=== PATIENT | male | born 1935 | race Caucasian/White ===

== ENCOUNTER 2017-05-22 14:51 | Outpatient (CLI) | payer MEDICARE, OTHER ==
[2017-05-22 19:06] LABS: BASOPHILS % (AUTO) 0.6 %; EOSINOPHILS # (AUTO) 0.1 10^3/uL (0.0-0.7); EOSINOPHILS % (AUTO) 1.4 %; HGB - HEMOGLOBIN 14.4 g/dL (14.0-18.0); LYMPHOCYTES # (AUTO) 1.8 10^3/uL (1.5-3.5); LYMPHOCYTES % (AUTO) 23.2 %; MEAN CORPUSCULAR HEMOGLOBIN 32.5 pg (27.0-31.0); MEAN CORPUSCULAR HGB CONC 32.7 g/dL (32.0-36.0); MEAN CORPUSCULAR VOLUME 99.4 fL (80.0-94.0); MEAN PLATELET VOLUME 11.2 fL (7.4-11.4); MONOCYTES # (AUTO) 0.6 10^3/uL (0.0-1.0); MONOCYTES % (AUTO) 7.4 %; NEUTROPHILS # (AUTO) 5.1 10^3/uL (1.5-6.6); NEUTROPHILS % (AUTO) 67.4 %; RED BLOOD COUNT 4.43 10^6/uL (4.70-6.10); RED CELL DISTRIBUTION WIDTH 14.5 % (12.0-15.0); UNCORRECTED WHITE BLOOD COUNT 7.6 x10^3/uL; WHITE BLOOD COUNT 7.6 x10^3/uL (4.8-10.8)
[2017-05-23 11:03] LABS: BILIRUBIN,TOTAL 1.1 mg/dL (0.2-1.0); BUN - BLOOD UREA NITROGEN 35 mg/dL (6-20); CALCIUM 10.1 mg/dL (8.5-10.3); CARBON DIOXIDE - CO2 22 mmol/L (21-32); CHLORIDE 106 mmol/L (101-111); CHOL/HDL RATIO 6.8 (<5.0); CHOLESTEROL 198 mg/dL; CREATININE 1.7 mg/dL (0.6-1.2); GFR - MDRD 39 (>89); GLUCOSE 119 mg/dL (70-100); HDL CHOLESTEROL 29 mg/dL; LDL/HDL RATIO 4.6 (<3.6); POTASSIUM 5.6 mmol/L (3.5-5.0); SODIUM 136 mmol/L (135-145); TOTAL PROTEIN 7.9 g/dL (6.7-8.2); TRIGLYCERIDES 186 mg/dL; VLDL CHOLESTEROL 37 mg/dL
[2017-05-23 11:10] LABS: HEMOGLOBIN A1C 0.59 g/dL
== END 2017-05-22 14:52 | disposition home or self-care (01) ==
LOC: LAB.WCP 14:51
PROVIDERS: ATTEND Family Medicine
DX: E78.5 Hyperlipidemia, unspecified (principal); E11.9 Type 2 diabetes mellitus without complications; E03.9 Hypothyroidism, unspecified; I10 Essential (primary) hypertension
CPT/HCPCS: 36415; 80053; 80061; 82043; 83036; 84443; 85025

== ENCOUNTER 2017-06-04 09:26 | Outpatient (CLI) | payer MEDICARE, OTHER ==
[2017-06-04 13:31] LABS: CALCIUM 9.6 mg/dL (8.5-10.3); CREATININE 1.5 mg/dL (0.6-1.2)
== END 2017-06-04 09:27 | disposition home or self-care (01) ==
LOC: LAB.WCP 09:26
PROVIDERS: ATTEND Family Medicine
DX: N28.9 Disorder of kidney and ureter, unspecified (principal)
CPT/HCPCS: 36415; 80048

== ENCOUNTER 2017-08-07 09:30 | Outpatient (CLI) | payer MEDICARE, OTHER | END 2017-08-07 09:31 | LOC: LAB.WCP 09:30 | PROVIDERS: ATTEND Family Medicine | DX: N39.0 Urinary tract infection, site not specified (principal) | CPT/HCPCS: 87086 ==

== ENCOUNTER 2017-08-27 10:00 | Outpatient (CLI) | payer MEDICARE, OTHER ==
[2017-08-27 13:07] LABS: BASOPHILS % (AUTO) 0.8 %; EOSINOPHILS # (AUTO) 0.2 10^3/uL (0.0-0.7); EOSINOPHILS % (AUTO) 3.1 %; HGB - HEMOGLOBIN 14.4 g/dL (14.0-18.0); LYMPHOCYTES # (AUTO) 1.5 10^3/uL (1.5-3.5); LYMPHOCYTES % (AUTO) 27.3 %; MEAN CORPUSCULAR HEMOGLOBIN 31.6 pg (27.0-31.0); MEAN CORPUSCULAR HGB CONC 33.4 g/dL (32.0-36.0); MEAN CORPUSCULAR VOLUME 94.6 fL (80.0-94.0); MEAN PLATELET VOLUME 11.7 fL (7.4-11.4); MONOCYTES # (AUTO) 0.5 10^3/uL (0.0-1.0); MONOCYTES % (AUTO) 8.6 %; NEUTROPHILS # (AUTO) 3.4 10^3/uL (1.5-6.6); NEUTROPHILS % (AUTO) 60.2 %; PLT - PLATELET COUNT 170 10^3/uL (130-450); RED BLOOD COUNT 4.55 10^6/uL (4.70-6.10); RED CELL DISTRIBUTION WIDTH 13.4 % (12.0-15.0); WHITE BLOOD COUNT 5.7 x10^3/uL (4.8-10.8)
[2017-08-27 13:44] LABS: ALBUMIN 3.3 g/dL (3.2-5.5); ALBUMIN/GLOBULIN RATIO 0.9 (1.0-2.2); ALKALINE PHOSPHATASE 100 IU/L (42-121); ALT ALANINE AMINOTRANSFERASE 24 IU/L (10-60); AST ASPARTATE AMINOTRANSFERASE 39 IU/L (10-42); BILIRUBIN,TOTAL 0.9 mg/dL (0.2-1.0); BUN - BLOOD UREA NITROGEN 28 mg/dL (6-20); CALCIUM 9.7 mg/dL (8.5-10.3); CARBON DIOXIDE - CO2 25 mmol/L (21-32); CHLORIDE 106 mmol/L (101-111); CHOLESTEROL 168 mg/dL; CREATININE 1.3 mg/dL (0.6-1.2); GFR - MDRD 53 (>89); GLUCOSE 97 mg/dL (70-100); HDL CHOLESTEROL 24 mg/dL; LDL CHOLESTEROL,CALCULATED 108 mg/dL; LDL/HDL RATIO 4.5 (<3.6); SODIUM 137 mmol/L (135-145); TOTAL PROTEIN 7.1 g/dL (6.7-8.2); VLDL CHOLESTEROL 36 mg/dL
[2017-08-27 14:29] LABS: HB2 TOTAL 15.8 g/dL; HEMOGLOBIN A1C 0.57 g/dL; HEMOGLOBIN A1C % 5.5 % (4.6-6.2)
== END 2017-08-27 10:01 | disposition home or self-care (01) ==
LOC: LAB.WCP 10:00
PROVIDERS: ATTEND Family Medicine
DX: E78.5 Hyperlipidemia, unspecified (principal); I12.9 Hypertensive chronic kidney disease with stage 1 through stage 4 chronic kidney disease, or unspecified chronic kidney disease; N28.9 Disorder of kidney and ureter, unspecified; E11.9 Type 2 diabetes mellitus without complications; E03.9 Hypothyroidism, unspecified
CPT/HCPCS: 36415; 80053; 80061; 83036; 83721; 84443; 85025

== ENCOUNTER 2017-09-10 05:01 | Inpatient (IN) | payer MEDICARE, OTHER ==
--- NOTE | 2017-09-10 05:38 | ED Physician Documentation ---
PD HPI LOWER EXT INJURY - Stated complaint Stated Complaint: RT LEG PAIN - Chief complaint Chief Complaint: Ext Problem - History obtained from History obtained from: Patient - History of Present Illness PD HPI LOW EXT INJURY LOCATION: Right, Hip Type of injury: Fall Where injury occurred: Home Timing - onset: How many hours ago (1) Worsened by: Moving, Palpating Similar symptoms before: Has not had sx before - Additional information Additional information: The patient is an 82-year-old male with history of insulin-dependent diabetes who presents with right hip pain after falling this morning. He became dizzy when letting his dog out and he fell to the tile floor onto his right side. He denies hitting his head or losing consciousness. He denies any other injuries. He has not been able to stand since the incident because of pain in his right hip. Review of his medical records reveals hospitalization here in May 2017 for urinary tract infection with hypotension. In addition to insulin-dependent diabetes he has a history of prostate cancer, and a remote history of tuberculosis that has been treated. Review of Systems Constitutional: denies: Fever, Fatigue Nose: denies: Congestion Throat: denies: Sore throat Cardiac: denies: Chest pain / pressure Respiratory: denies: Dyspnea, Cough GI: denies: Abdominal Pain, Nausea, Vomiting : denies: Dysuria Skin: denies: Rash Musculoskeletal: reports: Joint pain (right hip.). denies: Extremity swelling Neurologic: denies: Focal weakness, Numbness, Headache, Head injury, LOC PD PAST MEDICAL HISTORY - Past Medical History Past Medical History: Yes Cardiovascular: Hypertension, High cholesterol Respiratory: Tuberculosis (Remote history; treated.) Neuro: None Endocrine/Autoimmune: Type 2 diabetes, HyPOthyroidism GI: None PARAOPTOMETRIC: Other (Prostate CA) : Other HEENT: None Psych: None Musculoskeletal: Osteoarthritis Derm: None - Past Surgical History Past Surgical History: Yes HEENT: Cataracts - Present Medications Home Medications: Ambulatory Orders Medication Instructions Recorded Confirmed Cholecalciferol (Vitamin D3) 2,000 unit PO DAILY 03/01/13 06/20/17 [Vitamin D3] Fenofibrate [Tricor] 54 mg PO QD 03/01/13 06/20/17 Levothyroxine [Synthroid] 100 mcg PO QDAC 03/01/13 06/20/17 Pravastatin Sodium [Pravachol] 20 mg PO QPM 03/01/13 06/20/17 Tamsulosin [Flomax] 0.4 mg PO DAILY 03/01/13 06/20/17 Aspirin [Aspirin EC] 81 mg PO DAILY 05/25/17 06/20/17 Calcitriol 0.25 mcg PO .TWICEWEEKLY 05/25/17 06/20/17 Gabapentin 300 mg PO TID 05/25/17 06/20/17 traMADol [Ultram] 50 mg PO Q6H PRN 05/25/17 06/20/17 Ciprofloxacin [Cipro] 250 mg PO Q12H #12 tablet 05/26/17 06/20/17 Insulin Glargine [Lantus Solostar] 25 unit SUBQ QPM 08/01/17 08/01/17 - Allergies Allergies/Adverse Reactions: Allergies Allergy/AdvReac Type Severity Reaction Status Date / Time No Known Drug Allergies Allergy Verified 09/10/17 05:10 - Social History Does the pt smoke?: No Smoking Status: Never smoker Does the pt drink ETOH?: No Does the pt have substance abuse?: No - Immunizations Immunizations are current?: Yes - POLST Patient has POLST: No POLST Status: Full Code PD ED PE NORMAL - Vitals Vital signs reviewed: Yes (tachycardic) - General General: Alert and oriented X 3, Well developed/nourished - HEENT HEENT: Atraumatic, EOMI, Pharynx benign - Neck Neck: No bony TTP, No adenopathy, No JVD - Cardiac Cardiac: RRR, No murmur - Respiratory Respiratory: No respiratory distress, Clear bilaterally, Other (No chest wall tenderness.) - Abdomen Abdomen: Soft, Non tender - Back Back: No CVA TTP, No spinal TTP - Derm Derm: No rash - Extremities Extremities: No edema, No calf tenderness / cord, Other (Right leg is shortened and there is tenderness to palpation at the right hip, exacerbated by internal and external rotation.) - Neuro Neuro: Alert and oriented X 3, No motor deficit, No sensory deficit Results - Vitals Vitals: Vital Signs - 24 hr 09/10/17 09/10/17 09/10/17 05:06 05:44 07:22 Temperature 36.2 C L Heart Rate 114 H 100 86 Respiratory 18 16 16 Rate Blood Pressure 120/62 123/56 L 133/81 H O2 Saturation 100 98 99 Oxygen O2 Source Room air - EKG (time done) 05:45 Rate: Rate (enter#) (99) Rhythm: NSR [place]: Normal Intervals: Normal IN Ischemia: Non specific changes (Minimal ST depression, anterior leads.) Computer interpretation: Agree with computer - Labs Labs: Laboratory Tests 09/10/17 09/10/17 09/10/17 05:19 05:42 05:42 WBC 20.1 H RBC 4.26 L Hgb 13.2 L Hct 39.8 L MCV 93.4 MCH 30.9 MCHC 33.1 RDW 13.6 Plt Count 272 MPV 9.5 Neut # 17.7 H Lymph # 1.4 L [place] # 0.8 Eos # 0.1 Baso # 0.1 Absolute Nucleated RBC 0.00 Nucleated RBC % 0.0 PT 12.5 INR 1.1 APTT 27.6 Sodium Potassium Chloride Carbon Dioxide Anion Gap BUN Creatinine Estimated GFR (MDRD) Glucose POC Whole Bld Glucose 177 H Calcium Total Bilirubin AST ALT Alkaline Phosphatase Total Protein Albumin Globulin Albumin/Globulin Ratio Lipase Urine Color Urine Clarity Urine pH Ur Specific [place] Urine Protein Urine Glucose (UA) Urine Ketones Urine Occult Blood Urine Nitrite Urine Bilirubin Urine Urobilinogen Ur Leukocyte Esterase Urine RBC Urine WBC Ur Squamous Epith Cells Urine Bacteria Ur Microscopic Review Urine Culture Comments 09/10/17 09/10/17 05:42 06:28 WBC RBC Hgb Hct MCV MCH MCHC RDW Plt Count MPV Neut # Lymph # [place] # Eos # Baso # Absolute Nucleated RBC Nucleated RBC % PT INR APTT Sodium 135 Potassium 4.4 Chloride 102 Carbon Dioxide 20 L Anion Gap 13.0 BUN 34 H Creatinine 1.8 H Estimated GFR (MDRD) 36 L Glucose 198 H POC Whole Bld Glucose Calcium 9.4 Total Bilirubin 0.8 AST 38 ALT 24 Alkaline Phosphatase 197 H Total Protein 7.1 Albumin 2.9 L Globulin 4.2 Albumin/Globulin Ratio 0.7 L Lipase 19 L Urine Color YELLOW Urine Clarity CLOUDY Urine pH 5.5 Ur Specific [place] 1.025 Urine Protein 30 H Urine Glucose (UA) NEGATIVE Urine Ketones NEGATIVE Urine Occult Blood MODERATE H Urine Nitrite NEGATIVE Urine Bilirubin NEGATIVE Urine Urobilinogen 0.2 (NORMAL) Ur Leukocyte Esterase MODERATE H Urine RBC 6-10 H Urine WBC >25 H Ur Squamous Epith Cells NONE SEEN Urine Bacteria None Seen Ur Microscopic Review INDICATED Urine Culture Comments INDICATED - Rads (name of study) Right hip Radiology: Prelim report reviewed, EMP read contemporaneously, See rad report ( Acute minimally displaced right intertrochanteric femoral fracture.) CXR Radiology: Prelim report reviewed, EMP read contemporaneously, See rad report ( Stable appearing chest without acute cardiopulmonary abnormality.) PD MEDICAL DECISION MAKING - ED course Complexity details: reviewed old records, reviewed results, re-evaluated patient , considered differential, d/w patient, d/w family, d/w instructional design consultant ED course: The patient's presentation is significant for a minimally displaced right intertrochanteric fracture, which is visualized on x-ray of his hip. His laboratory evaluation reveals hyperglycemia with a glucose of 198. BUN and creatinine are elevated at 34 and 1.8. His white count is elevated to 20,000. Treatment in the emergency department included administration of normal saline IV. He declined pain medication, stating it did not hurt unless he moved it. I discussed his condition with Dr. Vitale, on-call for orthopedics, and he evaluated the patient in the emergency department and plans operative repair. I discussed his condition with Dr. Mcgowan, the hospitalist, who will accept him and write further orders prior to surgery. Departure - Departure Disposition: [facility] DC/Xfer Clinical Impression: Intertrochanteric fracture of right femur Qualifiers: Encounter type: initial encounter Fracture type: closed Fracture alignment: displaced Qualified Code(s): S72.141A - Displaced intertrochanteric fracture of right femur, initial encounter for closed fracture Diabetes mellitus with hyperglycemia Qualifiers: Diabetes mellitus type: type 2 Diabetes mellitus terminologist insulin use: with terminologist use Qualified Code(s): E11.65 - Type 2 diabetes mellitus with hyperglycemia Condition: Stable
[2017-09-10 05:49] LABS: BASOPHILS # (AUTO) 0.1 10^3/uL (0.0-0.1); BASOPHILS % (AUTO) 0.3 %; EOSINOPHILS # (AUTO) 0.1 10^3/uL (0.0-0.7); EOSINOPHILS % (AUTO) 0.5 %; HGB - HEMOGLOBIN 13.2 g/dL (14.0-18.0); LYMPHOCYTES # (AUTO) 1.4 10^3/uL (1.5-3.5); LYMPHOCYTES % (AUTO) 7.1 %; MEAN CORPUSCULAR HEMOGLOBIN 30.9 pg (27.0-31.0); MEAN CORPUSCULAR HGB CONC 33.1 g/dL (32.0-36.0); MEAN CORPUSCULAR VOLUME 93.4 fL (80.0-94.0); MEAN PLATELET VOLUME 9.5 fL (7.4-11.4); MONOCYTES # (AUTO) 0.8 10^3/uL (0.0-1.0); MONOCYTES % (AUTO) 3.8 %; NEUTROPHILS # (AUTO) 17.7 10^3/uL (1.5-6.6); NEUTROPHILS % (AUTO) 88.3 %; PLT - PLATELET COUNT 272 10^3/uL (130-450); RED BLOOD COUNT 4.26 10^6/uL (4.70-6.10); RED CELL DISTRIBUTION WIDTH 13.6 % (12.0-15.0); WHITE BLOOD COUNT 20.1 x10^3/uL (4.8-10.8)
[2017-09-10 05:53] LABS: INR 1.1 (0.8-1.2); PT - PROTHROMBIN TIME 12.5 secs (9.9-12.6)
[2017-09-10 06:13] LABS: ALBUMIN 2.9 g/dL (3.2-5.5); ALBUMIN/GLOBULIN RATIO 0.7 (1.0-2.2); BILIRUBIN,TOTAL 0.8 mg/dL (0.2-1.0); CALCIUM 9.4 mg/dL (8.5-10.3); CREATININE 1.8 mg/dL (0.6-1.2); TOTAL PROTEIN 7.1 g/dL (6.7-8.2)
[2017-09-10 06:44] LABS: BILIRUBIN,URINE NEGATIVE (NEGATIVE); GLUCOSE, URINE (UA) NEGATIVE (NEGATIVE); KETONES,URINE (UA) NEGATIVE (NEGATIVE); LEUKOCYTE ESTERASE, URINE MODERATE (NEGATIVE); NITRITE,URINE NEGATIVE (NEGATIVE); OCCULT BLOOD,URINE MODERATE (NEGATIVE); PH,URINE 5.5 PH (5.0-7.5); PROTEIN,URINE 30 mg/dL (NEGATIVE); UROBILINOGEN,URINE 0.2 (NORMAL) E.U./dL (NORMAL)
--- NOTE | 2017-09-10 06:48 | XRAY Report ---
EXAM: CHEST RADIOGRAPHY EXAM DATE: 09/10/2017 06:25 AM. CLINICAL HISTORY: Pre-op hip fx. COMPARISON: 03/01/2013. TECHNIQUE: 1 view. FINDINGS: Lungs/Pleura: Nonspecific mild bilateral upper lobe interstitial scarring again noted. No significant consolidation, effusion, or definite pneumothorax. Mediastinum: Within exam limitations, the cardiomediastinal contour is normal. Other: None. IMPRESSION: Stable appearance of the chest without acute cardiopulmonary abnormality. [facility] Referring Provider Line: [phone] SITE ID: [id number]
--- NOTE | 2017-09-10 06:49 | XRAY Report ---
EXAM: RIGHT HIP AND PELVIS RADIOGRAPHY EXAM DATE: 09/10/2017 06:25 AM. HISTORY: Right hip pain after fall. COMPARISONS: None. TECHNIQUE: 1 view of the pelvis and 1 view of the hip. FINDINGS: Bones: There is a minimally displaced intertrochanteric right femoral fracture. Joints: Mild bilateral SI joint degenerative change; moderate to severe lower lumbar degenerative mat nge; as well as a moderate symphysis pubis and bilateral hip joint degenerative change. Symphysis pub is as well as bilateral hip joint chondrocalcinosis. Soft Tissues: Mild to moderate soft tissue swelling around the right hip IMPRESSION: Acute minimally displaced intertrochanteric right femoral fracture. [facility] Referring Provider Line: [phone] SITE ID: [id number]
--- NOTE | 2017-09-10 06:49 | XRAY Preliminary Report ---
Exam: XR HIP W/PELVIS 2-3V RT IMPRESSION: Acute minimally displaced intertrochanteric right femoral fracture. [facility] SITE ID: [id number]
[2017-09-10 06:54] LABS: CLARITY,URINE CLOUDY (CLEAR)
[2017-09-10] MEDS ORDERED: SODIUM CHLORIDE 0.9% 1,000 ML IV ONE ×3 (06:57→11:41)
[2017-09-10 07:05] LABS: BACTERIA,URINE None Seen /HPF (None Seen); SQUAMOUS EPITHELIAL CELL,UR NONE SEEN (<= Few)
--- NOTE | 2017-09-10 07:36 | HISTORY & PHYSICAL EXAMINATION ---
Chief Complaint - Chief Complaint Chief Complaint: fall History of Present Illness - Admitted From Admitted From:: ED - History Obtained From Records Reviewed: yes History obtained from: chart review, patient, family Exam Limitations: none - History of Present Illness HPI Comment/Other: Ko Santiago is an 82-year-old male with history of insulin-dependent diabetes, CKD, hypothyroidism, hyperlipidemia, hypertension, BPH, prostate cancer, recurrent UTI, and TB. Patient presents to the ED with right hip pain after falling last night. He became dizzy when letting his dog out and he fell to the tile floor onto his right side. He denies hitting his head or losing consciousness. He denies any other injuries. He has not been able to stand since the incident because of pain in his right hip. Ortho surgery was contacted, and patient is planning for surgery today to repair his right hip fracture. History - Past Medical History Cardiovascular: reports: Hypertension, High cholesterol Respiratory: reports: Tuberculosis (Remote history; treated.) Neuro: reports: Peripheral neuropathy Endocrine/Autoimmune: reports: Type 2 diabetes, HyPOthyroidism GI: reports: None REFERRAL MANAGEMENT LIAISON: reports: Other (Prostate CA) : reports: Other HEENT: reports: None Psych: reports: None Musculoskeletal: reports: Osteoarthritis Derm: reports: None MRSA Hx?: No - Past Surgical History HEENT: reports: Cataracts Other past surgical history: Right middle toe removal due to infected toes. - Family & Social History Family History: Mother: , Father: Family History Comment/Other: Mother of pulmonary edema, [place]. Father of CVA, cancer. Living arrangement: At home Living Situation: With family Social History Notes: The patient lives in [place] with his , daughter and grandkids. The patient states that he was born in [facility] and moved to [place] in his teen years and joined the [employer]. The patient states that he traveled all throughout the world with the [employer] including the [facility] and [place]. The patient is and has 1 daughter his is from the [facility]. The patient was previously living in [facility] but moved out to [facility] 1 month ago as his daughter is going through a divorce and him and his wanted to be closer to his daughter. The patient quit smoking about 40 years ago and smoked 2 packs a day for about 20 years. Patient currently does not drink alcohol or use any illicit drugs. - Substance History Use: Uses substance without health or social issues: NONE Abuse: Recurrent use of substance despite neg consequences: NONE Dependence: Experiences withdrawal or developed tolerances: NONE Tobacco Details: Cigarettes (history of smoking ~40 years (1 PPD).) - POLST Patient has POLST: No POLST Status: Full Code Meds/Allgy - Home Medications Home Medications: Ambulatory Orders Medication Instructions Recorded Confirmed Cholecalciferol (Vitamin D3) 2,000 unit PO DAILY 03/01/13 09/10/17 [Vitamin D3] Fenofibrate [Tricor] 54 mg PO QD 03/01/13 09/10/17 Levothyroxine [Synthroid] 100 mcg PO QDAC 03/01/13 09/10/17 Pravastatin Sodium [Pravachol] 20 mg PO QPM 03/01/13 09/10/17 Tamsulosin [Flomax] 0.4 mg PO DAILY 03/01/13 09/10/17 Aspirin [Aspirin EC] 81 mg PO DAILY 05/25/17 09/10/17 Gabapentin 300 mg PO TID 05/25/17 09/10/17 Insulin Glargine [Lantus Solostar] 10 unit SUBQ QPM 08/01/17 09/10/17 - Allergies Allergies/Adverse Reactions: Allergies Allergy/AdvReac Type Severity Reaction Status Date / Time No Known Drug Allergies Allergy Verified 09/10/17 05:10 Review of Systems - Constitutional Constitutional: reports: Weakness, Poor appetite - Eyes Eyes: reports: Vision loss (right eye with less vision. Patient states he needs a lense replacement.), Corrective lenses - Ears, Nose & Throat Ears, Nose & Throat: reports: Vertigo - Cardiovascular Cariovascular: reports: Lightheadedness - Gastrointestinal Gastrointestinal: reports: Poor appetite - Genitourinary Genitourinary: reports: Dysuria, Frequency, Urgency, Nocturia. denies: Hematuria - Musculoskeletal Musculoskeletal: denies: Muscle pain, Back pain - Integumentary Integumentary: reports: Dryness. denies: Rash, Pruritis - Neurological Neurological: reports: General weakness, Pre-existing deficit - Psychiatric Psychiatric: denies: Depression, Anxiety - Endocrine Endocrine: denies: Polyuria, Polydypsia - Hematologic/Lymphatic Hematologic/Lymphatic: reports: Recurrent infections. denies: Blood clots - All Other Systems All Other Systems: reports: Reviewed and negative Exam - Vital Signs Reviewed Vital Signs: Yes Vital Signs: Vital Signs x48h Temp Pulse Resp BP Pulse Ox 09/10/17 07:22 86 16 133/81 H 99 09/10/17 05:44 100 16 123/56 L 98 09/10/17 05:06 36.2 C L 114 H 18 120/62 100 - Physical Exam General Appearance: positive: No acute distress, Alert Eyes Bilateral: positive: Normal inspection, PERRL ENT: positive: ENT inspection nml, Pharynx nml, Dry mucous membranes Neck: positive: Nml inspection, Thyroid nml, No JVD Respiratory: positive: Chest non-tender, No respiratory distress, Breath sounds nml, Other (diminished.) Cardiovascular: positive: Regular rate & rhythm, No murmur, No gallop, Decreased pulse(s) Peripheral Pulses: positive: 1+ Abdomen: positive: Non-tender, No organomegaly, Nml bowel sounds, No distention Back: positive: Nml inspection Skin: positive: No rash, Warm, Dry Extremities: positive: Non-tender, Full ROM, Nml appearance, No pedal edema, Joint swelling Neurologic/Psychiatric: positive: Oriented x3, CN's nml (2-12), Motor nml, Sensation nml, Sensory loss, Depressed mood/affect Reflexes: Bicep (R): 2+, Bicep (L): 2+ Conclusion/Plan - Problem List (1) Fall Conclusion/Plan: Patient states that he got up around 4AM to let the dog out and the next thing he know he was on the floor. He admits to feeling dizzy just prior to this fall. Plan: Orthopedic surgery is planning to to a right hip repair this AM. (2) Intertrochanteric fracture of right femur Conclusion/Plan: A right hip x-ray was completed in the ED and shows an acute minimally displaced intertrochanteric right femoral fracture. This occurred prior to admission when the patient became dizzy, and fell on his right side. This event was not witnessed. Plan: Plans for surgery to repair right hip with Dr. Jose. Qualifiers: Encounter type: initial encounter Fracture type: closed Fracture alignment: displaced Qualified Code(s): S72.141A - Displaced intertrochanteric fracture of right femur, initial encounter for closed fracture (3) Dehydration Conclusion/Plan: Patient has an elevated creatinine of 1.8 on admission. His bladder has had evidence of unresolved UTI. A UA was obtained in the ED that shows a UTI. Upon chart review, patient was discharged on (4) Urinary tract infection Conclusion/Plan: Per report from Dr. Jose, [facility] surgery, patient's urine was noted as thick, foul smelling, and concentrated. A UA was obtained and suspicious for UTI. Patient has a history of recurrent UTIs. Plan: Start antibiotics and IVFs. Monitor and control blood sugars. Qualifiers: Urinary tract infection type: acute cystitis Hematuria presence: without hematuria Qualified Code(s): N30.00 - Acute cystitis without hematuria - Lab Results Lab results reviewed: Yes Fish Bones: 09/10/17 05:42 09/10/17 05:42 - Diagnostic Imaging Results Diagnostic Imaging Results: positive: Prelim report reviewed, Final report reviewed Diagnostic Imaging Results Comments: EXAM: RIGHT HIP AND PELVIS RADIOGRAPHY EXAM DATE: 09/10/2017 06:25 AM. HISTORY: Right hip pain after fall. COMPARISONS: None. TECHNIQUE: 1 view of the pelvis and 1 view of the hip. FINDINGS: Bones: There is a minimally displaced intertrochanteric right femoral fracture. Joints: Mild bilateral SI joint degenerative change; moderate to severe lower lumbar degenerative change; as well as a moderate symphysis pubis and bilateral hip joint degenerative change. Symphysis pubis as well as bilateral hip joint chondrocalcinosis. Soft Tissues: Mild to moderate soft tissue swelling around the right hip IMPRESSION: Acute minimally displaced intertrochanteric right femoral fracture. EXAM: CHEST RADIOGRAPHY EXAM DATE: 09/10/2017 06:25 AM. CLINICAL HISTORY: Pre-op hip fx. COMPARISON: 03/01/2013. TECHNIQUE: 1 view. FINDINGS: Lungs/Pleura: Nonspecific mild bilateral upper lobe interstitial scarring again noted. No significant consolidation, effusion, or definite pneumothorax. Mediastinum: Within exam limitations, the cardiomediastinal contour is normal. Other: None. IMPRESSION: Stable appearance of the chest without acute cardiopulmonary abnormality. - EKG Results EKG Interpreted Independently: Yes EKG Comparison: Unchanged from prior EKG, No prior EKG Core Measures - Anticipated LOS I expect patient to be DC'd or transferred within 96 hours.: Yes - DVT/VTE - Prophylaxis VTE/DVT Device ordered at admit?: Yes VTE/DVT Prophylaxis med ordered at admit?: No Not Ordered - Medical Reason: Contraindicated - Stroke - Rehab Assessment Rehab services assessment to be ordered?: Yes - AMI - Statin at Admit Aspirin Prescribed on Admit: Yes
[2017-09-10] MEDS ORDERED: HYDROmorphone 1 MG/ML SYRINGE IVP PRN (07:37)
[2017-09-10] MEDS ORDERED: HYDROcod/ACETAM 5/325 MG TABLET PO PRN (07:37)
[2017-09-10] MEDS ORDERED: SODIUM CHLORIDE FLUSH 0.9% 10 ML SYRINGE IVP PRN (07:37)
[2017-09-10] MEDS ORDERED: TEMAZEPAM 15 MG CAPSULE PO PRN (07:37)
[2017-09-10] MEDS ORDERED: ACETAMINOPHEN 325 MG TABLET PO PRN (07:37)
[2017-09-10] MEDS: SODIUM CHLORIDE 0.9% 1,000 ML IV SCH ×2 (08:49→19:33)
--- NOTE | 2017-09-10 09:56 | CONSULTATION NOTE ---
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 Patient does not know why, but htinks he did not loose consciousness. Brought to ER by medics. Lives with extended family. History - Past Medical History Cardiovascular: reports: Hypertension, High cholesterol Respiratory: reports: Tuberculosis (Remote history; treated.) Neuro: reports: None Endocrine/Autoimmune: reports: Type 2 diabetes, HyPOthyroidism GI: reports: None COMPLIANCE ADMINISTRATOR: reports: Other (Prostate CA) : reports: Other HEENT: reports: None Psych: reports: None Musculoskeletal: reports: Osteoarthritis Derm: reports: None MRSA Hx?: No - Past Surgical History /COMPLIANCE ADMINISTRATOR: reports: Other (prostatectomy TURP) HEENT: reports: Cataracts - Family & Social History Family History: Mother: , Father: Family History Comment/Other: Mother of pulmonary edema, [place]. Father of CVA, cancer. Living arrangement: At home Living Situation: With family Social History Notes: The patient lives in [place] with his , daughter and grandkids. The patient states that he was born in [facility] and moved to [place] in his teen years and joined the [employer] [facility] [employer]. The patient states that he traveled all throughout the world with the [employer] including the [facility] and [place]. The patient is and has 1 daughter his is from the [facility]. The patient was previously living in [facility] but moved out to [facility] 1 month ago as his daughter is going through a divorce and him and his wanted to be closer to his daughter. The patient quit smoking about 40 years ago and smoked 2 packs a day for about 20 years. Patient currently does not drink alcohol or use any illicit drugs. - Substance History Use: Uses substance without health or social issues: NONE Abuse: Recurrent use of substance despite neg consequences: NONE Dependence: Experiences withdrawal or developed tolerances: NONE Tobacco Details: Cigarettes - POLST Patient has POLST: No POLST Status: Full Code Meds/Allgy - Home Medications Home Medications: Ambulatory Orders Medication Instructions Recorded Confirmed Cholecalciferol (Vitamin D3) 2,000 unit PO DAILY 03/01/13 06/20/17 [Vitamin D3] Fenofibrate [Tricor] 54 mg PO QD 03/01/13 06/20/17 Levothyroxine [Synthroid] 100 mcg PO QDAC 03/01/13 06/20/17 Pravastatin Sodium [Pravachol] 20 mg PO QPM 03/01/13 06/20/17 Tamsulosin [Flomax] 0.4 mg PO DAILY 03/01/13 06/20/17 Aspirin [Aspirin EC] 81 mg PO DAILY 05/25/17 06/20/17 Calcitriol 0.25 mcg PO .TWICEWEEKLY 05/25/17 06/20/17 Gabapentin 300 mg PO TID 05/25/17 06/20/17 traMADol [Ultram] 50 mg PO Q6H PRN 05/25/17 06/20/17 Ciprofloxacin [Cipro] 250 mg PO Q12H #12 tablet 05/26/17 06/20/17 Insulin Glargine [Lantus Solostar] 25 unit SUBQ QPM 08/01/17 08/01/17 - Allergies Allergies/Adverse Reactions: Allergies Allergy/AdvReac Type Severity Reaction Status Date / Time No Known Drug Allergies Allergy Verified 09/10/17 05:10 Review of Systems - Musculoskeletal Musculoskeletal: reports: Other (sites of arthritis) Exam - Vital Signs Vital Signs: Vital Signs x48h Temp Pulse Resp BP Pulse Ox 09/10/17 08:41 36.7 C 94 18 102/44 L 99 - Physical Exam General Appearance: positive: No acute distress Eyes Bilateral: positive: EOMI Neck: positive: Nml inspection Respiratory: positive: Chest non-tender Peripheral Pulses: positive: 1+ Extremities: positive: Other (RLE shortened and externally rotated.) Comments/Other: Radiology. Perlvis and lateral right hip show 2 part angulated intertrochanteric fracture. Questionable bone quality, but no lesion. Conclusion/Plan - Diagnosis Diagnosis: Right hip intertrochanteric fracture. - Plan Plan: To OR later this morning for ORIF with Dynamic Hip Screw. Discussed with patigent and daughter. Fx and surgery explained. Risk of bleeding, infection, DVT and PE discussed as well as serious unspecified problems. Patient had questions answered and wishes to proceed. COnsent signed in my presence. - Lab Results Lab results reviewed: Yes Fish Bones: 09/10/17 05:42 09/10/17 05:42
[2017-09-10] MEDS ORDERED: ONDANSETRON 4 MG/2 ML VIAL IVP ONE (11:35)
[2017-09-10] MEDS ORDERED: fentaNYL 100 MCG/2 ML VIAL IVP ONE (11:35)
[2017-09-10] MEDS ORDERED: PROPOFOL 200 MG/20 ML VIAL IVP ONE (11:35)
[2017-09-10] MEDS ORDERED: KETOROLAC 30 MG/ML VIAL IVP ONE (11:35)
[2017-09-10] MEDS ORDERED: LIDOCAINE-MPF 2% 5 ML VIAL IM ONE (11:35)
[2017-09-10] MEDS ORDERED: DEXAMETHASONE 4 MG/ML VIAL IVP ONE (11:35)
[2017-09-10] MEDS ORDERED: ePHEDrine 50 MG/ML AMP IVP ONE (11:35)
[2017-09-10] MEDS ORDERED: ACETAMINOPHEN 1,000 MG/100 ML 100 ML IV ONE (11:35)
[2017-09-10] MEDS ORDERED: LIDOCAINE MPF 2%-EPI 1:200000 20 ML VIAL SUBQ ONE (11:48)
[2017-09-10] MEDS ORDERED: LACTATED RINGERS 1,000 ML IV ONE (12:37)
--- NOTE | 2017-09-10 12:47 | OPERATIVE REPORT ---
Operative Report - General Admit Date: 09/10/17 Procedure Date: 09/10/17 Planned Procedure: ORIF RIght Proximal femur with DHS device Pre-Op Diagnosis: RIght hip Intertrochanteric Fracture Procedure Performed: ORIF right proximal femur with DHS device Post Op Diagnosis: same - Procedure Note Primary Surgeon: Alejandra Secondary Surgeon: nino Anesthesia Technique: General LMA Estimated Blood Loss (mL): 100 Urine Output (mL): 300 - Other Other Information/Narrative: None
--- NOTE | 2017-09-10 13:00 | XRAY Report ---
INTRAOPERATIVE RIGHT HIP: 09/10/2017 CLINICAL INDICATION: ORIF. FINDINGS: Intraoperative frontal and lateral views of the right hip demonstrate dynamic compression screw and side plate fixation of the right intratrochanteric fracture. 56 seconds of fluoroscopy time was provided to Dr. Talbot; 2 spot images obtained. IMPRESSION: INTRAOPERATIVE IMAGING OF RIGHT HIP FRACTURE FIXATION. TD: 09/10/2017 12:58
--- NOTE | 2017-09-10 13:20 | OPERATIVE REPORT ---
DATE OF SERVICE: Physician: Michael Cavanaugh MD PREOPERATIVE DIAGNOSIS: Closed right proximal femur intertrochanteric fracture, 2-part. POSTOPERATIVE DIAGNOSIS: Closed right proximal femur intertrochanteric fracture, 2-part. PROCEDURE PERFORMED: Open reduction internal fixation of right proximal femur with a dynamic hip screw. SURGEON: Michael Cavanaugh MD [employer] CHEMIST: None. ANESTHESIA: Laryngeal mask anesthesia. INDICATIONS: This man had fallen in the very gig tender hours on a hard surface suffering the above-mentioned fracture. His general health was deemed good enough to go to the operating room today. PROCEDURE: The patient was brought in the operating room and placed under adequate general anesthesia. He was then transferred to the fracture table. A well-padded perineal post was placed. The injured side foot was placed in a well-padded boot to allow traction. The well leg was then placed up in flexion, abduction and some internal rotation. This allowed good access for the C-arm fluoroscopy for both AP and lateral views, which were used throughout the procedure. The right hip region was prepped and sterilely draped in usual fashion. A timeout was held to identify patient, site and procedure. Fluoroscope was introduced to help pick a good start point for the incision. A 4 cm incision was then created through the dermis and subcutaneous tissue. Muñoz scissors was used to plunge into the bone a little more proximal than the incision. This was opened and also used as scissors to cut the fairly dense iliotibial band. Bacon elevator could be gotten in to clear the surface of the femur, both in the expected large bore hole and more distally along the expected area of the plate. A guide pin was then placed up from the lateral cortex proximally through the neck into the head. A position of slightly inferior in the head and slightly anterior in the head was accepted. A long cannulated drill was then used up into the head with careful following with the C-arm to make sure there was no advance of the pin. The barrel painter was then slid distally on the cannulated drill and the lateral cortex was opened up in the usual fashion. A tap was then used over the guide pin. A 105 mm screw from the [employer] DHS set was then placed up carefully watching the guide pin to make sure it did not advance. The lowest angle in the set was a 135 degree, although a 130 would have more accurately matched the neck angle. This implant was then flipped with the barrel aimed superficial and slid into the small incision. It could then be rolled over. A Selvin was gotten through this and locked in rather easily to the butt of the large screw. With a little tilting, it was possible to get this on with unusually little difficulty. This was pushed up to be snug against the lateral cortex. There were a few degrees of variance between the lateral cortex and the plate. The second hole of the plate was then utilized to place a bicortical 4.5 screw. This came down easily, bringing the plate down along the lateral cortex of the femur. There was no apparent opening of any cortical bone at the fracture site. The additional 3 screws were then placed into the plate and shaft of the femur. C-arm was used in a fluoroscopy mode both on lateral and AP views to make sure that with rotation, there was no tendency for the tip of the screw to approach the subchondral bone. Wound was irrigated with normal saline. Some 2-0 PDS [id number] sutures were used deep. Skin was closed with a running 3-0 Prolene subcuticular stitch. A sterile bandage was then placed over. The patient was then awakened and moved over to the hospital bed. He went to the recovery room in good condition, having tolerated the procedure well, with an estimated 100 mL blood loss. TD: 09/10/2017 13:19
[2017-09-10] MEDS: INSULIN ASPART 300 UNIT/3 ML PEN SUBQ SCH ×3 (13:36→20:47)
[2017-09-10] MEDS: SODIUM CHLORIDE FLUSH 0.9% 10 ML SYRINGE IVP SCH ×2 (14:22→19:33)
[2017-09-10] MEDS: LEVOTHYROXINE 100 MCG TABLET PO SCH (14:22)
[2017-09-10] MEDS ORDERED: INSULIN ASPART 300 UNIT/3 ML PEN SUBQ SCH (20:00)
[2017-09-10] MEDS: INSULIN GLARGINE 300 UNIT/3 ML PEN SUBQ SCH (20:48)
[2017-09-10] MEDS ORDERED: INSULIN GLARGINE 300 UNIT/3 ML PEN SUBQ SCH (21:00)
[2017-09-10] MEDS: GABAPENTIN 300 MG CAPSULE PO SCH (23:53)
[2017-09-11 05:35] LABS: BASOPHILS # (AUTO) 0.1 10^3/uL (0.0-0.1); BASOPHILS % (AUTO) 0.4 %; EOSINOPHILS % (AUTO) 0.1 %; HGB - HEMOGLOBIN 10.7 g/dL (14.0-18.0); LYMPHOCYTES # (AUTO) 1.5 10^3/uL (1.5-3.5); LYMPHOCYTES % (AUTO) 13.2 %; MEAN CORPUSCULAR HEMOGLOBIN 31.2 pg (27.0-31.0); MEAN CORPUSCULAR HGB CONC 33.1 g/dL (32.0-36.0); MEAN CORPUSCULAR VOLUME 94.3 fL (80.0-94.0); MEAN PLATELET VOLUME 9.5 fL (7.4-11.4); MONOCYTES # (AUTO) 0.6 10^3/uL (0.0-1.0); MONOCYTES % (AUTO) 5.3 %; NEUTROPHILS # (AUTO) 9.1 10^3/uL (1.5-6.6); PLT - PLATELET COUNT 204 10^3/uL (130-450); RED BLOOD COUNT 3.42 10^6/uL (4.70-6.10); RED CELL DISTRIBUTION WIDTH 13.7 % (12.0-15.0); WHITE BLOOD COUNT 11.3 x10^3/uL (4.8-10.8)
[2017-09-11] MEDS: SODIUM CHLORIDE 0.9% 1,000 ML IV SCH ×2 (05:52→16:24)
[2017-09-11] MEDS: LEVOTHYROXINE 100 MCG TABLET PO SCH (05:53)
[2017-09-11] MEDS: GABAPENTIN 300 MG CAPSULE PO SCH ×3 (06:00→21:02)
[2017-09-11] MEDS: PANTOPRAZOLE 40 MG TABLET PO SCH (06:00)
[2017-09-11 06:02] LABS: ALBUMIN 2.2 g/dL (3.2-5.5); ALBUMIN/GLOBULIN RATIO 0.7 (1.0-2.2); BILIRUBIN,TOTAL 0.8 mg/dL (0.2-1.0); CALCIUM 8.3 mg/dL (8.5-10.3); CREATININE 1.5 mg/dL (0.6-1.2); TOTAL PROTEIN 5.4 g/dL (6.7-8.2)
[2017-09-11 06:42] LABS: HB2 TOTAL 11.1 g/dL; HEMOGLOBIN A1C 0.44 g/dL; HEMOGLOBIN A1C % 5.8 % (4.6-6.2)
--- NOTE | 2017-09-11 07:16 | PROVIDER PROGRESS NOTE ---
Subjective - General Admit Date: 09/10/17 Procedure Date: 09/10/17 Post Op Days: 1 Procedure Performed: ORIF right prox femur - Review of Systems Wound/Incisions: positive: Drainage (small in dressing) General: positive: No symptoms (except when moving) Musculoskeletal: positive: Other (Thigh swelling; no pain with limited motion of right hip IR/ER) Neurological: All Other Systems: positive: Reviewed and negative - Other Other Information/Narrative: Hgb 10.7 was 13.9 Objective - Patient Data Vital Signs: Vital Signs x48h Temp Pulse Resp BP Pulse Ox 09/11/17 05:00 36.6 C 70 20 106/48 L 97 09/11/17 00:00 36.6 C 86 20 106/48 L 98 Weight: Weight 09/09/17 09/10/17 09/11/17 23:59 23:59 23:59 Weight (kg) 77.1 kg 85 kg Intake & Output: Intake and Output Totals x24h 09/09/17 09/10/17 09/11/17 23:59 23:59 23:59 Intake Total 3040 1000 Output Total 200 400 Balance 2840 600 - Lab Results Lab Results: 09/11/17 05:19 09/11/17 05:19 Other Lab Results: Lab Results x24hrs 09/11/17 09/11/17 09/11/17 Range/Units 05:19 05:19 05:19 WBC 11.3 H (4.8-10.8) x10^3/uL RBC 3.42 L (4.70-6.10) 10^6/uL Hgb 10.7 L (14.0-18.0) g/dL Hct 32.2 L (42.0-52.0) % MCV 94.3 H (80.0-94.0) fL MCH 31.2 H (27.0-31.0) pg MCHC 33.1 (32.0-36.0) g/dL RDW 13.7 (12.0-15.0) % Plt Count 204 (130-450) 10^3/uL MPV 9.5 (7.4-11.4) fL Neut # 9.1 H (1.5-6.6) 10^3/uL Lymph # 1.5 (1.5-3.5) 10^3/uL [place] # 0.6 (0.0-1.0) 10^3/uL Eos # 0.0 (0.0-0.7) 10^3/uL Baso # 0.1 (0.0-0.1) 10^3/uL Absolute Nucleated RBC 0.01 x10^3/uL Nucleated RBC % 0.0 /100WBC Sodium 131 L (135-145) mmol/L Potassium 4.1 (3.5-5.0) mmol/L Chloride 104 (101-111) mmol/L Carbon Dioxide 19 L (21-32) mmol/L Anion Gap 8.0 (6-13) BUN 36 H (6-20) mg/dL Creatinine 1.5 H (0.6-1.2) mg/dL Estimated GFR (MDRD) 45 L (>89) Glucose 156 H (70-100) mg/dL POC Whole Bld Glucose (70 - 100) mg/dL Glycated Hemoglobin 5.8 (4.6-6.2) % Estim Average Glucose 120 H (70-100) Calcium 8.3 L (8.5-10.3) mg/dL Iron 41 L (45-182) ug/dL TIBC 140 L (250-450) ug/dL % Saturation 29 (20-50) % Transferrin 100 L (180-329) mg/dL Total Bilirubin 0.8 (0.2-1.0) mg/dL AST 41 (10-42) IU/L ALT 20 (10-60) IU/L Alkaline Phosphatase 143 H (42-121) IU/L Total Protein 5.4 L (6.7-8.2) g/dL Albumin 2.2 L (3.2-5.5) g/dL Globulin 3.2 (2.1-4.2) g/dL Albumin/Globulin Ratio 0.7 L (1.0-2.2) TSH (0.34-5.60) uIU/mL Blood Type Antibody Screen 09/11/17 09/10/17 09/10/17 Range/Units 05:10 20:23 16:42 WBC (4.8-10.8) x10^3/uL RBC (4.70-6.10) 10^6/uL Hgb (14.0-18.0) g/dL Hct (42.0-52.0) % MCV (80.0-94.0) fL MCH (27.0-31.0) pg MCHC (32.0-36.0) g/dL RDW (12.0-15.0) % Plt Count (130-450) 10^3/uL MPV (7.4-11.4) fL Neut # (1.5-6.6) 10^3/uL Lymph # (1.5-3.5) 10^3/uL [place] # (0.0-1.0) 10^3/uL Eos # (0.0-0.7) 10^3/uL Baso # (0.0-0.1) 10^3/uL Absolute Nucleated RBC x10^3/uL Nucleated RBC % /100WBC Sodium (135-145) mmol/L Potassium (3.5-5.0) mmol/L Chloride (101-111) mmol/L Carbon Dioxide (21-32) mmol/L Anion Gap (6-13) BUN (6-20) mg/dL Creatinine (0.6-1.2) mg/dL Estimated GFR (MDRD) (>89) Glucose (70-100) mg/dL POC Whole Bld Glucose 427 H 377 H (70 - 100) mg/dL Glycated Hemoglobin (4.6-6.2) % Estim Average Glucose (70-100) Calcium (8.5-10.3) mg/dL Iron (45-182) ug/dL TIBC (250-450) ug/dL % Saturation (20-50) % Transferrin (180-329) mg/dL Total Bilirubin (0.2-1.0) mg/dL AST (10-42) IU/L ALT (10-60) IU/L Alkaline Phosphatase (42-121) IU/L Total Protein (6.7-8.2) g/dL Albumin (3.2-5.5) g/dL Globulin (2.1-4.2) g/dL Albumin/Globulin Ratio (1.0-2.2) TSH < 0.08 L (0.34-5.60) uIU/mL Blood Type Antibody Screen 09/10/17 09/10/17 Range/Units 12:49 07:50 WBC (4.8-10.8) x10^3/uL RBC (4.70-6.10) 10^6/uL Hgb (14.0-18.0) g/dL Hct (42.0-52.0) % MCV (80.0-94.0) fL MCH (27.0-31.0) pg MCHC (32.0-36.0) g/dL RDW (12.0-15.0) % Plt Count (130-450) 10^3/uL MPV (7.4-11.4) fL Neut # (1.5-6.6) 10^3/uL Lymph # (1.5-3.5) 10^3/uL [place] # (0.0-1.0) 10^3/uL Eos # (0.0-0.7) 10^3/uL Baso # (0.0-0.1) 10^3/uL Absolute Nucleated RBC x10^3/uL Nucleated RBC % /100WBC Sodium (135-145) mmol/L Potassium (3.5-5.0) mmol/L Chloride (101-111) mmol/L Carbon Dioxide (21-32) mmol/L Anion Gap (6-13) BUN (6-20) mg/dL Creatinine (0.6-1.2) mg/dL Estimated GFR (MDRD) (>89) Glucose (70-100) mg/dL POC Whole Bld Glucose 140 H (70 - 100) mg/dL Glycated Hemoglobin (4.6-6.2) % Estim Average Glucose (70-100) Calcium (8.5-10.3) mg/dL Iron (45-182) ug/dL TIBC (250-450) ug/dL % Saturation (20-50) % Transferrin (180-329) mg/dL Total Bilirubin (0.2-1.0) mg/dL AST (10-42) IU/L ALT (10-60) IU/L Alkaline Phosphatase (42-121) IU/L Total Protein (6.7-8.2) g/dL Albumin (3.2-5.5) g/dL Globulin (2.1-4.2) g/dL Albumin/Globulin Ratio (1.0-2.2) TSH (0.34-5.60) uIU/mL Blood Type A POSITIVE Antibody Screen NEGATIVE - Current Medications Current Medications: Current Medications Generic Name Dose Route Start Last Admin Trade Name Freq PRN Reason Stop Dose Admin Acetaminophen/Hydrocodone Bitart 1 tab 09/10/17 07:37 09/11/17 06:00 [place] 5/325 PO 1 tab Q4HR PRN Administration Pain 5 to 7 Gabapentin 300 mg 09/10/17 23:45 09/11/17 06:00 Neurontin PO 300 mg TID DONALD Administration Sodium Chloride 1,000 mls @ 100 mls/hr 09/10/17 09:00 09/11/17 05:52 Normal Saline 0.9% IV 100 mls/hr .Q10H DONALD Administration Insulin Aspart 1 - 9 unit 09/10/17 21:00 09/10/17 20:47 Novolog SUBQ 12 unit 0800,1200,1700,2100 DONALD Administration Protocol Insulin Glargine 20 unit 09/10/17 21:00 09/10/17 20:48 Lantus Solostar SUBQ 20 unit QPM DONALD Administration Levothyroxine Sodium 100 mcg 09/10/17 14:00 09/11/17 05:53 Synthroid PO 100 mcg QDAC DONALD Administration Pantoprazole Sodium 40 mg 09/11/17 07:00 09/11/17 06:00 Protonix PO 40 mg QDAC DONALD Administration Sodium Chloride 10 ml 09/10/17 14:00 09/10/17 19:33 Normal Saline Flush 0.9% IVP 10 ml Q8HR DONALD Administration - Physical Exam Wound/Incisions: positive: Drainage (small) Neurologic/Psychiatric: positive: Other (no pain with small IR/ER hip; lNV intact) Impression/Plan - Problem List Problem List: Doing Well post op PLAN up in chair today
[2017-09-11] MEDS: FENOFIBRATE 48 MG TABLET PO SCH ×2 (07:49→23:48)
[2017-09-11] MEDS: SODIUM CHLORIDE FLUSH 0.9% 10 ML SYRINGE IVP SCH ×3 (07:50→21:03)
[2017-09-11] MEDS: INSULIN ASPART 300 UNIT/3 ML PEN SUBQ SCH ×5 (08:16→21:04)
[2017-09-11] MEDS: CHOLECALCIFEROL 1,000 UNIT TABLET PO SCH (08:39)
[2017-09-11] MEDS: cefTRIAXone 1 GM in SODIUM CHLORIDE 0.9% MINIBAG 100 ML IV SCH ×2 (08:39→09:33)
[2017-09-11] MEDS: POLYETHYLENE GLYCOL 3350 17 GM PACKET PO SCH (08:40)
[2017-09-11] MEDS: TAMSULOSIN 0.4 MG CAPSULE PO SCH (08:40)
--- NOTE | 2017-09-11 10:06 | PROVIDER PROGRESS NOTE ---
Subjective - Prog Note Date Prog Note Date: 09/11/17 Prog Note Time: 09:00 - Subjective Pt reports feeling: Improved Subjective: Patient laying in bed, he reports having no pain, he says he can't believe it. He denies chest pain, SOB or GI complaints. Reports eating well, no nausea. Still has landaverde in, no LUTS. He reports feeling nervous to get up, fearful of pain. Current Medications - Current Medications Current Medications: Active Medications Acetaminophen (Tylenol) 650 mg PO Q4HR PRN PRN Reason: Pain 1 to 4 Acetaminophen/Hydrocodone Bitart ([place] 5/325) 1 tab PO Q4HR PRN PRN Reason: Pain 5 to 7 Last Admin: 09/11/17 06:00 Dose: 1 tab Cholecalciferol (Vitamin D3) 2,000 unit PO DAILY [facility] Last Admin: 09/11/17 08:39 Dose: 2,000 unit Fenofibrate (Tricor) 48 mg PO QD [facility] Last Admin: 09/11/17 07:49 Dose: Not Given Gabapentin (Neurontin) 300 mg PO TID [facility] Last Admin: 09/11/17 06:00 Dose: 300 mg Hydromorphone HCl (Dilaudid Inj Syringe) 0.5 mg IVP Q2H PRN PRN Reason: Pain 8 to 10 Sodium Chloride (Normal Saline 0.9%) 1,000 mls @ 100 mls/hr IV .Q10H [facility] Last Admin: 09/11/17 05:52 Dose: 100 mls/hr Ceftriaxone Sodium 1 gm/ (Sodium Chloride) 100 mls @ 200 mls/hr IV DAILY [facility] Last Admin: 09/11/17 09:33 Dose: Not Given Insulin Aspart (Novolog) 1 - 9 unit SUBQ 0800,1200,1700,2100 [facility] PRN Reason: Protocol Last Admin: 09/11/17 08:16 Dose: Not Given Insulin Glargine (Lantus Solostar) 20 unit SUBQ QPM [facility] Last Admin: 09/10/17 20:48 Dose: 20 unit Levothyroxine Sodium (Synthroid) 100 mcg PO QDAC [facility] Last Admin: 09/11/17 05:53 Dose: 100 mcg Pantoprazole Sodium (Protonix) 40 mg PO QDAC [facility] Last Admin: 09/11/17 06:00 Dose: 40 mg Polyethylene Glycol (Miralax) 17 gm PO DAILY [facility] Last Admin: 09/11/17 08:40 Dose: 17 gm Pravastatin Sodium (Pravachol) 20 mg PO QPM [facility] Sodium Chloride (Normal Saline Flush 0.9%) 10 ml IVP PRN PRN PRN Reason: NEEDED PER PROVIDER ORDERS Sodium Chloride (Normal Saline Flush 0.9%) 10 ml IVP Q8HR [facility] Last Admin: 09/11/17 07:50 Dose: Not Given Tamsulosin HCl (Flomax) 0.4 mg PO DAILY [facility] Last Admin: 09/11/17 08:40 Dose: 0.4 mg Temazepam (Restoril) 15 mg PO QPM PRN PRN Reason: Insomnia HOME MEDS: Cholecalciferol (Vitamin D3) [Vitamin D3] 2,000 unit PO DAILY 03/01/13 Fenofibrate [Tricor] 54 mg PO QD 03/01/13 Levothyroxine [Synthroid] 100 mcg PO QDAC 03/01/13 Pravastatin Sodium [Pravachol] 20 mg PO QPM 03/01/13 Tamsulosin [Flomax] 0.4 mg PO DAILY 03/01/13 Aspirin [Aspirin EC] 81 mg PO DAILY 05/25/17 Gabapentin 300 mg PO TID 05/25/17 Insulin Glargine [Lantus Solostar] 10 unit SUBQ QPM 08/01/17 Objective - Vital Signs/Intake & Output Reviewed Vital Signs: Yes Vital Signs: Vital Signs x48h Temp Pulse Resp BP Pulse Ox 09/11/17 08:54 36.5 C 84 19 105/43 L 95 09/11/17 05:00 36.6 C 70 20 106/48 L 97 Intake & Output: Intake & Output 09/08/17 09/09/17 09/10/17 09/11/17 23:59 23:59 23:59 23:59 Intake Total 3040 1380 Output Total 200 650 Balance 2840 730 - Objective General Appearance: positive: No acute distress, Alert Eyes Bilateral: positive: Normal inspection, PERRL, No scleral icterus ENT: positive: Pharynx nml, No signs of dehydration Neck: positive: No JVD Respiratory: positive: Chest non-tender, No respiratory distress, Breath sounds nml. negative: Wheezes, Rhonchi Cardiovascular: positive: Regular rate & rhythm Peripheral Pulses: 2+ Radial (R), 2+ Radial (L), 2+ Dorsalis pedis (R), 2+ Dorsalis pedis (L) Abdomen: positive: Non-tender, Nml bowel sounds, No distention Skin: positive: Color nml, Warm, Dry, Other (Right hip surgical site with dressing re-inforced) Extremities: negative: Pedal edema, Calf tenderness Neurologic/Psychiatric: positive: Oriented x3, Motor nml, Sensation nml, Mood/ affect nml - Lab Results Fish Bones: 09/11/17 05:19 09/11/17 05:19 Other Labs: Lab Results x24hrs 09/11/17 09/11/17 09/11/17 Range/Units 07:51 05:19 05:19 WBC (4.8-10.8) x10^3/uL RBC (4.70-6.10) 10^6/uL Hgb (14.0-18.0) g/dL Hct (42.0-52.0) % MCV (80.0-94.0) fL MCH (27.0-31.0) pg MCHC (32.0-36.0) g/dL RDW (12.0-15.0) % Plt Count (130-450) 10^3/uL MPV (7.4-11.4) fL Neut # (1.5-6.6) 10^3/uL Lymph # (1.5-3.5) 10^3/uL [place] # (0.0-1.0) 10^3/uL Eos # (0.0-0.7) 10^3/uL Baso # (0.0-0.1) 10^3/uL Absolute Nucleated RBC x10^3/uL Nucleated RBC % /100WBC Sodium 131 L (135-145) mmol/L Potassium 4.1 (3.5-5.0) mmol/L Chloride 104 (101-111) mmol/L Carbon Dioxide 19 L (21-32) mmol/L Anion Gap 8.0 (6-13) BUN 36 H (6-20) mg/dL Creatinine 1.5 H (0.6-1.2) mg/dL Estimated GFR (MDRD) 45 L (>89) Glucose 156 H (70-100) mg/dL POC Whole Bld Glucose 119 H (70 - 100) mg/dL Glycated Hemoglobin 5.8 (4.6-6.2) % Estim Average Glucose 120 H (70-100) Calcium 8.3 L (8.5-10.3) mg/dL Iron 41 L (45-182) ug/dL TIBC 140 L (250-450) ug/dL % Saturation 29 (20-50) % Transferrin 100 L (180-329) mg/dL Total Bilirubin 0.8 (0.2-1.0) mg/dL AST 41 (10-42) IU/L ALT 20 (10-60) IU/L Alkaline Phosphatase 143 H (42-121) IU/L Total Protein 5.4 L (6.7-8.2) g/dL Albumin 2.2 L (3.2-5.5) g/dL Globulin 3.2 (2.1-4.2) g/dL Albumin/Globulin Ratio 0.7 L (1.0-2.2) TSH (0.34-5.60) uIU/mL 09/11/17 09/11/17 09/10/17 Range/Units 05:19 05:10 20:23 WBC 11.3 H (4.8-10.8) x10^3/uL RBC 3.42 L (4.70-6.10) 10^6/uL Hgb 10.7 L (14.0-18.0) g/dL Hct 32.2 L (42.0-52.0) % MCV 94.3 H (80.0-94.0) fL MCH 31.2 H (27.0-31.0) pg MCHC 33.1 (32.0-36.0) g/dL RDW 13.7 (12.0-15.0) % Plt Count 204 (130-450) 10^3/uL MPV 9.5 (7.4-11.4) fL Neut # 9.1 H (1.5-6.6) 10^3/uL Lymph # 1.5 (1.5-3.5) 10^3/uL [place] # 0.6 (0.0-1.0) 10^3/uL Eos # 0.0 (0.0-0.7) 10^3/uL Baso # 0.1 (0.0-0.1) 10^3/uL Absolute Nucleated RBC 0.01 x10^3/uL Nucleated RBC % 0.0 /100WBC Sodium (135-145) mmol/L Potassium (3.5-5.0) mmol/L Chloride (101-111) mmol/L Carbon Dioxide (21-32) mmol/L Anion Gap (6-13) BUN (6-20) mg/dL Creatinine (0.6-1.2) mg/dL Estimated GFR (MDRD) (>89) Glucose (70-100) mg/dL POC Whole Bld Glucose 427 H (70 - 100) mg/dL Glycated Hemoglobin (4.6-6.2) % Estim Average Glucose (70-100) Calcium (8.5-10.3) mg/dL Iron (45-182) ug/dL TIBC (250-450) ug/dL % Saturation (20-50) % Transferrin (180-329) mg/dL Total Bilirubin (0.2-1.0) mg/dL AST (10-42) IU/L ALT (10-60) IU/L Alkaline Phosphatase (42-121) IU/L Total Protein (6.7-8.2) g/dL Albumin (3.2-5.5) g/dL Globulin (2.1-4.2) g/dL Albumin/Globulin Ratio (1.0-2.2) TSH < 0.08 L (0.34-5.60) uIU/mL 09/10/17 09/10/17 Range/Units 16:42 12:49 WBC (4.8-10.8) x10^3/uL RBC (4.70-6.10) 10^6/uL Hgb (14.0-18.0) g/dL Hct (42.0-52.0) % MCV (80.0-94.0) fL MCH (27.0-31.0) pg MCHC (32.0-36.0) g/dL RDW (12.0-15.0) % Plt Count (130-450) 10^3/uL MPV (7.4-11.4) fL Neut # (1.5-6.6) 10^3/uL Lymph # (1.5-3.5) 10^3/uL [place] # (0.0-1.0) 10^3/uL Eos # (0.0-0.7) 10^3/uL Baso # (0.0-0.1) 10^3/uL Absolute Nucleated RBC x10^3/uL Nucleated RBC % /100WBC Sodium (135-145) mmol/L Potassium (3.5-5.0) mmol/L Chloride (101-111) mmol/L Carbon Dioxide (21-32) mmol/L Anion Gap (6-13) BUN (6-20) mg/dL Creatinine (0.6-1.2) mg/dL Estimated GFR (MDRD) (>89) Glucose (70-100) mg/dL POC Whole Bld Glucose 377 H 140 H (70 - 100) mg/dL Glycated Hemoglobin (4.6-6.2) % Estim Average Glucose (70-100) Calcium (8.5-10.3) mg/dL Iron (45-182) ug/dL TIBC (250-450) ug/dL % Saturation (20-50) % Transferrin (180-329) mg/dL Total Bilirubin (0.2-1.0) mg/dL AST (10-42) IU/L ALT (10-60) IU/L Alkaline Phosphatase (42-121) IU/L Total Protein (6.7-8.2) g/dL Albumin (3.2-5.5) g/dL Globulin (2.1-4.2) g/dL Albumin/Globulin Ratio (1.0-2.2) TSH (0.34-5.60) uIU/mL Assessment/Plan - Problem List (1) Intertrochanteric fracture of right femur Impression: Had ground level fall, + associated dizziness. Fracture identified on XR and ortho consulted for surgical repair. Patient underwent ORIF with dyanmic hip screw on 09/[address] Jose. Pain is now resolved at rest. Reactive leukocytosis improving. -PT/OT today to determine next site of care -Tylenol 1gr TID -PRN low dose oxycodone for breakthrough pain -Lidoderm patch to right hip daily -ICE prn Qualifiers: Encounter type: initial encounter Fracture type: closed Fracture alignment: displaced Qualified Code(s): S72.141A - Displaced intertrochanteric fracture of right femur, initial encounter for closed fracture (2) Diabetes mellitus with hyperglycemia Impression: w/ associated peripheral neuropathy. 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 Hyperglycemic day of surgery (possible stress induced) but now controlled with increased lantus of 20u. -Lantus 20u qHS -Low dose SSI -CHO controlled diet -Continue gabapentin Qualifiers: Diabetes mellitus type: type 2 Diabetes mellitus long-term insulin use: with product marketing analyst use Qualified Code(s): E11.65 - Type 2 diabetes mellitus with hyperglycemia; Z79.4 - FDC (current) use of insulin; Z79.4 - social problems specialist ( current) use of insulin; Z79.4 - social problems specialist (current) use of insulin; Z79.4 - social problems specialist (current) use of insulin (3) ZOYA (acute kidney injury) Impression: Based on RIFLE criteria patient sustained ZOYA with baseline creatinine of 1.3, now 1.8 on admission. No clear cause. possible hypovolemic given dizziness symptoms? Treated with IVF in operative period and creatinine now 1.5 supporting that. Taking PO well so will likely continue to improve. -Avoid nephrotoxic agents -Check orthostatics, if negative then DC IVF this afternoon (4) Urinary tract infection Impression: He reports 1 prior UTI, urogential andrew then and also now. + leukocytosis on admission but could very well be reactive to fracture. No LUTS reported prior to fall. -Continue CTX for now -Consider UTI from UR from BPH, consider checking PVRs Qualifiers: Urinary tract infection type: acute cystitis Hematuria presence: without hematuria Qualified Code(s): N30.00 - Acute cystitis without hematuria (5) Acute blood loss as cause of postoperative anemia Impression: Expected blood loss from fracture + 100ml intra-op loss + dilutional from IVF for ZOYA. Baseline Hgb 14, was 13.2 pre-op, now 10.7 POD1. Right hip dressing saturated, re-inforced. Low iron panel. -Repeat H&H in AM, if low, consider adding IV ferrelicit 125mg bid x2 doses or oral iron -Continue SCDs for DVT prophylaxis (6) HLD (hyperlipidemia) Impression: Previously on tricor, no labs available. -Continue tricor (7) Hypothyroidism Impression: Chronic, stable. -Continue synthroid (8) BPH (benign prostatic hyperplasia) Impression: Chronic, stable. 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 Landaverde in now. -DC landaverde -[facility] ISSUES: DVT prophylaxis: SCDs Code Status: Full DC PLAN: based on PT/OT reccs
[2017-09-11] MEDS ORDERED: LIDOCAINE PATCH 5% TOP PRN (10:15)
[2017-09-11] MEDS: oxyCODONE 5 MG TABLET PO PRN ×2 (10:55→16:55)
[2017-09-11] MEDS: ACETAMINOPHEN 500 MG TABLET PO SCH ×2 (14:10→21:03)
[2017-09-11] MEDS: INSULIN GLARGINE 300 UNIT/3 ML PEN SUBQ SCH (21:03)
[2017-09-11] MEDS: PRAVASTATIN 10 MG TABLET PO SCH (21:03)
[2017-09-12] MEDS: oxyCODONE 5 MG TABLET PO PRN ×2 (00:05→08:48)
[2017-09-12] MEDS: SODIUM CHLORIDE 0.9% 1,000 ML IV SCH (03:39)
[2017-09-12] MEDS: SODIUM CHLORIDE FLUSH 0.9% 10 ML SYRINGE IVP SCH ×3 (03:59→20:34)
[2017-09-12 05:08] LABS: BASOPHILS # (AUTO) 0.1 10^3/uL (0.0-0.1); BASOPHILS % (AUTO) 1.5 %; EOSINOPHILS # (AUTO) 0.2 10^3/uL (0.0-0.7); EOSINOPHILS % (AUTO) 2.3 %; HGB - HEMOGLOBIN 10.4 g/dL (14.0-18.0); LYMPHOCYTES # (AUTO) 1.2 10^3/uL (1.5-3.5); LYMPHOCYTES % (AUTO) 14.9 %; MEAN CORPUSCULAR HEMOGLOBIN 31.4 pg (27.0-31.0); MEAN CORPUSCULAR HGB CONC 33.6 g/dL (32.0-36.0); MEAN CORPUSCULAR VOLUME 93.6 fL (80.0-94.0); MEAN PLATELET VOLUME 9.6 fL (7.4-11.4); MONOCYTES # (AUTO) 0.6 10^3/uL (0.0-1.0); MONOCYTES % (AUTO) 7.2 %; NEUTROPHILS # (AUTO) 6.2 10^3/uL (1.5-6.6); NEUTROPHILS % (AUTO) 74.1 %; PLT - PLATELET COUNT 183 10^3/uL (130-450); RED BLOOD COUNT 3.31 10^6/uL (4.70-6.10); RED CELL DISTRIBUTION WIDTH 13.8 % (12.0-15.0); WHITE BLOOD COUNT 8.4 x10^3/uL (4.8-10.8)
[2017-09-12 05:17] LABS: ALBUMIN 2.2 g/dL (3.2-5.5); ALBUMIN/GLOBULIN RATIO 0.7 (1.0-2.2); BILIRUBIN,TOTAL 0.4 mg/dL (0.2-1.0); CALCIUM 7.9 mg/dL (8.5-10.3); CREATININE 1.1 mg/dL (0.6-1.2); TOTAL PROTEIN 5.2 g/dL (6.7-8.2)
[2017-09-12] MEDS: ACETAMINOPHEN 500 MG TABLET PO SCH ×3 (06:15→21:53)
[2017-09-12] MEDS: PANTOPRAZOLE 40 MG TABLET PO SCH (06:16)
[2017-09-12] MEDS: LEVOTHYROXINE 100 MCG TABLET PO SCH (06:16)
[2017-09-12] MEDS: GABAPENTIN 300 MG CAPSULE PO SCH ×3 (06:16→21:53)
--- NOTE | 2017-09-12 07:06 | PROVIDER PROGRESS NOTE ---
Subjective - General Admit Date: 09/10/17 Procedure Date: 09/10/17 Post Op Days: 2 Procedure Performed: ORIF right prox femur - Review of Systems Wound/Incisions: positive: Drainage (small) General: positive: No symptoms (except when moving) Musculoskeletal: positive: Other (Thigh swelling; no pain with limited motion of right hip IR/ER) All Other Systems: positive: Reviewed and negative - Other Other Information/Narrative: wAS UP IN CHAIR X 3 YESTERDAY Objective - Patient Data Vital Signs: Vital Signs x48h Temp Pulse Resp BP Pulse Ox 09/12/17 00:24 36.7 C 76 20 104/46 L 95 Weight: Weight 09/10/17 09/11/17 09/12/17 23:59 23:59 23:59 Weight (kg) 77.1 kg 85 kg 86 kg Intake & Output: Intake and Output Totals x24h 09/10/17 09/11/17 09/12/17 23:59 23:59 23:59 Intake Total 3040 3280 1200 Output Total 200 650 Balance 2840 2630 1200 - Lab Results Lab Results: 09/12/17 04:45 09/12/17 04:45 Other Lab Results: Lab Results x24hrs 09/12/17 09/12/17 09/12/17 Range/Units 04:45 04:45 04:45 WBC (4.8-10.8) x10^3/uL RBC (4.70-6.10) 10^6/uL Hgb (14.0-18.0) g/dL Hct (42.0-52.0) % MCV (80.0-94.0) fL MCH (27.0-31.0) pg MCHC (32.0-36.0) g/dL RDW (12.0-15.0) % Plt Count (130-450) 10^3/uL MPV (7.4-11.4) fL Neut # (1.5-6.6) 10^3/uL Lymph # (1.5-3.5) 10^3/uL [place] # (0.0-1.0) 10^3/uL Eos # (0.0-0.7) 10^3/uL Baso # (0.0-0.1) 10^3/uL Absolute Nucleated RBC x10^3/uL Nucleated RBC % /100WBC Sodium 132 L (135-145) mmol/L Potassium 4.6 (3.5-5.0) mmol/L Chloride 109 (101-111) mmol/L Carbon Dioxide 20 L (21-32) mmol/L Anion Gap 3.0 L (6-13) BUN 29 H (6-20) mg/dL Creatinine 1.1 (0.6-1.2) mg/dL Estimated GFR (MDRD) 64 L (>89) Glucose 109 H (70-100) mg/dL POC Whole Bld Glucose (70 - 100) mg/dL Calcium 7.9 L (8.5-10.3) mg/dL Total Bilirubin 0.4 (0.2-1.0) mg/dL AST 56 H (10-42) IU/L ALT 24 (10-60) IU/L Alkaline Phosphatase 149 H (42-121) IU/L Total Protein 5.2 L (6.7-8.2) g/dL Albumin 2.2 L (3.2-5.5) g/dL Globulin 3.0 (2.1-4.2) g/dL Albumin/Globulin Ratio 0.7 L (1.0-2.2) Free T4 1.10 (0.58-1.64) ng/dL Free T3 pg/mL 2.91 (2.5-3.9) pg/mL 09/12/17 09/11/17 09/11/17 Range/Units 04:45 20:51 16:27 WBC 8.4 (4.8-10.8) x10^3/uL RBC 3.31 L (4.70-6.10) 10^6/uL Hgb 10.4 L (14.0-18.0) g/dL Hct 31.0 L (42.0-52.0) % MCV 93.6 (80.0-94.0) fL MCH 31.4 H (27.0-31.0) pg MCHC 33.6 (32.0-36.0) g/dL RDW 13.8 (12.0-15.0) % Plt Count 183 (130-450) 10^3/uL MPV 9.6 (7.4-11.4) fL Neut # 6.2 (1.5-6.6) 10^3/uL Lymph # 1.2 L (1.5-3.5) 10^3/uL [place] # 0.6 (0.0-1.0) 10^3/uL Eos # 0.2 (0.0-0.7) 10^3/uL Baso # 0.1 (0.0-0.1) 10^3/uL Absolute Nucleated RBC 0.00 x10^3/uL Nucleated RBC % 0.0 /100WBC Sodium (135-145) mmol/L Potassium (3.5-5.0) mmol/L Chloride (101-111) mmol/L Carbon Dioxide (21-32) mmol/L Anion Gap (6-13) BUN (6-20) mg/dL Creatinine (0.6-1.2) mg/dL Estimated GFR (MDRD) (>89) Glucose (70-100) mg/dL POC Whole Bld Glucose 284 H 213 H (70 - 100) mg/dL Calcium (8.5-10.3) mg/dL Total Bilirubin (0.2-1.0) mg/dL AST (10-42) IU/L ALT (10-60) IU/L Alkaline Phosphatase (42-121) IU/L Total Protein (6.7-8.2) g/dL Albumin (3.2-5.5) g/dL Globulin (2.1-4.2) g/dL Albumin/Globulin Ratio (1.0-2.2) Free T4 (0.58-1.64) ng/dL Free T3 pg/mL (2.5-3.9) pg/mL 09/11/17 09/11/17 Range/Units 11:32 07:51 WBC (4.8-10.8) x10^3/uL RBC (4.70-6.10) 10^6/uL Hgb (14.0-18.0) g/dL Hct (42.0-52.0) % MCV (80.0-94.0) fL MCH (27.0-31.0) pg MCHC (32.0-36.0) g/dL RDW (12.0-15.0) % Plt Count (130-450) 10^3/uL MPV (7.4-11.4) fL Neut # (1.5-6.6) 10^3/uL Lymph # (1.5-3.5) 10^3/uL [place] # (0.0-1.0) 10^3/uL Eos # (0.0-0.7) 10^3/uL Baso # (0.0-0.1) 10^3/uL Absolute Nucleated RBC x10^3/uL Nucleated RBC % /100WBC Sodium (135-145) mmol/L Potassium (3.5-5.0) mmol/L Chloride (101-111) mmol/L Carbon Dioxide (21-32) mmol/L Anion Gap (6-13) BUN (6-20) mg/dL Creatinine (0.6-1.2) mg/dL Estimated GFR (MDRD) (>89) Glucose (70-100) mg/dL POC Whole Bld Glucose 187 H 119 H (70 - 100) mg/dL Calcium (8.5-10.3) mg/dL Total Bilirubin (0.2-1.0) mg/dL AST (10-42) IU/L ALT (10-60) IU/L Alkaline Phosphatase (42-121) IU/L Total Protein (6.7-8.2) g/dL Albumin (3.2-5.5) g/dL Globulin (2.1-4.2) g/dL Albumin/Globulin Ratio (1.0-2.2) Free T4 (0.58-1.64) ng/dL Free T3 pg/mL (2.5-3.9) pg/mL - Current Medications Current Medications: Current Medications Generic Name Dose Route Start Last Admin Trade Name Chetanq PRN Reason Stop Dose Admin Acetaminophen 1,000 mg 09/11/17 14:00 09/12/17 06:15 Tylenol PO 1,000 mg TID DONALD Administration Cholecalciferol 2,000 unit 09/11/17 09:00 09/11/17 08:39 Vitamin D3 PO 2,000 unit DAILY DONALD Administration Fenofibrate 48 mg 09/10/17 23:45 09/11/17 23:48 Tricor PO 48 mg QD DONALD Administration Gabapentin 300 mg 09/10/17 23:45 09/12/17 06:16 Neurontin PO 300 mg TID DONALD Administration Sodium Chloride 1,000 mls @ 100 mls/hr 09/10/17 09:00 09/12/17 03:39 Normal Saline 0.9% IV 100 mls/hr .Q10H DONALD Administration Ceftriaxone Sodium 1 gm/ 100 mls @ 200 mls/hr 09/11/17 08:00 09/11/17 09:33 Sodium Chloride IV Not Given DAILY DONALD Insulin Aspart 2 - 10 unit 09/11/17 17:00 09/11/17 21:04 Novolog SUBQ 8 unit 0800,1200,1700,2100 DONALD Administration Protocol Insulin Glargine 20 unit 09/10/17 21:00 09/11/17 21:03 Lantus Solostar SUBQ 20 unit QPM DONALD Administration Levothyroxine Sodium 100 mcg 09/10/17 14:00 09/12/17 06:16 Synthroid PO 100 mcg QDAC DONALD Administration Oxycodone HCl 2.5 - 5 mg 09/11/17 10:14 09/12/17 00:05 Roxicodone PO 5 mg Q4HR PRN Administration PAIN Pantoprazole Sodium 40 mg 09/11/17 07:00 09/12/17 06:16 Protonix PO 40 mg QDAC DONALD Administration Polyethylene Glycol 17 gm 09/11/17 09:00 09/11/17 08:40 Miralax PO 17 gm DAILY DONALD Administration Pravastatin Sodium 20 mg 09/11/17 21:00 09/11/17 21:03 Pravachol PO 20 mg QPM DONALD Administration Sodium Chloride 10 ml 09/10/17 14:00 09/12/17 03:59 Normal Saline Flush 0.9% IVP Not Given Q8HR DONALD Tamsulosin HCl 0.4 mg 09/11/17 09:00 09/11/17 08:40 Flomax PO 0.4 mg DAILY DONALD Administration - Physical Exam Extremities: positive: Non-tender (minimally tender at op site.), Nml appearance ([place] looks well closed and no drainage. Redressed) Comments/Other: hGB 10.4 Impression/Plan - Problem List Problem List: doING WELL POST OP MOBILIZE TO GAIT TODAY
--- NOTE | 2017-09-12 07:51 | PROVIDER PROGRESS NOTE ---
Subjective - Prog Note Date Prog Note Date: 09/12/17 Prog Note Time: 07:49 - Subjective Pt reports feeling: Improved Subjective: Ko states that the right hip pain is tolerable when he gets up to the chair. He denies chest pain, SOB, N/V or a new cough. He notes that his appetite could be better. Current Medications - Current Medications Current Medications: Active Medications Acetaminophen (Tylenol) 1,000 mg PO TID [facility] Last Admin: 09/13/17 06:13 Dose: 1,000 mg Aspirin (Ecotrin) 81 mg PO DAILY [facility] Last Admin: 09/12/17 08:48 Dose: 81 mg Cholecalciferol (Vitamin D3) 2,000 unit PO DAILY [facility] Last Admin: 09/12/17 08:48 Dose: 2,000 unit Fenofibrate (Tricor) 48 mg PO QD [facility] Last Admin: 09/13/17 00:47 Dose: 48 mg Ferrous Sulfate (Feosol) 325 mg PO BIDWM [facility] Gabapentin (Neurontin) 300 mg PO TID [facility] Last Admin: 09/13/17 06:13 Dose: 300 mg Ceftriaxone Sodium 1 gm/ (Sodium Chloride) 100 mls @ 200 mls/hr IV DAILY [facility] Last Infusion: 09/12/17 19:30 Dose: Infused Insulin Aspart (Novolog) 2 - 10 unit SUBQ 0800,1200,1700,2100 [facility] PRN Reason: Protocol Last Admin: 09/12/17 20:36 Dose: 2 unit Insulin Aspart (Novolog) 5 unit SUBQ TIDWM [facility] Insulin Glargine (Lantus Solostar) 20 unit SUBQ QPM [facility] Last Admin: 09/12/17 20:35 Dose: 20 unit Levothyroxine Sodium (Synthroid) 75 mcg PO QDAC [facility] Last Admin: 09/13/17 06:13 Dose: 75 mcg Lidocaine (Lidoderm Patch) 1 patch TOP DAILY PRN PRN Reason: PAIN Oxycodone HCl (Roxicodone) 2.5 - 5 mg PO Q4HR PRN PRN Reason: PAIN Last Admin: 09/12/17 08:48 Dose: 5 mg Pantoprazole Sodium (Protonix) 40 mg PO QDAC [facility] Last Admin: 09/13/17 06:13 Dose: 40 mg Polyethylene Glycol (Miralax) 17 gm PO DAILY [facility] Last Admin: 09/12/17 08:49 Dose: Not Given Pravastatin Sodium (Pravachol) 20 mg PO QPM [facility] Last Admin: 09/12/17 20:34 Dose: 20 mg Sodium Chloride (Normal Saline Flush 0.9%) 10 ml IVP PRN PRN PRN Reason: NEEDED PER PROVIDER ORDERS Sodium Chloride (Normal Saline Flush 0.9%) 10 ml IVP Q8HR [facility] Last Admin: 09/13/17 06:15 Dose: 10 ml Tamsulosin HCl (Flomax) 0.4 mg PO DAILY [facility] Last Admin: 09/12/17 08:48 Dose: 0.4 mg Temazepam (Restoril) 15 mg PO QPM PRN PRN Reason: Insomnia Cholecalciferol (Vitamin D3) [Vitamin D3] 2,000 unit PO DAILY 03/01/13 Objective - Vital Signs/Intake & Output Reviewed Vital Signs: Yes Vital Signs: Vital Signs x48h Temp Pulse Resp BP Pulse Ox 09/12/17 00:24 36.7 C 76 20 104/46 L 95 Intake & Output: Intake & Output 09/09/17 09/10/17 09/11/17 09/12/17 23:59 23:59 23:59 23:59 Intake Total 3040 3280 1200 Output Total 200 650 Balance 2840 2630 1200 - Objective General Appearance: positive: No acute distress, Alert Eyes Bilateral: positive: Normal inspection ENT: positive: ENT inspection nml, Pharynx nml, No signs of dehydration Neck: positive: Nml inspection, Thyroid nml, No JVD, Trachea midline Respiratory: positive: Chest non-tender, No respiratory distress, Breath sounds nml, Other (diminished) Cardiovascular: positive: Regular rate & rhythm, No murmur, No gallop, Decreased pulse(s) Peripheral Pulses: 1+ Radial (R), 1+ Radial (L) Abdomen: positive: Non-tender, No organomegaly, Nml bowel sounds, No distention Back: positive: Nml inspection Skin: positive: No rash, Warm, Dry Extremities: positive: Non-tender, Full ROM, Nml appearance, Pedal edema Neurologic/Psychiatric: positive: Oriented x3, CN's nml (2-12), Motor nml, Sensation nml Reflexes: Bicep (R): 3+, Bicep (L): 3+ - Lab Results Fish Bones: 09/13/17 04:57 09/13/17 04:57 Other Labs: Lab Results x24hrs 09/12/17 09/12/17 09/12/17 Range/Units 04:45 04:45 04:45 WBC (4.8-10.8) x10^3/uL RBC (4.70-6.10) 10^6/uL Hgb (14.0-18.0) g/dL Hct (42.0-52.0) % MCV (80.0-94.0) fL MCH (27.0-31.0) pg MCHC (32.0-36.0) g/dL RDW (12.0-15.0) % Plt Count (130-450) 10^3/uL MPV (7.4-11.4) fL Neut # (1.5-6.6) 10^3/uL Lymph # (1.5-3.5) 10^3/uL [place] # (0.0-1.0) 10^3/uL Eos # (0.0-0.7) 10^3/uL Baso # (0.0-0.1) 10^3/uL Absolute Nucleated RBC x10^3/uL Nucleated RBC % /100WBC Sodium 132 L (135-145) mmol/L Potassium 4.6 (3.5-5.0) mmol/L Chloride 109 (101-111) mmol/L Carbon Dioxide 20 L (21-32) mmol/L Anion Gap 3.0 L (6-13) BUN 29 H (6-20) mg/dL Creatinine 1.1 (0.6-1.2) mg/dL Estimated GFR (MDRD) 64 L (>89) Glucose 109 H (70-100) mg/dL POC Whole Bld Glucose (70 - 100) mg/dL Calcium 7.9 L (8.5-10.3) mg/dL Total Bilirubin 0.4 (0.2-1.0) mg/dL AST 56 H (10-42) IU/L ALT 24 (10-60) IU/L Alkaline Phosphatase 149 H (42-121) IU/L Total Protein 5.2 L (6.7-8.2) g/dL Albumin 2.2 L (3.2-5.5) g/dL Globulin 3.0 (2.1-4.2) g/dL Albumin/Globulin Ratio 0.7 L (1.0-2.2) Free T4 1.10 (0.58-1.64) ng/dL Free T3 pg/mL 2.91 (2.5-3.9) pg/mL 09/12/17 09/11/17 09/11/17 Range/Units 04:45 20:51 16:27 WBC 8.4 (4.8-10.8) x10^3/uL RBC 3.31 L (4.70-6.10) 10^6/uL Hgb 10.4 L (14.0-18.0) g/dL Hct 31.0 L (42.0-52.0) % MCV 93.6 (80.0-94.0) fL MCH 31.4 H (27.0-31.0) pg MCHC 33.6 (32.0-36.0) g/dL RDW 13.8 (12.0-15.0) % Plt Count 183 (130-450) 10^3/uL MPV 9.6 (7.4-11.4) fL Neut # 6.2 (1.5-6.6) 10^3/uL Lymph # 1.2 L (1.5-3.5) 10^3/uL [place] # 0.6 (0.0-1.0) 10^3/uL Eos # 0.2 (0.0-0.7) 10^3/uL Baso # 0.1 (0.0-0.1) 10^3/uL Absolute Nucleated RBC 0.00 x10^3/uL Nucleated RBC % 0.0 /100WBC Sodium (135-145) mmol/L Potassium (3.5-5.0) mmol/L Chloride (101-111) mmol/L Carbon Dioxide (21-32) mmol/L Anion Gap (6-13) BUN (6-20) mg/dL Creatinine (0.6-1.2) mg/dL Estimated GFR (MDRD) (>89) Glucose (70-100) mg/dL POC Whole Bld Glucose 284 H 213 H (70 - 100) mg/dL Calcium (8.5-10.3) mg/dL Total Bilirubin (0.2-1.0) mg/dL AST (10-42) IU/L ALT (10-60) IU/L Alkaline Phosphatase (42-121) IU/L Total Protein (6.7-8.2) g/dL Albumin (3.2-5.5) g/dL Globulin (2.1-4.2) g/dL Albumin/Globulin Ratio (1.0-2.2) Free T4 (0.58-1.64) ng/dL Free T3 pg/mL (2.5-3.9) pg/mL 09/11/17 09/11/17 Range/Units 11:32 07:51 WBC (4.8-10.8) x10^3/uL RBC (4.70-6.10) 10^6/uL Hgb (14.0-18.0) g/dL Hct (42.0-52.0) % MCV (80.0-94.0) fL MCH (27.0-31.0) pg MCHC (32.0-36.0) g/dL RDW (12.0-15.0) % Plt Count (130-450) 10^3/uL MPV (7.4-11.4) fL Neut # (1.5-6.6) 10^3/uL Lymph # (1.5-3.5) 10^3/uL [place] # (0.0-1.0) 10^3/uL Eos # (0.0-0.7) 10^3/uL Baso # (0.0-0.1) 10^3/uL Absolute Nucleated RBC x10^3/uL Nucleated RBC % /100WBC Sodium (135-145) mmol/L Potassium (3.5-5.0) mmol/L Chloride (101-111) mmol/L Carbon Dioxide (21-32) mmol/L Anion Gap (6-13) BUN (6-20) mg/dL Creatinine (0.6-1.2) mg/dL Estimated GFR (MDRD) (>89) Glucose (70-100) mg/dL POC Whole Bld Glucose 187 H 119 H (70 - 100) mg/dL Calcium (8.5-10.3) mg/dL Total Bilirubin (0.2-1.0) mg/dL AST (10-42) IU/L ALT (10-60) IU/L Alkaline Phosphatase (42-121) IU/L Total Protein (6.7-8.2) g/dL Albumin (3.2-5.5) g/dL Globulin (2.1-4.2) g/dL Albumin/Globulin Ratio (1.0-2.2) Free T4 (0.58-1.64) ng/dL Free T3 pg/mL (2.5-3.9) pg/mL - Diagnostic Imaging Diagnostic Imaging Results: positive: Final report reviewed Assessment/Plan - Problem List (1) Intertrochanteric fracture of right femur Impression: A right hip x-ray was completed in the ED and shows an acute minimally displaced intertrochanteric right femoral fracture. This occurred prior to admission when the patient became dizzy, and fell on his right side. This event was not witnessed. POD #2; repair right hip with Dr. Jose. Plan: Discharge to SNF for further rehab, patient agreeable. Qualifiers: Encounter type: initial encounter Fracture type: closed Fracture alignment: displaced Qualified Code(s): S72.141A - Displaced intertrochanteric fracture of right femur, initial encounter for closed fracture (2) Urinary tract infection Impression: Per report from Dr. Jose, ortho surgery, patient's urine was noted as thick, foul smelling, and concentrated. A UA was obtained and suspicious for UTI. Patient has a history of recurrent UTIs. Plan: Continue antibiotics and IVFs. Monitor and control blood sugars. Qualifiers: Urinary tract infection type: acute cystitis Hematuria presence: without hematuria Qualified Code(s): N30.00 - Acute cystitis without hematuria (3) Diabetes mellitus type 2, controlled, without complications Impression: Patient had an normal HgA1C of 5.8. Blood sugars generally range from 177-213 during his stay with the highest value of 427. Plan: Continue on sliding scale insulin and blood sugar checks. Continue to titrate Lantus and Aspart. (4) Fall Impression: Patient states that he got up around 4AM to let the dog out and the next thing he know he was on the floor. He admits to feeling dizzy just prior to this fall. Patient is now right hip repair xday #2. Plan: continue fall precautions, PT/OT evaluations.
[2017-09-12] MEDS: INSULIN ASPART 300 UNIT/3 ML PEN SUBQ SCH ×4 (08:47→20:36)
[2017-09-12] MEDS: CHOLECALCIFEROL 1,000 UNIT TABLET PO SCH (08:48)
[2017-09-12] MEDS: ASPIRIN EC 81 MG TABLET PO SCH (08:48)
[2017-09-12] MEDS: TAMSULOSIN 0.4 MG CAPSULE PO SCH (08:48)
[2017-09-12] MEDS: cefTRIAXone 1 GM in SODIUM CHLORIDE 0.9% MINIBAG 100 ML IV SCH (08:49)
[2017-09-12] MEDS: POLYETHYLENE GLYCOL 3350 17 GM PACKET PO SCH (08:49)
[2017-09-12] MEDS: PRAVASTATIN 10 MG TABLET PO SCH (20:34)
[2017-09-12] MEDS: INSULIN GLARGINE 300 UNIT/3 ML PEN SUBQ SCH (20:35)
[2017-09-13] MEDS: FENOFIBRATE 48 MG TABLET PO SCH (00:47)
[2017-09-13 05:20] LABS: BASOPHILS # (AUTO) 0.1 10^3/uL (0.0-0.1); BASOPHILS % (AUTO) 0.5 %; EOSINOPHILS # (AUTO) 0.2 10^3/uL (0.0-0.7); EOSINOPHILS % (AUTO) 2.2 %; HGB - HEMOGLOBIN 10.7 g/dL (14.0-18.0); LYMPHOCYTES # (AUTO) 1.6 10^3/uL (1.5-3.5); LYMPHOCYTES % (AUTO) 16.7 %; MEAN CORPUSCULAR HEMOGLOBIN 31.2 pg (27.0-31.0); MEAN CORPUSCULAR HGB CONC 33.3 g/dL (32.0-36.0); MEAN CORPUSCULAR VOLUME 93.6 fL (80.0-94.0); MEAN PLATELET VOLUME 9.2 fL (7.4-11.4); MONOCYTES # (AUTO) 0.7 10^3/uL (0.0-1.0); MONOCYTES % (AUTO) 6.9 %; NEUTROPHILS # (AUTO) 7.1 10^3/uL (1.5-6.6); NEUTROPHILS % (AUTO) 73.7 %; PLT - PLATELET COUNT 202 10^3/uL (130-450); RED BLOOD COUNT 3.41 10^6/uL (4.70-6.10); RED CELL DISTRIBUTION WIDTH 14.4 % (12.0-15.0); WHITE BLOOD COUNT 9.7 x10^3/uL (4.8-10.8)
[2017-09-13 05:34] LABS: ALBUMIN 2.2 g/dL (3.2-5.5); ALBUMIN/GLOBULIN RATIO 0.7 (1.0-2.2); BILIRUBIN,TOTAL 0.7 mg/dL (0.2-1.0); CALCIUM 8.3 mg/dL (8.5-10.3); CREATININE 1.1 mg/dL (0.6-1.2); TOTAL PROTEIN 5.5 g/dL (6.7-8.2)
[2017-09-13] MEDS: ACETAMINOPHEN 500 MG TABLET PO SCH (06:13)
[2017-09-13] MEDS: GABAPENTIN 300 MG CAPSULE PO SCH (06:13)
[2017-09-13] MEDS: PANTOPRAZOLE 40 MG TABLET PO SCH (06:13)
[2017-09-13] MEDS: SODIUM CHLORIDE FLUSH 0.9% 10 ML SYRINGE IVP SCH (06:15)
[2017-09-13] MEDS ORDERED: LEVOTHYROXINE 75 MCG TABLET PO SCH (07:00)
--- NOTE | 2017-09-13 07:28 | Discharge Plan ---
"Discharge Plan for SNF / TRICE - DC Plan and Transition Orders Disposition: 03 SNF DC/Xfer Condition: Good SNF Transition Orders: Admit to: [facility] under the care of Dr. Burnham Discharge Diagnosis: Displaced intertrochanteric fracture of right femur, UTI, DM type 2, Fall Medicare Certification: I certify that [facility] longterm care is medically necessary on a continuing basis for any of the conditions for which she/he is receiving care during hospitalization. Notify PCP of admission and forward orders to primary provider for signature. Weight on admission and weekly. Call PCP immediately if weight increases by 10 pounds or if patient develops dyspnea, chest pain/tightness or edema. House Bowel Program: yes If no BM after 2 days, nurse may give M.O.M. 30ml PO PRN and /or ducolax Supp 1 CO and /or RUBIO 250mg P.O., and/or senna 1-2 tabs PO. On day 3 nurse may give repeat above order until residents constipation is resolved. Immunizations: Annual Influenza Vaccine: yes. (between Mar 23 and October 20.) Unless allergy or already given Two-Step PPD: yes per [facility] [id number] or appropriate documentation of approved exceptions Treatments & Other Orders: PT/OT, speech, continue antibiotic for UTI, continue blood sugar control. Oxygen Orders: not needed, 1-2L nasal cannula, PRN to keep O2 greater than 90%. Lab Tests or X-Rays Orders: Not needed, do not change dressing per Dr. Jose. X-ray will be completed on follow up in 10-14 days. Orthopedic Orders: Right hip dressing. Medications: PLEASE REFER TO THE DISCHARGE MEDICATION LIST. Insulin Orders? yes Diagnosis: Diabetes Initiate hypo and hyperglycemia protocols for BG <70 and BG >375. May check BG prn for signs/symptoms of dysglycemia. Frequency of BG checks: AC/Meal/HS Basal Insulin: Lantus : 20 units QPM scheduled, please. Correction Insulin: Please give Aspart (short acting) insulin 5 units with meals (TID), in addition a moderate dose sliding scale. Choose: Aspart (regular-short acting) insulin inject subq per orders indicate below: LOW DOSE MODERATE DOSE MODERATE/HIGH DOSE XX HIGH DOSE GB UNITS GB UNITS GB UNITS GB UNITS 61-140 0 UNITS 61-140 0 UNITS 61-140 0 UNITS 61-140 0 UNITS 141-175 1 UNITS 141-175 1 UNITS 141-175 2 UNITS 141-175 3 UNITS 176-225 2 UNITS 176-225 3 UNITS 176-225 4 UNITS 176-225 5 UNITS 226-275 3 UNITS 226-275 5 UNITS 226-275 6 UNITS 226-275 7 UNITS 276-325 4 UNITS 276-325 7 UNITS 276-325 8 UNITS 276-325 9 UNITS 326-375 5 UNITS 326-375 9 UNITS 326-375 10 UNITS 326-375 11 UNITS >375 CONTACT MD >375 CONTACT MD >375 CONTACT MD >375 CONTACT MD Allergies and Adverse Reactions: Allergies Allergy/AdvReac Type Severity Reaction Status Date / Time No Known Drug Allergies Allergy Verified 09/10/17 05:10 - Medications New Prescriptions: Acetaminophen [Tylenol] 650 mg PO Q6H PRN #30 tab PRN Reason: Pain Ciprofloxacin HCl [Cipro] 500 mg PO DAILY 10 Days #10 tablet Levothyroxine [Synthroid] 75 mcg PO QDAC #30 tablet Lidocaine Patch 5% [Lidoderm Patch] 1 each PATCH DAILY #20 patch oxyCODONE [Roxicodone] 5 mg PO ONCE #25 tablet Saccharomyces Boulardii [Florastor] 250 mg PO BID 20 Days #40 capsule - Diet Type: Geriatric Texture: Regular May have monthly special meal: Yes - Therapies | Activity Therapy: Evaluation | Treat if indicated: Speech, PT, OT Rehabilitation Potential: Maximize functional status, Return to independent living, Maintain present ADL Functional Activity: Wt Bearing as Tolerated Weight Bearing: Partial Weight Assistance Devices: Walker"
--- NOTE | 2017-09-13 07:30 | DISCHARGE SUMMARY ---
Discharge Summary Admit Date: 09/10/17 Discharge Date: 09/13/17 Discharging Provider: BREN Richardson Primary Care Provider: Dr. Burnham Condition at Discharge: Good Discharge Disposition: 03 SNF DC/Xfer Discharge Facility Name: [facility] - DIAGNOSES Admission Diagnoses: Essential (primary) hypertension (I10) Fall (W19.XXXA) Intertrochanteric fracture of right femur (S72.141A) UTI (urinary tract infection) (N39.0) Discharge Diagnoses with Status of Each Condition: Intertrochanteric fracture of right femur (S72.141A) UTI (urinary tract infection) (N39.0) T2DM (type 2 diabetes mellitus) (E11.9) Fall (W19.XXXA) - HPI History of Present Illness: Ko Santiago is an 82-year-old male with history of insulin-dependent diabetes, CKD, hypothyroidism, hyperlipidemia, hypertension, BPH, prostate cancer, recurrent UTI, and TB. Patient presents to the ED with right hip pain after falling last night. He became dizzy when letting his dog out and he fell to the tile floor onto his right side. He denies hitting his head or losing consciousness. He denies any other injuries. He has not been able to stand since the incident because of pain in his right hip. Ortho surgery was contacted, and patient is planning for surgery today to repair his right hip fracture. - HOSPITAL COURSE Hospital Course: The following diagnoses were prevalent during this hospital stay: (1) Intertrochanteric fracture of right femur- A right hip x-ray was completed in the ED and shows an acute minimally displaced intertrochanteric right femoral fracture. This occurred prior to admission when the patient became dizzy, and fell on his right side. This event was not witnessed. Patient underwent a right hip repair with Dr. Jose and is agreeable to a short halfway rehab stay. (2) Urinary tract infection- Prior to this event patient admits to "bladder problems" and feels that his urine never really cleared up. It is believed that the ongoing UTI in addition to dehydration may have been the cause of this fall. Per report from Dr. Jose, ortho surgery, patient's urine was noted as thick, foul smelling, and concentrated while in the OR. A UA was obtained on admission and suspicious for UTI. Patient was prescribed IV Rochepin that was changed to Cipro PO at the time of discharge. He also received IVFs and blood sugars were monitored and treated. (3) Diabetes mellitus type 2, controlled, without complications- Patient had an normal HgA1C of 5.8. Blood sugars generally range from 177-213 during his stay with the highest value of 427. Patient was continued on sliding scale insulin and blood sugar checks. Lantus and Aspart were titrated and patient was sent to SNF with recommended amounts. (4) Fall- Patient states that he got up around 4AM to let the dog out and the next thing he know he was on the floor. He admits to feeling dizzy just prior to this fall. Patient is now right hip repair xday #2. Patient was placed on fall precautions and worked with PT/OT, and nursing staff. Physical therapy recommends SNF for rehab. He did not have any falls while in the hospital. Disposition: Patient was taken via wheelchair van to [facility] for rehab. Report was called to Dr. Burnham. He did not require oxygen at the time of his transfer. Antibiotics were to continue for treatment of his UTI. - ALLERGIES Allergies/Adverse Reactions: Allergies Allergy/AdvReac Type Severity Reaction Status Date / Time No Known Drug Allergies Allergy Verified 09/10/17 05:10 - MEDICATIONS Home Medications: Ambulatory Orders Medication Instructions Recorded Confirmed Cholecalciferol (Vitamin D3) 2,000 unit PO DAILY 03/01/13 09/10/17 [Vitamin D3] Acetaminophen [Tylenol] 650 mg PO Q6H PRN #30 tab 09/13/17 Aspirin [Aspirin EC] 81 mg PO DAILY #30 09/13/17 09/10/17 Ciprofloxacin HCl [Cipro] 500 mg PO DAILY 10 Days #10 tablet 09/13/17 Fenofibrate [Tricor] 54 mg PO QD #30 09/13/17 09/10/17 Gabapentin 300 mg PO TID #0 09/13/17 09/10/17 Insulin Aspart [NovoLOG] 2 - 10 unit SUBQ 09/13/17 0800,1200,1700,2100 pen Insulin Aspart [NovoLOG] 5 unit SUBQ TIDWM pen 09/13/17 Insulin Glargine [Lantus Solostar] 20 unit SUBQ QPM pen 09/13/17 Levothyroxine [Synthroid] 75 mcg PO QDAC #30 tablet 09/13/17 Lidocaine Patch 5% [Lidoderm Patch] 1 each PATCH DAILY #20 patch 09/13/17 Lidocaine Patch 5% [Lidoderm Patch] 1 patch TOP DAILY PRN patch 09/13/17 Pravastatin Sodium [Pravachol] 20 mg PO QPM #30 09/13/17 09/10/17 Saccharomyces Boulardii [Florastor] 250 mg PO BID 20 Days #40 capsule 09/13/17 Tamsulosin [Flomax] 0.4 mg PO DAILY #30 09/13/17 09/10/17 Temazepam [Restoril] 15 mg PO QPM PRN capsule 09/13/17 oxyCODONE [Roxicodone] 2.5 - 5 mg PO Q4HR PRN tablet 09/13/17 oxyCODONE [Roxicodone] 5 mg PO ONCE #25 tablet 09/13/17 - PHYSICAL EXAM AT DISCHARGE General Appearance: positive: No acute distress, Alert Eyes Bilateral: positive: Normal inspection, PERRL ENT: positive: ENT inspection nml, Pharynx nml, No signs of dehydration Neck: positive: Nml inspection, Thyroid nml, No JVD Respiratory: positive: Chest non-tender, No respiratory distress, Breath sounds nml Cardiovascular: positive: Regular rate & rhythm, No gallop Peripheral Pulses: positive: 2+ Abdomen: positive: Non-tender, No organomegaly, Nml bowel sounds, No distention Back: positive: Nml inspection Skin: positive: No rash, Warm, Dry Extremities: positive: Non-tender, Nml appearance, No pedal edema, Joint swelling, Other (mild discomfort with weight.) Neurologic/Psychiatric: positive: Oriented x3, CN's nml (2-12), Motor nml, Sensation nml, Depressed mood/affect Reflexes: Bicep (R): 3+, Bicep (L): 3+ - LABS Result Diagrams: 09/13/17 04:57 09/13/17 04:57 - DIAGNOSTIC IMAGING Diagnostic Imaging Results: Prelim report reviewed, Final report reviewed Diagnostic Imaging Results Comments: EXAM: RIGHT HIP AND PELVIS RADIOGRAPHY EXAM DATE: 09/10/2017 06:25 AM. HISTORY: Right hip pain after fall. COMPARISONS: None. TECHNIQUE: 1 view of the pelvis and 1 view of the hip. FINDINGS: Bones: There is a minimally displaced intertrochanteric right femoral fracture. Joints: Mild bilateral SI joint degenerative change; moderate to severe lower lumbar degenerative change; as well as a moderate symphysis pubis and bilateral hip joint degenerative change. Symphysis pubis as well as bilateral hip joint chondrocalcinosis. Soft Tissues: Mild to moderate soft tissue swelling around the right hip IMPRESSION: Acute minimally displaced intertrochanteric right femoral fracture. EXAM: CHEST RADIOGRAPHY EXAM DATE: 09/10/2017 06:25 AM. CLINICAL HISTORY: Pre-op hip fx. COMPARISON: 03/01/2013. TECHNIQUE: 1 view. FINDINGS: Lungs/Pleura: Nonspecific mild bilateral upper lobe interstitial scarring again noted. No significant consolidation, effusion, or definite pneumothorax. Mediastinum: Within exam limitations, the cardiomediastinal contour is normal. Other: None. IMPRESSION: Stable appearance of the chest without acute cardiopulmonary abnormality. - FOLLOW UP Follow Up: Disposition: 03 [facility] DC/Xfer Condition: Good SNF Transition Orders: Admit to: [place] under the care of Dr. Burnham Discharge Diagnosis: Displaced intertrochanteric fracture of right femur, UTI, DM type 2, Fall Medicare Certification: I certify that [facility] halfway care is medically necessary on a continuing basis for any of the conditions for which she/he is receiving care during hospitalization. Notify PCP of admission and forward orders to primary provider for signature. Weight on admission and weekly. Call PCP immediately if weight increases by 10 pounds or if patient develops dyspnea, chest pain/tightness or edema. House Bowel Program: yes If no BM after 2 days, nurse may give M.O.M. 30ml PO PRN and /or ducolax Supp 1 NE and /or RUBIO 250mg P.O., and/or senna 1-2 tabs PO. On day 3 nurse may give repeat above order until residents constipation is resolved. Immunizations: Annual Influenza Vaccine: yes. (between Mar 23 and October 20.) Unless allergy or already given Two-Step PPD: yes per [facility] [id number] or appropriate documentation of approved exceptions Treatments & Other Orders: PT/OT, speech, continue antibiotic for UTI, continue blood sugar control. Oxygen Orders: not needed, 1-2L nasal cannula, PRN to keep O2 greater than 90%. Lab Tests or X-Rays Orders: Not needed, do not change dressing per Dr. Jose. X-ray will be completed on follow up in 10-14 days. Orthopedic Orders: Right hip dressing. Medications: PLEASE REFER TO THE DISCHARGE MEDICATION LIST. Diagnosis: Diabetes Initiate hypo and hyperglycemia protocols for BG <70 and BG >375. May check BG prn for signs/symptoms of dysglycemia. Frequency of BG checks: AC/Meal/HS Basal Insulin: Lantus : 20 units QPM scheduled, please. Correction Insulin: Please give Aspart (short acting) insulin 5 units with meals (TID), in addition a moderate dose sliding scale. - TIME SPENT Time Spent in Discharge (Minutes): 60
[2017-09-13] MEDS ORDERED: FERROUS SULFATE 325 MG TABLET PO SCH (08:00)
[2017-09-13] MEDS ORDERED: INSULIN ASPART 300 UNIT/3 ML PEN SUBQ SCH (08:00)
[2017-09-13] MEDS: INSULIN ASPART 300 UNIT/3 ML PEN SUBQ SCH (08:15)
[2017-09-13] MEDS: ASPIRIN EC 81 MG TABLET PO SCH (08:26)
[2017-09-13] MEDS: POLYETHYLENE GLYCOL 3350 17 GM PACKET PO SCH (08:26)
[2017-09-13] MEDS: CHOLECALCIFEROL 1,000 UNIT TABLET PO SCH (08:35)
[2017-09-13] MEDS: TAMSULOSIN 0.4 MG CAPSULE PO SCH (08:36)
[2017-09-13] MEDS: cefTRIAXone 1 GM in SODIUM CHLORIDE 0.9% MINIBAG 100 ML IV SCH (08:37)
[2017-09-13 08:56] VITALS: BP 119/54
--- NOTE | 2017-09-13 14:14 | XRAY Report ---
[facility]: Fluoroscopy time only, no images submitted for interpretation. Fluoroscopy time 0 minutes, 56 seconds. MARY
== END 2017-09-13 11:15 | DRG 481 ==
LOC: ED 05:01 → MS3 07:37
PROVIDERS: ADMIT Nurse Practitioner; ATTEND Nurse Practitioner
PROC: 0QS604Z Reposition Right Upper Femur with Internal Fixation Device, Open Approach (ICD-10-PCS; principal; 2017-09-10 09:05)
DX: S72.141A Displaced intertrochanteric fracture of right femur, initial encounter for closed fracture (principal); N39.0 Urinary tract infection, site not specified; D62 Acute posthemorrhagic anemia; Z86.11 Personal history of tuberculosis; N17.9 Acute kidney failure, unspecified; W18.30XA Fall on same level, unspecified, initial encounter; E78.00 Pure hypercholesterolemia, unspecified; E03.9 Hypothyroidism, unspecified; M19.90 Unspecified osteoarthritis, unspecified site; Z79.4 Long term (current) use of insulin; E11.65 Type 2 diabetes mellitus with hyperglycemia; E11.22 Type 2 diabetes mellitus with diabetic chronic kidney disease; I12.9 Hypertensive chronic kidney disease with stage 1 through stage 4 chronic kidney disease, or unspecified chronic kidney disease; N18.9 Chronic kidney disease, unspecified; Z87.891 Personal history of nicotine dependence; Z85.46 Personal history of malignant neoplasm of prostate; N40.0 Benign prostatic hyperplasia without lower urinary tract symptoms; E86.0 Dehydration
CPT/HCPCS: 36415; 71045; 80053; 81001; 81003; 83036; 83540; 83690; 84439; 84443; 84466; 84481; 85025; 85610; 85730; 86850; 86900; 86901; 87086; 93005; 99283; 99284; 99285

== ENCOUNTER 2018-01-15 13:25 | Outpatient (CLI) | payer MEDICARE, OTHER ==
[2018-01-15 19:26] LABS: THYROID STIMULATING HORMONE 2.38 uIU/mL (0.34-5.60)
[2018-01-15 19:28] LABS: FREE T4 (FREE THYROXINE) 0.72 ng/dL (0.58-1.64)
== END 2018-01-15 13:26 | disposition home or self-care (01) ==
LOC: LAB.WCP 13:25
PROVIDERS: ATTEND Family Medicine
DX: E03.9 Hypothyroidism, unspecified (principal)
CPT/HCPCS: 36415; 84439; 84443; 84481

== ENCOUNTER 2018-04-15 08:00 | Outpatient (CLI) | payer MEDICARE, OTHER ==
[2018-04-15 14:20] LABS: BASOPHILS # (AUTO) 0.1 10^3/uL (0.0-0.1); BASOPHILS % (AUTO) 0.9 %; EOSINOPHILS # (AUTO) 0.2 10^3/uL (0.0-0.7); EOSINOPHILS % (AUTO) 3.3 %; HGB - HEMOGLOBIN 13.6 g/dL (14.0-18.0); LYMPHOCYTES # (AUTO) 1.6 10^3/uL (1.5-3.5); LYMPHOCYTES % (AUTO) 27.4 %; MEAN CORPUSCULAR HEMOGLOBIN 33.3 pg (27.0-31.0); MEAN CORPUSCULAR VOLUME 97.8 fL (80.0-94.0); MEAN PLATELET VOLUME 10.8 fL (7.4-11.4); MONOCYTES # (AUTO) 0.5 10^3/uL (0.0-1.0); MONOCYTES % (AUTO) 8.3 %; NEUTROPHILS # (AUTO) 3.5 10^3/uL (1.5-6.6); NEUTROPHILS % (AUTO) 60.1 %; PLT - PLATELET COUNT 206 10^3/uL (130-450); RED CELL DISTRIBUTION WIDTH 14.1 % (12.0-15.0); WHITE BLOOD COUNT 5.9 x10^3/uL (4.8-10.8)
[2018-04-15 14:39] LABS: HB2 TOTAL 14.5 g/dL; HEMOGLOBIN A1C 0.47 g/dL; HEMOGLOBIN A1C % 5.1 % (4.6-6.2)
[2018-04-15 14:42] LABS: ALBUMIN 3.3 g/dL (3.2-5.5); ALBUMIN/GLOBULIN RATIO 0.9 (1.0-2.2); ALKALINE PHOSPHATASE 116 IU/L (42-121); ALT ALANINE AMINOTRANSFERASE 18 IU/L (10-60); AST ASPARTATE AMINOTRANSFERASE 33 IU/L (10-42); BILIRUBIN,TOTAL 0.9 mg/dL (0.2-1.0); BUN - BLOOD UREA NITROGEN 30 mg/dL (6-20); CALCIUM 9.3 mg/dL (8.5-10.3); CARBON DIOXIDE - CO2 23 mmol/L (21-32); CHLORIDE 104 mmol/L (101-111); CHOL/HDL RATIO 5.7 (<5.0); CHOLESTEROL 164 mg/dL; CREATININE 0.6 mg/dL (0.6-1.2); GFR - MDRD 130 (>89); GLUCOSE 91 mg/dL (70-100); HDL CHOLESTEROL 29 mg/dL; LDL CHOLESTEROL,CALCULATED 111 mg/dL; LDL/HDL RATIO 3.8 (<3.6); SODIUM 136 mmol/L (135-145); VLDL CHOLESTEROL 24 mg/dL
== END 2018-04-15 08:01 | disposition home or self-care (01) ==
LOC: LAB.WCP 08:00
PROVIDERS: ATTEND Family Medicine
DX: I10 Essential (primary) hypertension (principal); E11.9 Type 2 diabetes mellitus without complications; E78.5 Hyperlipidemia, unspecified; E03.9 Hypothyroidism, unspecified
CPT/HCPCS: 36415; 80053; 80061; 83036; 83721; 84443; 85025

== ENCOUNTER 2018-07-18 08:15 | Outpatient (CLI) | payer MEDICARE, OTHER ==
[2018-07-18 13:58] LABS: BASOPHILS % (AUTO) 0.8 %; EOSINOPHILS # (AUTO) 0.1 10^3/uL (0.0-0.7); EOSINOPHILS % (AUTO) 1.2 %; HGB - HEMOGLOBIN 13.6 g/dL (14.0-18.0); LYMPHOCYTES # (AUTO) 1.3 10^3/uL (1.5-3.5); LYMPHOCYTES % (AUTO) 22.6 %; MEAN CORPUSCULAR HEMOGLOBIN 33.4 pg (27.0-31.0); MEAN CORPUSCULAR HGB CONC 33.5 g/dL (32.0-36.0); MEAN CORPUSCULAR VOLUME 99.7 fL (80.0-94.0); MEAN PLATELET VOLUME 10.8 fL (7.4-11.4); MONOCYTES # (AUTO) 0.4 10^3/uL (0.0-1.0); MONOCYTES % (AUTO) 7.7 %; NEUTROPHILS # (AUTO) 3.9 10^3/uL (1.5-6.6); NEUTROPHILS % (AUTO) 67.7 %; PLT - PLATELET COUNT 192 10^3/uL (130-450); RED BLOOD COUNT 4.07 10^6/uL (4.70-6.10); RED CELL DISTRIBUTION WIDTH 14.5 % (12.0-15.0); WHITE BLOOD COUNT 5.7 x10^3/uL (4.8-10.8)
[2018-07-18 14:16] LABS: HB2 TOTAL 14.2 g/dL; HEMOGLOBIN A1C 0.43 g/dL; HEMOGLOBIN A1C % 4.9 % (4.6-6.2)
[2018-07-18 14:25] LABS: THYROID STIMULATING HORMONE 7.24 uIU/mL (0.34-5.60)
[2018-07-18 14:36] LABS: ALBUMIN 3.4 g/dL (3.2-5.5); ALBUMIN/GLOBULIN RATIO 0.9 (1.0-2.2); ALKALINE PHOSPHATASE 121 IU/L (42-121); ALT ALANINE AMINOTRANSFERASE 16 IU/L (10-60); AST ASPARTATE AMINOTRANSFERASE 30 IU/L (10-42); BILIRUBIN,TOTAL 0.5 mg/dL (0.2-1.0); BUN - BLOOD UREA NITROGEN 25 mg/dL (6-20); CALCIUM 9.7 mg/dL (8.5-10.3); CARBON DIOXIDE - CO2 26 mmol/L (21-32); CHLORIDE 106 mmol/L (101-111); CHOL/HDL RATIO 6.2 (<5.0); CHOLESTEROL 167 mg/dL; CREATININE 1.2 mg/dL (0.6-1.2); GFR - MDRD 58 (>89); GLUCOSE 87 mg/dL (70-100); HDL CHOLESTEROL 27 mg/dL; LDL CHOLESTEROL,CALCULATED 109 mg/dL; SODIUM 141 mmol/L (135-145); TOTAL PROTEIN 7.4 g/dL (6.7-8.2); VLDL CHOLESTEROL 31 mg/dL
[2018-07-18 15:26] LABS: FREE T4 (FREE THYROXINE) 0.76 ng/dL (0.58-1.64)
== END 2018-07-18 23:59 | disposition home or self-care (01) ==
LOC: LAB.WCP 08:15
PROVIDERS: ATTEND Family Medicine
DX: E11.9 Type 2 diabetes mellitus without complications (principal); E78.5 Hyperlipidemia, unspecified; E03.9 Hypothyroidism, unspecified
CPT/HCPCS: 36415; 80053; 80061; 83036; 83721; 84439; 84443; 85025

== ENCOUNTER 2018-07-19 16:15 | Outpatient (CLI) | payer MEDICARE, OTHER | END 2018-07-19 16:16 | disposition critical access hospital (66) | LOC: EMS 16:15 | PROVIDERS: ATTEND Surgery | DX: K62.5 Hemorrhage of anus and rectum (principal) | CPT/HCPCS: A0425; A0427 ==

== ENCOUNTER 2018-07-19 16:32 | Emergency (ER) | payer MEDICARE, OTHER ==
--- NOTE | 2018-07-19 16:49 | ED Physician Documentation ---
PD HPI GI BLEED - Stated complaint Stated Complaint: GI BLEED - Chief complaint Chief Complaint: General - History obtained from History obtained from: Patient, EMS - History of Present Illness Timing - onset: Today Timing - duration: Days (1) Timing - details: Abrupt onset Pain level max: 0 Pain level now: 0 Associated symptoms: BRBPR (x1). No: Vomiting, Coffee ground emesis, Hematemesis, Maroon stool, Black/tarry stool, Diarrhea, Constipation, Abdominal pain Contributing factors: No: Sick contact, Bad food, Travel, Recent antibiotics, Alcohol use, Aspirin use, NSAID use, Stress, Anticoagulated, Diabetes Improved by: Other (nothing) Worsened by: Other (nothing) Similar symptoms before: Has not had sx before Recently seen: Not recently seen - Additional information Additional information: noted blood in his depends today, bright red Review of Systems Ten Systems: 10 systems reviewed and negative Constitutional: denies: Fever, Chills GI: denies: Vomiting Skin: denies: Rash Musculoskeletal: denies: Neck pain, Back pain Neurologic: denies: Headache PD PAST MEDICAL HISTORY - Past Medical History Cardiovascular: Hypertension, High cholesterol Respiratory: Tuberculosis (Remote history; treated.) Endocrine/Autoimmune: Type 2 diabetes GI: None 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) : Other HEENT: None Psych: None Musculoskeletal: Osteoarthritis, Chronic back pain Derm: None - Past Surgical History Past Surgical History: Yes /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: Other HEENT: Cataracts - Present Medications Home Medications: Ambulatory Orders Medication Instructions Recorded Confirmed Cholecalciferol (Vitamin D3) 2,000 unit PO DAILY 03/01/13 07/19/18 [Vitamin D3] Acetaminophen [Tylenol] 650 mg PO Q6H PRN #30 tab 09/13/17 07/19/18 Aspirin [Aspirin EC] 81 mg PO DAILY #30 09/13/17 07/19/18 Fenofibrate [Tricor] 54 mg PO QD #30 09/13/17 07/19/18 Gabapentin 300 mg PO TID #0 09/13/17 07/19/18 Levothyroxine [Synthroid] 75 mcg PO QDAC #30 tablet 09/13/17 07/19/18 Pravastatin Sodium [Pravachol] 20 mg PO QPM #30 09/13/17 07/19/18 Cephalexin [Keflex] 500 mg PO Q6H #28 capsule 07/19/18 Insulin Glargine [Lantus Solostar] 10 unit SUBQ QPM 07/19/18 07/19/18 - Allergies Allergies/Adverse Reactions: Allergies Allergy/AdvReac Type Severity Reaction Status Date / Time No Known Drug Allergies Allergy Verified 07/19/18 16:50 - Social History Does the pt smoke?: No Smoking Status: Former smoker Does the pt drink ETOH?: No Does the pt have substance abuse?: No - Immunizations Immunizations are current?: Yes - POLST Patient has POLST: No POLST Status: Full Code PD ED PE NORMAL - Vitals Vital signs reviewed: Yes - General General: Alert and oriented X 3, No acute distress - HEENT HEENT: Moist mucous membranes - Neck Neck: Supple, no meningeal sign - Cardiac Cardiac: RRR - Respiratory Respiratory: No respiratory distress, Clear bilaterally - Abdomen Abdomen: Soft, Non tender, Non distended - Male Male : Other (normal external exam.) - Rectal Rectal: Other (normal rectal exam. heme negative stool. ) - Back Back: No CVA TTP, No spinal TTP - Derm Derm: Warm and dry - Extremities Extremities: No edema, No calf tenderness / cord - Neuro Neuro: Alert and oriented X 3 Results - Vitals Vitals: Vital Signs - 24 hr 07/19/18 16:35 Temperature 36 C L Heart Rate 78 Respiratory 16 Rate Blood Pressure 126/58 L O2 Saturation 100 Oxygen O2 Source Room air - Labs Labs: Laboratory Tests 07/19/18 07/19/18 07/19/18 16:50 16:50 16:50 WBC 5.0 RBC 3.77 L Hgb 12.8 L Hct 37.3 L MCV 99.0 H MCH 34.0 H MCHC 34.4 RDW 14.2 Plt Count 188 MPV 10.2 Neut # (Auto) 2.8 Lymph # (Auto) 1.6 [place] # (Auto) 0.5 Eos # (Auto) 0.1 Baso # (Auto) 0.0 Absolute Nucleated RBC 0.00 Nucleated RBC % 0.1 PT INR APTT Sodium 140 Potassium 4.4 Chloride 106 Carbon Dioxide 26 Anion Gap 8.0 BUN 34 H Creatinine 1.5 H Estimated GFR (MDRD) 45 L Glucose 127 H Calcium 8.8 Total Bilirubin 0.4 AST 40 ALT 18 Alkaline Phosphatase 129 H Total Protein 6.9 Albumin 3.3 Globulin 3.6 Albumin/Globulin Ratio 0.9 L Lipase 31 Urine Color Urine Clarity Urine pH Ur Specific [place] Urine Protein Urine Glucose (UA) Urine Ketones Urine Occult Blood Urine Nitrite Urine Bilirubin Urine Urobilinogen Ur Leukocyte Esterase Urine RBC Urine WBC Ur Squamous Epith Cells Urine Bacteria Ur Microscopic Review Urine Culture Comments Blood Type A POSITIVE Antibody Screen NEGATIVE 07/19/18 07/19/18 16:50 17:30 WBC RBC Hgb Hct MCV MCH MCHC RDW Plt Count MPV Neut # (Auto) Lymph # (Auto) [place] # (Auto) Eos # (Auto) Baso # (Auto) Absolute Nucleated RBC Nucleated RBC % PT 12.5 INR 1.1 APTT 30.9 Sodium Potassium Chloride Carbon Dioxide Anion Gap BUN Creatinine Estimated GFR (MDRD) Glucose Calcium Total Bilirubin AST ALT Alkaline Phosphatase Total Protein Albumin Globulin Albumin/Globulin Ratio Lipase Urine Color RED/BLOODY Urine Clarity CLOUDY Urine pH 6.5 Ur Specific [place] >=1.030 H Urine Protein 100 H Urine Glucose (UA) NEGATIVE Urine Ketones NEGATIVE Urine Occult Blood LARGE H Urine Nitrite NEGATIVE Urine Bilirubin NEGATIVE Urine Urobilinogen 0.2 (NORMAL) Ur Leukocyte Esterase TRACE H Urine RBC TNTC H Urine WBC >25 H Ur Squamous Epith Cells FEW Squamous Urine Bacteria Few Ur Microscopic Review INDICATED Urine Culture Comments INDICATED Blood Type Antibody Screen PD MEDICAL DECISION MAKING - ED course Complexity details: reviewed results, re-evaluated patient, considered differential, d/w patient, d/w family ED course: 83-year-old male with what was thought to be GI bleed, turns out to be hematuria. Appears to be a UTI. Given Rocephin and will place on antibiotics for home. We will have him follow-up closely with his doctor. May need a urology referral for cystoscopy. Patient and family counseled regarding signs and symptoms for which I believe and urgent re-evaluation would be necessary. Patient with good understanding of and agreement to plan and is comfortable going home at this time This document was made in part using voice recognition software. While efforts are made to proofread this document, sound alike and grammatical errors may occur. Departure - Departure Disposition: Home, Self Care Clinical Impression: Hematuria Qualifiers: Hematuria type: gross Qualified Code(s): R31.0 - Gross hematuria UTI (urinary tract infection) Qualifiers: Urinary tract infection type: acute cystitis Hematuria presence: with hematuria Qualified Code(s): N30.01 - Acute cystitis with hematuria Condition: Good Instructions: ED UTI Cystitis Male Follow-Up: Itzel Herr MD [Primary Care Provider] - Within 1 week Prescriptions: Cephalexin [Keflex] 500 mg PO Q6H #28 capsule Comments: Take all antibiotics until gone. Return if you worsen. Follow-up with your doctor for further care. If you are still having bleeding you may need further evaluation with urology.
[2018-07-19 17:00] LABS: EOSINOPHILS # (AUTO) 0.1 10^3/uL (0.0-0.7); EOSINOPHILS % (AUTO) 1.5 %; HGB - HEMOGLOBIN 12.8 g/dL (14.0-18.0); LYMPHOCYTES # (AUTO) 1.6 10^3/uL (1.5-3.5); MEAN CORPUSCULAR HGB CONC 34.4 g/dL (32.0-36.0); MEAN PLATELET VOLUME 10.2 fL (7.4-11.4); MONOCYTES # (AUTO) 0.5 10^3/uL (0.0-1.0); MONOCYTES % (AUTO) 9.2 %; NEUTROPHILS # (AUTO) 2.8 10^3/uL (1.5-6.6); NEUTROPHILS % (AUTO) 55.3 %; PLT - PLATELET COUNT 188 10^3/uL (130-450); RED BLOOD COUNT 3.77 10^6/uL (4.70-6.10); RED CELL DISTRIBUTION WIDTH 14.2 % (12.0-15.0)
[2018-07-19 17:09] LABS: INR 1.1 (0.8-1.2); PT - PROTHROMBIN TIME 12.5 secs (9.9-12.6)
[2018-07-19 17:12] LABS: ALBUMIN 3.3 g/dL (3.2-5.5); ALBUMIN/GLOBULIN RATIO 0.9 (1.0-2.2); BILIRUBIN,TOTAL 0.4 mg/dL (0.2-1.0); CALCIUM 8.8 mg/dL (8.5-10.3); CREATININE 1.5 mg/dL (0.6-1.2); TOTAL PROTEIN 6.9 g/dL (6.7-8.2)
[2018-07-19 17:48] LABS: BILIRUBIN,URINE NEGATIVE (NEGATIVE); GLUCOSE, URINE (UA) NEGATIVE (NEGATIVE); KETONES,URINE (UA) NEGATIVE (NEGATIVE); LEUKOCYTE ESTERASE, URINE TRACE (NEGATIVE); NITRITE,URINE NEGATIVE (NEGATIVE); OCCULT BLOOD,URINE LARGE (NEGATIVE); PH,URINE 6.5 PH (5.0-7.5); PROTEIN,URINE 100 mg/dL (NEGATIVE); UROBILINOGEN,URINE 0.2 (NORMAL) E.U./dL (NORMAL)
[2018-07-19 17:51] LABS: CLARITY,URINE CLOUDY (CLEAR)
[2018-07-19 18:23] LABS: RBC,URINE TNTC /HPF (0-5)
[2018-07-19 18:24] LABS: BACTERIA,URINE Few /HPF (None Seen); SQUAMOUS EPITHELIAL CELL,UR FEW Squamous (<= Few)
[2018-07-19] MEDS ORDERED: cefTRIAXone 1 GM VIAL IVP STA (18:28)
[2018-07-19 19:25] VITALS: BP 123/59
== END 2018-07-19 19:35 | disposition home or self-care (01) ==
LOC: EDUNIT# → ED 16:32
DX: N30.01 Acute cystitis with hematuria (principal); I10 Essential (primary) hypertension; E11.9 Type 2 diabetes mellitus without complications; Z79.4 Long term (current) use of insulin; Z79.82 Long term (current) use of aspirin; Z85.46 Personal history of malignant neoplasm of prostate; Z86.11 Personal history of tuberculosis; Z87.891 Personal history of nicotine dependence
CPT/HCPCS: 36415; 80053; 81001; 81003; 83690; 85025; 85610; 85730; 86850; 86900; 86901; 87086; 96374; 99283

== ENCOUNTER 2018-08-01 08:00 | Outpatient (CLI) | payer MEDICARE, OTHER | END 2018-08-01 23:59 | disposition home or self-care (01) | LOC: LAB.R 08:00 | PROVIDERS: ATTEND Family Medicine | DX: N39.0 Urinary tract infection, site not specified (principal); B97.89 Other viral agents as the cause of diseases classified elsewhere | CPT/HCPCS: 87077; 87086; 87275; 87276 ==

== ENCOUNTER 2018-08-15 08:36 | Outpatient (CLI) | payer MEDICARE, OTHER ==
[2018-08-15 16:27] LABS: THYROID STIMULATING HORMONE 5.59 uIU/mL (0.34-5.60)
[2018-08-15 16:31] LABS: FREE T4 (FREE THYROXINE) 0.95 ng/dL (0.58-1.64)
[2018-08-15 16:39] LABS: CALCIUM 9.3 mg/dL (8.5-10.3)
[2018-08-15 17:09] LABS: ALBUMIN 3.4 g/dL (3.2-5.5); ALBUMIN/GLOBULIN RATIO 0.9 (1.0-2.2); BILIRUBIN,TOTAL 0.7 mg/dL (0.2-1.0); CREATININE 1.2 mg/dL (0.6-1.2); TOTAL PROTEIN 7.1 g/dL (6.7-8.2)
== END 2018-08-15 23:59 | disposition home or self-care (01) ==
LOC: LAB.WCP 08:36
PROVIDERS: ATTEND Family Medicine
DX: I10 Essential (primary) hypertension (principal); E11.9 Type 2 diabetes mellitus without complications; E03.9 Hypothyroidism, unspecified; B97.89 Other viral agents as the cause of diseases classified elsewhere
CPT/HCPCS: 36415; 80053; 84439; 84443; 84481

== ENCOUNTER 2018-09-11 10:53 | Outpatient (CLI) | payer MEDICARE, OTHER | END 2018-09-11 10:54 | disposition home or self-care (01) | LOC: LAB.WCP 10:53 | PROVIDERS: ATTEND Family Medicine | DX: B97.89 Other viral agents as the cause of diseases classified elsewhere (principal); N39.0 Urinary tract infection, site not specified | CPT/HCPCS: 87086 ==

== ENCOUNTER 2018-09-28 08:01 | Emergency (ER) | payer MEDICARE, OTHER ==
--- NOTE | 2018-09-28 08:27 | ED Physician Documentation ---
PD HPI MALE - Stated complaint Stated Complaint: MALE - Chief complaint Chief Complaint: General - History obtained from History obtained from: Patient - History of Present Illness Timing - onset: Today Timing - duration: Hours Timing - details: Abrupt onset, Still present Associated symptoms: Hematuria PD HPI MALE CONTRIB FACTORS: Other (started xarealto yesterday) Similar symptoms before: Diagnosis (UTI) Recently seen: Clinic - Additional information Additional information: 83 y/o male with hematuria this morning after starting blood thinner yesterday has a history of UTI with hematuria and a history of diabetes & CKD. Review of Systems Constitutional: denies: Fever, Chills, Myalgias Eyes: denies: Decreased vision Ears: denies: Ear pain Nose: denies: Rhinorrhea / runny nose, Congestion Throat: denies: Sore throat Cardiac: denies: Chest pain / pressure, Palpitations Respiratory: denies: Dyspnea, Cough GI: denies: Abdominal Pain, Nausea, Vomiting : reports: Hematuria. 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 HEENT: Cataracts - Present Medications Home Medications: Ambulatory Orders Medication Instructions Recorded Confirmed Cholecalciferol (Vitamin D3) 2,000 unit PO DAILY 03/01/13 07/19/18 [Vitamin D3] Acetaminophen [Tylenol] 650 mg PO Q6H PRN #30 tab 09/13/17 07/19/18 Aspirin [Aspirin EC] 81 mg PO DAILY #30 09/13/17 07/19/18 Fenofibrate [Tricor] 54 mg PO QD #30 09/13/17 07/19/18 Gabapentin 300 mg PO TID #0 09/13/17 07/19/18 Levothyroxine [Synthroid] 75 mcg PO QDAC #30 tablet 09/13/17 07/19/18 Pravastatin Sodium [Pravachol] 20 mg PO QPM #30 09/13/17 07/19/18 Cephalexin [Keflex] 500 mg PO Q6H #28 capsule 07/19/18 Insulin Glargine [Lantus Solostar] 10 unit SUBQ QPM 07/19/18 07/19/18 Ciprofloxacin HCl [Cipro] 500 mg PO BID #14 tablet 09/28/18 - Allergies Allergies/Adverse Reactions: Allergies Allergy/AdvReac Type Severity Reaction Status Date / Time No Known Drug Allergies Allergy Verified 09/28/18 08:06 - Social History Does the pt smoke?: No Smoking Status: Former smoker Does the pt drink ETOH?: No Does the pt have substance abuse?: No - Immunizations Immunizations are current?: Yes - POLST Patient has POLST: No POLST Status: Full Code PD ED PE NORMAL - Vitals Vital signs reviewed: Yes (bradycardic hypotensive mild ) - General General: Alert and oriented X 3, No acute distress, Well developed/nourished - HEENT HEENT: Atraumatic, PERRL, EOMI - Neck Neck: Supple, no meningeal sign - Cardiac Cardiac: RRR, No murmur - Respiratory Respiratory: No respiratory distress, Clear bilaterally - Abdomen Abdomen: Soft, Non tender - Back Back: No CVA TTP, No spinal TTP - Derm Derm: Normal color, Warm and dry, No rash - Extremities Extremities: No deformity, No edema - Neuro Neuro: Alert and oriented X 3, 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, No motor deficit, No sensory deficit, Normal speech Eye Opening: Spontaneous Motor: Obeys Commands Verbal: Oriented GCS Score: 15 - Psych Psych: Normal mood, Normal affect Results - Vitals Vitals: Vital Signs - 24 hr 09/28/18 08:04 Temperature 36.4 C L Heart Rate 48 L Respiratory 18 Rate Blood Pressure 101/44 L O2 Saturation 100 Oxygen O2 Source Room air - Labs Labs: Laboratory Tests 09/28/18 09/28/18 09/28/18 08:40 08:40 09:00 WBC 5.4 RBC 3.92 L Hgb 12.8 L Hct 38.1 L MCV 97.2 H MCH 32.7 H MCHC 33.7 RDW 14.0 Plt Count 201 MPV 9.9 Neut # (Auto) 3.4 Lymph # (Auto) 1.3 L [place] # (Auto) 0.5 Eos # (Auto) 0.2 Baso # (Auto) 0.1 Absolute Nucleated RBC 0.00 Nucleated RBC % 0.1 Sodium 133 L Potassium 4.6 Chloride 99 L Carbon Dioxide 25 Anion Gap 9.0 BUN 32 H Creatinine 1.4 H Estimated GFR (MDRD) 49 L Glucose 203 H Calcium 8.8 Total Bilirubin 1.0 AST 28 ALT 16 Alkaline Phosphatase 123 H Total Protein 6.6 L Albumin 3.3 Globulin 3.3 Albumin/Globulin Ratio 1.0 Lipase 29 Urine Color BROWN Urine Clarity CLOUDY Urine pH 6.5 Ur Specific [place] 1.025 Urine Protein 100 H Urine Glucose (UA) NEGATIVE Urine Ketones TRACE Urine Occult Blood LARGE H Urine Nitrite POSITIVE H Urine Bilirubin NEGATIVE Urine Urobilinogen 1 (NORMAL) Ur Leukocyte Esterase LARGE H Urine RBC TNTC H Urine WBC >25 H Ur Squamous Epith Cells NONE SEEN Urine Bacteria Moderate H Ur Microscopic Review INDICATED Urine Culture Comments INDICATED Procedures - IVC sono (time) 1000 Bedside IVC sono: IVC measures (cm) (1.7), Euvolemia PD MEDICAL DECISION MAKING - ED course Complexity details: reviewed old records, reviewed results, re-evaluated patient, considered differential, d/w patient ED course: 83-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 He is a diabetic and he is not volume depleted today. He does have chronic kidney disease. He is in sinus rhythm today. He is administered Rocephin IM we will start him back on some Cipro and have him follow up with primary. He does not appear ill this morning. Departure - Departure Disposition: 01 Home, Self Care Clinical Impression: Urinary tract infection Qualifiers: Urinary tract infection type: acute cystitis Hematuria presence: with hematuria Qualified Code(s): N30.01 - Acute cystitis with hematuria Condition: Stable Instructions: ED UTI Cystitis Male Follow-Up: Itzel Herr MD [Primary Care Provider] - Prescriptions: Ciprofloxacin HCl [Cipro] 500 mg PO BID #14 tablet
[2018-09-28 08:44] LABS: BASOPHILS # (AUTO) 0.1 10^3/uL (0.0-0.1); BASOPHILS % (AUTO) 1.4 %; EOSINOPHILS # (AUTO) 0.2 10^3/uL (0.0-0.7); EOSINOPHILS % (AUTO) 3.4 %; HGB - HEMOGLOBIN 12.8 g/dL (14.0-18.0); LYMPHOCYTES # (AUTO) 1.3 10^3/uL (1.5-3.5); LYMPHOCYTES % (AUTO) 23.5 %; MEAN CORPUSCULAR HEMOGLOBIN 32.7 pg (27.0-31.0); MEAN CORPUSCULAR HGB CONC 33.7 g/dL (32.0-36.0); MEAN CORPUSCULAR VOLUME 97.2 fL (80.0-94.0); MEAN PLATELET VOLUME 9.9 fL (7.4-11.4); MONOCYTES # (AUTO) 0.5 10^3/uL (0.0-1.0); MONOCYTES % (AUTO) 9.1 %; NEUTROPHILS # (AUTO) 3.4 10^3/uL (1.5-6.6); NEUTROPHILS % (AUTO) 62.6 %; PLT - PLATELET COUNT 201 10^3/uL (130-450); RED BLOOD COUNT 3.92 10^6/uL (4.70-6.10); WHITE BLOOD COUNT 5.4 x10^3/uL (4.8-10.8)
[2018-09-28 09:00] LABS: ALBUMIN 3.3 g/dL (3.2-5.5); CALCIUM 8.8 mg/dL (8.5-10.3); CREATININE 1.4 mg/dL (0.6-1.2); TOTAL PROTEIN 6.6 g/dL (6.7-8.2)
[2018-09-28 09:11] LABS: GLUCOSE, URINE (UA) NEGATIVE (NEGATIVE); KETONES,URINE (UA) TRACE mg/dL (NEGATIVE); LEUKOCYTE ESTERASE, URINE LARGE (NEGATIVE); NITRITE,URINE POSITIVE (NEGATIVE); OCCULT BLOOD,URINE LARGE (NEGATIVE); PH,URINE 6.5 PH (5.0-7.5); PROTEIN,URINE 100 mg/dL (NEGATIVE); UROBILINOGEN,URINE 1 (NORMAL) E.U./dL (NORMAL)
[2018-09-28 09:13] LABS: CLARITY,URINE CLOUDY (CLEAR)
[2018-09-28 09:26] LABS: BILIRUBIN,URINE NEGATIVE (NEGATIVE); ICTOTEST,URINE NEGATIVE
[2018-09-28 09:27] LABS: RBC,URINE TNTC /HPF (0-5)
[2018-09-28 09:28] LABS: BACTERIA,URINE Moderate /HPF (None Seen); SQUAMOUS EPITHELIAL CELL,UR NONE SEEN (<= Few)
[2018-09-28] MEDS ORDERED: cefTRIAXone 1 GM in SODIUM CHLORIDE 0.9% MINIBAG 100 ML IV STA (09:44)
[2018-09-28] MEDS ORDERED: LIDOCAINE 1% 2 ML VIAL SUBQ ONE (10:05)
[2018-09-28] MEDS ORDERED: cefTRIAXone 1 GM VIAL IM STA (10:05)
[2018-09-28 10:48] VITALS: BP 105/64
== END 2018-09-28 10:48 | disposition home or self-care (01) ==
LOC: ED 08:01
DX: N30.01 Acute cystitis with hematuria (principal); I10 Essential (primary) hypertension; E11.29 Type 2 diabetes mellitus with other diabetic kidney complication; Z79.4 Long term (current) use of insulin; Z87.891 Personal history of nicotine dependence
CPT/HCPCS: 36415; 80053; 81001; 81003; 83690; 85025; 87077; 87086; 87181; 96372; 99283

== ENCOUNTER 2018-10-04 09:03 | Emergency (ER) | payer MEDICARE, OTHER ==
--- NOTE | 2018-10-04 09:11 | ED Physician Documentation ---
PD HPI MALE - Stated complaint Stated Complaint: MALE - History obtained from History obtained from: Patient - History of Present Illness Timing - onset: How many days ago (6-7) Timing - duration: Days Timing - details: Gradual onset (he had blood in urine and had started Xarelto for history of atrial fib. Seen in ER and Dx with UTI, Rx Cipro. CUlture showed resistance to that and he was changed to different abx in office 4 days ago. Has had less blood in urine but then more again today. Some left flank pain. 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) : Other HEENT: None Psych: None Musculoskeletal: Osteoarthritis, Chronic back pain Derm: None - Past Surgical History Past Surgical History: Yes /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 HEENT: Cataracts - Present Medications Home Medications: Ambulatory Orders Medication Instructions Recorded Confirmed Cholecalciferol (Vitamin D3) 2,000 unit PO DAILY 03/01/13 07/19/18 [Vitamin D3] Acetaminophen [Tylenol] 650 mg PO Q6H PRN #30 tab 09/13/17 07/19/18 Aspirin [Aspirin EC] 81 mg PO DAILY #30 09/13/17 07/19/18 Fenofibrate [Tricor] 54 mg PO QD #30 09/13/17 07/19/18 Gabapentin 300 mg PO TID #0 09/13/17 07/19/18 Levothyroxine [Synthroid] 75 mcg PO QDAC #30 tablet 09/13/17 07/19/18 Pravastatin Sodium [Pravachol] 20 mg PO QPM #30 09/13/17 07/19/18 Cephalexin [Keflex] 500 mg PO Q6H #28 capsule 07/19/18 Ciprofloxacin HCl [Cipro] 500 mg PO BID #14 tablet 09/28/18 Oxybutynin [Ditropan] 5 mg PO BID #30 tablet 10/04/18 Rivaroxaban [Xarelto] 1 each PO 10/04/18 10/04/18 - Allergies Allergies/Adverse Reactions: Allergies Allergy/AdvReac Type Severity Reaction Status Date / Time No Known Drug Allergies Allergy Verified 10/04/18 09:20 - Social History Does the pt smoke?: No Smoking Status: Former smoker Does the pt drink ETOH?: No Does the pt have substance abuse?: No - Immunizations Immunizations are current?: Yes - POLST Patient has POLST: No POLST Status: Full Code PD ED PE NORMAL - Vitals Vital signs reviewed: Yes - General General: Alert and oriented X 3, No acute distress, Well developed/nourished - Abdomen Abdomen: Soft, Non tender - Male Male : Other (normal external genitalia) - Back Back: No CVA TTP - Derm Derm: Normal color, Warm and dry - Neuro Neuro: Alert and oriented X 3, No motor deficit, Normal speech Results - Vitals Vitals: Vital Signs - 24 hr 10/04/18 09:14 Temperature 36.8 C Heart Rate 63 Respiratory 20 Rate Blood Pressure 112/71 O2 Saturation 100 Oxygen O2 Source Room air - Labs Labs: Laboratory Tests 10/04/18 10/04/18 09:20 10:05 WBC 4.7 L RBC 3.90 L Hgb 12.7 L Hct 38.2 L MCV 97.9 H MCH 32.6 H MCHC 33.3 RDW 14.0 Plt Count 201 MPV 10.2 Neut # (Auto) 3.0 Lymph # (Auto) 1.0 L [place] # (Auto) 0.4 Eos # (Auto) 0.2 Baso # (Auto) 0.1 Absolute Nucleated RBC 0.00 Nucleated RBC % 0.0 Urine Color RED/BLOODY Urine Clarity CLOUDY Urine pH 6.5 Ur Specific [place] 1.025 Urine Protein 100 H Urine Glucose (UA) NEGATIVE Urine Ketones NEGATIVE Urine Occult Blood LARGE H Urine Nitrite NEGATIVE Urine Bilirubin NEGATIVE Urine Urobilinogen 0.2 (NORMAL) Ur Leukocyte Esterase TRACE H Urine RBC TNTC H Urine WBC 0-3 Ur Squamous Epith Cells NONE SEEN Urine Bacteria Rare Ur Microscopic Review INDICATED Urine Culture Comments INDICATED PD MEDICAL DECISION MAKING - ED course Complexity details: considered differential (hematuria and has UTI, currently on abx. Urine looking improved, so will stay with abx (had one Rx from office based on culture). He had started Xarelto for atrial fib and has a lot of hematuria. discussed risks/benefits and shared decision to be off the Xarelto for a week or so until UTI cleared. ), d/w patient Departure - Departure Disposition: 01 Home, Self Care Clinical Impression: Current use of anticoagulant therapy Urinary tract infection Qualifiers: Urinary tract infection type: acute cystitis Hematuria presence: with hematuria Qualified Code(s): N30.01 - Acute cystitis with hematuria Condition: Stable Record reviewed to determine appropriate education?: Yes Instructions: ED Hematuria Follow-Up: Itzel Herr MD [Primary Care Provider] - Prescriptions: Oxybutynin [Ditropan] 5 mg PO BID #30 tablet Comments: Your urine test does look like it is clearing with regard to the infection. I would continue on the current antibiotic he was gotten from the office. I would suggest holding your Xarelto blood thinner for a week until the urinary infection is cleared and there is no more bleeding. Talk then with your primary care about resuming it versus just an aspirin a day for your fibrillation. Your blood count is good and similar to your prior blood counts so we have not lost too much blood. The incontinence/leaking urine sometimes is due to bladder spasms, so can try the Ditropan antispasmodic and see if it helps over the next couple of weeks, and follow up with your primary provider. Discharge Date/Time: 10/04/18 10:29
[2018-10-04 09:21] VITALS: BP 112/71
[2018-10-04 09:47] LABS: BILIRUBIN,URINE NEGATIVE (NEGATIVE); GLUCOSE, URINE (UA) NEGATIVE (NEGATIVE); KETONES,URINE (UA) NEGATIVE (NEGATIVE); LEUKOCYTE ESTERASE, URINE TRACE (NEGATIVE); NITRITE,URINE NEGATIVE (NEGATIVE); OCCULT BLOOD,URINE LARGE (NEGATIVE); PH,URINE 6.5 PH (5.0-7.5); PROTEIN,URINE 100 mg/dL (NEGATIVE); UROBILINOGEN,URINE 0.2 (NORMAL) E.U./dL (NORMAL)
[2018-10-04 09:52] LABS: CLARITY,URINE CLOUDY (CLEAR)
[2018-10-04 10:00] LABS: BACTERIA,URINE Rare /HPF (None Seen); RBC,URINE TNTC /HPF (0-5); SQUAMOUS EPITHELIAL CELL,UR NONE SEEN (<= Few)
[2018-10-04 10:19] LABS: BASOPHILS # (AUTO) 0.1 10^3/uL (0.0-0.1); BASOPHILS % (AUTO) 2.2 %; EOSINOPHILS # (AUTO) 0.2 10^3/uL (0.0-0.7); EOSINOPHILS % (AUTO) 4.5 %; HGB - HEMOGLOBIN 12.7 g/dL (14.0-18.0); LYMPHOCYTES % (AUTO) 21.5 %; MEAN CORPUSCULAR HEMOGLOBIN 32.6 pg (27.0-31.0); MEAN CORPUSCULAR HGB CONC 33.3 g/dL (32.0-36.0); MEAN CORPUSCULAR VOLUME 97.9 fL (80.0-94.0); MEAN PLATELET VOLUME 10.2 fL (7.4-11.4); MONOCYTES # (AUTO) 0.4 10^3/uL (0.0-1.0); MONOCYTES % (AUTO) 7.7 %; NEUTROPHILS % (AUTO) 64.1 %; PLT - PLATELET COUNT 201 10^3/uL (130-450); WHITE BLOOD COUNT 4.7 x10^3/uL (4.8-10.8)
== END 2018-10-04 10:29 | disposition home or self-care (01) ==
LOC: ED 09:03
DX: N30.01 Acute cystitis with hematuria (principal); I48.91 Unspecified atrial fibrillation; Z79.01 Long term (current) use of anticoagulants; Z79.82 Long term (current) use of aspirin; I10 Essential (primary) hypertension; E11.9 Type 2 diabetes mellitus without complications; Z87.891 Personal history of nicotine dependence
CPT/HCPCS: 36415; 81001; 81003; 85025; 87086; 99283

== ENCOUNTER 2018-10-16 08:00 | Outpatient (CLI) | payer MEDICARE, OTHER ==
[2018-10-16 19:42] LABS: BILIRUBIN,URINE NEGATIVE (NEGATIVE); GLUCOSE, URINE (UA) NEGATIVE (NEGATIVE); KETONES,URINE (UA) NEGATIVE (NEGATIVE); LEUKOCYTE ESTERASE, URINE LARGE (NEGATIVE); NITRITE,URINE NEGATIVE (NEGATIVE); OCCULT BLOOD,URINE LARGE (NEGATIVE); PROTEIN,URINE 30 mg/dL (NEGATIVE); UROBILINOGEN,URINE 0.2 (NORMAL) E.U./dL (NORMAL)
[2018-10-16 19:49] LABS: BACTERIA,URINE None Seen /HPF (None Seen); CLARITY,URINE CLOUDY (CLEAR); RBC,URINE TNTC /HPF (0-5); SQUAMOUS EPITHELIAL CELL,UR NONE SEEN (<= Few)
== END 2018-10-16 23:59 | disposition home or self-care (01) ==
LOC: LAB.WCP 08:00
PROVIDERS: ATTEND Family Medicine
DX: N39.0 Urinary tract infection, site not specified (principal)
CPT/HCPCS: 81001

== ENCOUNTER 2018-11-01 18:20 | Emergency (ER) | payer MEDICARE, OTHER ==
[2018-11-01] MEDS ORDERED: CHERRY SYRUP 10 ML UDC PO ONE (18:54)
[2018-11-01] MEDS ORDERED: DEXAMETHASONE 10 MG/ML VIAL PO STA (18:54)
--- NOTE | 2018-11-01 18:57 | ED Physician Documentation ---
History of Present Illness - Stated complaint Stated Complaint: SOA - Chief complaint Chief Complaint: Resp - History obtained from History obtained from: Patient - History of Present Illness Timing: Today Pain level max: 1 Pain level now: 1 - Additonal information Additional information: 83-year-old male states that he feels like the sides of his neck are swollen and is making it hard to breathe. Feels like he has a lot of mucus drainage. Mild cough. No fever. Has not taken anything for this. Is not having a hard time taking a deep breath, more feels that his throat is swollen. 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) : Other HEENT: None Psych: None Musculoskeletal: Osteoarthritis, Chronic back pain Derm: None - Past Surgical History Past Surgical History: Yes /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 HEENT: Cataracts - Present Medications Home Medications: Ambulatory Orders Medication Instructions Recorded Confirmed Cholecalciferol (Vitamin D3) 2,000 unit PO DAILY 03/01/13 07/19/18 [Vitamin D3] Acetaminophen [Tylenol] 650 mg PO Q6H PRN #30 tab 09/13/17 07/19/18 Aspirin [Aspirin EC] 81 mg PO DAILY #30 09/13/17 07/19/18 Fenofibrate [Tricor] 54 mg PO QD #30 09/13/17 07/19/18 Gabapentin 300 mg PO TID #0 09/13/17 07/19/18 Levothyroxine [Synthroid] 75 mcg PO QDAC #30 tablet 09/13/17 07/19/18 Pravastatin Sodium [Pravachol] 20 mg PO QPM #30 09/13/17 07/19/18 Cephalexin [Keflex] 500 mg PO Q6H #28 capsule 07/19/18 Ciprofloxacin HCl [Cipro] 500 mg PO BID #14 tablet 09/28/18 Oxybutynin [Ditropan] 5 mg PO BID #30 tablet 10/04/18 Rivaroxaban [Xarelto] 1 each PO 10/04/18 10/04/18 Cetirizine [ZyrTEC] 10 mg PO DAILY PRN #14 tablet 11/01/18 - Allergies Allergies/Adverse Reactions: Allergies Allergy/AdvReac Type Severity Reaction Status Date / Time No Known Drug Allergies Allergy Verified 11/01/18 18:27 - Social History Does the pt smoke?: No Smoking Status: Never smoker Does the pt drink ETOH?: No Does the pt have substance abuse?: No - Immunizations Immunizations are current?: Yes - POLST Patient has POLST: No POLST Status: Full Code PD ED PE NORMAL - Vitals Vital signs reviewed: Yes - General General: Alert and oriented X 3, No acute distress, Well developed/nourished - HEENT HEENT: PERRL, Moist mucous membranes, Other (Clear mucus drainage, posterior oropharyngeal cobblestoning) - Neck Neck: Supple, no meningeal sign, Other (Mild cervical lymphadenopathy) - Cardiac Cardiac: RRR, Strong equal pulses - Respiratory Respiratory: No respiratory distress, Clear bilaterally, Other (No stridor. No wheezing) - Abdomen Abdomen: Soft, Non tender, Non distended - Derm Derm: Warm and dry - Neuro Neuro: Alert and oriented X 3 - Psych Psych: Normal mood, Normal affect Results - Vitals Vitals: Vital Signs - 24 hr 11/01/18 11/01/18 18:26 18:27 Temperature 36.3 C L 37.4 C Heart Rate 51 L 53 L Respiratory 18 16 Rate Blood Pressure 145/56 H 135/98 H O2 Saturation 99 100 Oxygen O2 Source Room air PD MEDICAL DECISION MAKING - ED course Complexity details: considered differential, d/w patient ED course: 83-year-old male with what appears to be a viral upper respiratory infection. No evidence of pneumonia. Given dexamethasone. No stridor. No wheezing. No changes in phonation. No trismus. No peritonsillar abscess. No evidence of retropharyngeal abscess. Full range of motion of the neck without pain. Patient counseled regarding signs and symptoms for which I believe and urgent re-evaluation would be necessary. Patient with good understanding of and agreement to plan and is comfortable going home at this time This document was made in part using voice recognition software. While efforts are made to proofread this document, sound alike and grammatical errors may occur. Departure - Departure Disposition: 01 Home, Self Care Clinical Impression: Viral URI Condition: Good Instructions: ED URI Viral Follow-Up: Itzel Herr MD [Primary Care Provider] - Within 1 week Prescriptions: Cetirizine [ZyrTEC] 10 mg PO DAILY PRN #14 tablet PRN Reason: Nasal Congestion Comments: Return if you worsen. This should improve over the next 24 hours. You were given dexamethasone tonight. Discharge Date/Time: 11/01/18 19:13
[2018-11-01 19:11] VITALS: BP 135/98
== END 2018-11-01 19:13 | disposition home or self-care (01) ==
LOC: ED 18:20
DX: J06.9 Acute upper respiratory infection, unspecified (principal); B97.89 Other viral agents as the cause of diseases classified elsewhere; I10 Essential (primary) hypertension; E78.00 Pure hypercholesterolemia, unspecified; E11.9 Type 2 diabetes mellitus without complications; C61 Malignant neoplasm of prostate; Z79.82 Long term (current) use of aspirin
CPT/HCPCS: 99283; A9270

== ENCOUNTER 2019-03-04 19:36 | Outpatient (CLI) | payer MEDICARE, OTHER | END 2019-03-04 19:37 | disposition critical access hospital (66) | LOC: EMS 19:36 | PROVIDERS: ATTEND Surgery | DX: R10.32 Left lower quadrant pain (principal) | CPT/HCPCS: A0425; A0429 ==

== ENCOUNTER 2019-03-04 19:52 | Inpatient (IN) | payer MEDICARE, OTHER ==
[2019-03-04] MEDS ORDERED: MORPHINE 2 MG/ML CARPUJECT IVP STA (20:10)
--- NOTE | 2019-03-04 20:13 | ED Physician Documentation ---
PD HPI ABD PAIN - Stated complaint Stated Complaint: LEFT LOWER ABD PAIN - Chief complaint Chief Complaint: Abd Pain - History obtained from History obtained from: Patient - History of Present Illness Timing - onset: Today (83-year-old gentleman with left-sided mid abdominal pain today. He says it is only present if he sits up or moves. He denies any trouble with bowel issues or nausea. No fevers. He is never had this before. He is chronically incontinent of urine.) Review of Systems Ten Systems: 10 systems reviewed and negative Constitutional: denies: Fever, Chills Cardiac: denies: Chest pain / pressure, Palpitations Respiratory: denies: Dyspnea, Cough GI: reports: Abdominal Pain. 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 HEENT: Cataracts - Present Medications Home Medications: Ambulatory Orders Medication Instructions Recorded Confirmed Cholecalciferol (Vitamin D3) 2,000 unit PO DAILY 03/01/13 07/19/18 [Vitamin D3] Acetaminophen [Tylenol] 650 mg PO Q6H PRN #30 tab 09/13/17 07/19/18 Aspirin [Aspirin EC] 81 mg PO DAILY #30 09/13/17 07/19/18 Fenofibrate [Tricor] 54 mg PO QD #30 09/13/17 07/19/18 Gabapentin 300 mg PO TID #0 09/13/17 07/19/18 Levothyroxine [Synthroid] 75 mcg PO QDAC #30 tablet 09/13/17 07/19/18 Pravastatin Sodium [Pravachol] 20 mg PO QPM #30 09/13/17 07/19/18 Cephalexin [Keflex] 500 mg PO Q6H #28 capsule 07/19/18 Ciprofloxacin HCl [Cipro] 500 mg PO BID #14 tablet 09/28/18 Oxybutynin [Ditropan] 5 mg PO BID #30 tablet 10/04/18 Rivaroxaban [Xarelto] 1 each PO 10/04/18 10/04/18 Cetirizine [ZyrTEC] 10 mg PO DAILY PRN #14 tablet 11/01/18 - Allergies Allergies/Adverse Reactions: Allergies Allergy/AdvReac Type Severity Reaction Status Date / Time No Known Drug Allergies Allergy Verified 03/04/19 20:01 - Social History Does the pt smoke?: No Smoking Status: Never smoker Does the pt drink ETOH?: No Does the pt have substance abuse?: No - Immunizations Immunizations are current?: Yes - POLST Patient has POLST: No POLST Status: Full Code PD ED PE NORMAL - Vitals Vital signs reviewed: Yes - General General: Alert and oriented X 3, Other (He smells strongly of urine and is incontinent) - HEENT HEENT: PERRL, EOMI - Neck Neck: Supple, no meningeal sign, No bony TTP - Cardiac Cardiac: RRR, No murmur - Respiratory Respiratory: No respiratory distress, Clear bilaterally - Abdomen Abdomen: Normal bowel sounds, Soft, Non tender - Back Back: No CVA TTP, No spinal TTP - Extremities Extremities: No edema, No calf tenderness / cord - Neuro Neuro: Alert and oriented X 3, Normal speech Results - Vitals Vitals: Vital Signs - 24 hr 03/04/19 03/04/19 03/04/19 19:57 22:04 22:42 Temperature 37.3 C 36.7 C Heart Rate 64 68 64 Respiratory 16 16 17 Rate Blood Pressure 95/55 L 99/52 L 86/55 L O2 Saturation 98 99 100 Oxygen O2 Source Room air - Labs Labs: Laboratory Tests 03/04/19 03/04/19 03/04/19 20:30 20:57 20:57 WBC 15.4 H RBC 3.81 L Hgb 12.2 L Hct 37.4 L MCV 98.2 H MCH 32.0 H MCHC 32.6 RDW 13.1 Plt Count 240 MPV 11.0 Neut # (Auto) 13.4 H Lymph # (Auto) 1.1 L [place] # (Auto) 0.7 Eos # (Auto) 0.0 Baso # (Auto) 0.1 Absolute Nucleated RBC 0.00 Nucleated RBC % 0.0 Sodium 133 L Potassium 3.7 Chloride 99 L Carbon Dioxide 24 Anion Gap 10.0 BUN 30 H Creatinine 1.6 H Estimated GFR (MDRD) 42 L Glucose 130 H Lactic Acid 1.4 Calcium 9.2 Total Bilirubin 1.0 AST 35 ALT 15 Alkaline Phosphatase 127 H Total Protein 7.1 Albumin 2.8 L Globulin 4.3 H Albumin/Globulin Ratio 0.7 L Lipase 22 Urine Color Urine Clarity Urine pH Ur Specific [place] Urine Protein Urine Glucose (UA) Urine Ketones Urine Occult Blood Urine Nitrite Urine Bilirubin Urine Urobilinogen Ur Leukocyte Esterase Urine RBC Urine WBC Ur Squamous Epith Cells Urine Bacteria Ur Microscopic Review Urine Culture Comments 03/04/19 21:10 WBC RBC Hgb Hct MCV MCH MCHC RDW Plt Count MPV Neut # (Auto) Lymph # (Auto) [place] # (Auto) Eos # (Auto) Baso # (Auto) Absolute Nucleated RBC Nucleated RBC % Sodium Potassium Chloride Carbon Dioxide Anion Gap BUN Creatinine Estimated GFR (MDRD) Glucose Lactic Acid Calcium Total Bilirubin AST ALT Alkaline Phosphatase Total Protein Albumin Globulin Albumin/Globulin Ratio Lipase Urine Color DARK YELLOW Urine Clarity CLOUDY Urine pH 5.5 Ur Specific [place] 1.020 Urine Protein 100 H Urine Glucose (UA) NEGATIVE Urine Ketones NEGATIVE Urine Occult Blood LARGE H Urine Nitrite POSITIVE H Urine Bilirubin NEGATIVE Urine Urobilinogen 0.2 (NORMAL) Ur Leukocyte Esterase MODERATE H Urine RBC TNTC H Urine WBC >25 H Ur Squamous Epith Cells NONE SEEN Urine Bacteria Many H Ur Microscopic Review INDICATED Urine Culture Comments INDICATED - Rads (name of study) Ct A/P Radiology: EMP read contemporaneously (1. Small amount of subcapsular fluid along the lateral margin of the spleen. Question age indeterminate subcapsular hematoma. 2. Interval ORIF of the patient's previously seen intertrochanteric femoral neck fracture with a dynamic hip screw. New minimally displaced subcapital femoral neck fracture. 3. Large right hip joint effusion. If clinical concern for septic joint, recommend joint aspiration and fluid analysis. 4. Thick-walled urinary bladder which may be secondary to underdistention, however, cystitis should be excluded clinically. 5. Nodular liver surface, correlate clinically for cirrhosis. ) PD MEDICAL DECISION MAKING - ED course ED course: 83-year-old gentleman presents with atraumatic left-sided abdominal pain that by history seems musculoskeletal, benign examination but some soft blood pressures in the 100/50 range. Work-up demonstrates a white count of 15-1/2, mild acute renal insufficiency with a creatinine of 1.6, it looks like his baseline is 1.2 or so. He has a reassuring lactic acid. Urine is infected. CT as shown. The findings on T CT do not clinically reflect the presentation which is that of atraumatic left-sided abdominal pain. I asked the patient when he last fell, he said it has been years. He did not have significant pain with range of motion of the right hip. Case was discussed by phone with Dr. Nelson, on-call orthopedics who will see him while in the hospital. The amount of perisplenic fluid is minimal. Case discussed by phone with Dr. Lucas, the hospitalist who will admit. In the interim here he had received about 2 L of crystalloid, Rocephin and gentamicin per the hospital 0 sepsis protocol. He does not need pressors. - Critical Care Time(min): 35 Time Includes: Direct patient care, Review records, Reassess patient, Document care, Coordinate care, Medical consult Data interpretation: Labs Procedures included in critical care time: Peripheral IV - Sepsis Event Current Stage of Sepsis: Sepsis Possible source of Sepsis: Genitourinary Mental/Cognitive Status: Alert/Oriented X3, Normal for patient Capillary refill: Less than 2 seconds Peripheral Pulse Strength: 3+ Normal Peripheral Pulse Location: Radial Bedside ultrasound performed: No Departure - Departure Disposition: 66 [facility] DC/Xfer Clinical Impression: Pyelonephritis Condition: Serious
[2019-03-04] MEDS ORDERED: IOVERSOL 320 100 ML VIAL IVP ONE ×2 (20:29→21:42)
[2019-03-04 20:37] LABS: BASOPHILS # (AUTO) 0.1 10^3/uL (0.0-0.1); BASOPHILS % (AUTO) 0.3 %; EOSINOPHILS % (AUTO) 0.1 %; HGB - HEMOGLOBIN 12.2 g/dL (14.0-18.0); LYMPHOCYTES # (AUTO) 1.1 10^3/uL (1.5-3.5); LYMPHOCYTES % (AUTO) 7.2 %; MEAN CORPUSCULAR HGB CONC 32.6 g/dL (32.0-36.0); MEAN CORPUSCULAR VOLUME 98.2 fL (80.0-94.0); MONOCYTES # (AUTO) 0.7 10^3/uL (0.0-1.0); MONOCYTES % (AUTO) 4.7 %; NEUTROPHILS # (AUTO) 13.4 10^3/uL (1.5-6.6); PLT - PLATELET COUNT 240 10^3/uL (130-450); RED BLOOD COUNT 3.81 10^6/uL (4.70-6.10); RED CELL DISTRIBUTION WIDTH 13.1 % (12.0-15.0); WHITE BLOOD COUNT 15.4 x10^3/uL (4.8-10.8)
[2019-03-04 21:19] LABS: ALBUMIN 2.8 g/dL (3.2-5.5); ALBUMIN/GLOBULIN RATIO 0.7 (1.0-2.2); CALCIUM 9.2 mg/dL (8.5-10.3); CREATININE 1.6 mg/dL (0.6-1.2); TOTAL PROTEIN 7.1 g/dL (6.7-8.2)
[2019-03-04 21:21] LABS: BILIRUBIN,URINE NEGATIVE (NEGATIVE); GLUCOSE, URINE (UA) NEGATIVE (NEGATIVE); KETONES,URINE (UA) NEGATIVE (NEGATIVE); LEUKOCYTE ESTERASE, URINE MODERATE (NEGATIVE); NITRITE,URINE POSITIVE (NEGATIVE); OCCULT BLOOD,URINE LARGE (NEGATIVE); PH,URINE 5.5 PH (5.0-7.5); PROTEIN,URINE 100 mg/dL (NEGATIVE); UROBILINOGEN,URINE 0.2 (NORMAL) E.U./dL (NORMAL)
[2019-03-04 21:23] LABS: CLARITY,URINE CLOUDY (CLEAR)
[2019-03-04] MEDS ORDERED: LACTATED RINGERS 2,177.25 ML IV STA (21:24)
[2019-03-04] MEDS ORDERED: GENTAMICIN IV STA (21:24)
[2019-03-04] MEDS ORDERED: SODIUM CHLORIDE 0.9% IV STA (21:24)
[2019-03-04] MEDS ORDERED: cefTRIAXone 1 GM in SODIUM CHLORIDE 0.9% MINIBAG 100 ML IV STA (21:24)
[2019-03-04 21:28] LABS: BACTERIA,URINE Many /HPF (None Seen); RBC,URINE TNTC /HPF (0-5); SQUAMOUS EPITHELIAL CELL,UR NONE SEEN (<= Few)
--- NOTE | 2019-03-04 22:35 | CT Report ---
Reason: iv ONLY, l ABD PAIN Procedure Date: 03/04/2019 Accession Number: [id number] / [id number] Procedure: CT - Abdomen/Pelvis W CPT Code: FULL RESULT: EXAM: CT ABDOMEN AND PELVIS EXAM DATE: 03/04/2019 09:46 PM. CLINICAL HISTORY: Abdominal pain. COMPARISONS: HIP W/PELVIS 2-3V RT 09/10/2017 5:56 AM. TECHNIQUE: Routine helical CT imaging was performed through the abdomen and pelvis. IV contrast: OPTI 320 80ML. Enteric contrast: No. Reconstructions: Coronal and sagittal. In accordance with CT protocol optimization, one or more of the following dose reduction techniques were utilized for this exam: automated exposure control, adjustment of mA and/or KV based on patient size, or use of iterative reconstructive technique. FINDINGS: Bones: The bones are osteopenic. Interval ORIF of the patient's previously seen intertrochanteric femoral neck fracture with a dynamic hip screw. New minimal displaced subcapital femoral neck fracture. Large right hip joint effusion. Soft tissue attenuation along the right pelvic sidewall at the level of the hip extending into the right side of the presacral space may represent scarring/fibrosis versus sequela of old trauma. There are vessels traversing the soft tissue attenuation. Sidewalls: Small fat-containing left inguinal hernia. Foci of soft tissue attenuation within the anterior abdominal wall may present sequela of subcutaneous injections. Images chest: Three-vessel coronary artery disease. Bilateral sclerosis of the thoracic aorta. Scarring in the bilateral lung bases. Liver: Nodular liver surface. Coarse calcifications consistent with old granulomatous disease. Gallbladder: Unremarkable. Biliary: Unremarkable. Pancreas: Unremarkable. Spleen: Small amount of subcapsular fluid along the lateral margin of the spleen. No active extravasation. Coarse calcifications consistent with old granulomatous disease. Adrenal glands: Unremarkable. Kidneys: The kidneys demonstrates a few scattered tiny subcentimeter low-density foci, technically too small to accurately characterize and indeterminant but statistically likely to represent tiny cysts. Urinary bladder: Thick-walled Reproductive organs: Unremarkable. Bowel: Colonic diverticulosis. No diverticulitis. Stomach: Unremarkable. Appendix: Unremarkable. Miscellaneous: No free fluid. No extraluminal gas. Aorta: Normal in caliber. Mild aortic atherosclerosis. Lymph nodes: No pathologically enlarged lymph nodes identified. IMPRESSION: 1. Small amount of subcapsular fluid along the lateral margin of the spleen. Question age indeterminate subcapsular hematoma. 2. Interval ORIF of the patient's previously seen intertrochanteric femoral neck fracture with a dynamic hip screw. New minimally displaced subcapital femoral neck fracture. 3. Large right hip joint effusion. If clinical concern for septic joint, recommend joint aspiration and fluid analysis. 4. Thick-walled urinary bladder which may be secondary to underdistention, however, cystitis should be excluded clinically. 5. Nodular liver surface, correlate clinically for cirrhosis. [facility] The above call report findings were discussed with Efrain Zendejas by Dr. Brady Watkins at 10:33 PM on 03/04/2019.
[2019-03-04] MEDS ORDERED: SODIUM CHLORIDE 0.9% 1,000 ML IV SCH (23:00)
--- NOTE | 2019-03-04 23:04 | HISTORY & PHYSICAL EXAMINATION ---
Chief Complaint - Chief Complaint Chief Complaint: left-sided abdominal pain History of Present Illness - Admitted From Admitted From:: [facility] ED - History Obtained From Records Reviewed: yes History obtained from: patient - History of Present Illness HPI Comment/Other: Patient seen on 03/04/19 around 2300pm Patient is an 83 y/o male who presented to the ED with complain of left lower abdomen/side pain. Onset was this morning. He was unable to move or get out of bed as a result. He denied any trauma recently. He denies fever or chills but reports an episode of shaking uncontrollably (?rigors) about 2 days ago, despite it being hot in the house at the time. He denies chest pain, AYANNA, n/v/d. He is incontinent of urine chronically. He was found to have a SBP of 80's-90's in the ED. Work up showed a WBC of 15 and Cr 1.6. At baseline he is 1.2. His UA was strongly suggestive of a UTI. CT scan of the abdomen/pelvis had several significant finding: bladder thickening, a new minimally femoral neck fracture on the right where there was a previous ORIF done, a large right hip joint effusion and a minimal age indeterminate subcapsular splenic hematoma. As a rsult of the above, the patient was admitted for further treatment. He used to be on xarelto, but stopped taking it 3 months ago due to hematuria. He has history of diabetes but no longer takes any medication for it. History - Past Medical History Cardiovascular: reports: Hypertension, High cholesterol Respiratory: reports: Tuberculosis Neuro: reports: None Endocrine/Autoimmune: reports: Type 2 diabetes GI: reports: None : reports: Other (Prostate cancer) HEENT: reports: None Psych: reports: None Musculoskeletal: reports: Osteoarthritis, Chronic back pain Derm: reports: None MRSA Hx?: No Other Past Medical History: diet control diabetes - Past Surgical History Ortho: reports: Hip replacement (ORIF right) /HIP HOP DANCER: reports: Other HEENT: reports: Cataracts - Family & Social History Family History: Mother: , Father: Family History Comment/Other: Mother of pulmonary edema, [place]. Father of CVA, cancer. Social History Notes: The patient lives in [place] with his , daughter and grandkids. The patient states that he was born in [facility] and moved to [place] in his teen years and joined the [employer]. The patient states that he traveled all throughout the world with the [employer] including the [facility] and [place]. The patient is and has 1 daughter his is from the [facility]. The patient was previously living in [facility] but moved out to [facility] 2 month ago as his daughter is going through a divorce and him and his wanted to be closer to his daughter. The patient quit smoking about 40 years ago and smoked 2 packs a day for about 20 years. Patient currently does not drink alcohol or use any illicit drugs. - Substance History Use: Uses substance without health or social issues: NONE - POLST Patient has POLST: No POLST Status: Full Code Meds/Allgy - Home Medications Home Medications: Ambulatory Orders Medication Instructions Recorded Confirmed Cholecalciferol (Vitamin D3) 2,000 unit PO DAILY 03/01/13 07/19/18 [Vitamin D3] Acetaminophen [Tylenol] 650 mg PO Q6H PRN #30 tab 09/13/17 07/19/18 Aspirin [Aspirin EC] 81 mg PO DAILY #30 09/13/17 07/19/18 Fenofibrate [Tricor] 54 mg PO QD #30 09/13/17 07/19/18 Gabapentin 300 mg PO TID #0 09/13/17 07/19/18 Levothyroxine [Synthroid] 75 mcg PO QDAC #30 tablet 09/13/17 07/19/18 Pravastatin Sodium [Pravachol] 20 mg PO QPM #30 09/13/17 07/19/18 Cephalexin [Keflex] 500 mg PO Q6H #28 capsule 07/19/18 Ciprofloxacin HCl [Cipro] 500 mg PO BID #14 tablet 09/28/18 Oxybutynin [Ditropan] 5 mg PO BID #30 tablet 10/04/18 Rivaroxaban [Xarelto] 1 each PO 10/04/18 10/04/18 Cetirizine [ZyrTEC] 10 mg PO DAILY PRN #14 tablet 11/01/18 - Allergies Allergies/Adverse Reactions: Allergies Allergy/AdvReac Type Severity Reaction Status Date / Time No Known Drug Allergies Allergy Verified 03/04/19 20:01 Review of Systems - Constitutional Constitutional: denies: Fatigue, Fever, Chills, Weakness - Eyes Eyes: denies: Blurred vision, Vision loss, Dipolpia - Ears, Nose & Throat Ears, Nose & Throat: denies: Nasal pain, Nasal discharge, Sore throat, Hoarseness - Cardiovascular Cariovascular: denies: Irregular heart rate, Palpitations, Chest pain, Edema, Lightheadedness, Syncope, Exertional dyspnea - Respiratory Respiratory: denies: Cough, Sputum production, Wheezing, Orthopnea, SOB at rest, SOB with exertion - Gastrointestinal Gastrointestinal: reports: Abdominal pain. denies: Abdominal distention, Constipation, Diarrhea, Nausea, Vomiting, Coffee grounds emesis, Reflux/heartburn - Genitourinary Genitourinary: denies: Dysuria, Frequency, Urgency, Hematuria - Musculoskeletal Musculoskeletal: denies: Muscle pain, Back pain, Muscle aches, Limited range of motion - Integumentary Integumentary: denies: Rash, Pruritis, Lesions - Neurological Neurological: denies: General weakness, Focal weakness, Headache, Dizziness, Numbness, Memory problems - Psychiatric Psychiatric: denies: Depression, Anxiety - Endocrine Endocrine: denies: Polyuria, Polydypsia - Hematologic/Lymphatic Hematologic/Lymphatic: denies: Anemia, Bruising, Petechiae Prior Level of Functionality: Patient is independent of activities of daily living He gets around the house with a cane or a walker His drives him to his appointments. Exam - Vital Signs Reviewed Vital Signs: Yes Vital Signs: Vital Signs x48h Temp Pulse Resp BP Pulse Ox 03/04/19 22:42 64 17 86/55 L 100 03/04/19 22:04 36.7 C 68 16 99/52 L 99 03/04/19 19:57 37.3 C 64 16 95/55 L 98 - Physical Exam General Appearance: positive: Alert, Mild distress. negative: Lethargic Eyes Bilateral: positive: Normal inspection, PERRL, EOMI ENT: positive: ENT inspection nml Neck: positive: Nml inspection, No JVD, Trachea midline Respiratory: positive: Chest non-tender, No respiratory distress, Breath sounds nml. negative: Wheezes, Rales, Rhonchi Cardiovascular: positive: Regular rate & rhythm, No murmur Abdomen: positive: Nml bowel sounds, Tenderness. negative: Guarding, Rebound Back: positive: Nml inspection Skin: positive: Color nml, No rash, Warm, Dry. negative: Diaphoresis, Pallor Extremities: positive: Nml appearance, No pedal edema Neurologic/Psychiatric: positive: Oriented x3, CN's nml (2-12), Motor nml, Sensation nml Sepsis Event Note (H) - Evaluation Current Stage of Sepsis: Sepsis Possible source of Sepsis: positive: Genitourinary - Sepsis Criteria Sepsis Criteria: WBC count greater than 12,000 or less than 4000, SBP less than 90 mmHg Conclusion/Plan - Problem List (1) Sepsis Conclusion/Plan: suspect 2/2 pyelonephritis Patient given rocephin and gentamycin in the ED Will continue rocephin. IV hydration with normal saline Urine and blood cultures pending (2) Pyelonephritis Conclusion/Plan: On Rocephin Hydrating with normal saline Urine and blood cultures pending (3) ZOYA (acute kidney injury) Conclusion/Plan: Suspect 2/2 infection Baseline Cr around 1.2 Treating infection, Hydrating patient Expect improvement. Will check morning labs Hold any potentially nephrotoxic medications (4) Femoral neck fracture Conclusion/Plan: New, minimally displaced Previous ORIF to area with screw in place noted Dr Nelson (orthopedic) will see the patient Qualifiers: Encounter type: initial encounter Fracture type: closed Laterality: right Qualified Code(s): S72.001A - Fracture of unspecified part of neck of right femur, initial encounter for closed fracture (5) Right hip joint effusion Conclusion/Plan: Etiology undetermined Orthopedic Dr Nelson was contacted by the ED He will see the patient in the morning (6) Spleen hematoma Conclusion/Plan: Subcapsular. Small. Indeterminate Age Patient denies any trauma. Will monitor Hgb. Hold Xarelto or aspirin (7) Hypothyroidism Conclusion/Plan: Continue synthroid (8) Hyperlipidemia Conclusion/Plan: On pravastatin and fenofibrate (9) Urinary incontinence Conclusion/Plan: On oxybutynin (10) DVT prophylaxis Conclusion/Plan: SCD's only Patient stopped taking xarelto 3 months ago due to hematuria - Lab Results Fish Bones: 03/05/19 05:05 03/05/19 05:05 Core Measures - Anticipated LOS I expect patient to be DC'd or transferred within 96 hours.: Yes - DVT/VTE - Prophylaxis VTE/DVT Device ordered at admit?: Yes VTE/DVT Prophylaxis med ordered at admit?: No
[2019-03-05] MEDS ORDERED: SODIUM CHLORIDE 0.9% 1,000 ML IV ONE ×2 (01:27→06:42)
[2019-03-05] MEDS: SODIUM CHLORIDE FLUSH 0.9% 10 ML SYRINGE IVP SCH ×3 (02:26→17:11)
[2019-03-05 05:16] LABS: BASOPHILS % (AUTO) 0.4 %; EOSINOPHILS % (AUTO) 0.4 %; HGB - HEMOGLOBIN 10.4 g/dL (14.0-18.0); LYMPHOCYTES # (AUTO) 0.6 10^3/uL (1.5-3.5); LYMPHOCYTES % (AUTO) 7.8 %; MEAN CORPUSCULAR HEMOGLOBIN 31.2 pg (27.0-31.0); MEAN CORPUSCULAR HGB CONC 31.3 g/dL (32.0-36.0); MEAN CORPUSCULAR VOLUME 99.7 fL (80.0-94.0); MEAN PLATELET VOLUME 10.9 fL (7.4-11.4); MONOCYTES # (AUTO) 0.4 10^3/uL (0.0-1.0); MONOCYTES % (AUTO) 6.1 %; NEUTROPHILS # (AUTO) 6.2 10^3/uL (1.5-6.6); PLT - PLATELET COUNT 173 10^3/uL (130-450); RED BLOOD COUNT 3.33 10^6/uL (4.70-6.10); RED CELL DISTRIBUTION WIDTH 13.3 % (12.0-15.0); WHITE BLOOD COUNT 7.3 x10^3/uL (4.8-10.8)
[2019-03-05 05:24] LABS: CALCIUM 8.1 mg/dL (8.5-10.3); CREATININE 1.3 mg/dL (0.6-1.2)
[2019-03-05] MEDS: PANTOPRAZOLE 40 MG TABLET PO SCH (06:38)
[2019-03-05] MEDS ORDERED: SODIUM CHLORIDE 0.9% 1,000 ML IV SCH (07:24)
[2019-03-05] MEDS: SODIUM CHLORIDE 0.9% 1,000 ML IV SCH ×3 (09:15→17:09)
[2019-03-05] MEDS: LEVOTHYROXINE 75 MCG TABLET PO SCH (09:15)
[2019-03-05] MEDS: ACETAMINOPHEN 325 MG TABLET PO PRN (09:16)
[2019-03-05] MEDS: POLYETHYLENE GLYCOL 3350 17 GM PACKET PO SCH (09:16)
[2019-03-05] MEDS ORDERED: BUFFERED LIDOCAINE 10 ML SYRINGE ONE (11:19)
[2019-03-05] MEDS ORDERED: IOTHALAMATE MEGLUMINE 50 ML VIAL ONE (11:29)
[2019-03-05] MEDS ORDERED: MORPHINE 2 MG/ML CARPUJECT IVP SCH (12:00)
--- NOTE | 2019-03-05 12:10 | CONSULTATION NOTE ---
DATE OF SERVICE: 03/05/2019 Physician: Joe Nelson MD REFERRING PHYSICIAN: Dr. Efrain Zendejas of the emergency room department. CHIEF COMPLAINT: "My left side hurts." HISTORY OF PRESENT ILLNESS: Patient is an 83-year-old male who in the past has had a slidi ng hip screw fixation for a right intertrochanteric hip fracture done about [address] Evens sequeira. The patient was not having any particular problems with his right hip, but presented to the [facility] room last evening with a 2-3 day history of progressive worsening left-sided pain. His workup in the emergency room at that time included a CT scan of his abdomen and pelvis. He was eventually a dmitted to the hospital for treatment of pyelonephritis. He also has a history of diabetes, as well as hypothyroidism and BPH. What was also noted on a CT scan that was obtained in the emergency room was that he appeared to have a new finding in his right hip different than what was seen on his plain x-rays that were done in . Notably, from a bony standpoint, it appears as though he has a minimally displaced subcapital fracture of indeterminable age. It certainly appears to have occurred after 11/2017, but unclear ex actly when this happened. Asking the patient, he denies any trauma to the right hip or right side ov er the last month or so. Has been ambulatory and weightbearing on the right side without any particu lar issues. His main complaints have been on the opposite, contralateral left side. Another finding noted on the initial interpretation of the CT scan included a rather large right hip effusion noted. Discussing with the radiologist on-call today, they agreed with the bony changes that were seen in the subcapital region of the right hip. It was unclear to them that there was as large of a hip effu jerman as was noted in the original reading. PHYSICAL EXAMINATION: The patient's right hip today was evaluated and there was no focal tenderness on palpation around the hip or in the anterior groin region. Able to rotate the hip and flex the hip today without any significant pain at all. Neurovascularly appeared to be intact distally in the [facility] lower extremity. IMAGING: CT scan - This was reviewed. There appears to be a minimally displaced subcapital bony fra cture with minimal displacement noted. Unclear the age of this change versus the 11/2017 plain x-ray s that were compared. It is difficult for me to determine how much of any hip effusion was present. ADMISSION LABORATORY DATA: Initially showed an elevated white count of [TIME: 04:28] Repeat _ ____ [TIME: 04:30] taken on 03/05/2019 shows the white count now to be 7300. ASSESSMENT 1. Status post prior sliding hip screw fixation for a right intertrochanteric hip fracture performed by Dr. Cavanaugh about 2 years ago - fracture appears to have gone on to unite. Hardware is still in good position. 2. Radiographic evidence of a right-sided subcapital hip fracture - indeterminable age. The patient denies any recent trauma to the hip and has been ambulatory on the right side. 3. Right hip effusion - as noted on the initial CT scan reading. 4. Pyelonephritis. 5. Diabetes mellitus. PLAN: In view of the patient being a diabetic and now with presumed pyelonephritis, there is a consi deration that the right hip effusion may be a sign of a septic joint. On reconsultation with radiolo gy; however, it appears as if the effusion in the right side is not as large as initially read out. However, there is an effusion present and have suggested that radiology do a hip fluoroscopic exam an d try to tap some of this fluid, one to decompress the joint as well as to obtain a specimen to deter mine with cell count and cultures whether or not this is a septic process. If it is a bloody tap the n it might confirm more recent subcapital hip fracture as well. Regardless, if he does have a subcap ital hip fracture with the fixation he has from his prior hip surgery and with him having few clinica l symptoms, I believe this is all he will require. We will wait then the results of the hip aspirati on under fluoroscopic guidance. TD: 03/05/2019 11:42
[2019-03-05 13:35] LABS: CC,BF RBC < 3000 /mm^3
[2019-03-05 13:36] LABS: BF COLOR COLORLESS; BF SOURCE JOINT
[2019-03-05] MEDS ORDERED: BUFFERED LIDOCAINE 10 ML SYRINGE IU ONE (14:00)
[2019-03-05 14:13] LABS: LYMPHOCYTES %,BODY FLUID 7; MESOTHELIAL %, BF 1 %; MONOCYTES %,BODY FLUID 6 %
--- NOTE | 2019-03-05 14:41 | PROVIDER PROGRESS NOTE ---
Subjective - Prog Note Date Prog Note Date: 03/05/19 - Subjective Pt reports feeling: Improved Subjective: pt report he has some left hip pain but not right hip pain when he walk. pt report he still walk every day. he denies fever, chill, shortness of breath, chest pain. Current Medications - Current Medications Current Medications: Active Medications Acetaminophen (Tylenol) 650 mg PO Q6HR PRN PRN Reason: Pain 1 to 4 Last Admin: 03/05/19 09:16 Dose: 650 mg Enoxaparin Sodium (Lovenox) 40 mg SUBQ DAILY [facility] Ceftriaxone Sodium 2 gm/ (Sodium Chloride) 100 mls @ 200 mls/hr IV Q24H [facility] Sodium Chloride (Normal Saline 0.9%) 1,000 mls @ 83.3 mls/hr IV .Q12H1M [facility] Stop: 03/06/19 14:58 Levothyroxine Sodium (Synthroid) 75 mcg PO QDAC [facility] Last Admin: 03/05/19 09:15 Dose: 75 mcg Oxycodone HCl (Roxicodone) 5 mg PO Q4HR PRN PRN Reason: PAIN Pantoprazole Sodium (Protonix) 40 mg PO QDAC [facility] Last Admin: 03/05/19 06:38 Dose: Not Given Polyethylene Glycol (Miralax) 17 gm PO DAILY [facility] Last Admin: 03/05/19 09:16 Dose: Not Given Sodium Chloride (Normal Saline Flush 0.9%) 10 ml IVP PRN PRN PRN Reason: NEEDED PER PROVIDER ORDERS Sodium Chloride (Normal Saline Flush 0.9%) 10 ml IVP 0100,0900,1700 [facility] Last Admin: 03/05/19 09:16 Dose: Not Given Cholecalciferol (Vitamin D3) [Vitamin D3] 2,000 unit PO DAILY 03/01/13 Rivaroxaban [Xarelto] 1 each PO 10/04/18 Objective - Vital Signs/Intake & Output Reviewed Vital Signs: Yes Vital Signs: Vital Signs x48h Temp Pulse Resp BP Pulse Ox 03/05/19 13:01 37.2 C 82 18 120/55 L 97 03/05/19 07:28 36.4 C L 66 18 114/56 L 99 Intake & Output: Intake & Output 03/02/19 03/03/19 03/04/19 03/05/19 23:59 23:59 23:59 23:59 Intake Total 100 6085.667 Output Total 635 Balance 100 5450.667 - Objective General Appearance: positive: No acute distress, Alert. negative: Lethargic Eyes Bilateral: positive: Normal inspection, PERRL, No lid inflammation, Conjunctivae nml ENT: positive: ENT inspection nml, Pharynx nml, No signs of dehydration. negative: Purulent nasal drainage, Pharyngeal erythema, Oral lesions Neck: positive: Nml inspection, Thyroid nml, No JVD, Trachea midline. negative: Thyromegaly, Lymphadenopathy (R), Lymphadenopathy (L), Stiff neck, Swelling/bruising, Tracheal deviation Respiratory: positive: Chest non-tender, No respiratory distress, Breath sounds nml. negative: Wheezes, Rales, Rhonchi Cardiovascular: positive: Regular rate & rhythm, No murmur, No gallop. negative: Irregularly irregular, Extrasystoles, Tachycardia, Bradycardia, JVD present, Systolic murmur, Diastolic murmur Peripheral Pulses: 2+ Radial (R), 2+ Radial (L), 2+ Dorsalis pedis (R), 2+ Dorsalis pedis (L) Abdomen: positive: Non-tender, No organomegaly, Nml bowel sounds, No distention. negative: Tenderness, Guarding, Rebound Back: positive: Nml inspection. negative: CVA tenderness (R), CVA tenderness (L) Skin: positive: Color nml, No rash, Warm, Dry. negative: Cyanosis, Diaphoresis, Pallor Extremities: positive: Non-tender, Full ROM, Nml appearance. negative: Calf tenderness, Joint swelling, Sanjeev's sign/cords Neurologic/Psychiatric: positive: Sensation nml. negative: Weakness, Sensory loss, Facial droop, Slurred/abnml speech, Depressed mood/affect - Lab Results Fish Bones: 03/05/19 05:05 03/05/19 05:05 Other Labs: Lab Results x24hrs 03/05/19 03/05/19 03/05/19 Range/Units 12:09 12:09 05:05 WBC (4.8-10.8) x10^3/uL RBC (4.70-6.10) 10^6/uL Hgb (14.0-18.0) g/dL Hct (42.0-52.0) % MCV (80.0-94.0) fL MCH (27.0-31.0) pg MCHC (32.0-36.0) g/dL RDW (12.0-15.0) % Plt Count (130-450) 10^3/uL MPV (7.4-11.4) fL Neut # (Auto) (1.5-6.6) 10^3/uL Lymph # (Auto) (1.5-3.5) 10^3/uL Fillmore # (Auto) (0.0-1.0) 10^3/uL Eos # (Auto) (0.0-0.7) 10^3/uL Baso # (Auto) (0.0-0.1) 10^3/uL Absolute Nucleated RBC x10^3/uL Nucleated RBC % /100WBC Sodium 134 L (135-145) mmol/L Potassium 3.7 (3.5-5.0) mmol/L Chloride 105 (101-111) mmol/L Carbon Dioxide 22 (21-32) mmol/L Anion Gap 7.0 (6-13) BUN 24 H (6-20) mg/dL Creatinine 1.3 H (0.6-1.2) mg/dL Estimated GFR (MDRD) 53 L (>89) Glucose 121 H (70-100) mg/dL Lactic Acid (0.5-2.2) mmol/L Calcium 8.1 L (8.5-10.3) mg/dL Total Bilirubin (0.2-1.0) mg/dL AST (10-42) IU/L ALT (10-60) IU/L Alkaline Phosphatase (42-121) IU/L Total Protein (6.7-8.2) g/dL Albumin (3.2-5.5) g/dL Globulin (2.1-4.2) g/dL Albumin/Globulin Ratio (1.0-2.2) Lipase (22-51) U/L Urine Color Urine Clarity (CLEAR) Urine pH (5.0-7.5) PH Ur Specific Harper (1.002-1.030) Urine Protein (NEGATIVE) mg/dL Urine Glucose (UA) (NEGATIVE) mg/dL Urine Ketones (NEGATIVE) mg/dL Urine Occult Blood (NEGATIVE) Urine Nitrite (NEGATIVE) Urine Bilirubin (NEGATIVE) Urine Urobilinogen (NORMAL) E.U./dL Ur Leukocyte Esterase (NEGATIVE) Urine RBC (0-5) /HPF Urine WBC (0-3) /HPF Ur Squamous Epith Cells (<= Few) Urine Bacteria (None Seen) /HPF Ur Microscopic Review Urine Culture Comments Fluid Source JOINT Fluid Color COLORLESS Fluid Clarity CLEAR Fluid WBC 91 /mm^3 Fluid RBC < 3000 /mm^3 Fluid Neutrophils % 86 % Fluid Lymphocytes % 7 Fluid Monocytes % 6 % Fld Mesothelial Cell % 1 % Fluid Crystals NONE SEEN (N) 03/05/19 03/04/19 03/04/19 Range/Units 05:05 21:10 20:57 WBC 7.3 (4.8-10.8) x10^3/uL RBC 3.33 L (4.70-6.10) 10^6/uL Hgb 10.4 L (14.0-18.0) g/dL Hct 33.2 L (42.0-52.0) % MCV 99.7 H (80.0-94.0) fL MCH 31.2 H (27.0-31.0) pg MCHC 31.3 L (32.0-36.0) g/dL RDW 13.3 (12.0-15.0) % Plt Count 173 (130-450) 10^3/uL MPV 10.9 (7.4-11.4) fL Neut # (Auto) 6.2 (1.5-6.6) 10^3/uL Lymph # (Auto) 0.6 L (1.5-3.5) 10^3/uL Fillmore # (Auto) 0.4 (0.0-1.0) 10^3/uL Eos # (Auto) 0.0 (0.0-0.7) 10^3/uL Baso # (Auto) 0.0 (0.0-0.1) 10^3/uL Absolute Nucleated RBC 0.00 x10^3/uL Nucleated RBC % 0.0 /100WBC Sodium (135-145) mmol/L Potassium (3.5-5.0) mmol/L Chloride (101-111) mmol/L Carbon Dioxide (21-32) mmol/L Anion Gap (6-13) BUN (6-20) mg/dL Creatinine (0.6-1.2) mg/dL Estimated GFR (MDRD) (>89) Glucose (70-100) mg/dL Lactic Acid 1.4 (0.5-2.2) mmol/L Calcium (8.5-10.3) mg/dL Total Bilirubin (0.2-1.0) mg/dL AST (10-42) IU/L ALT (10-60) IU/L Alkaline Phosphatase (42-121) IU/L Total Protein (6.7-8.2) g/dL Albumin (3.2-5.5) g/dL Globulin (2.1-4.2) g/dL Albumin/Globulin Ratio (1.0-2.2) Lipase (22-51) U/L Urine Color DARK YELLOW Urine Clarity CLOUDY (CLEAR) Urine pH 5.5 (5.0-7.5) PH Ur Specific Harper 1.020 (1.002-1.030) Urine Protein 100 H (NEGATIVE) mg/dL Urine Glucose (UA) NEGATIVE (NEGATIVE) mg/dL Urine Ketones NEGATIVE (NEGATIVE) mg/dL Urine Occult Blood LARGE H (NEGATIVE) Urine Nitrite POSITIVE H (NEGATIVE) Urine Bilirubin NEGATIVE (NEGATIVE) Urine Urobilinogen 0.2 (NORMAL) (NORMAL) E.U./dL Ur Leukocyte Esterase MODERATE H (NEGATIVE) Urine RBC TNTC H (0-5) /HPF Urine WBC >25 H (0-3) /HPF Ur Squamous Epith Cells NONE SEEN (<= Few) Urine Bacteria Many H (None Seen) /HPF Ur Microscopic Review INDICATED Urine Culture Comments INDICATED Fluid Source Fluid Color Fluid Clarity Fluid WBC /mm^3 Fluid RBC /mm^3 Fluid Neutrophils % % Fluid Lymphocytes % Fluid Monocytes % % Fld Mesothelial Cell % % Fluid Crystals (N) 03/04/19 03/04/19 Range/Units 20:57 20:30 WBC 15.4 H (4.8-10.8) x10^3/uL RBC 3.81 L (4.70-6.10) 10^6/uL Hgb 12.2 L (14.0-18.0) g/dL Hct 37.4 L (42.0-52.0) % MCV 98.2 H (80.0-94.0) fL MCH 32.0 H (27.0-31.0) pg MCHC 32.6 (32.0-36.0) g/dL RDW 13.1 (12.0-15.0) % Plt Count 240 (130-450) 10^3/uL MPV 11.0 (7.4-11.4) fL Neut # (Auto) 13.4 H (1.5-6.6) 10^3/uL Lymph # (Auto) 1.1 L (1.5-3.5) 10^3/uL Fillmore # (Auto) 0.7 (0.0-1.0) 10^3/uL Eos # (Auto) 0.0 (0.0-0.7) 10^3/uL Baso # (Auto) 0.1 (0.0-0.1) 10^3/uL Absolute Nucleated RBC 0.00 x10^3/uL Nucleated RBC % 0.0 /100WBC Sodium 133 L (135-145) mmol/L Potassium 3.7 (3.5-5.0) mmol/L Chloride 99 L (101-111) mmol/L Carbon Dioxide 24 (21-32) mmol/L Anion Gap 10.0 (6-13) BUN 30 H (6-20) mg/dL Creatinine 1.6 H (0.6-1.2) mg/dL Estimated GFR (MDRD) 42 L (>89) Glucose 130 H (70-100) mg/dL Lactic Acid (0.5-2.2) mmol/L Calcium 9.2 (8.5-10.3) mg/dL Total Bilirubin 1.0 (0.2-1.0) mg/dL AST 35 (10-42) IU/L ALT 15 (10-60) IU/L Alkaline Phosphatase 127 H (42-121) IU/L Total Protein 7.1 (6.7-8.2) g/dL Albumin 2.8 L (3.2-5.5) g/dL Globulin 4.3 H (2.1-4.2) g/dL Albumin/Globulin Ratio 0.7 L (1.0-2.2) Lipase 22 (22-51) U/L Urine Color Urine Clarity (CLEAR) Urine pH (5.0-7.5) PH Ur Specific Harper (1.002-1.030) Urine Protein (NEGATIVE) mg/dL Urine Glucose (UA) (NEGATIVE) mg/dL Urine Ketones (NEGATIVE) mg/dL Urine Occult Blood (NEGATIVE) Urine Nitrite (NEGATIVE) Urine Bilirubin (NEGATIVE) Urine Urobilinogen (NORMAL) E.U./dL Ur Leukocyte Esterase (NEGATIVE) Urine RBC (0-5) /HPF Urine WBC (0-3) /HPF Ur Squamous Epith Cells (<= Few) Urine Bacteria (None Seen) /HPF Ur Microscopic Review Urine Culture Comments Fluid Source Fluid Color Fluid Clarity Fluid WBC /mm^3 Fluid RBC /mm^3 Fluid Neutrophils % % Fluid Lymphocytes % Fluid Monocytes % % Fld Mesothelial Cell % % Fluid Crystals (N) ABX Reporting Has patient been on IV antibiotics over the past 48 hours?: Yes Sepsis Event Note (H) - Evaluation Current Stage of Sepsis: Sepsis Possible source of Sepsis: positive: Genitourinary - Sepsis Criteria Sepsis Criteria: WBC count greater than 12,000 or less than 4000, SBP less than 90 mmHg Assessment/Plan - Problem List (1) Sepsis Impression: 03/05 today pt's BP is stable after treatment, pt has no fever, or tachycardia. pt is hemodynamic stable now continue antibiotics Rocephin tele and vital monitor blood culture is positive for gram positive cocci. it is likely the resource to cause the sepsis. (2)UTI UA reveals positive UTI continue Rocephin Hydrating with normal saline Urine and blood cultures pending (3)bacteremia blood culture reveals one tube is positive for gram positive cocci. continue antibiotics Rocephin (4) ZOYA (acute kidney injury) Conclusion/Plan: improved creatinine is 1.3 now from 1.6 at the admission continue Hydrating patient Hold any potentially nephrotoxic medications continue lab monitor (5) Femoral neck fracture Conclusion/Plan: pt report he walk and did not feel right hip pain consult with Dr. Nelson, likely pt is not necessary for procedure at this time. continue pain control (6) Right hip joint effusion Conclusion/Plan: consult with radiologist for aspiration. will followup lab test of the stain, culture if indicated, check WBC, RBC Etiology undetermined Orthopedic Dr Nelson was contacted by the ED He will see the patient in the morning (7) Spleen hematoma Conclusion/Plan: Subcapsular, Small in the inferior of spleen, Indeterminate Age Patient denies any trauma. Will monitor Hgb. Hold Xarelto or aspirin (8) Hypothyroidism Conclusion/Plan: check TSH Continue synthroid (9) Hyperlipidemia Conclusion/Plan: continue pravastatin and fenofibrate (10) Urinary incontinence Conclusion/Plan: continue oxybutynin
--- NOTE | 2019-03-05 14:44 | XRAY Report ---
Reason: right large hip effusion Procedure Date: 03/05/2019 Accession Number: [id number] / [id number] Procedure: [place] - Inj/Aspiration Major Joint CPT Code: FULL RESULT: EXAM: RIGHT HIP ARTHROGRAPHIC JOINT ASPIRATION WITH FLUOROSCOPIC GUIDANCE EXAM DATE: 03/05/2019 01:37 PM. CLINICAL HISTORY: Right large hip effusion. COMPARISON: ABDOMEN/PELVIS W/ 03/04/2019 9:31 PM. TECHNIQUE: The risks, benefits, and alternatives of the procedure were discussed with the patient. All questions were answered. Written and verbal consent were obtained. The hip joint was marked under fluoroscopy and prepped and draped in a sterile manner. Local anesthesia was performed with 1% lidocaine. A 18-gauge needle was then inserted into the hip joint. Positioning was tested with a small injection of contrast. Subsequently, aspiration was attempted. No fluid was returned. A small amount of saline was then injected and fluid was withdrawn. This joint wash sample was submitted to the laboratory for analysis. The needle was removed without immediate complication. Other: None. Fluoroscopy Time: 0.09 minutes. Number of Images: 2. FINDINGS: Bones and Joints: Dynamic hip screw spanning a nonunited fracture, better seen on the recent CT. Injection/aspiration: Fluoroscopic images demonstrate needle placement and contrast in the hip joint. IMPRESSION: Joint aspirate as described. RADIA
[2019-03-05] MEDS: AMPICILLIN 2 GM in SODIUM CHLORIDE 0.9% MINIBAG 100 ML IV SCH ×2 (20:04→23:55)
[2019-03-05] MEDS ORDERED: cefTRIAXone 2 GM in SODIUM CHLORIDE 0.9% MINIBAG 100 ML IV SCH (21:00)
[2019-03-05] MEDS ORDERED: cefTRIAXone 1 GM in SODIUM CHLORIDE 0.9% MINIBAG 100 ML IV SCH (21:00)
[2019-03-06] MEDS: SODIUM CHLORIDE FLUSH 0.9% 10 ML SYRINGE IVP SCH ×3 (00:03→18:05)
[2019-03-06 05:53] LABS: BASOPHILS % (AUTO) 0.4 %; EOSINOPHILS % (AUTO) 0.6 %; HGB - HEMOGLOBIN 10.9 g/dL (14.0-18.0); LYMPHOCYTES # (AUTO) 0.5 10^3/uL (1.5-3.5); LYMPHOCYTES % (AUTO) 8.3 %; MEAN CORPUSCULAR HEMOGLOBIN 31.7 pg (27.0-31.0); MEAN CORPUSCULAR HGB CONC 32.2 g/dL (32.0-36.0); MEAN CORPUSCULAR VOLUME 98.5 fL (80.0-94.0); MEAN PLATELET VOLUME 11.3 fL (7.4-11.4); MONOCYTES # (AUTO) 0.4 10^3/uL (0.0-1.0); NEUTROPHILS # (AUTO) 4.5 10^3/uL (1.5-6.6); NEUTROPHILS % (AUTO) 83.1 %; PLT - PLATELET COUNT 184 10^3/uL (130-450); RED BLOOD COUNT 3.44 10^6/uL (4.70-6.10); RED CELL DISTRIBUTION WIDTH 13.4 % (12.0-15.0); WHITE BLOOD COUNT 5.5 x10^3/uL (4.8-10.8)
[2019-03-06 05:54] LABS: CALCIUM 7.9 mg/dL (8.5-10.3); CREATININE 1.1 mg/dL (0.6-1.2)
[2019-03-06] MEDS: AMPICILLIN 2 GM in SODIUM CHLORIDE 0.9% MINIBAG 100 ML IV SCH (06:15)
[2019-03-06] MEDS: PANTOPRAZOLE 40 MG TABLET PO SCH (06:16)
[2019-03-06] MEDS: LEVOTHYROXINE 75 MCG TABLET PO SCH (06:16)
[2019-03-06] MEDS: SODIUM CHLORIDE 0.9% 1,000 ML IV SCH ×3 (06:16→14:20)
[2019-03-06 06:24] LABS: HB2 TOTAL 11.1 g/dL; HEMOGLOBIN A1C 0.41 g/dL; HEMOGLOBIN A1C % 5.5 % (4.6-6.2)
[2019-03-06] MEDS ORDERED: SODIUM CHLORIDE 0.9% 1,000 ML IV SCH (08:00)
[2019-03-06] MEDS ORDERED: SODIUM CHLORIDE 0.9% 500 ML IV ONE ×2 (08:54→09:31)
[2019-03-06] MEDS ORDERED: ENOXAPARIN 40 MG/0.4 ML SYRINGE SUBQ SCH (09:00)
[2019-03-06] MEDS ORDERED: diltiaZEM INJ 5 MG/ML VIAL IVP ONE ×2 (09:10)
[2019-03-06] MEDS: POLYETHYLENE GLYCOL 3350 17 GM PACKET PO SCH (09:10)
[2019-03-06] MEDS: ENOXAPARIN 40 MG/0.4 ML SYRINGE SUBQ SCH (09:10)
[2019-03-06] MEDS ORDERED: PIPERACILLIN/TAZOBACTAM 3.375 GM in SODIUM CHLORIDE 0.9% MINIBAG 100 ML IV SCH (10:45)
[2019-03-06] MEDS ORDERED: IOVERSOL 320 100 ML VIAL IVP ONE ×3 (10:52→13:54)
--- NOTE | 2019-03-06 12:31 | CT Report ---
Reason: SOB Procedure Date: 03/06/2019 Accession Number: [id number] / [id number] Procedure: CT - ANGIO CHEST W/WO CPT Code: FULL RESULT: EXAM: CT ANGIOGRAM CHEST EXAM DATE: 03/06/2019 11:54 AM. CLINICAL HISTORY: Shortness of breath. COMPARISON: CHEST ANGIO 03/01/2013 1:47 PM. TECHNIQUE: Routine helical imaging was performed through the chest in the pulmonary arterial phase. IV Contrast: OPTI 320 80 mL. Reconstructions: Coronal 3-D MIP reconstructions.Sagittal and coronal. In accordance with CT protocol optimization, one or more of the following dose reduction techniques were utilized for this exam: automated exposure control, adjustment of mA and/or KV based on patient size, or use of iterative reconstructive technique. FINDINGS: Pulmonary Arteries: Diagnostic quality: Adequate through the segmental arteries. No evidence for acute or chronic pulmonary emboli. The RV LV ratio appears mildly elevated, approximately 1, essentially unchanged from 2012. The main pulmonary artery measures up to 2.7 cm, but the right and left pulmonary artery are enlarged measuring up to at least 2.5 cm individually. There is no reflux of contrast to the IVC or hepatic veins. Lungs/Pleura: There is scant bibasilar consolidation as well as a small amount of consolidation in the right upper lobe. There are small bilateral pleural effusions. Mediastinum: There is no mediastinal lymphadenopathy by size criteria. There are at least moderate coronary calcifications. There is no pericardial effusion. Thoracic Aorta: Mildly atherosclerotic. Upper Abdomen: Mild relatively symmetric perinephric fat stranding, nonspecific. Other: None. IMPRESSION: Bilateral small pleural effusions which are new and a scant amount of consolidation. No PE. Prominent right cardiac chambers and size of pulmonary arteries as described above. RADIA
[2019-03-06] MEDS: diltiaZEM 30 MG TABLET PO SCH ×2 (12:38→19:29)
--- NOTE | 2019-03-06 12:41 | PROVIDER PROGRESS NOTE ---
Subjective - Prog Note Date Prog Note Date: 03/06/19 Prog Note Time: 12:39 - Subjective Pt reports feeling: No change Objective - Vital Signs/Intake & Output Vital Signs: Vital Signs x48h Temp Pulse Resp BP BP Pulse Ox 03/06/19 12:38 93/42 L 03/06/19 12:35 37.2 C 70 18 93/42 L 98 03/06/19 10:30 140 H 96/50 L 03/06/19 10:15 99 93/45 L 03/06/19 10:00 113 H 91/45 L 03/06/19 09:48 96 78/43 L 03/06/19 09:47 119 H 86/52 L 03/06/19 09:45 98 89/49 L 03/06/19 09:40 96 78/43 L 03/06/19 09:35 119 H 86/52 L 03/06/19 09:28 92/50 L 03/06/19 07:25 37.4 C 77 16 104/46 L 96 Intake & Output: Intake & Output 03/03/19 03/04/19 03/05/19 03/06/19 23:59 23:59 23:59 23:59 Intake Total 100 7436.554 2540.813 Output Total 1039 Balance 100 6397.554 2540.813 - Lab Results Fish Bones: 03/06/19 05:22 03/06/19 05:22 Other Labs: Lab Results x24hrs 03/06/19 03/06/19 03/06/19 Range/Units 10:33 10:33 05:22 WBC (4.8-10.8) x10^3/uL RBC (4.70-6.10) 10^6/uL Hgb (14.0-18.0) g/dL Hct (42.0-52.0) % MCV (80.0-94.0) fL MCH (27.0-31.0) pg MCHC (32.0-36.0) g/dL RDW (12.0-15.0) % Plt Count (130-450) 10^3/uL MPV (7.4-11.4) fL Neut # (Auto) (1.5-6.6) 10^3/uL Lymph # (Auto) (1.5-3.5) 10^3/uL [place] # (Auto) (0.0-1.0) 10^3/uL Eos # (Auto) (0.0-0.7) 10^3/uL Baso # (Auto) (0.0-0.1) 10^3/uL Absolute Nucleated RBC x10^3/uL Nucleated RBC % /100WBC Sodium (135-145) mmol/L Potassium (3.5-5.0) mmol/L Chloride (101-111) mmol/L Carbon Dioxide (21-32) mmol/L Anion Gap (6-13) BUN (6-20) mg/dL Creatinine (0.6-1.2) mg/dL Estimated GFR (MDRD) (>89) Glucose (70-100) mg/dL Glycated Hemoglobin 5.5 (4.6-6.2) % Estim Average Glucose 111 H (70-100) Lactic Acid 1.8 (0.5-2.2) mmol/L Calcium (8.5-10.3) mg/dL Troponin I High Sens 18.6 (2.3-19.7) pg/mL TSH (0.34-5.60) uIU/mL Fluid Source Fluid Color Fluid Clarity Fluid WBC /mm^3 Fluid RBC /mm^3 Fluid Neutrophils % % Fluid Lymphocytes % Fluid Monocytes % % Fld Mesothelial Cell % % Fluid Crystals (N) 03/06/19 03/06/19 03/06/19 Range/Units 05:22 05:22 05:22 WBC 5.5 (4.8-10.8) x10^3/uL RBC 3.44 L (4.70-6.10) 10^6/uL Hgb 10.9 L (14.0-18.0) g/dL Hct 33.9 L (42.0-52.0) % MCV 98.5 H (80.0-94.0) fL MCH 31.7 H (27.0-31.0) pg MCHC 32.2 (32.0-36.0) g/dL RDW 13.4 (12.0-15.0) % Plt Count 184 (130-450) 10^3/uL MPV 11.3 (7.4-11.4) fL Neut # (Auto) 4.5 (1.5-6.6) 10^3/uL Lymph # (Auto) 0.5 L (1.5-3.5) 10^3/uL [place] # (Auto) 0.4 (0.0-1.0) 10^3/uL Eos # (Auto) 0.0 (0.0-0.7) 10^3/uL Baso # (Auto) 0.0 (0.0-0.1) 10^3/uL Absolute Nucleated RBC 0.00 x10^3/uL Nucleated RBC % 0.0 /100WBC Sodium 134 L (135-145) mmol/L Potassium 3.8 (3.5-5.0) mmol/L Chloride 106 (101-111) mmol/L Carbon Dioxide 21 (21-32) mmol/L Anion Gap 7.0 (6-13) BUN 18 (6-20) mg/dL Creatinine 1.1 (0.6-1.2) mg/dL Estimated GFR (MDRD) 64 L (>89) Glucose 135 H (70-100) mg/dL Glycated Hemoglobin (4.6-6.2) % Estim Average Glucose (70-100) Lactic Acid (0.5-2.2) mmol/L Calcium 7.9 L (8.5-10.3) mg/dL Troponin I High Sens (2.3-19.7) pg/mL TSH 0.28 L (0.34-5.60) uIU/mL Fluid Source Fluid Color Fluid Clarity Fluid WBC /mm^3 Fluid RBC /mm^3 Fluid Neutrophils % % Fluid Lymphocytes % Fluid Monocytes % % Fld Mesothelial Cell % % Fluid Crystals (N) 03/05/19 03/05/19 Range/Units 12:09 12:09 WBC (4.8-10.8) x10^3/uL RBC (4.70-6.10) 10^6/uL Hgb (14.0-18.0) g/dL Hct (42.0-52.0) % MCV (80.0-94.0) fL MCH (27.0-31.0) pg MCHC (32.0-36.0) g/dL RDW (12.0-15.0) % Plt Count (130-450) 10^3/uL MPV (7.4-11.4) fL Neut # (Auto) (1.5-6.6) 10^3/uL Lymph # (Auto) (1.5-3.5) 10^3/uL [place] # (Auto) (0.0-1.0) 10^3/uL Eos # (Auto) (0.0-0.7) 10^3/uL Baso # (Auto) (0.0-0.1) 10^3/uL Absolute Nucleated RBC x10^3/uL Nucleated RBC % /100WBC Sodium (135-145) mmol/L Potassium (3.5-5.0) mmol/L Chloride (101-111) mmol/L Carbon Dioxide (21-32) mmol/L Anion Gap (6-13) BUN (6-20) mg/dL Creatinine (0.6-1.2) mg/dL Estimated GFR (MDRD) (>89) Glucose (70-100) mg/dL Glycated Hemoglobin (4.6-6.2) % Estim Average Glucose (70-100) Lactic Acid (0.5-2.2) mmol/L Calcium (8.5-10.3) mg/dL Troponin I High Sens (2.3-19.7) pg/mL TSH (0.34-5.60) uIU/mL Fluid Source JOINT Fluid Color COLORLESS Fluid Clarity CLEAR Fluid WBC 91 /mm^3 Fluid RBC < 3000 /mm^3 Fluid Neutrophils % 86 % Fluid Lymphocytes % 7 Fluid Monocytes % 6 % Fld Mesothelial Cell % 1 % Fluid Crystals NONE SEEN (N) - Other Results/Comments Other Results/Comments: EXAM: Continued benign exam of right hip. Mild pain with hip rotation. N/V ok distally Hip aspiration: WBC 91, no organisms seen, <3000 RBC. Small amount of fluid obtained. Sepsis Event Note (H) - Evaluation Current Stage of Sepsis: Sepsis Possible source of Sepsis: positive: Genitourinary - Sepsis Criteria Sepsis Criteria: WBC count greater than 12,000 or less than 4000, SBP less than 90 mmHg Assessment/Plan - Problem List (1) Right hip joint effusion Impression: Small effusion without hemarthrosis or evidence of septic joint. Doubt acute subcapital hip fracture without hemarthrosis. Therefore chronic vs subacute right subcapital hip fracture - already stabilized from prior ORIF of ipsilateral IT hip fracture of 2 years ago. PLAN: Symptomatic treatment of mild right hip issues. May be WBAT on right with walker ambulation and PT. Follow up in clinic in 4-6 weeks for new XR of right hip.
--- NOTE | 2019-03-06 14:06 | PROVIDER PROGRESS NOTE ---
Subjective - Prog Note Date Prog Note Date: 03/06/19 - Subjective Pt reports feeling: Worse Subjective: pt report he felt dizziness. pt denies fever, chill, chest pain, palpitation. pt was found Afib with RVR, HR was around 130. his BP is at the lowest 78/43. immediately intervention was done for pt. pt report he had hx of afib but Xarelto was d/c by himself because of his hematuria after he discussed with health provider. he denies chest, shortness of breath, fever, chill, headache, focal neurological deficits. pt refused to have any other blood thinner, the benefit and risks of blood thinner was explained to pt, and pt understand it. Current Medications - Current Medications Current Medications: Active Medications Acetaminophen (Tylenol) 650 mg PO Q6HR PRN PRN Reason: Pain 1 to 4 Last Admin: 03/05/19 09:16 Dose: 650 mg Diltiazem HCl (Cardizem) 30 mg PO Q6HR [facility] Last Admin: 03/06/19 12:38 Dose: Not Given Enoxaparin Sodium (Lovenox) 40 mg SUBQ DAILY [facility] Last Admin: 03/06/19 09:10 Dose: 40 mg Gabapentin (Neurontin) 600 mg PO TID [facility] Sodium Chloride (Normal Saline 0.9%) 1,000 mls @ 100 mls/hr IV .Q10H [facility] Stop: 03/07/19 05:10 Last Admin: 03/06/19 14:20 Dose: 100 mls/hr Piperacillin Sod/Tazobactam (Sod 3.375 gm/ Sodium Chloride) 100 mls @ 25 mls/hr IV Q8H [facility] Last Admin: 03/06/19 14:38 Dose: 25 mls/hr Levothyroxine Sodium (Synthroid) 50 mcg PO QDAC [facility]AL[facility] Oxycodone HCl (Roxicodone) 5 mg PO Q4HR PRN PRN Reason: PAIN Pantoprazole Sodium (Protonix) 40 mg PO QDAC [facility] Last Admin: 03/06/19 06:16 Dose: 40 mg Polyethylene Glycol (Miralax) 17 gm PO DAILY [facility] Last Admin: 03/06/19 09:10 Dose: Not Given Sodium Chloride (Normal Saline Flush 0.9%) 10 ml IVP PRN PRN PRN Reason: NEEDED PER PROVIDER ORDERS Sodium Chloride (Normal Saline Flush 0.9%) 10 ml IVP 0100,0900,1700 DONALD Last Admin: 03/06/19 09:05 Dose: Not Given Tamsulosin HCl (Flomax) 0.4 mg PO DAILY [facility] Enalapril [Vasotec] 2.5 mg PO DAILY 03/05/19 Gabapentin 600 mg PO TID 03/05/19 Levothyroxine Sodium [Synthroid] 50 mcg PO DAILY 03/05/19 Metoprolol Succinate [Toprol Xl] 25 mg PO DAILY 03/05/19 Pravastatin Sodium [Pravachol] 20 mg PO QPM 03/05/19 Tamsulosin [Flomax] 0.4 mg PO DAILY 03/05/19 Objective - Vital Signs/Intake & Output Reviewed Vital Signs: Yes Vital Signs: Vital Signs x48h Temp Pulse Resp BP BP Pulse Ox 03/06/19 12:38 93/42 L 03/06/19 12:35 37.2 C 70 18 93/42 L 98 03/06/19 10:30 140 H 96/50 L 03/06/19 10:15 99 93/45 L 03/06/19 10:00 113 H 91/45 L 03/06/19 09:48 96 78/43 L 03/06/19 09:47 119 H 86/52 L 03/06/19 09:45 98 89/49 L 03/06/19 09:40 96 78/43 L 03/06/19 09:35 119 H 86/52 L 03/06/19 09:28 92/50 L 03/06/19 07:25 37.4 C 77 16 104/46 L 96 Intake & Output: Intake & Output 03/03/19 03/04/19 03/05/19 03/06/19 23:59 23:59 23:59 23:59 Intake Total 100 7436.554 2540.813 Output Total 1039 Balance 100 6397.554 2540.813 - Objective General Appearance: positive: No acute distress, Alert. negative: Lethargic Eyes Bilateral: positive: Normal inspection, PERRL, No lid inflammation, Conjunctivae nml ENT: positive: ENT inspection nml, Pharynx nml, No signs of dehydration. neg ative: Purulent nasal drainage, Pharyngeal erythema, Oral lesions Neck: positive: Nml inspection, Thyroid nml, No JVD, Trachea midline. negative: Thyromegaly, Lymphadenopathy (R), Lymphadenopathy (L), Stiff neck, Swelling/bruising, Tracheal deviation Respiratory: positive: Chest non-tender, No respiratory distress. negative: Wheezes, Rales, Rhonchi Cardiovascular: positive: Regular rate & rhythm, No murmur, No gallop, I rregularly irregular, Tachycardia. negative: Extrasystoles, Bradycardia, JVD present, Systolic murmur, Diastolic murmur Peripheral Pulses: 2+ Radial (R), 2+ Radial (L), 2+ Dorsalis pedis (R), 2+ Dorsalis pedis (L) Abdomen: positive: Non-tender, No organomegaly, Nml bowel sounds, No distention. negative: Tenderness, Guarding, Rebound Back: positive: Nml inspection. negative: CVA tenderness (R), CVA tenderness (L) Skin: positive: Color nml, No rash, Warm, Dry. negative: Cyanosis, Diaphoresis, Pallor Extremities: positive: Non-tender, Nml appearance. negative: Calf tenderness, Joint swelling, Sanjeev's sign/cords Neurologic/Psychiatric: positive: Sensation nml, Mood/affect nml. negative: Weakness, Sensory loss, Facial droop, Slurred/abnml speech, Depressed mood/affect - Lab Results Fish Bones: 03/06/19 05:22 03/06/19 05:22 Other Labs: Lab Results x24hrs 03/06/19 03/06/19 03/06/19 Range/Units 10:33 10:33 05:22 WBC (4.8-10.8) x10^3/uL RBC (4.70-6.10) 10^6/uL Hgb (14.0-18.0) g/dL Hct (42.0-52.0) % MCV (80.0-94.0) fL MCH (27.0-31.0) pg MCHC (32.0-36.0) g/dL RDW (12.0-15.0) % Plt Count (130-450) 10^3/uL MPV (7.4-11.4) fL Neut # (Auto) (1.5-6.6) 10^3/uL Lymph # (Auto) (1.5-3.5) 10^3/uL [place] # (Auto) (0.0-1.0) 10^3/uL Eos # (Auto) (0.0-0.7) 10^3/uL Baso # (Auto) (0.0-0.1) 10^3/uL Absolute Nucleated RBC x10^3/uL Nucleated RBC % /100WBC Sodium (135-145) mmol/L Potassium (3.5-5.0) mmol/L Chloride (101-111) mmol/L Carbon Dioxide (21-32) mmol/L Anion Gap (6-13) BUN (6-20) mg/dL Creatinine (0.6-1.2) mg/dL Estimated GFR (MDRD) (>89) Glucose (70-100) mg/dL Glycated Hemoglobin 5.5 (4.6-6.2) % Estim Average Glucose 111 H (70-100) Lactic Acid 1.8 (0.5-2.2) mmol/L Calcium (8.5-10.3) mg/dL Troponin I High Sens 18.6 (2.3-19.7) pg/mL TSH (0.34-5.60) uIU/mL Fluid Neutrophils % % Fluid Lymphocytes % Fluid Monocytes % % Fld Mesothelial Cell % % 03/06/19 03/06/19 03/06/19 Range/Units 05:22 05:22 05:22 WBC 5.5 (4.8-10.8) x10^3/uL RBC 3.44 L (4.70-6.10) 10^6/uL Hgb 10.9 L (14.0-18.0) g/dL Hct 33.9 L (42.0-52.0) % MCV 98.5 H (80.0-94.0) fL MCH 31.7 H (27.0-31.0) pg MCHC 32.2 (32.0-36.0) g/dL RDW 13.4 (12.0-15.0) % Plt Count 184 (130-450) 10^3/uL MPV 11.3 (7.4-11.4) fL Neut # (Auto) 4.5 (1.5-6.6) 10^3/uL Lymph # (Auto) 0.5 L (1.5-3.5) 10^3/uL [place] # (Auto) 0.4 (0.0-1.0) 10^3/uL Eos # (Auto) 0.0 (0.0-0.7) 10^3/uL Baso # (Auto) 0.0 (0.0-0.1) 10^3/uL Absolute Nucleated RBC 0.00 x10^3/uL Nucleated RBC % 0.0 /100WBC Sodium 134 L (135-145) mmol/L Potassium 3.8 (3.5-5.0) mmol/L Chloride 106 (101-111) mmol/L Carbon Dioxide 21 (21-32) mmol/L Anion Gap 7.0 (6-13) BUN 18 (6-20) mg/dL Creatinine 1.1 (0.6-1.2) mg/dL Estimated GFR (MDRD) 64 L (>89) Glucose 135 H (70-100) mg/dL Glycated Hemoglobin (4.6-6.2) % Estim Average Glucose (70-100) Lactic Acid (0.5-2.2) mmol/L Calcium 7.9 L (8.5-10.3) mg/dL Troponin I High Sens (2.3-19.7) pg/mL TSH 0.28 L (0.34-5.60) uIU/mL Fluid Neutrophils % % Fluid Lymphocytes % Fluid Monocytes % % Fld Mesothelial Cell % % 03/05/19 Range/Units 12:09 WBC (4.8-10.8) x10^3/uL RBC (4.70-6.10) 10^6/uL Hgb (14.0-18.0) g/dL Hct (42.0-52.0) % MCV (80.0-94.0) fL MCH (27.0-31.0) pg MCHC (32.0-36.0) g/dL RDW (12.0-15.0) % Plt Count (130-450) 10^3/uL MPV (7.4-11.4) fL Neut # (Auto) (1.5-6.6) 10^3/uL Lymph # (Auto) (1.5-3.5) 10^3/uL [place] # (Auto) (0.0-1.0) 10^3/uL Eos # (Auto) (0.0-0.7) 10^3/uL Baso # (Auto) (0.0-0.1) 10^3/uL Absolute Nucleated RBC x10^3/uL Nucleated RBC % /100WBC Sodium (135-145) mmol/L Potassium (3.5-5.0) mmol/L Chloride (101-111) mmol/L Carbon Dioxide (21-32) mmol/L Anion Gap (6-13) BUN (6-20) mg/dL Creatinine (0.6-1.2) mg/dL Estimated GFR (MDRD) (>89) Glucose (70-100) mg/dL Glycated Hemoglobin (4.6-6.2) % Estim Average Glucose (70-100) Lactic Acid (0.5-2.2) mmol/L Calcium (8.5-10.3) mg/dL Troponin I High Sens (2.3-19.7) pg/mL TSH (0.34-5.60) uIU/mL Fluid Neutrophils % 86 % Fluid Lymphocytes % 7 Fluid Monocytes % 6 % Fld Mesothelial Cell % 1 % ABX Reporting Has patient been on IV antibiotics over the past 48 hours?: Yes Sepsis Event Note (H) - Evaluation Current Stage of Sepsis: Sepsis Possible source of Sepsis: positive: Genitourinary - Sepsis Criteria Sepsis Criteria: WBC count greater than 12,000 or less than 4000, SBP less than 90 mmHg Assessment/Plan - Problem List (1) Sepsis Impression: 03/06 UA and blood culture come back until today, UA is positive for Pseudomones Aeroginosa. blood culture is positive for entercoccus Faecalis. pt's antibiotics from Rocephin is changed into Zosyn pt had slight elevated temperature and hypotension, it could be sepsis IVF of NS tele and vital monitor 03/05 today pt's BP is stable after treatment, pt has no fever, or tachycardia. pt is hemodynamic stable now continue antibiotics Rocephin tele and vital monitor blood culture is positive for gram positive cocci. it is likely the resource to cause the sepsis. (2)UTI 03/06 UA is positive for Pseudomones [place]in[place], antibiotics is changed to Zosyn, sensitivity is pending, will closely followup UA reveals positive UTI continue Rocephin Hydrating with normal saline Urine and blood cultures pending (3)bacteremia 03/06 blood culture is positive for entercoccus Faecalis, now antibiotic is switched to Zosyn now IVF of NS continue tele and vital monitor blood culture reveals one tube is positive for gram positive cocci. continue antibiotics Rocephin (4) ZOAY (acute kidney injury) Conclusion/Plan: 03/06 improved , creatinine is 1.1 now from previous 1,6 continue gently hydration and lab monitor improved creatinine is 1.3 now from 1.6 at the admission continue Hydrating patient Hold any potentially nephrotoxic medications continue lab monitor (5) Femoral neck fracture Conclusion/Plan: pt report he walk and did not feel right hip pain consult with Dr. Nelson, will followup continue pain control (6) Right hip joint effusion Conclusion/Plan: 03/06 small effusion is aspirated, WBC and consult with radiologist for aspiration. will followup lab test of the stain, culture if indicated, check WBC, RBC Etiology undetermined Orthopedic Dr Nelson was contacted by the ED He will see the patient in the morning (7) Spleen hematoma Conclusion/Plan: Subcapsular, Small in the inferior of spleen, Indeterminate Age Patient denies any trauma. Will monitor Hgb. Hold Xarelto or aspirin (8) Hypothyroidism Conclusion/Plan: check TSH Continue synthroid (9) Hyperlipidemia Conclusion/Plan: continue pravastatin and fenofibrate (10) Urinary incontinence Conclusion/Plan: continue oxybutynin (11) hypotension it is likely from sepsis of pseudomonas infection. after bolus of IVF and switched to new antibiotics Zosyn, now his BP is 102/50, stable. continue IVF of NS continue antibiotics continue tele and vital monitor pt's troponin is negative CTA did not indicate pt has PE. pt did not take his Xarelto from 01/08 (12) afib with RVR pt's HR is upto 130-140. pt feel dizzines 10 mg Cardizem was ordered. after pt received Cardizem, pt's pause was down to 70-60. pt report he felt much better continue tele and vital monitor pt. pt refused to have any other blood thinner at this time.
[2019-03-06] MEDS: PIPERACILLIN/TAZOBACTAM 3.375 GM in SODIUM CHLORIDE 0.9% MINIBAG 100 ML IV SCH ×2 (14:38→22:44)
[2019-03-06] MEDS: SODIUM CHLORIDE FLUSH 0.9% 10 ML SYRINGE IVP PRN (19:37)
[2019-03-06] MEDS: GABAPENTIN 300 MG CAPSULE PO SCH (20:53)
[2019-03-07] MEDS: SODIUM CHLORIDE FLUSH 0.9% 10 ML SYRINGE IVP SCH ×3 (00:09→17:00)
[2019-03-07] MEDS: diltiaZEM 30 MG TABLET PO SCH ×3 (00:16→12:55)
[2019-03-07 04:50] LABS: BASOPHILS % (AUTO) 0.5 %; EOSINOPHILS # (AUTO) 0.1 10^3/uL (0.0-0.7); EOSINOPHILS % (AUTO) 1.6 %; HGB - HEMOGLOBIN 10.1 g/dL (14.0-18.0); LYMPHOCYTES # (AUTO) 0.7 10^3/uL (1.5-3.5); MEAN CORPUSCULAR HEMOGLOBIN 30.9 pg (27.0-31.0); MEAN CORPUSCULAR HGB CONC 31.5 g/dL (32.0-36.0); MEAN CORPUSCULAR VOLUME 98.2 fL (80.0-94.0); MEAN PLATELET VOLUME 10.3 fL (7.4-11.4); MONOCYTES # (AUTO) 0.6 10^3/uL (0.0-1.0); MONOCYTES % (AUTO) 10.2 %; NEUTROPHILS # (AUTO) 4.2 10^3/uL (1.5-6.6); NEUTROPHILS % (AUTO) 74.3 %; PLT - PLATELET COUNT 172 10^3/uL (130-450); RED BLOOD COUNT 3.27 10^6/uL (4.70-6.10); RED CELL DISTRIBUTION WIDTH 13.6 % (12.0-15.0); WHITE BLOOD COUNT 5.7 x10^3/uL (4.8-10.8)
[2019-03-07 04:59] LABS: CALCIUM 7.9 mg/dL (8.5-10.3); CREATININE 1.1 mg/dL (0.6-1.2)
[2019-03-07] MEDS: GABAPENTIN 300 MG CAPSULE PO SCH ×3 (06:21→21:35)
[2019-03-07] MEDS: PIPERACILLIN/TAZOBACTAM 3.375 GM in SODIUM CHLORIDE 0.9% MINIBAG 100 ML IV SCH ×3 (06:22→22:17)
[2019-03-07] MEDS: PANTOPRAZOLE 40 MG TABLET PO SCH (06:22)
[2019-03-07] MEDS ORDERED: LEVOTHYROXINE 25 MCG TABLET PO SCH (07:00)
[2019-03-07] MEDS: POLYETHYLENE GLYCOL 3350 17 GM PACKET PO SCH (09:05)
[2019-03-07] MEDS: ENOXAPARIN 40 MG/0.4 ML SYRINGE SUBQ SCH (09:05)
[2019-03-07] MEDS: TAMSULOSIN 0.4 MG CAPSULE PO SCH (09:06)
--- NOTE | 2019-03-07 11:21 | PROVIDER PROGRESS NOTE ---
Subjective - Prog Note Date Prog Note Date: 03/07/19 Prog Note Time: 11:19 - Subjective Pt reports feeling: Improved (No compliants with right hip) Objective - Vital Signs/Intake & Output Vital Signs: Vital Signs x48h Temp Pulse Resp BP Pulse Ox 03/07/19 08:00 36 C L 61 14 90/48 L 97 03/07/19 04:23 36.2 C L 59 L 22 100/44 L 96 Intake & Output: Intake & Output 03/04/19 03/05/19 03/06/19 03/07/19 23:59 23:59 23:59 23:59 Intake Total 100 7436.554 4162.480 570.000 Output Total 1039 485 Balance 100 6397.554 4162.480 85.000 - Lab Results Fish Bones: 03/07/19 04:40 03/07/19 04:40 Other Labs: Lab Results x24hrs 03/07/19 03/07/19 03/07/19 Range/Units 04:40 04:40 04:40 WBC 5.7 (4.8-10.8) x10^3/uL RBC 3.27 L (4.70-6.10) 10^6/uL Hgb 10.1 L (14.0-18.0) g/dL Hct 32.1 L (42.0-52.0) % MCV 98.2 H (80.0-94.0) fL MCH 30.9 (27.0-31.0) pg MCHC 31.5 L (32.0-36.0) g/dL RDW 13.6 (12.0-15.0) % Plt Count 172 (130-450) 10^3/uL MPV 10.3 (7.4-11.4) fL Neut # (Auto) 4.2 (1.5-6.6) 10^3/uL Lymph # (Auto) 0.7 L (1.5-3.5) 10^3/uL [place] # (Auto) 0.6 (0.0-1.0) 10^3/uL Eos # (Auto) 0.1 (0.0-0.7) 10^3/uL Baso # (Auto) 0.0 (0.0-0.1) 10^3/uL Absolute Nucleated RBC 0.00 x10^3/uL Nucleated RBC % 0.0 /100WBC Sodium 135 (135-145) mmol/L Potassium 3.5 (3.5-5.0) mmol/L Chloride 106 (101-111) mmol/L Carbon Dioxide 20 L (21-32) mmol/L Anion Gap 9.0 (6-13) BUN 17 (6-20) mg/dL Creatinine 1.1 (0.6-1.2) mg/dL Estimated GFR (MDRD) 64 L (>89) Glucose 113 H (70-100) mg/dL Calcium 7.9 L (8.5-10.3) mg/dL Free T4 1.37 (0.58-1.64) ng/dL - Other Results/Comments Other Results/Comments: EXAM: No pain with hip rotation. Sitting up in chair without problem Sepsis Event Note (H) - Evaluation Current Stage of Sepsis: Sepsis Possible source of Sepsis: positive: Genitourinary - Sepsis Criteria Sepsis Criteria: WBC count greater than 12,000 or less than 4000, SBP less than 90 mmHg Assessment/Plan - Problem List (1) Right hip joint effusion Impression: Stable. Essentially at baseline PLAN: Activities as tolerated. Reconsult us as needed.
--- NOTE | 2019-03-07 11:36 | PROVIDER PROGRESS NOTE ---
Subjective - Prog Note Date Prog Note Date: 03/07/19 Prog Note Time: 11:00 - Subjective Pt reports feeling: Improved Subjective: Ko has no complaints except for mild left flank pain, that has improved since being admitted. He admits to sleeping well and has had a good appetite today. He denies chest pain, nausea, vomiting, a rash, dizziness, or problems with standing. He is having a productive cough today, but has no shortness of breath or orthopnea. Current Medications - Current Medications Current Medications: Active Medications: Acetaminophen (Tylenol) 650 mg PO Q6HR PRN Metoprolol succinate 25 mg PO daily Enoxaparin Sodium (Lovenox) 40 mg SUBQ DAILY DONALD Gabapentin (Neurontin) 600 mg PO TID DONALD Piperacillin Sod/Tazobactam (Sod 3.375 gm/ Sodium Chloride) 100 mls @ 25 mls/hr IV Q8H DONALD Levothyroxine Sodium (Synthroid) 37.5 mcg PO QDAC DONALD Oxycodone HCl (Roxicodone) 5 mg PO Q4HR PRN Pantoprazole Sodium (Protonix) 40 mg PO QDAC DONALD Polyethylene Glycol (Miralax) 17 gm PO DAILY DONALD Tamsulosin HCl (Flomax) 0.4 mg PO DAILY DONALD IV NS bolus of 500 mL x1 HOME meds: Enalapril [Vasotec] 2.5 mg PO DAILY 03/05/19 Gabapentin 600 mg PO TID 03/05/19 Levothyroxine Sodium [Synthroid] 50 mcg PO DAILY 03/05/19 Metoprolol Succinate [Toprol Xl] 25 mg PO DAILY 03/05/19 Pravastatin Sodium [Pravachol] 20 mg PO QPM 03/05/19 Tamsulosin [Flomax] 0.4 mg PO DAILY 03/05/19 Objective - Vital Signs/Intake & Output Reviewed Vital Signs: Yes Vital Signs: Vital Signs x48h Temp Pulse Resp BP Pulse Ox 03/07/19 08:00 36 C L 61 14 90/48 L 97 03/07/19 04:23 36.2 C L 59 L 22 100/44 L 96 Intake & Output: Intake & Output 03/04/19 03/05/19 03/06/19 03/07/19 23:59 23:59 23:59 23:59 Intake Total 100 7436.554 4162.480 670.000 Output Total 1039 485 Balance 100 6397.554 4162.752 185.000 - Objective General Appearance: positive: No acute distress, Alert Eyes Bilateral: positive: PERRL Eyes: OU Conjunctivae pale ENT: positive: Pharynx nml, Dry mucous membranes, Other (Poor dentitian) Neck: positive: No JVD, Lymphadenopathy (R), Lymphadenopathy (L) Respiratory: positive: Chest non-tender, No respiratory distress, Breath sounds nml Cardiovascular: positive: Regular rate & rhythm, No gallop, Systolic murmur, Decreased pulse(s) Peripheral Pulses: 1+ Radial (R), 1+ Radial (L) Abdomen: positive: Non-tender, Nml bowel sounds, Other (rounded, soft) Back: positive: Nml inspection, CVA tenderness (L) Skin: positive: Color nml, No rash, Warm, Dry Extremities: positive: Nml appearance, Pedal edema (trace- dependent), Joint swelling (increased swelling to BLE joints due to arthritis/prior injury), Other (increased left hip- posterior aspect after PT today, will not lift his left leg on command) Neurologic/Psychiatric: positive: Oriented x3, CN's nml (2-12), Motor nml, Sensation nml, Weakness, Sensory loss, Depressed mood/affect, Other (baseline dementia- poor short term memory) Reflexes: Bicep (R): 3+, Bicep (L): 3+ - Lab Results Fish Bones: 03/07/19 04:40 03/07/19 04:40 Other Labs: Lab Results x24hrs 03/07/19 03/07/19 03/07/19 Range/Units 04:40 04:40 04:40 WBC 5.7 (4.8-10.8) x10^3/uL RBC 3.27 L (4.70-6.10) 10^6/uL Hgb 10.1 L (14.0-18.0) g/dL Hct 32.1 L (42.0-52.0) % MCV 98.2 H (80.0-94.0) fL MCH 30.9 (27.0-31.0) pg MCHC 31.5 L (32.0-36.0) g/dL RDW 13.6 (12.0-15.0) % Plt Count 172 (130-450) 10^3/uL MPV 10.3 (7.4-11.4) fL Neut # (Auto) 4.2 (1.5-6.6) 10^3/uL Lymph # (Auto) 0.7 L (1.5-3.5) 10^3/uL [place] # (Auto) 0.6 (0.0-1.0) 10^3/uL Eos # (Auto) 0.1 (0.0-0.7) 10^3/uL Baso # (Auto) 0.0 (0.0-0.1) 10^3/uL Absolute Nucleated RBC 0.00 x10^3/uL Nucleated RBC % 0.0 /100WBC Sodium 135 (135-145) mmol/L Potassium 3.5 (3.5-5.0) mmol/L Chloride 106 (101-111) mmol/L Carbon Dioxide 20 L (21-32) mmol/L Anion Gap 9.0 (6-13) BUN 17 (6-20) mg/dL Creatinine 1.1 (0.6-1.2) mg/dL Estimated GFR (MDRD) 64 L (>89) Glucose 113 H (70-100) mg/dL Calcium 7.9 L (8.5-10.3) mg/dL Free T4 1.37 (0.58-1.64) ng/dL - Diagnostic Imaging Diagnostic Imaging Results: positive: Final report reviewed Diagnostic Imaging Comments: EXAM: CT ABDOMEN AND PELVIS EXAM DATE: 03/04/2019 09:46 PM. IMPRESSION: 1. Small amount of subcapsular fluid along the lateral margin of the spleen. Question age indeterminate subcapsular hematoma. 2. Interval ORIF of the patient's previously seen intertrochanteric femoral neck fracture with a dynamic hip screw. New minimally displaced subcapital femoral neck fracture. 3. Large right hip joint effusion. If clinical concern for septic joint, recommend joint aspiration and fluid analysis. 4. Thick-walled urinary bladder which may be secondary to underdistention, however, cystitis should be excluded clinically. 5. Nodular liver surface, correlate clinically for cirrhosis. EXAM: RIGHT HIP ARTHROGRAPHIC JOINT ASPIRATION WITH FLUOROSCOPIC GUIDANCE EXAM DATE: 03/05/2019 01:37 PM. IMPRESSION: Joint aspirate as described. EXAM: CT ANGIOGRAM CHEST EXAM DATE: 03/06/2019 11:54 AM. FINDINGS: Pulmonary Arteries: Diagnostic quality: Adequate through the segmental arteries. No evidence for acute or chronic pulmonary emboli. The RV LV ratio appears mildly elevated, approximately 1, essentially unchanged from 2013. The main pulmonary artery measures up to 2.7 cm, but the right and left pulmonary artery are enlarged measuring up to at least 2.5 cm individually. There is no reflux of contrast to the IVC or hepatic veins. Lungs/Pleura: There is scant bibasilar consolidation as well as a small amount of consolidation in the right upper lobe. There are small bilateral pleural effusions. Mediastinum: There is no mediastinal lymphadenopathy by size criteria. There are at least moderate coronary calcifications. There is no pericardial effusion. Thoracic Aorta: Mildly atherosclerotic. Upper Abdomen: Mild relatively symmetric perinephric fat stranding, nonspecific. Other: None. IMPRESSION: Bilateral small pleural effusions which are new and a scant amount of consolidation. No PE. Prominent right cardiac chambers and size of pulmonary arteries as described above. Echocardiogram 03/06/2019 Final read by Bruna Richardson MD: 1. Overall LV systolic function is normal with an EF of 65-70%. 2. The RV is normal in size and function. 3. No significant valvular dysfunction. ABX Reporting Has patient been on IV antibiotics over the past 48 hours?: Yes Sepsis Event Note (H) - Evaluation Current Stage of Sepsis: Resolved Assessment/Plan - Problem List (1) Bacteremia due to Enterococcus Impression: - 2 of 2 blood cultures that were obtained at the time of admission shows enterococcus faecalis with the final pending - Switched from Rocephin to Zosyn yesterday with an improvement in his overall all mentation, appetite and alertness Plan: Await final cultures, continue IV zosyn (2) Pyelonephritis Impression: - Initial urinalysis was grossly positive for acute complicated UTI - Patient also had metabolic encephalopathy, bilateral flank pain, and dysuria - Urine cultures show + pseudomonas with the final culture pending - This morning, the patient had continued left flank pain, that has migrated to his left hip region - Baseline urinary incontinence Plan: Continue Zosyn to treat bacteremia, and this infection (3) ZOYA (acute kidney injury) Impression: - Baseline creatinine is 1.0, elevated to 1.6 on admission (03/04/2019) - Today improved to 1.1 - Currently has a complicated UTI with + urine cultures of pseudomonas aeruginosa- final is pending - Status post IV fluids, continues on flomax - Bladder scans have not been ordered Plan: Continue routine labs, continue IV antibiotics, I/O, avoid hypotension, NSAIDs and nephrotoxins (4) Urinary incontinence Impression: - Status post prostate cancer - Also with BPH, takes Flomax which continues here - Bladder scanned for ~100 mL Plan: Continue to monitor for retention, follow labs Qualifiers: Urinary Incontinence type: functional incontinence Qualified Code(s): R39.81 - Functional urinary incontinence (5) BPH (benign prostatic hyperplasia) Impression: - History of this condition and prostate cancer that his thought to be in remission - Chronic urinary incontinence - Post void residual today was ~100 mL, smells of urine on exam - continues on his home FLomax Plan: Continue I/O, ordering post void residuals, monitor for retention (6) Atrial fibrillation with RVR Impression: - Echocardiogram shows a moderate increase in the left atria, moderate RA enlargement, EF of 65-70% - No admission EKG in the EMR - EKG now shows a fib with RVR - Telemetry appears to be between SR and atrial fibrillation with rates 80-125's - Home med list includes metoprolol succinate, but the patient was instead given diltiazem IV pushes followed by PO dilt - Patient may be stressed at the moment with more acute left hip discomfort, asked nursing to do a bladder scan, may reach out to Dr. Nelson for left hip imaging Plan: Stop PO dilt, obtain a current EKG, start metoprolol 25 mg now, continue on telemetery, find the cause of the tachycardia (7) Fall Impression: - Patient admits to more frequent falls and uses a cane or a walker at home - Patient denies falling to his left side - Now with more acute left posterior hip pain, which does not travel to his groin -PT notes more pain during ambulation to his left leg Plan: continue to monitor, fall precautions, follow PT recommendations for higher level of care verses home with family Qualifiers: Encounter type: subsequent encounter Qualified Code(s): W19.XXXD - Unspecified fall, subsequent encounter (8) Right hip joint effusion Impression: - Noted on imaging, requiring an orthopedic consultation - Dr. Nelson was consulted and following - Status post right hip aspiration- no growth to date today - Suspected due to recent falls at home - Had right hip repair about 2 years ago Plan: Continue daily PT, evaluate for higher level of care (9) Hypothyroidism Impression: - TSH on this admission was low at 0.28 - Free T4 is normal at 1.37 - Continues on Levothyroxine at 50 mcgs daily, but this was his prior dose - Now on a reduced dose of 37.5 mcg daily Plan: Recheck TSH in about 4-6 weeks outpatient (10) Hypotension Impression: - Systolics charted in the 80's - Some dizziness during the patient's hospital stay - Suspect from acute illness, fluid volume loss or from increased pain medications that have been given for his hip pain - Also EKG shows a fib with RVR later today - Was put on diltiazem with little effect, now resumed on metoprolol succinate, but hypotension is hindering this Plan: Give 500 mL of NS, monitor for improvement (11) Spleen hematoma Impression: - Abdominal/Pelvis CT on 03/04/2019 shows: Small amount of subcapsular fluid along the lateral margin of the spleen - Patient has more acute left flank/hip pain that has become worse after PT today - No increased pain with deep palpation to abdomen Plan: Continue to monitor Qualifiers: Encounter type: initial encounter Qualified Code(s): S36.029A - Unspecified contusion of spleen, initial encounter (12) Diabetes mellitus type 2, diet-controlled Impression: - NO home meds for this DX - hemoglobin A1C is 5.5% - Continues on a regular diet with improved appetite today Plan: Continue to encourage meals, no SSI, or sugar checks
[2019-03-07] MEDS: ACETAMINOPHEN 325 MG TABLET PO PRN (14:13)
[2019-03-07] MEDS: oxyCODONE 5 MG TABLET PO PRN (14:13)
[2019-03-07] MEDS: METOPROLOL SUCCINATE 25 MG TABLET PO SCH ×2 (15:44→18:33)
[2019-03-07] MEDS ORDERED: SODIUM CHLORIDE 0.9% 500 ML IV ONE ×2 (16:06→21:11)
[2019-03-07] MEDS: SODIUM CHLORIDE 0.9% 1,000 ML IV SCH (19:28)
[2019-03-08] MEDS: SODIUM CHLORIDE FLUSH 0.9% 10 ML SYRINGE IVP SCH ×3 (00:05→16:12)
[2019-03-08 05:12] LABS: BASOPHILS % (AUTO) 0.4 %; EOSINOPHILS # (AUTO) 0.1 10^3/uL (0.0-0.7); HGB - HEMOGLOBIN 9.9 g/dL (14.0-18.0); LYMPHOCYTES # (AUTO) 0.6 10^3/uL (1.5-3.5); LYMPHOCYTES % (AUTO) 11.1 %; MEAN CORPUSCULAR HEMOGLOBIN 30.7 pg (27.0-31.0); MEAN CORPUSCULAR HGB CONC 31.5 g/dL (32.0-36.0); MEAN CORPUSCULAR VOLUME 97.5 fL (80.0-94.0); MEAN PLATELET VOLUME 10.7 fL (7.4-11.4); MONOCYTES # (AUTO) 0.5 10^3/uL (0.0-1.0); MONOCYTES % (AUTO) 9.5 %; NEUTROPHILS # (AUTO) 3.9 10^3/uL (1.5-6.6); NEUTROPHILS % (AUTO) 77.6 %; PLT - PLATELET COUNT 170 10^3/uL (130-450); RED BLOOD COUNT 3.22 10^6/uL (4.70-6.10); RED CELL DISTRIBUTION WIDTH 13.4 % (12.0-15.0); WHITE BLOOD COUNT 5.1 x10^3/uL (4.8-10.8)
[2019-03-08 05:23] LABS: ALBUMIN 1.7 g/dL (3.2-5.5); ALBUMIN/GLOBULIN RATIO 0.5 (1.0-2.2); BILIRUBIN,TOTAL 0.5 mg/dL (0.2-1.0); CALCIUM 7.7 mg/dL (8.5-10.3); CREATININE 1.1 mg/dL (0.6-1.2); MAGNESIUM 1.6 mg/dL (1.7-2.8); TOTAL PROTEIN 4.9 g/dL (6.7-8.2)
[2019-03-08] MEDS: LEVOTHYROXINE 25 MCG TABLET PO SCH (06:33)
[2019-03-08] MEDS: PIPERACILLIN/TAZOBACTAM 3.375 GM in SODIUM CHLORIDE 0.9% MINIBAG 100 ML IV SCH ×3 (06:34→22:06)
[2019-03-08] MEDS: PANTOPRAZOLE 40 MG TABLET PO SCH (06:34)
[2019-03-08] MEDS: GABAPENTIN 300 MG CAPSULE PO SCH ×3 (06:34→21:10)
[2019-03-08] MEDS: oxyCODONE 5 MG TABLET PO PRN (06:40)
[2019-03-08] MEDS: SODIUM CHLORIDE 0.9% 1,000 ML IV SCH (06:44)
[2019-03-08] MEDS: POLYETHYLENE GLYCOL 3350 17 GM PACKET PO SCH (09:47)
[2019-03-08] MEDS: METOPROLOL SUCCINATE 25 MG TABLET PO SCH ×2 (09:48→10:20)
--- NOTE | 2019-03-08 10:00 | PROVIDER PROGRESS NOTE ---
Subjective - Prog Note Date Prog Note Date: 03/08/19 Prog Note Time: 09:59 - Subjective Pt reports feeling: Improved Subjective: Ko has no complaints and is accepting of staying at least one more night for the treatment of his newly found orthostatic hypotension. His and grandchild were visiting today for several hours. He admits to great improvement in his previous complaint of left hip pain and can bear weight with PT today. Current Medications - Current Medications Current Medications: Active Medications: Acetaminophen (Tylenol) 650 mg PO Q6HR PRN Enoxaparin Sodium (Lovenox) 40 mg SUBQ DAILY DONALD Gabapentin (Neurontin) 300 mg PO TID DONALD Piperacillin Sod/Tazobactam (Sod 3.375 gm/ Sodium Chloride) 100 mls @ 25 mls/hr IV Q8H DONALD Levothyroxine Sodium (Synthroid) 37.5 mcg PO QDAC DONALD Metoprolol Succinate (Toprol Xl) 12.5 mg PO DAILY ODNALD Midodrine 2.5 mg PO TID DONALD Oxycodone HCl (Roxicodone) 5 mg PO Q4HR PRN Pantoprazole Sodium (Protonix) 40 mg PO QDAC [facility] Polyethylene Glycol (Miralax) 17 gm PO DAILY DONALD Tamsulosin HCl (Flomax) 0.4 mg PO DAILY [facility] HOME meds: Enalapril [Vasotec] 2.5 mg PO DAILY 03/05/19 Gabapentin 600 mg PO TID 03/05/19 Levothyroxine Sodium [Synthroid] 50 mcg PO DAILY 03/05/19 Metoprolol Succinate [Toprol Xl] 25 mg PO DAILY 03/05/19 Pravastatin Sodium [Pravachol] 20 mg PO QPM 03/05/19 Tamsulosin [Flomax] 0.4 mg PO DAILY 03/05/19 Objective - Vital Signs/Intake & Output Reviewed Vital Signs: Yes Vital Signs: Vital Signs x48h Temp Pulse Resp BP BP Pulse Ox 03/08/19 08:02 36.6 C 50 L 14 103/50 L 96 03/08/19 03:25 37.0 C 89 16 94/60 96 Intake & Output: Intake & Output 03/05/19 03/06/19 03/07/19 03/08/19 23:59 23:59 23:59 23:59 Intake Total 7436.554 4162.480 2740.000 1294.440 Output Total 1039 485 Balance 6397.554 4162.480 2255.000 1294.440 - Objective General Appearance: positive: No acute distress, Alert Eyes Bilateral: positive: PERRL Eyes: OU Conjunctivae pale ENT: positive: Pharynx nml, No signs of dehydration Neck: positive: Thyroid nml, No JVD Respiratory: positive: Chest non-tender, No respiratory distress, Other (scattered crackles, bilaterally) Cardiovascular: positive: No gallop, Irregularly irregular, Tachycardia (at times), Systolic murmur, Decreased pulse(s) Peripheral Pulses: 1+ Radial (R), 1+ Radial (L) Abdomen: positive: Non-tender, Nml bowel sounds, Other (rounded, soft) Back: positive: Nml inspection Skin: positive: No rash, Warm, Dry, Pallor Extremities: positive: Non-tender, Full ROM, Pedal edema (trace- dependent to BLEs) Neurologic/Psychiatric: positive: Oriented x3, CN's nml (2-12), Motor nml, Weakness, Sensory loss, Slurred/abnml speech (baseline dementia), Depressed mood/affect Reflexes: Bicep (R): 2+, Bicep (L): 2+ - Lab Results Fish Bones: 03/08/19 05:00 03/08/19 05:00 Other Labs: Lab Results x24hrs 03/08/19 03/08/19 03/08/19 Range/Units 05:00 05:00 05:00 WBC 5.1 (4.8-10.8) x10^3/uL RBC 3.22 L (4.70-6.10) 10^6/uL Hgb 9.9 L (14.0-18.0) g/dL Hct 31.4 L (42.0-52.0) % MCV 97.5 H (80.0-94.0) fL MCH 30.7 (27.0-31.0) pg MCHC 31.5 L (32.0-36.0) g/dL RDW 13.4 (12.0-15.0) % Plt Count 170 (130-450) 10^3/uL MPV 10.7 (7.4-11.4) fL Neut # (Auto) 3.9 (1.5-6.6) 10^3/uL Lymph # (Auto) 0.6 L (1.5-3.5) 10^3/uL [place] # (Auto) 0.5 (0.0-1.0) 10^3/uL Eos # (Auto) 0.1 (0.0-0.7) 10^3/uL Baso # (Auto) 0.0 (0.0-0.1) 10^3/uL Absolute Nucleated RBC 0.00 x10^3/uL Nucleated RBC % 0.0 /100WBC Sodium 133 L (135-145) mmol/L Potassium 3.7 (3.5-5.0) mmol/L Chloride 106 (101-111) mmol/L Carbon Dioxide 19 L (21-32) mmol/L Anion Gap 8.0 (6-13) BUN 17 (6-20) mg/dL Creatinine 1.1 (0.6-1.2) mg/dL Estimated GFR (MDRD) 64 L (>89) Glucose 148 H (70-100) mg/dL Lactic Acid 1.5 (0.5-2.2) mmol/L Calcium 7.7 L (8.5-10.3) mg/dL Magnesium 1.6 L (1.7-2.8) mg/dL Total Bilirubin 0.5 (0.2-1.0) mg/dL AST 59 H (10-42) IU/L ALT 25 (10-60) IU/L Alkaline Phosphatase 140 H (42-121) IU/L Total Protein 4.9 L (6.7-8.2) g/dL Albumin 1.7 L (3.2-5.5) g/dL Globulin 3.2 (2.1-4.2) g/dL Albumin/Globulin Ratio 0.5 L (1.0-2.2) ABX Reporting Has patient been on IV antibiotics over the past 48 hours?: Yes Sepsis Event Note (H) - Evaluation Current Stage of Sepsis: Resolved Assessment/Plan - Problem List (1) Bacteremia due to Enterococcus Impression: - 2 of 2 blood cultures that were obtained at the time of admission shows enterococcus faecalis with the final pending - Switched from Rocephin to Zosyn yesterday with an improvement in his overall all mentation, appetite and alertness Plan: Await final cultures, continue IV zosyn (2) Pyelonephritis Impression: - Initial urinalysis was grossly positive for acute complicated UTI - Patient also had metabolic encephalopathy, bilateral flank pain, and dysuria - Urine cultures show + pseudomonas with the final culture pending - This morning, the patient had continued left flank pain, that has migrated to his left hip region - Baseline urinary incontinence Plan: Continue Zosyn to treat bacteremia, and this infection (3) ZOYA (acute kidney injury) Impression: - Baseline creatinine is 1.0, elevated to 1.6 on admission (03/04/2019) - Today improved to 1.1 - Currently has a complicated UTI with + urine cultures of pseudomonas aeruginosa- final is pending - Status post IV fluids, continues on flomax - Bladder scans have not been ordered Plan: Continue routine labs, continue IV antibiotics, I/O, avoid hypotension, NSAIDs and nephrotoxins (4) Urinary incontinence Impression: - Status post prostate cancer - Also with BPH, takes Flomax which continues here - Bladder scanned for ~100 mL Plan: Continue to monitor for retention, follow labs Qualifiers: Urinary Incontinence type: functional incontinence Qualified Code(s): R39.81 - Functional urinary incontinence (5) BPH (benign prostatic hyperplasia) Impression: - History of this condition and prostate cancer that his thought to be in remission - Chronic urinary incontinence - Post void residual today was ~100 mL, smells of urine on exam - continues on his home FLomax Plan: Continue I/O, continue post void residuals, monitor for retention (6) Atrial fibrillation with RVR Impression: - Echocardiogram shows a moderate increase in the left atria, moderate RA enlargement, EF of 65-70% - No admission EKG in the EMR - EKG now shows a fib with RVR - Telemetry appears to be between SR and atrial fibrillation with rates 80-125's - Home med list includes metoprolol succinate, but the patient was instead given diltiazem IV pushes followed by PO dilt - Patient may be stressed at the moment with more acute left hip discomfort, asked nursing to do a bladder scan, may reach out to Dr. Nelson for left hip imaging - Positive orthostatic hypotension Plan: Continue metoprolol 12.5 mg daily, start midodrine with meals, continue on telemetery (7) Fall Impression: - Patient admits to more frequent falls and uses a cane or a walker at home - Patient denies falling to his left side - Now with more acute left posterior hip pain, which does not travel to his groin -PT notes more pain during ambulation to his left leg - Starting midodrine today for orthostatic hypotension, which also contributed to his prior falls Plan: continue to monitor, fall precautions, follow PT recommendations for higher level of care verses home with family Qualifiers: Encounter type: subsequent encounter Qualified Code(s): W19.XXXD - Unspecified fall, subsequent encounter (8) Hypothyroidism Impression: - TSH on this admission was low at 0.28 - Free T4 is normal at 1.37 - Continues on Levothyroxine at 50 mcgs daily, but this was his prior dose - Now on a reduced dose of 37.5 mcg daily Plan: Recheck TSH in about 4-6 weeks outpatient (9) Right hip joint effusion Impression: - Noted on imaging, requiring an orthopedic consultation - Dr. Nelson was consulted and following - Status post right hip aspiration- no growth to date today - Suspected due to recent falls at home - Had right hip repair about 2 years ago Plan: Continue daily PT, evaluate for higher level of care (10) Spleen hematoma Impression: - Abdominal/Pelvis CT on 03/04/2019 shows: Small amount of subcapsular fluid along the lateral margin of the spleen - Patient has more acute left flank/hip pain, but improved today - No increased pain with deep palpation to abdomen Plan: Continue to monitor Qualifiers: Encounter type: initial encounter Qualified Code(s): S36.029A - Unspecified contusion of spleen, initial encounter (11) Diabetes mellitus type 2, diet-controlled Impression: - NO home meds for this DX - hemoglobin A1C is 5.5% - Continues on a regular diet with improved appetite Plan: Continue to encourage meals, no SSI, or sugar checks (12) Orthostatic hypotension Impression: - Systolics charted in the 80's - Some dizziness during the patient's hospital stay - Suspect from acute illness, fluid volume loss or from increased pain medications that have been given for his hip pain - Also EKG shows a fib with RVR, now telemetry shows SR in the 70's - Was put on diltiazem with little effect, now resumed on metoprolol succinate, but hypotension is hindering this - Improvement in overall blood pressure readings since starting midodrine Plan: monitor for improvement
[2019-03-08] MEDS: ENOXAPARIN 40 MG/0.4 ML SYRINGE SUBQ SCH (10:15)
[2019-03-08] MEDS: TAMSULOSIN 0.4 MG CAPSULE PO SCH (10:16)
[2019-03-08] MEDS: MIDODRINE 2.5 MG TABLET PO SCH ×3 (10:20→21:10)
[2019-03-08] MEDS: SODIUM CHLORIDE FLUSH 0.9% 10 ML SYRINGE IVP PRN (14:36)
[2019-03-08] MEDS ORDERED: MIN OIL/DIMETHICON/COCONUT OIL 92 GM TUBE TOP PRN (18:04)
[2019-03-09] MEDS: SODIUM CHLORIDE FLUSH 0.9% 10 ML SYRINGE IVP SCH ×3 (02:13→17:51)
[2019-03-09 04:37] LABS: BASOPHILS % (AUTO) 0.6 %; EOSINOPHILS # (AUTO) 0.1 10^3/uL (0.0-0.7); EOSINOPHILS % (AUTO) 2.8 %; HGB - HEMOGLOBIN 10.7 g/dL (14.0-18.0); LYMPHOCYTES % (AUTO) 20.9 %; MEAN CORPUSCULAR HEMOGLOBIN 30.8 pg (27.0-31.0); MEAN CORPUSCULAR HGB CONC 31.6 g/dL (32.0-36.0); MEAN CORPUSCULAR VOLUME 97.7 fL (80.0-94.0); MONOCYTES # (AUTO) 0.6 10^3/uL (0.0-1.0); MONOCYTES % (AUTO) 12.1 %; NEUTROPHILS # (AUTO) 3.1 10^3/uL (1.5-6.6); NEUTROPHILS % (AUTO) 62.6 %; PLT - PLATELET COUNT 213 10^3/uL (130-450); RED BLOOD COUNT 3.47 10^6/uL (4.70-6.10); RED CELL DISTRIBUTION WIDTH 13.5 % (12.0-15.0); WHITE BLOOD COUNT 4.9 x10^3/uL (4.8-10.8)
[2019-03-09 04:47] LABS: CALCIUM 7.9 mg/dL (8.5-10.3); CREATININE 1.2 mg/dL (0.6-1.2); MAGNESIUM 1.7 mg/dL (1.7-2.8)
[2019-03-09] MEDS: PIPERACILLIN/TAZOBACTAM 3.375 GM in SODIUM CHLORIDE 0.9% MINIBAG 100 ML IV SCH ×3 (06:15→22:38)
[2019-03-09] MEDS: GABAPENTIN 300 MG CAPSULE PO SCH ×3 (06:16→22:17)
[2019-03-09] MEDS: LEVOTHYROXINE 25 MCG TABLET PO SCH (06:16)
[2019-03-09] MEDS: PANTOPRAZOLE 40 MG TABLET PO SCH (06:16)
[2019-03-09] MEDS: MIDODRINE 2.5 MG TABLET PO SCH ×3 (06:17→17:51)
[2019-03-09] MEDS ORDERED: AMOX/CLAV 875 MG/125 MG TABLET PO SCH (09:00)
[2019-03-09] MEDS: MAGNESIUM OXIDE 400 MG TABLET PO SCH ×2 (09:02→17:51)
[2019-03-09] MEDS: TAMSULOSIN 0.4 MG CAPSULE PO SCH (09:02)
[2019-03-09] MEDS: POLYETHYLENE GLYCOL 3350 17 GM PACKET PO SCH (09:04)
[2019-03-09] MEDS: METOPROLOL SUCCINATE 25 MG TABLET PO SCH (09:04)
[2019-03-09] MEDS: ENOXAPARIN 40 MG/0.4 ML SYRINGE SUBQ SCH (09:05)
--- NOTE | 2019-03-09 11:10 | PROVIDER PROGRESS NOTE ---
Subjective - Prog Note Date Prog Note Date: 03/09/19 Prog Note Time: 11:07 - Subjective Pt reports feeling: Improved Subjective: Ko states that he feels better each day, but does have intermittent dizziness at times with position changes. He has a blood stream infection and complicated UTI which require at least 3 days of IV antibiotics, which will be fulfilled by 03/10, since the antibiotics were changed only 2 days ago. The patient states that his left hip pain in improved each day. * I have spoken to Emily, the patient's to give a medical update today via the patient's personal phone. She requests that I give recommendations for [facility] providers since Dr. Turner is not their preference any longer. Current Medications - Current Medications Current Medications: Active Medications: Acetaminophen (Tylenol) 650 mg PO Q6HR PRN Enoxaparin Sodium (Lovenox) 40 mg SUBQ DAILY DONALD Gabapentin (Neurontin) 300 mg PO TID DONALD Piperacillin Sod/Tazobactam (Sod 3.375 gm/ Sodium Chloride) 100 mls @ 25 mls/hr IV Q8H DONALD Levothyroxine Sodium (Synthroid) 37.5 mcg PO QDAC DONALD Magnesium Oxide (Mag Ox) 400 [facility] PO [facility] Metoprolol Succinate (Toprol Xl) 12.5 mg PO DAILY DONALD Midodrine 5 mg PO TIDWM [facility] Mineral Oil (Cavilon) 1 applic TOP PRN PRN Oxycodone HCl (Roxicodone) 5 mg PO Q4HR PRN Pantoprazole Sodium (Protonix) 40 mg PO QDAC [facility] Polyethylene Glycol (Miralax) 17 gm PO DAILY DONALD Tamsulosin HCl (Flomax) 0.4 mg PO DAILY [facility] HOME meds: Gabapentin 600 mg PO TID 03/05/19 Levothyroxine Sodium [Synthroid] 50 mcg PO DAILY 03/05/19 Metoprolol Succinate [Toprol Xl] 25 mg PO DAILY 03/05/19 Pravastatin Sodium [Pravachol] 20 mg PO QPM 03/05/19 Tamsulosin [Flomax] 0.4 mg PO DAILY 03/05/19 Objective - Vital Signs/Intake & Output Reviewed Vital Signs: Yes Vital Signs: Vital Signs x48h Temp Pulse Pulse Resp BP BP Pulse Ox 03/09/19 07:43 36.4 C L 85 14 89/59 L 97 08/18/19 06:24 77 101/60 03/09/19 05:45 36.9 C 60 16 104/63 95 Intake & Output: Intake & Output 03/06/19 03/07/19 03/08/19 03/09/19 23:59 23:59 23:59 23:59 Intake Total 4162.480 2740.000 3814.440 410 Output Total 485 100 Balance 4162.480 2255.000 3714.440 410 - Objective General Appearance: positive: No acute distress, Alert Eyes Bilateral: positive: PERRL, No lid inflammation ENT: positive: Pharynx nml, No signs of dehydration Neck: positive: Thyroid nml, No JVD, Trachea midline Respiratory: positive: Chest non-tender, No respiratory distress, Breath sounds nml Cardiovascular: positive: No gallop, Irregularly irregular, Systolic murmur, Decreased pulse(s) Peripheral Pulses: 1+ Radial (R), 1+ Radial (L) Abdomen: positive: Non-tender, Nml bowel sounds Back: positive: Nml inspection Skin: positive: No rash, Warm, Dry, Pallor Extremities: positive: Non-tender, Full ROM, Nml appearance, Pedal edema (trace BLE-dependent) Neurologic/Psychiatric: positive: CN's nml (2-12), Disoriented to time, Weakness, Sensory loss, Depressed mood/affect, Other (baseline dementia with poor short term memory) Reflexes: Bicep (R): 3+, Bicep (L): 3+ - Lab Results Fish Bones: 03/09/19 04:20 03/09/19 04:20 Other Labs: Lab Results x24hrs 03/09/19 03/09/19 Range/Units 04:20 04:20 WBC 4.9 (4.8-10.8) x10^3/uL RBC 3.47 L (4.70-6.10) 10^6/uL Hgb 10.7 L (14.0-18.0) g/dL Hct 33.9 L (42.0-52.0) % MCV 97.7 H (80.0-94.0) fL MCH 30.8 (27.0-31.0) pg MCHC 31.6 L (32.0-36.0) g/dL RDW 13.5 (12.0-15.0) % Plt Count 213 (130-450) 10^3/uL MPV 11.0 (7.4-11.4) fL Neut # (Auto) 3.1 (1.5-6.6) 10^3/uL Lymph # (Auto) 1.0 L (1.5-3.5) 10^3/uL Latimer # (Auto) 0.6 (0.0-1.0) 10^3/uL Eos # (Auto) 0.1 (0.0-0.7) 10^3/uL Baso # (Auto) 0.0 (0.0-0.1) 10^3/uL Absolute Nucleated RBC 0.00 x10^3/uL Nucleated RBC % 0.0 /100WBC Sodium 135 (135-145) mmol/L Potassium 3.6 (3.5-5.0) mmol/L Chloride 105 (101-111) mmol/L Carbon Dioxide 20 L (21-32) mmol/L Anion Gap 10.0 (6-13) BUN 17 (6-20) mg/dL Creatinine 1.2 (0.6-1.2) mg/dL Estimated GFR (MDRD) 58 L (>89) Glucose 133 H (70-100) mg/dL Calcium 7.9 L (8.5-10.3) mg/dL Magnesium 1.7 (1.7-2.8) mg/dL ABX Reporting Has patient been on IV antibiotics over the past 48 hours?: Yes Assessment/Plan - Problem List (1) Pyelonephritis Impression: - Initial urinalysis was grossly positive for acute complicated UTI - Patient also had metabolic encephalopathy, bilateral flank pain, and dysuria - Urine cultures show + pseudomonas, and enterococcus - The left flank pain, that migrates to his left hip region is nearly resolved today - Baseline urinary incontinence, retaining about 100 mL per bladder scan (post void residual) Plan: Continue Zosyn to treat bacteremia, and this infection, anticipate transition to PO Zyvox upon discharge home with the cost being only $11 to the patient for 52 doses (2) Bacteremia due to Enterococcus Impression: - 2 of 2 blood cultures that were obtained at the time of admission shows enterococcus faecalis - Switched from Rocephin to Zosyn on 03/07, with an improvement in his overall all mentation, appetite and alertness - Now on day #2 of IV zosyn and ideal treatment is at least 3 days- so discharge is not for today - Pre-prescribed oral antibiotic Zyvox to check on the patient's cost which was reported by the [facility] pharmacy of $11 for the whole prescription of 52 doses Plan: Continue IV zosyn, anticipate Zyvox (linezolid) upon discharge (3) Urinary retention due to benign prostatic hyperplasia Impression: - History of this condition and prostate cancer that his thought to be in remission - Chronic urinary incontinence and retention - Post void residuals have been ~100 mL, so no need to continue bladder scans - continues on his home FLomax Plan: Continue I/O, monitor for retention, and/or incontinence (4) ZOYA (acute kidney injury) Impression: - Baseline creatinine is 1.0, elevated to 1.6 on admission (03/04/2019) - Today improved to 1.1 - Currently has a complicated UTI with + urine cultures of pseudomonas aeruginosa- final is pending - Status post IV fluids, continues on flomax - Bladder scans have not been ordered Plan: Continue routine labs, continue IV antibiotics, I/O, avoid hypotension, NSAIDs and nephrotoxins (5) Orthostatic hypotension Impression: - Systolics charted in the 80-90's- despite starting on midodrine - Suspect due to elderly age leading to a reduced parasympathetic outflow of normal blood pressure response to position changes and which may be exacerbated by long standing blood pressure medications, acute illness, and atrial fibrillation- causing an inappropriate response - Some dizziness during the patient's hospital stay - Suspect from acute illness, fluid volume loss or from increased pain medications that have been given for his hip pain - Also EKG shows a fib with RVR, now telemetry shows SR in the 70's - Was put on diltiazem with little effect, now resumed on metoprolol succinate, but hypotension is hindering this - Overall blood pressure readings since starting midodrine continue to be light, but still low after increasing to 5 mg this morning, so will not be returning home Plan: monitor for improvement, vital signs, continue telemetry (6) Paroxysmal atrial fibrillation Impression: - Echocardiogram shows a moderate increase in the left atria, moderate RA enlargement, EF of 65-70% - EKG shows a fib with RVR, now telemetry appears to be between SR and atrial fibrillation with rates 70-80's - Home med list includes metoprolol succinate, but the patient was instead given diltiazem IV pushes followed by PO dilt - Positive orthostatic hypotension - Last saw cardiology on 11/12/2018 in [facility], Karen Baca MD who was addressing this condition and recommended Xarelto, metoprolol succinate, statin, and Tricor - Had hematuria with Xarelto, so is no longer taking this - Home meds included Metoprolol succinate 25 mg daily, and enalapril, but the enalapril has been taken off his home list, and the Metoprolol has been reduced by half due to ongoing orthostatic hypotension- also we have added midodrine with increased dosing Plan: Continue metoprolol 12.5 mg daily, continue midodrine at an increased dose with meals, continue on telemetry (7) Hypothyroidism Impression: - TSH on this admission was low at 0.28 - Free T4 is normal at 1.37 - Unknown home dose on admission due to a late medication reconciliation by pharmacy - Patient received one dose of 75 mcg, then reduced to 50 mcg - Continues on Levothyroxine at 50 mcgs daily, but this was his prior dose - Now on a reduced dose of 37.5 mcg daily Plan: Recheck TSH in about 4-6 weeks outpatient (8) Abnormal TSH Impression: - TSH was 0.28, with a normal T4 of 1.27 - Reduced home dose of Synthroid from 50 mcg to 37.5 mcg Plan: Recommend rechecking TSH in the next 4-6 weeks (9) Right hip joint effusion Impression: - Noted on imaging, requiring an orthopedic consultation - Dr. Nelson was consulted and following - Status post right hip aspiration- no growth to date - Suspected due to recent falls at home - Had right hip repair about 2 years ago - Patient denies recent falls Plan: Continue daily PT, evaluate for higher level of care (10) Spleen hematoma Impression: - Abdominal/Pelvis CT on 03/04/2019 shows: Small amount of subcapsular fluid along the lateral margin of the spleen - Patient has more acute left flank/hip pain, but improved today - No increased pain with deep palpation to abdomen Plan: Continue to monitor Qualifiers: Encounter type: initial encounter Qualified Code(s): S36.029A - Unspecified contusion of spleen, initial encounter (11) Diabetes mellitus type 2, diet-controlled Impression: - NO home meds for this DX - hemoglobin A1C is 5.5% - Continues on a regular diet with improved appetite Plan: Continue to encourage meals, no SSI, or sugar checks, continue a regular diet
[2019-03-09] MEDS: SODIUM CHLORIDE FLUSH 0.9% 10 ML SYRINGE IVP PRN (22:39)
[2019-03-10] MEDS: SODIUM CHLORIDE FLUSH 0.9% 10 ML SYRINGE IVP SCH ×2 (03:17→08:45)
[2019-03-10] MEDS: ACETAMINOPHEN 325 MG TABLET PO PRN (05:56)
[2019-03-10] MEDS: LEVOTHYROXINE 25 MCG TABLET PO SCH (05:57)
[2019-03-10] MEDS: GABAPENTIN 300 MG CAPSULE PO SCH ×2 (05:57→13:52)
[2019-03-10] MEDS: PANTOPRAZOLE 40 MG TABLET PO SCH (05:57)
[2019-03-10] MEDS: SODIUM CHLORIDE FLUSH 0.9% 10 ML SYRINGE IVP PRN (06:01)
[2019-03-10] MEDS: PIPERACILLIN/TAZOBACTAM 3.375 GM in SODIUM CHLORIDE 0.9% MINIBAG 100 ML IV SCH (06:03)
--- NOTE | 2019-03-10 07:41 | Discharge Plan ---
Discharge Plan Problem Reviewed?: Yes Disposition: Home, Self Care Condition: Stable Prescriptions: Ciprofloxacin HCl [Cipro] 500 mg PO Q12H #52 tablet Gabapentin 300 mg PO TID #90 capsule Levothyroxine [Synthroid] 37.5 mcg PO QDAC #45 tablet Linezolid [Zyvox] 600 mg PO Q12H #52 tablet Magnesium Oxide [Mag Ox] 400 mg PO BIDWM #60 tablet Metoprolol Succinate [Toprol Xl] 12.5 mg PO DAILY #15 tablet Midodrine HCl 10 mg PO TID #90 tablet Saccharomyces Boulardii [Florastor] 250 mg PO BID #60 capsule Diet: Regular Activity Restrictions: No Restrictions Shower Restrictions: No Health Concerns: Blood infection Prostatitis Hip pain Plan of Treatment: Continue an extended treatment using 2 types of antibiotics for the next 26 days at home Continue to take your reduced dose of gabapentin to prevent day time sleepiness, and hypotension Take a new medication called Midodrine to prevent low blood pressures (hypotension) Do not take enalapril any more See your PCP within one week Care Goals: Prevent infections Prevent hospital stays Control pain Assessment: The patient had an extended stay due to his persistent low blood pressures and blood stream infection as we were waiting on culture results No Smoking: If you smoke, Please STOP! Call for help. Follow-up with: Itzel Herr MD [Primary Care Provider] -
[2019-03-10 08:02] LABS: INR 1.2 (0.8-1.2); PT - PROTHROMBIN TIME 13.4 secs (9.9-12.6)
[2019-03-10 08:16] LABS: ALBUMIN 1.7 g/dL (3.2-5.5); ALBUMIN/GLOBULIN RATIO 0.5 (1.0-2.2); BILIRUBIN,TOTAL 0.5 mg/dL (0.2-1.0); CALCIUM 8.1 mg/dL (8.5-10.3); CREATININE 1.2 mg/dL (0.6-1.2); MAGNESIUM 1.7 mg/dL (1.7-2.8); PHOSPHORUS 1.8 mg/dL (2.5-4.6)
--- NOTE | 2019-03-10 08:16 | DISCHARGE SUMMARY ---
Discharge Summary Admit Date: 03/04/19 Discharge Date: 03/10/19 Discharging Provider: BREN Richardson Primary Care Provider: Itzel Herr Code Status: Attempt Resuscitation Condition at Discharge: Stable Discharge Disposition: 01 Home, Self Care - DIAGNOSES Admission Diagnoses: Sepsis Pyelonephritis Acute kidney injury Femoral neck fracture Right hip joint effusion Spleen hematoma Hypothyroidism Hyperlipidemia Urinary incontinence DVT prophylaxis Discharge Diagnoses with Status of Each Condition: Sepsis- Resolved Pyelonephritis- Continue an extended treatment at home with both Linezolid & Cipro for an extended treatment course of 26 days at home. Final urine cultures grew both enterococcus faecalis and pseudomonas aeruginosa with sensitivities, back pain was resolved, stable Bacteremia- 2 of 2 samples grew enterococcus faecalis, continue antibiotics, stable Prostatitis-Continue an extended treatment at home with both Linezolid & Cipro for an extended treatment course of 26 days at home Urinary retention due to benign prostatic hyperplasia- Bladder scans remained low 80-100 mL, and patient was urinating well Acute kidney injury- Resolved Orthostatic hypotension- Was noted on this admission, midodrine was started and titrated up to a max dose of 10 mg PO TID to continue at home, instructions to stop Enalapril, continue low dose metoprolol succinate and 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 TSH was low at 0.28. Adjustments were made from 75 mcg to 50 mcg, presumed due to pharmacy error of unknown home dose. Final adjustment was made on 03/07/2019 (day #3 of admission) down to 37.5 mcg after final reconciliation was made to confirm prior dose. Re-check TSH in the next 4-6 weeks Abnormal TSH- Hyperthyroid with a TSH level of 0.28, adjustment was made to prior home dose Right hip joint effusion- Found on imaging taken upon admission, patient denied recent falls and has chronic bilateral hip pain. Orthopedic surgery was consulted and aspirated the effusion, which was negative for any pathogens, stable Spleen hematoma- No pain on exam, patient was told of this finding, stable Diabetes mellitus type 2, diet-controlled- Considered to be diet controlled, Hem oglobin A1C was 5.5%, stable - HPI History of Present Illness: HPI per Dr. Lucas: Patient seen on 03/04/19 around 2300pm Patient is an 83 y/o male who presented to the ED with complain of left lower abdomen/side pain. Onset was this morning. He was unable to move or get out of bed as a result. He denied any trauma recently. He denies fever or chills but reports an episode of shaking uncontrollably (?rigors) about 2 days ago, despite it being hot in the house at the time. He denies chest pain, AYANNA, n/v/d. He is incontinent of urine chronically. He was found to have a SBP of 80's-90's in the ED. Work up showed a WBC of 15 and Cr 1.6. At baseline he is 1.2. His UA was strongly suggestive of a UTI. CT scan of the abdomen/pelvis had several significant finding: bladder thickening, a new minimally femoral neck fracture on the right where there was a previous ORIF done, a large right hip joint effusion and a minimal age indeterminate subcapsular splenic hematoma. As a rsult of the above, the patient was admitted for further treatment. He used to be on xarelto, but stopped taking it 3 months ago due to hematuria. He has history of diabetes but no longer takes any medication for it. - HOSPITAL COURSE Hospital Course: (1) Pyelonephritis- Initial urinalysis was grossly positive for acute complicated UTI - Patient also had metabolic encephalopathy, bilateral flank pain, and dysuria - Urine cultures show + pseudomonas, and enterococcus - The left flank pain, that migrates to his left hip region is nearly resolved - Baseline urinary incontinence, retaining about 100 mL per bladder scan (post void residual) - Patient was continued on levofloxacin and Linezolid for a prolonged treatment of 26-days at home (2) Bacteremia due to Enterococcus- 2 of 2 blood cultures that were obtained at the time of admission shows enterococcus faecalis - Switched from Rocephin to Zosyn on 03/07, with an improvement in his overall all mentation, appetite and alertness - Now on day #2 of IV zosyn and ideal treatment is at least 3 days- so discharge is not for today - Pre-prescribed oral antibiotic Zyvox to check on the patient's cost which was reported by the [facility] pharmacy of $11 for the whole prescription of 52 doses (3) Urinary retention due to benign prostatic hyperplasia- History of this condition and prostate cancer that his thought to be in remission - Chronic urinary incontinence and retention - Post void residuals have been ~100 mL, so no need to continue bladder scans - continues on his home FLomax (4) ZOYA (acute kidney injury)- Baseline creatinine is 1.0, elevated to 1.6 on admission (03/04/2019) - Today improved to 1.1 - Currently has a complicated UTI with + urine cultures of pseudomonas a eruginosa- final is pending - Status post IV fluids, continues on flomax - Bladder scans have not been ordered (5) Orthostatic hypotension- Systolics charted in the 80-90's- despite starting on midodrine - Suspect due to elderly age leading to a reduced parasympathetic outflow of normal blood pressure response to position changes and which may be exacerbated by long standing blood pressure medications, acute illness, and atrial fibrillation- causing an inappropriate response - Some dizziness during the patient's hospital stay - Suspect from acute illness, fluid volume loss or from increased pain medications that have been given for his hip pain - Also EKG shows a fib with RVR, now telemetry shows SR in the 70's - Was put on diltiazem with little effect, now resumed on metoprolol succinate, but hypotension is hindering this - Overall blood pressure readings since starting midodrine continue to be light, but still low after increasing to 5 mg this morning, so will not be returning home (6) Paroxysmal atrial fibrillation- Echocardiogram shows a moderate increase in the left atria, moderate RA enlargement, EF of 65-70% - EKG shows a fib with RVR, now telemetry appears to be between SR and atrial fibrillation with rates 70-80's - Home med list includes metoprolol succinate, but the patient was instead given diltiazem IV pushes followed by PO dilt - Positive orthostatic hypotension - Last saw cardiology on 11/12/2018 in Karen Strong MD who was addressing this condition and recommended Xarelto, metoprolol succinate, statin, and Tricor - Had hematuria with Xarelto, so is no longer taking this - Home meds included Metoprolol succinate 25 mg daily, and enalapril, but the enalapril has been taken off his home list, and the Metoprolol has been reduced by half due to ongoing orthostatic hypotension- also we have added midodrine with increased dosing (7) Hypothyroidism- TSH on this admission was low at 0.28 - Free T4 is normal at 1.37 - Unknown home dose on admission due to a late medication reconciliation by pharmacy - Patient received one dose of 75 mcg, then reduced to 50 mcg - Continues on Levothyroxine at 50 mcgs daily, but this was his prior dose - Now on a reduced dose of 37.5 mcg daily (8) Abnormal TSH- TSH was 0.28, with a normal T4 of 1.27 - Reduced home dose of Synthroid from 50 mcg to 37.5 mcg (9) Right hip joint effusion- Noted on imaging, requiring an orthopedic consultation - Dr. Nelson was consulted and following - Status post right hip aspiration- no growth to date - Suspected due to recent falls at home - Had right hip repair about 2 years ago - Patient denies recent falls (10) Spleen hematoma- Abdominal/Pelvis CT on 03/04/2019 shows: Small amount of subcapsular fluid along the lateral margin of the spleen - Patient has more acute left flank/hip pain, but improved today - No increased pain with deep palpation to abdomen (11) Diabetes mellitus type 2, diet-controlled- NO home meds for this DX - hemoglobin A1C is 5.5% - Continues on a regular diet with improved appetite Disposition: The patient was excited to return home, and was seen by PT to ensure he could manage a few stairs prior to discharge. He was medically stable and back to his baseline. A list of PCP providers were provided to the patient' s and he was transported via private car home. Prescriptions sent to the [facility] pharmacy. - ALLERGIES Allergies/Adverse Reactions: Allergies Allergy/AdvReac Type Severity Reaction Status Date / Time No Known Drug Allergies Allergy Verified 03/04/19 20:01 - MEDICATIONS Home Medications: Ambulatory Orders Medication Instructions Recorded Confirmed Pravastatin Sodium [Pravachol] 20 mg PO QPM 03/05/19 03/05/19 Tamsulosin [Flomax] 0.4 mg PO DAILY 03/05/19 03/05/19 Linezolid [Zyvox] 600 mg PO Q12H #52 tablet 03/09/19 Ciprofloxacin HCl [Cipro] 500 mg PO Q12H #52 tablet 03/10/19 Gabapentin 300 mg PO TID #90 capsule 03/10/19 Levothyroxine [Synthroid] 37.5 mcg PO QDAC #45 tablet 03/10/19 Magnesium Oxide [Mag Ox] 400 mg PO BIDWM #60 tablet 03/10/19 Metoprolol Succinate [Toprol Xl] 12.5 mg PO DAILY #15 tablet 03/10/19 Midodrine HCl 10 mg PO TID #90 tablet 03/10/19 Saccharomyces Boulardii [Florastor] 250 mg PO BID #60 capsule 03/10/19 - PHYSICAL EXAM AT DISCHARGE General Appearance: positive: No acute distress, Alert Eyes Bilateral: positive: PERRL ENT: positive: Pharynx nml, No signs of dehydration Neck: positive: Thyroid nml, No JVD, Trachea midline Respiratory: positive: Chest non-tender, No respiratory distress, Breath sounds nml Cardiovascular: positive: No gallop, Irregularly irregular, Systolic murmur, Decreased pulse(s) Peripheral Pulses: positive: 1+ Abdomen: positive: Non-tender, Nml bowel sounds, Other (rounded, soft) Back: positive: Nml inspection Skin: positive: Color nml, No rash, Warm, Dry Extremities: positive: Non-tender, Full ROM, Nml appearance, Pedal edema (dependent edema) Neurologic/Psychiatric: positive: Oriented x3, CN's nml (2-12), Motor nml, Sensation nml, Weakness, Slurred/abnml speech (due to poor dentitian) Reflexes: Bicep (R): 3+, Bicep (L): 3+ - LABS Result Diagrams: 03/10/19 07:51 03/10/19 07:51 - SEPSIS Current Stage of Sepsis: Resolved Possible source of Sepsis: Genitourinary Sepsis Criteria: WBC count greater than 12,000 or less than 4000, SBP less than 90 mmHg - TIME SPENT Time Spent in Discharge (Minutes): 55
[2019-03-10 08:24] LABS: BASOPHILS % (AUTO) 0.6 %; EOSINOPHILS # (AUTO) 0.1 10^3/uL (0.0-0.7); EOSINOPHILS % (AUTO) 1.9 %; HGB - HEMOGLOBIN 10.7 g/dL (14.0-18.0); LYMPHOCYTES % (AUTO) 19.8 %; MEAN CORPUSCULAR HEMOGLOBIN 31.3 pg (27.0-31.0); MEAN CORPUSCULAR HGB CONC 31.5 g/dL (32.0-36.0); MEAN CORPUSCULAR VOLUME 99.4 fL (80.0-94.0); MEAN PLATELET VOLUME 10.9 fL (7.4-11.4); MONOCYTES # (AUTO) 0.5 10^3/uL (0.0-1.0); MONOCYTES % (AUTO) 8.9 %; NEUTROPHILS # (AUTO) 3.5 10^3/uL (1.5-6.6); NEUTROPHILS % (AUTO) 67.2 %; PLT - PLATELET COUNT 241 10^3/uL (130-450); RED BLOOD COUNT 3.42 10^6/uL (4.70-6.10); RED CELL DISTRIBUTION WIDTH 13.6 % (12.0-15.0); WHITE BLOOD COUNT 5.2 x10^3/uL (4.8-10.8)
[2019-03-10] MEDS: MIDODRINE 2.5 MG TABLET PO SCH ×3 (08:36→13:52)
[2019-03-10] MEDS: TAMSULOSIN 0.4 MG CAPSULE PO SCH (08:42)
[2019-03-10] MEDS: MAGNESIUM OXIDE 400 MG TABLET PO SCH (08:43)
[2019-03-10] MEDS: POLYETHYLENE GLYCOL 3350 17 GM PACKET PO SCH (08:45)
[2019-03-10] MEDS: ENOXAPARIN 40 MG/0.4 ML SYRINGE SUBQ SCH (08:45)
[2019-03-10] MEDS ORDERED: LINEZOLID 600 MG TABLET PO SCH (09:00)
[2019-03-10] MEDS ORDERED: HYDROCORTISONE SUCCINATE 100 MG/2 ML VIAL IVP SCH (09:00)
[2019-03-10] MEDS ORDERED: CIPROFLOXACIN 250 MG TABLET PO SCH (09:30)
[2019-03-10] MEDS: METOPROLOL SUCCINATE 25 MG TABLET PO SCH (09:58)
[2019-03-10 13:33] VITALS: BP 86/40
[2019-03-10] MEDS ORDERED: SACCHAROMYCES BOULARDII 250 MG CAPSULE PO SCH (17:00)
== END 2019-03-10 14:00 | disposition home or self-care (01) | DRG 871 ==
LOC: EDUNIT# → EDBD → ED 19:52 → MS2 22:47
PROVIDERS: ADMIT Internal Medicine; ATTEND Nurse Practitioner
DX: A41.9 Sepsis, unspecified organism (principal); A41.81 Sepsis due to Enterococcus; R32 Unspecified urinary incontinence; N28.9 Disorder of kidney and ureter, unspecified; G93.41 Metabolic encephalopathy; R93.5 Abnormal findings on diagnostic imaging of other abdominal regions, including retroperitoneum; R93.7 Abnormal findings on diagnostic imaging of other parts of musculoskeletal system; I10 Essential (primary) hypertension; Z86.39 Personal history of other endocrine, nutritional and metabolic disease; N12 Tubulo-interstitial nephritis, not specified as acute or chronic; N17.9 Acute kidney failure, unspecified; M84.459A Pathological fracture, hip, unspecified, initial encounter for fracture; S36.029A Unspecified contusion of spleen, initial encounter; W19.XXXA Unspecified fall, initial encounter; Y92.009 Unspecified place in unspecified non-institutional (private) residence as the place of occurrence of the external cause; A41.52 Sepsis due to Pseudomonas; E03.9 Hypothyroidism, unspecified; E78.5 Hyperlipidemia, unspecified; N41.9 Inflammatory disease of prostate, unspecified; N40.1 Benign prostatic hyperplasia with lower urinary tract symptoms; N39.498 Other specified urinary incontinence; R33.8 Other retention of urine; I95.1 Orthostatic hypotension; I48.0 Paroxysmal atrial fibrillation; M25.451 Effusion, right hip; M25.552 Pain in left hip; G89.29 Other chronic pain; E11.9 Type 2 diabetes mellitus without complications; I11.9 Hypertensive heart disease without heart failure; F03.90 Unspecified dementia, unspecified severity, without behavioral disturbance, psychotic disturbance, mood disturbance, and anxiety; Z79.899 Other long term (current) drug therapy; Z85.46 Personal history of malignant neoplasm of prostate; Z91.81 History of falling; Z86.11 Personal history of tuberculosis; Z87.891 Personal history of nicotine dependence
CPT/HCPCS: 20610; 36415; 71275; 74177; 80048; 80053; 81001; 82533; 83036; 83605; 83690; 83735; 84100; 84439; 84443; 84478; 84484; 85025; 85610; 87040; 87070; 87077; 87086; 87181; 87205; 89051; 89060; 93005; 93306; 96365; 96375; 97116; 97161; 97530; 99285; 99291; A6250; A9270; J1580; J1650; J7120; Q9961; Q9967; 81003

== ENCOUNTER 2019-03-14 09:04 | Outpatient (CLI) | payer MEDICARE, OTHER | END 2019-03-14 09:05 | disposition critical access hospital (66) | LOC: EMS 09:04 | PROVIDERS: ATTEND Surgery | DX: R42 Dizziness and giddiness (principal); R19.7 Diarrhea, unspecified; R53.1 Weakness | CPT/HCPCS: A0425; A0427 ==

== ENCOUNTER 2019-03-14 09:21 | Inpatient (IN) | payer MEDICARE, OTHER ==
[2019-03-14] MEDS ORDERED: SODIUM CHLORIDE 0.9% 1,000 ML IV ONE (09:53)
--- NOTE | 2019-03-14 09:57 | ED Physician Documentation ---
History of Present Illness - Stated complaint Stated Complaint: DIZZY/ WEAKNESS - Chief complaint Chief Complaint: Abd Pain - History obtained from History obtained from: Patient, EMS - History of Present Illness Timing: Yesterday - Additonal information Additional information: 83-year-old male recently discharged from the hospital with uro-sepsis has developed diarrhea after returning to his home and he has had multiple episodes per day and yesterday began to develop worsening weakness. His weakness is profound and he is not able to get out of bed by himself. Several weeks ago he was able to care for himself. With this illness he became weak and even when he left the hospital 4 days ago he was weak enough that he could not get into his house. He has worsened and his is not able to care for him at home. Review of Systems Constitutional: reports: Chills, Myalgias, Fatigue. denies: Fever Eyes: denies: Decreased vision Ears: denies: Ear pain Nose: denies: Congestion Throat: denies: Sore throat Cardiac: denies: Chest pain / pressure, Palpitations Respiratory: denies: Dyspnea, Cough GI: reports: Nausea, Diarrhea. denies: Abdominal Pain : denies: Dysuria, Frequency Skin: denies: Rash Musculoskeletal: reports: Back pain. denies: Neck pain, Extremity pain Neurologic: reports: Generalized weakness. 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 ASSEMBLER: Other HEENT: Cataracts - Present Medications Home Medications: Ambulatory Orders Medication Instructions Recorded Confirmed Pravastatin Sodium [Pravachol] 20 mg PO QPM 03/05/19 03/05/19 Tamsulosin [Flomax] 0.4 mg PO DAILY 03/05/19 03/05/19 Linezolid [Zyvox] 600 mg PO Q12H #52 tablet 03/09/19 Ciprofloxacin HCl [Cipro] 500 mg PO Q12H #52 tablet 03/10/19 Gabapentin 300 mg PO TID #90 capsule 03/10/19 Levothyroxine [Synthroid] 37.5 mcg PO QDAC #45 tablet 03/10/19 Magnesium Oxide [Mag Ox] 400 mg PO BIDWM #60 tablet 03/10/19 Metoprolol Succinate [Toprol Xl] 12.5 mg PO DAILY #15 tablet 03/10/19 Midodrine HCl 10 mg PO TID #90 tablet 03/10/19 Saccharomyces Boulardii [Florastor] 250 mg PO BID #60 capsule 03/10/19 - Allergies Allergies/Adverse Reactions: Allergies Allergy/AdvReac Type Severity Reaction Status Date / Time No Known Drug Allergies Allergy Verified 03/14/19 09:35 - Social History Does the pt smoke?: No Smoking Status: Never smoker Does the pt drink ETOH?: No Does the pt have substance abuse?: No - Immunizations Immunizations are current?: Yes Immunizations: TDAP >10years/unknown - POLST Patient has POLST: No POLST Status: Full Code PD ED PE NORMAL - Vitals Vital signs reviewed: Yes - General General: Alert and oriented X 3, No acute distress, Well developed/nourished - HEENT HEENT: Atraumatic, PERRL, EOMI - Neck Neck: Supple, no meningeal sign, No bony TTP - Cardiac Cardiac: No murmur, Other (irregularly irregular with distant heart sounds. 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, No motor deficit, No sensory deficit, Normal speech Eye Opening: Spontaneous Motor: Obeys Commands Verbal: Oriented GCS Score: 15 - Psych Psych: Normal mood, Normal affect Results - Vitals Vitals: Vital Signs - 24 hr 03/14/19 03/14/19 03/14/19 09:21 11:00 12:53 Temperature 36.4 C L Heart Rate 87 63 62 Respiratory 10 L 19 20 Rate Blood Pressure 95/54 L 97/49 L 97/85 H O2 Saturation 96 95 96 Oxygen O2 Source Room air - Labs Labs: Laboratory Tests 03/14/19 03/14/19 03/14/19 09:55 10:10 10:10 WBC 11.9 H RBC 3.97 L Hgb 12.5 L Hct 39.9 L MCV 100.5 H MCH 31.5 H MCHC 31.3 L RDW 14.6 Plt Count 423 MPV 10.0 Neut # (Auto) 9.6 H Lymph # (Auto) 1.2 L [place] # (Auto) 0.7 Eos # (Auto) 0.1 Baso # (Auto) 0.1 Absolute Nucleated RBC 0.00 Nucleated RBC % 0.0 Sodium 134 L Potassium 3.6 Chloride 101 Carbon Dioxide 23 Anion Gap 10.0 BUN 17 Creatinine 1.5 H Estimated GFR (MDRD) 45 L Glucose 140 H Lactic Acid Calcium 8.4 L Total Bilirubin 0.7 AST 27 ALT 16 Alkaline Phosphatase 175 H B-Natriuretic Peptide Total Protein 6.3 L Albumin 2.3 L Globulin 4.0 Albumin/Globulin Ratio 0.6 L Lipase 24 Urine Color YELLOW Urine Clarity SL. CLOUDY Urine pH 6.0 Ur Specific Fowler 1.015 Urine Protein TRACE Urine Glucose (UA) NEGATIVE Urine Ketones NEGATIVE Urine Occult Blood MODERATE H Urine Nitrite NEGATIVE Urine Bilirubin NEGATIVE Urine Urobilinogen 0.2 (NORMAL) Ur Leukocyte Esterase MODERATE H Urine RBC 6-10 H Urine WBC >25 H Ur Squamous Epith Cells RARE Squamous Urine Bacteria Few Ur Microscopic Review INDICATED Urine Culture Comments INDICATED 03/14/19 03/14/19 10:10 10:10 WBC RBC Hgb Hct MCV MCH MCHC RDW Plt Count MPV Neut # (Auto) Lymph # (Auto) [place] # (Auto) Eos # (Auto) Baso # (Auto) Absolute Nucleated RBC Nucleated RBC % Sodium Potassium Chloride Carbon Dioxide Anion Gap BUN Creatinine Estimated GFR (MDRD) Glucose Lactic Acid 2.2 Calcium Total Bilirubin AST ALT Alkaline Phosphatase B-Natriuretic Peptide 437 H Total Protein Albumin Globulin Albumin/Globulin Ratio Lipase Urine Color Urine Clarity Urine pH Ur Specific Fowler Urine Protein Urine Glucose (UA) Urine Ketones Urine Occult Blood Urine Nitrite Urine Bilirubin Urine Urobilinogen Ur Leukocyte Esterase Urine RBC Urine WBC Ur Squamous Epith Cells Urine Bacteria Ur Microscopic Review Urine Culture Comments Procedures - IVC sono (time) 0950 Bedside IVC sono: IVC measures (cm) (1.24), IVC collapsed c insp (cm) (complete), Dehydration (est 1 liter deficit) PD MEDICAL DECISION MAKING - ED course Complexity details: reviewed old records, reviewed results, re-evaluated oni ent, considered differential, d/w patient ED course: 83 y/o male with history of Type 2 diabetes and a recent history of-year-old sepsis has had a hospitalization and he is on 2 antibiotics orally and despite this he has persistence of pyuria and worsening weakness as well as development of diarrhea. He has become dehydrated and he is unable to care for himself. His is unable to care for him. Departure - Departure Disposition: 66 [facility] DC/Xfer Clinical Impression: Dehydration, Weakness generalized Urinary tract infection Qualifiers: Urinary tract infection type: acute cystitis Hematuria presence: with hematuria Qualified Code(s): N30.01 - Acute cystitis with hematuria
[2019-03-14 10:22] LABS: BASOPHILS # (AUTO) 0.1 10^3/uL (0.0-0.1); BASOPHILS % (AUTO) 0.5 %; EOSINOPHILS # (AUTO) 0.1 10^3/uL (0.0-0.7); EOSINOPHILS % (AUTO) 0.7 %; HGB - HEMOGLOBIN 12.5 g/dL (14.0-18.0); LYMPHOCYTES # (AUTO) 1.2 10^3/uL (1.5-3.5); LYMPHOCYTES % (AUTO) 10.1 %; MEAN CORPUSCULAR HEMOGLOBIN 31.5 pg (27.0-31.0); MEAN CORPUSCULAR HGB CONC 31.3 g/dL (32.0-36.0); MEAN CORPUSCULAR VOLUME 100.5 fL (80.0-94.0); MONOCYTES # (AUTO) 0.7 10^3/uL (0.0-1.0); MONOCYTES % (AUTO) 6.2 %; NEUTROPHILS # (AUTO) 9.6 10^3/uL (1.5-6.6); NEUTROPHILS % (AUTO) 81.1 %; PLT - PLATELET COUNT 423 10^3/uL (130-450); RED BLOOD COUNT 3.97 10^6/uL (4.70-6.10); RED CELL DISTRIBUTION WIDTH 14.6 % (12.0-15.0); WHITE BLOOD COUNT 11.9 x10^3/uL (4.8-10.8)
[2019-03-14 10:24] LABS: BILIRUBIN,URINE NEGATIVE (NEGATIVE); GLUCOSE, URINE (UA) NEGATIVE (NEGATIVE); KETONES,URINE (UA) NEGATIVE (NEGATIVE); LEUKOCYTE ESTERASE, URINE MODERATE (NEGATIVE); NITRITE,URINE NEGATIVE (NEGATIVE); OCCULT BLOOD,URINE MODERATE (NEGATIVE); PROTEIN,URINE TRACE mg/dL (NEGATIVE); UROBILINOGEN,URINE 0.2 (NORMAL) E.U./dL (NORMAL)
[2019-03-14 10:26] LABS: CLARITY,URINE SL. CLOUDY (CLEAR)
[2019-03-14 10:35] LABS: BACTERIA,URINE Few /HPF (None Seen); SQUAMOUS EPITHELIAL CELL,UR RARE Squamous (<= Few)
[2019-03-14 10:38] LABS: ALBUMIN 2.3 g/dL (3.2-5.5); ALBUMIN/GLOBULIN RATIO 0.6 (1.0-2.2); BILIRUBIN,TOTAL 0.7 mg/dL (0.2-1.0); CALCIUM 8.4 mg/dL (8.5-10.3); CREATININE 1.5 mg/dL (0.6-1.2); TOTAL PROTEIN 6.3 g/dL (6.7-8.2)
[2019-03-14] MEDS ORDERED: SODIUM CHLORIDE FLUSH 0.9% 10 ML SYRINGE IVP PRN ×2 (13:30→14:24)
[2019-03-14] MEDS ORDERED: ACETAMINOPHEN 325 MG TABLET PO PRN (13:30)
[2019-03-14] MEDS ORDERED: ONDANSETRON 4 MG/2 ML VIAL IVP PRN ×2 (13:30→14:24)
[2019-03-14] MEDS ORDERED: BUFFERED LIDOCAINE 10 ML SYRINGE SUBQ STA (13:34)
[2019-03-14] MEDS ORDERED: LACTATED RINGERS 1,000 ML IV SCH (14:00)
[2019-03-14] MEDS ORDERED: VANCOMYCIN INJ 1 GM in SODIUM CHLORIDE 0.9% 500 ML IV SCH (14:00)
[2019-03-14] MEDS ORDERED: CEFEPIME 2 GM in SODIUM CHLORIDE 0.9% MINIBAG 100 ML IV SCH (14:00)
[2019-03-14] MEDS: LACTATED RINGERS 1,000 ML IV SCH (16:14)
--- NOTE | 2019-03-14 16:20 | HISTORY & PHYSICAL EXAMINATION ---
Chief Complaint - Chief Complaint Chief Complaint: Weakness History of Present Illness - Admitted From Admitted From:: Home - History Obtained From Records Reviewed: Yes History obtained from: Patient, , ER Physician, EMR - History of Present Illness HPI Comment/Other: This is an 83 year old male with a past medical history significant for prostate cancer s/p radiation, BPH, recurrent UTI who presents from home due to worsening weakness. He was just discharged from this facility approximately four days ago after being treated for a UTI/Prostatitis. Cultures at that time grew enterococcus and and pseudomonas. He was discharged on Cipro and Linezolid which has been taking since discharge. He and his report that since he has been home, he been progressively declining from a weakness standpoint to the point where he can't stand or sit. He also developed diarrhea once he was home with about 6-8 bowel movements a day. He reports no blood in his stool and that his appetite has been fine. He denies fevers, chest pain, dyspnea, abdominal pain, nausea, vomiting. He reports he has been urinating without difficulty although occasional dysuria is noted. Denies hematuria. His is concerned that she has not been able to take care of him at home with his weakness and that she has had to be by his side nearly the whole day. In the ER, he was afebrile, borderline hypotensive with SBP in the high 90's to low 100's. Labs revealed an elevated creatinine, leukocytosis, and urinalysis revealed pyruia, and few bacteria. Given these findings and new diarrhea, patient will be admitted for further management. Of note, I spoke with the p atient and regarding goals of care. He would like CPR if he were to decline from a medical point of view. He would like to sign a POLST form this admission prior to discharge to reflect his wishes. 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 She also had a history of DVT. Father of CVA, cancer. Living arrangement: At home Living Situation: With spouse/s.o. Social History Notes: The patient lives in [place] with his , daughter and grandkids. The patient states that he was born in [facility] and moved to [place] where he lived for nearly 40 years. The patient states that he traveled all throughout the world with the [employer] including the [facility] and [place]. The patient is and lives with his . They moved from [place] to [facility] about 3 years ago as his daughter was going through a divorce and they wanted to be close to her. The patient quit smoking about 30 years ago and smoked 2 packs a day for about 20 years. Patient currently does not drink alcohol or use any illicit drugs. - Substance History Use: Uses substance without health or social issues: NONE - POLST Patient has POLST: No POLST Status: Full Code Meds/Allgy - Home Medications Home Medications: Ambulatory Orders Medication Instructions Recorded Confirmed Pravastatin Sodium [Pravachol] 20 mg PO QPM 03/05/19 03/14/19 Tamsulosin [Flomax] 0.4 mg PO DAILY 03/05/19 03/14/19 Linezolid [Zyvox] 600 mg PO Q12H #52 tablet 03/09/19 03/14/19 Ciprofloxacin HCl [Cipro] 500 mg PO Q12H #52 tablet 03/10/19 03/14/19 Gabapentin 300 mg PO TID #90 capsule 03/10/19 03/14/19 Levothyroxine [Synthroid] 37.5 mcg PO QDAC #45 tablet 03/10/19 03/14/19 Magnesium Oxide [Mag Ox] 400 mg PO BIDWM #60 tablet 03/10/19 03/14/19 Metoprolol Succinate [Toprol Xl] 12.5 mg PO DAILY #15 tablet 03/10/19 03/14/19 Midodrine HCl 10 mg PO TID #90 tablet 03/10/19 03/14/19 Saccharomyces Boulardii [Florastor] 250 mg PO BID #60 capsule 03/10/19 03/14/19 - Allergies Allergies/Adverse Reactions: Allergies Allergy/AdvReac Type Severity Reaction Status Date / Time No Known Drug Allergies Allergy Verified 03/14/19 09:35 Review of Systems - Constitutional Constitutional: reports: Fatigue, Weakness. denies: Fever, Chills, Poor appetite - Eyes Eyes: reports: Blurred vision - Cardiovascular Cariovascular: denies: Chest pain, Exertional dyspnea, Decr. exercise tolerance - Respiratory Respiratory: denies: Cough, SOB at rest, SOB with exertion - Gastrointestinal Gastrointestinal: reports: Diarrhea, Change in bowel habits. denies: Abdominal pain, Bloody stools, Nausea, Vomiting - Genitourinary Genitourinary: reports: Dysuria, Urgency. denies: Frequency, Hematuria - Musculoskeletal Musculoskeletal: reports: Back pain, Muscle aches, Muscle weakness - Neurological Neurological: reports: General weakness, Numbness. denies: Headache, Dizziness - All Other Systems All Other Systems: reports: Reviewed and negative Prior Level of Functionality: Was previously independent with ADL's and used a walker to ambulate. Exam - Vital Signs Reviewed Vital Signs: Yes Vital Signs: Vital Signs x48h Temp Pulse Pulse Resp BP BP Pulse Ox 03/14/19 14:26 36.5 C 60 18 107/69 97 03/14/19 13:30 60 19 96/50 L 96 03/14/19 12:53 62 20 97/85 H 96 03/14/19 11:00 63 19 97/49 L 95 03/14/19 09:21 36.4 C L 87 10 L 95/54 L 96 - Physical Exam General Appearance: positive: No acute distress, Alert Eyes Bilateral: positive: Normal inspection ENT: positive: Dry mucous membranes. negative: No signs of dehydration Neck: positive: Nml inspection Respiratory: positive: No respiratory distress, Breath sounds nml. negative: Wheezes, Rales Cardiovascular: positive: Regular rate & rhythm. negative: No murmur, Tachycardia, Systolic murmur Abdomen: positive: Non-tender, Nml bowel sounds, No distention. negative: Tenderness, Guarding, Rebound Skin: positive: Color nml, No rash, Warm, Dry Extremities: positive: Full ROM, Pedal edema (+1 edema in his lower extremities up to mid sol) Neurologic/Psychiatric: positive: Oriented x3, Weakness, Other (Sensation decreased in his bilateral feet. Decreased proximal motor strength of his lower extremities.). negative: Disoriented to person, Disoriented to place, Disoriented to time Conclusion/Plan - Problem List (1) Urinary tract infection Conclusion/Plan: His urinalysis still reveals pyuria, leuk esterase, and few bacteria despite treatment with Zyvox and Cipro. Last culture grew enterococcus and pseudomonas of which both are sensitive to the treatment. I wonder if his weakness and increasing white count may be related to an ongoing infection that failed outpatient treatment. - Will start Vancomycin and Cefepime IV as prior cultures were also sensitive to these - Follow up blood and urine cultures - Will discuss with Infectious Disease once we have cultures back regarding treatment on discharge Qualifiers: Urinary tract infection type: acute cystitis Hematuria presence: with hematuria Qualified Code(s): N30.01 - Acute cystitis with hematuria (2) Diarrhea Conclusion/Plan: He has had diarrhea for the last few days after being discharged on Cipro and Zyvox. Concern is for C. Diff infection given his antibiotic use. This may also be the cause of his leukocytosis. Abdominal exam is benign. - Check C. Diff PCR - IV hydration - If C. diff negative and diarrhea persists then will check other stool cultures. (3) ZOYA (acute kidney injury) Conclusion/Plan: Suspect this is likely pre-renal due to his ongoing diarrhea. Creatinine elevated at 1.5 with a baseline of 1.1. - IV hydration - Monitor renal function and urine output (4) BPH (benign prostatic hyperplasia) Conclusion/Plan: He is on Flomax at home. - Continue Flomax (5) Diabetes mellitus type 2, diet-controlled Conclusion/Plan: He has diabetes that is diet controlled. Last A1c 5.5%. - Regular diet (6) Hypotension Conclusion/Plan: He was recently started on Midodrine for orthostatic hypotension. Blood pressure currently in the low 100's after receiving 1L of NS in the ED. - Will hold Midodrine at this time and monitor his blood pressure - Will also hold Metoprolol and restart if his blood pressure holds without the use of Midodrine (7) Hypothyroidism Conclusion/Plan: On Synthroid. Stable. - Continue Synthroid (8) Paroxysmal atrial fibrillation Conclusion/Plan: He has history of paroxsyma atrial fibrillation. He is on Metoprolol. Currently rate controlled and in sinus rhythm. Not on OAC due to prior hematuria. - Hold Metoprolol as we watch his blood pressure without midodrine - Monitor on telemetry (9) Ambulatory dysfunction Conclusion/Plan: This may be due to his recurrent hospitalizations and deconditioning but may also be exacerbated by UTI and diarrhea. He does have some proxmial weakness of his lower extremities but is neurologically intact. He has been unable to stand or sit at home when he previously ambulated with a walker. - Will check CK to rue out rhabdo/myositis/statin induced weakness - PT/OT - The patient and his are agreeable to SNF if deemed necessary as she is unable to take care of him at home in his current condition - Lab Results Lab results reviewed: Yes Benji Bones: 03/14/19 10:10 03/14/19 10:10 - Diagnostic Imaging Results Diagnostic Imaging Results: positive: Final report reviewed Core Measures - Anticipated LOS I expect patient to be DC'd or transferred within 96 hours.: Yes - Issues Hospital Issues and Management Plan: UTI requiring IV Abx and IV hydration. Diarrhea, rule out C diff. Amb dysfunction. - DVT/VTE - Prophylaxis VTE/DVT Device ordered at admit?: Yes VTE/DVT Prophylaxis med ordered at admit?: Yes
[2019-03-14] MEDS: CEFEPIME 2 GM in SODIUM CHLORIDE 0.9% MINIBAG 100 ML IV SCH (16:44)
[2019-03-14] MEDS: SODIUM CHLORIDE FLUSH 0.9% 10 ML SYRINGE IVP SCH (16:44)
[2019-03-14] MEDS ORDERED: VANCOMYCIN INJ 1.75 GM in SODIUM CHLORIDE 0.9% 500 ML IV ONE (17:00)
[2019-03-14] MEDS ORDERED: SODIUM CHLORIDE FLUSH 0.9% 10 ML SYRINGE IVP SCH (17:00)
[2019-03-14] MEDS ORDERED: ZINC OXIDE 20% OINT 30 GM TUBE TOP PRN (19:19)
[2019-03-14] MEDS ORDERED: HEPARIN 5,000 UNIT/ML VIAL SUBQ SCH (21:00)
[2019-03-14] MEDS: HEPARIN 5,000 UNIT/ML VIAL SUBQ SCH (21:31)
[2019-03-14] MEDS: GABAPENTIN 300 MG CAPSULE PO SCH (21:31)
[2019-03-14] MEDS: PRAVASTATIN 10 MG TABLET PO SCH (21:31)
[2019-03-15] MEDS: ACETAMINOPHEN 325 MG TABLET PO PRN (00:39)
[2019-03-15] MEDS: LACTATED RINGERS 1,000 ML IV SCH ×3 (01:57→20:57)
[2019-03-15] MEDS: SODIUM CHLORIDE FLUSH 0.9% 10 ML SYRINGE IVP SCH ×3 (04:26→15:58)
[2019-03-15] MEDS: CEFEPIME 2 GM in SODIUM CHLORIDE 0.9% MINIBAG 100 ML IV SCH ×2 (04:45→15:57)
[2019-03-15 06:06] LABS: BASOPHILS # (AUTO) 0.1 10^3/uL (0.0-0.1); BASOPHILS % (AUTO) 0.8 %; EOSINOPHILS # (AUTO) 0.1 10^3/uL (0.0-0.7); EOSINOPHILS % (AUTO) 1.8 %; HGB - HEMOGLOBIN 10.1 g/dL (14.0-18.0); LYMPHOCYTES # (AUTO) 1.5 10^3/uL (1.5-3.5); LYMPHOCYTES % (AUTO) 24.6 %; MEAN CORPUSCULAR HEMOGLOBIN 32.3 pg (27.0-31.0); MEAN CORPUSCULAR HGB CONC 31.9 g/dL (32.0-36.0); MEAN CORPUSCULAR VOLUME 101.3 fL (80.0-94.0); MEAN PLATELET VOLUME 9.6 fL (7.4-11.4); MONOCYTES # (AUTO) 0.5 10^3/uL (0.0-1.0); MONOCYTES % (AUTO) 8.2 %; NEUTROPHILS % (AUTO) 63.5 %; PLT - PLATELET COUNT 321 10^3/uL (130-450); RED BLOOD COUNT 3.13 10^6/uL (4.70-6.10); RED CELL DISTRIBUTION WIDTH 14.8 % (12.0-15.0); WHITE BLOOD COUNT 6.2 x10^3/uL (4.8-10.8)
[2019-03-15] MEDS: LEVOTHYROXINE 75 MCG TABLET PO SCH (06:17)
[2019-03-15] MEDS: GABAPENTIN 300 MG CAPSULE PO SCH ×3 (06:17→21:01)
[2019-03-15 06:19] LABS: CALCIUM 7.9 mg/dL (8.5-10.3); CREATININE 1.6 mg/dL (0.6-1.2); PHOSPHORUS 3.2 mg/dL (2.5-4.6)
[2019-03-15] MEDS ORDERED: LEVOTHYROXINE 25 MCG TABLET PO SCH (07:00)
--- NOTE | 2019-03-15 07:45 | PROVIDER PROGRESS NOTE ---
Subjective - Prog Note Date Prog Note Date: 03/15/19 Prog Note Time: 07:34 - Subjective Pt reports feeling: Improved Subjective: He reports feeling better this morning. He has only had one bowel movement since admission. He has been tolerating a diet without difficulty. He does complain of urinary incontinence at times which is not new for home after he received radiation therapy for his prostate cancer. He denies chest pain and dyspnea. He still has some weakness in his lower extremities. Rest of ROS is negative. Current Medications - Current Medications Current Medications: Active Medications Acetaminophen (Tylenol) 650 mg PO Q6HR PRN PRN Reason: Pain 1 to 4 Last Admin: 03/15/19 00:39 Dose: 650 mg Gabapentin (Neurontin) 300 mg PO TID [facility] Last Admin: 03/15/19 06:17 Dose: 300 mg Heparin Sodium (Porcine) () 5,000 unit SUBQ BID [facility] Last Admin: 03/15/19 08:03 Dose: 5,000 unit Lactated Ringer's (Lr) 1,000 mls @ 100 mls/hr IV .Q10H [facility] Last Admin: 03/15/19 08:04 Dose: 100 mls/hr Cefepime HCl 2 gm/ Sodium (Chloride) 100 mls @ 200 mls/hr IV Q12H [facility] Last Infusion: 03/15/19 05:26 Dose: Infused Vancomycin HCl 1 gm/Vancomycin HCl 250 mg/ Sodium Chloride 250 mls @ 166.667 mls/hr IV Q24H [facility] Levothyroxine Sodium (Synthroid) 37.5 mcg PO QDAC [facility] Last Admin: 03/15/19 06:17 Dose: 37.5 mcg Multi-Ingredient Ointment (Zinc Oxide) 1 applic TOP PRN PRN PRN Reason: Skin Care Ondansetron HCl (Zofran Inj) 4 mg IVP Q6HR PRN PRN Reason: Nausea / Vomiting Pravastatin Sodium (Pravachol) 20 mg PO QPM [facility] Last Admin: 03/14/19 21:31 Dose: 20 mg Sodium Chloride (Normal Saline Flush 0.9%) 10 ml IVP PRN PRN PRN Reason: NEEDED PER PROVIDER ORDERS Sodium Chloride (Normal Saline Flush 0.9%) 10 ml IVP 0100,0900,1700 [facility] Last Admin: 03/15/19 08:03 Dose: 10 ml Tamsulosin HCl (Flomax) 0.4 mg PO DAILY [facility] Last Admin: 03/15/19 08:03 Dose: 0.4 mg Pravastatin Sodium [Pravachol] 20 mg PO QPM 03/05/19 Tamsulosin [Flomax] 0.4 mg PO DAILY 03/05/19 Objective - Vital Signs/Intake & Output Reviewed Vital Signs: Yes Vital Signs: Vital Signs x48h Temp Pulse Resp BP Pulse Ox 03/15/19 04:36 36.3 C L 54 L 20 99/52 L 96 Intake & Output: Intake & Output 03/12/19 03/13/19 03/14/19 03/15/19 23:59 23:59 23:59 23:59 Intake Total 2100 643.333 Balance 2100 643.333 - Objective General Appearance: positive: No acute distress, Alert Eyes Bilateral: positive: Normal inspection ENT: positive: ENT inspection nml, No signs of dehydration, Other (Poor dentition). negative: Dry mucous membranes Neck: positive: Nml inspection Respiratory: positive: No respiratory distress, Breath sounds nml. negative: Wheezes, Rales, Rhonchi Cardiovascular: positive: Regular rate & rhythm, No murmur, Bradycardia. negative: Tachycardia, Systolic murmur Abdomen: positive: Non-tender, Nml bowel sounds, No distention. negative: Tenderness, Guarding, Rebound Skin: positive: Color nml, No rash, Warm, Dry Extremities: positive: Non-tender, No pedal edema Neurologic/Psychiatric: positive: Oriented x3, Weakness (Motor strength is approximately 4/5 in lower extremities), Other (Decreased sensation in his feet. Sensation intact above the ankles.). negative: Disoriented to person, Disoriented to place, Disoriented to time - Lab Results Fish Bones: 03/15/19 05:56 03/15/19 05:56 Other Labs: Lab Results x24hrs 03/15/19 03/15/19 03/14/19 Range/Units 05:56 05:56 21:05 WBC 6.2 (4.8-10.8) x10^3/uL RBC 3.13 L (4.70-6.10) 10^6/uL Hgb 10.1 L (14.0-18.0) g/dL Hct 31.7 L (42.0-52.0) % MCV 101.3 H (80.0-94.0) fL MCH 32.3 H (27.0-31.0) pg MCHC 31.9 L (32.0-36.0) g/dL RDW 14.8 (12.0-15.0) % Plt Count 321 (130-450) 10^3/uL MPV 9.6 (7.4-11.4) fL Neut # (Auto) 4.0 (1.5-6.6) 10^3/uL Lymph # (Auto) 1.5 (1.5-3.5) 10^3/uL [place] # (Auto) 0.5 (0.0-1.0) 10^3/uL Eos # (Auto) 0.1 (0.0-0.7) 10^3/uL Baso # (Auto) 0.1 (0.0-0.1) 10^3/uL Absolute Nucleated RBC 0.00 x10^3/uL Nucleated RBC % 0.0 /100WBC Sodium 135 (135-145) mmol/L Potassium 3.8 (3.5-5.0) mmol/L Chloride 107 (101-111) mmol/L Carbon Dioxide 22 (21-32) mmol/L Anion Gap 6.0 (6-13) BUN 22 H (6-20) mg/dL Creatinine 1.6 H (0.6-1.2) mg/dL Estimated GFR (MDRD) 42 L (>89) Glucose 97 (70-100) mg/dL Lactic Acid (0.5-2.2) mmol/L Calcium 7.9 L (8.5-10.3) mg/dL Phosphorus 3.2 (2.5-4.6) mg/dL Magnesium 2.0 (1.7-2.8) mg/dL Total Bilirubin (0.2-1.0) mg/dL AST (10-42) IU/L ALT (10-60) IU/L Alkaline Phosphatase (42-121) IU/L Total Creatine Kinase (22-269) IU/L B-Natriuretic Peptide (5-100) pg/mL Total Protein (6.7-8.2) g/dL Albumin (3.2-5.5) g/dL Globulin (2.1-4.2) g/dL Albumin/Globulin Ratio (1.0-2.2) Lipase (22-51) U/L Urine Color Urine Clarity (CLEAR) Urine pH (5.0-7.5) PH Ur Specific [place] (1.002-1.030) Urine Protein (NEGATIVE) mg/dL Urine Glucose (UA) (NEGATIVE) mg/dL Urine Ketones (NEGATIVE) mg/dL Urine Occult Blood (NEGATIVE) Urine Nitrite (NEGATIVE) Urine Bilirubin (NEGATIVE) Urine Urobilinogen (NORMAL) E.U./dL Ur Leukocyte Esterase (NEGATIVE) Urine RBC (0-5) /HPF Urine WBC (0-3) /HPF Ur Squamous Epith Cells (<= Few) Urine Bacteria (None Seen) /HPF Ur Microscopic Review Urine Culture Comments C. difficile Tox B Gene NEGATIVE (NEGATIVE) 03/14/19 03/14/19 03/14/19 Range/Units 15:56 10:10 10:10 WBC (4.8-10.8) x10^3/uL RBC (4.70-6.10) 10^6/uL Hgb (14.0-18.0) g/dL Hct (42.0-52.0) % MCV (80.0-94.0) fL MCH (27.0-31.0) pg MCHC (32.0-36.0) g/dL RDW (12.0-15.0) % Plt Count (130-450) 10^3/uL MPV (7.4-11.4) fL Neut # (Auto) (1.5-6.6) 10^3/uL Lymph # (Auto) (1.5-3.5) 10^3/uL [place] # (Auto) (0.0-1.0) 10^3/uL Eos # (Auto) (0.0-0.7) 10^3/uL Baso # (Auto) (0.0-0.1) 10^3/uL Absolute Nucleated RBC x10^3/uL Nucleated RBC % /100WBC Sodium (135-145) mmol/L Potassium (3.5-5.0) mmol/L Chloride (101-111) mmol/L Carbon Dioxide (21-32) mmol/L Anion Gap (6-13) BUN (6-20) mg/dL Creatinine (0.6-1.2) mg/dL Estimated GFR (MDRD) (>89) Glucose (70-100) mg/dL Lactic Acid 2.2 (0.5-2.2) mmol/L Calcium (8.5-10.3) mg/dL Phosphorus (2.5-4.6) mg/dL Magnesium (1.7-2.8) mg/dL Total Bilirubin (0.2-1.0) mg/dL AST (10-42) IU/L ALT (10-60) IU/L Alkaline Phosphatase (42-121) IU/L Total Creatine Kinase 21 L (22-269) IU/L B-Natriuretic Peptide 437 H (5-100) pg/mL Total Protein (6.7-8.2) g/dL Albumin (3.2-5.5) g/dL Globulin (2.1-4.2) g/dL Albumin/Globulin Ratio (1.0-2.2) Lipase (22-51) U/L Urine Color Urine Clarity (CLEAR) Urine pH (5.0-7.5) PH Ur Specific [place] (1.002-1.030) Urine Protein (NEGATIVE) mg/dL Urine Glucose (UA) (NEGATIVE) mg/dL Urine Ketones (NEGATIVE) mg/dL Urine Occult Blood (NEGATIVE) Urine Nitrite (NEGATIVE) Urine Bilirubin (NEGATIVE) Urine Urobilinogen (NORMAL) E.U./dL Ur Leukocyte Esterase (NEGATIVE) Urine RBC (0-5) /HPF Urine WBC (0-3) /HPF Ur Squamous Epith Cells (<= Few) Urine Bacteria (None Seen) /HPF Ur Microscopic Review Urine Culture Comments C. difficile Tox B Gene (NEGATIVE) 03/14/19 03/14/19 03/14/19 Range/Units 10:10 10:10 09:55 WBC 11.9 H (4.8-10.8) x10^3/uL RBC 3.97 L (4.70-6.10) 10^6/uL Hgb 12.5 L (14.0-18.0) g/dL Hct 39.9 L (42.0-52.0) % MCV 100.5 H (80.0-94.0) fL MCH 31.5 H (27.0-31.0) pg MCHC 31.3 L (32.0-36.0) g/dL RDW 14.6 (12.0-15.0) % Plt Count 423 (130-450) 10^3/uL MPV 10.0 (7.4-11.4) fL Neut # (Auto) 9.6 H (1.5-6.6) 10^3/uL Lymph # (Auto) 1.2 L (1.5-3.5) 10^3/uL [place] # (Auto) 0.7 (0.0-1.0) 10^3/uL Eos # (Auto) 0.1 (0.0-0.7) 10^3/uL Baso # (Auto) 0.1 (0.0-0.1) 10^3/uL Absolute Nucleated RBC 0.00 x10^3/uL Nucleated RBC % 0.0 /100WBC Sodium 134 L (135-145) mmol/L Potassium 3.6 (3.5-5.0) mmol/L Chloride 101 (101-111) mmol/L Carbon Dioxide 23 (21-32) mmol/L Anion Gap 10.0 (6-13) BUN 17 (6-20) mg/dL Creatinine 1.5 H (0.6-1.2) mg/dL Estimated GFR (MDRD) 45 L (>89) Glucose 140 H (70-100) mg/dL Lactic Acid (0.5-2.2) mmol/L Calcium 8.4 L (8.5-10.3) mg/dL Phosphorus (2.5-4.6) mg/dL Magnesium (1.7-2.8) mg/dL Total Bilirubin 0.7 (0.2-1.0) mg/dL AST 27 (10-42) IU/L ALT 16 (10-60) IU/L Alkaline Phosphatase 175 H (42-121) IU/L Total Creatine Kinase (22-269) IU/L B-Natriuretic Peptide (5-100) pg/mL Total Protein 6.3 L (6.7-8.2) g/dL Albumin 2.3 L (3.2-5.5) g/dL Globulin 4.0 (2.1-4.2) g/dL Albumin/Globulin Ratio 0.6 L (1.0-2.2) Lipase 24 (22-51) U/L Urine Color YELLOW Urine Clarity SL. CLOUDY (CLEAR) Urine pH 6.0 (5.0-7.5) PH Ur Specific [place] 1.015 (1.002-1.030) Urine Protein TRACE (NEGATIVE) mg/dL Urine Glucose (UA) NEGATIVE (NEGATIVE) mg/dL Urine Ketones NEGATIVE (NEGATIVE) mg/dL Urine Occult Blood MODERATE H (NEGATIVE) Urine Nitrite NEGATIVE (NEGATIVE) Urine Bilirubin NEGATIVE (NEGATIVE) Urine Urobilinogen 0.2 (NORMAL) (NORMAL) E.U./dL Ur Leukocyte Esterase MODERATE H (NEGATIVE) Urine RBC 6-10 H (0-5) /HPF Urine WBC >25 H (0-3) /HPF Ur Squamous Epith Cells RARE Squamous (<= Few) Urine Bacteria Few (None Seen) /HPF Ur Microscopic Review INDICATED Urine Culture Comments INDICATED C. difficile Tox B Gene (NEGATIVE) ABX Reporting Has patient been on IV antibiotics over the past 48 hours?: Yes Assessment/Plan - Problem List (1) Urinary tract infection Impression: His urinalysis still reveals pyuria, leuk esterase, and few bacteria despite treatment with Zyvox and Cipro on outpatient basis. Last culture grew enterococcus and pseudomonas of which both are sensitive to the treatment. He did have leukocytosis on admission which has resolved and I now believe this may have been due to him being dehydrated from the diarrhea as all cell lines were elevated compared to baseline. He is not septic. - Will continue Vancomycin and Cefepime IV and await repeat cultures. If cultures are similar to the past, will switch Vancomycin to Ampicillin. - I am concerned that the Zyvox he was taking caused his diarrhea so will discuss with ID regarding other options for discharge - Follow up cultures Qualifiers: Urinary tract infection type: acute cystitis Hematuria presence: with hematuria Qualified Code(s): N30.01 - Acute cystitis with hematuria (2) Diarrhea Impression: His diarrhea has improved since admission. C. Diff is negative. I suspect that the Zyvox may have been causing his diarrhea as it started once he was discharged and started taking the antibiotic. - Hold off on obtaining further stool cultures unless diarrhea returns (3) ZOYA (acute kidney injury) Impression: This is thought to be pre-renal in nature given his diarrhea and hemoconcentration on admission. His creatinine has not improved with IV fluids and actually increased a little to 1.6. His baseline appears to be 1.1. His urinalysis did not show granular casts but there could be a component of ATN if he was hypotensive at home. - Will continue IV fluids and administer another bolus - Continue to monitor renal function and urine output - If renal function continues to decline, will obtain urine electrolytes (4) BPH (benign prostatic hyperplasia) Impression: He is on Flomax at home. - Continue Flomax (5) Diabetes mellitus type 2, diet-controlled Impression: He has diabetes that is diet controlled. Last A1c 5.5%. - Regular diet (6) Hypotension Impression: His blood pressure has been stable in the 100's without midodrine which was started last admission. Suspect his prior hypotension was related to him being hypovolemic and likely exacerbated by the diarrhea. - Will hold off on resuming midodrine - Continue to hold home beta radames as heart rate has been in the 50's (7) Hypothyroidism Impression: On Synthroid. Stable. - Continue Synthroid (8) Paroxysmal atrial fibrillation Impression: He is on Metoprolol at home which is being held at this time as he was hypotensive on admission. Currently rate controlled and in sinus rhythm. Not on OAC due to prior hematuria. - Hold Metoprolol as his heart rate has been stable in the 50's - Monitor on telemetry (9) Ambulatory dysfunction Impression: This may be due to his recurrent hospitalizations and deconditioning but likely exacerbated by the diarrhea and hypovolemia. He has been unable to stand or sit at home when he previously ambulated with a walker. CK's negative so less likely a myopathy. - Await PT/OT evaluation - The patient and his are agreeable to SNF if deemed necessary as she is unable to take care of him at home in his current condition
[2019-03-15] MEDS: TAMSULOSIN 0.4 MG CAPSULE PO SCH (08:03)
[2019-03-15] MEDS: HEPARIN 5,000 UNIT/ML VIAL SUBQ SCH ×2 (08:03→20:57)
[2019-03-15] MEDS ORDERED: VANCOMYCIN INJ 1 GM, VANCOMYCIN INJ 250 MG in SODIUM CHLORIDE 0.9% 250 ML IV SCH (17:00)
[2019-03-15] MEDS: PRAVASTATIN 10 MG TABLET PO SCH (20:54)
[2019-03-16] MEDS: SODIUM CHLORIDE FLUSH 0.9% 10 ML SYRINGE IVP SCH ×3 (01:53→19:02)
[2019-03-16] MEDS: CEFEPIME 2 GM in SODIUM CHLORIDE 0.9% MINIBAG 100 ML IV SCH (04:12)
[2019-03-16] MEDS: LEVOTHYROXINE 75 MCG TABLET PO SCH (06:42)
[2019-03-16] MEDS: GABAPENTIN 300 MG CAPSULE PO SCH ×3 (06:42→20:56)
[2019-03-16] MEDS: LACTATED RINGERS 1,000 ML IV SCH (06:42)
[2019-03-16 06:54] LABS: BASOPHILS % (AUTO) 0.5 %; EOSINOPHILS # (AUTO) 0.1 10^3/uL (0.0-0.7); EOSINOPHILS % (AUTO) 2.1 %; HGB - HEMOGLOBIN 9.4 g/dL (14.0-18.0); LYMPHOCYTES # (AUTO) 1.1 10^3/uL (1.5-3.5); LYMPHOCYTES % (AUTO) 18.2 %; MEAN CORPUSCULAR HEMOGLOBIN 31.1 pg (27.0-31.0); MEAN CORPUSCULAR HGB CONC 31.1 g/dL (32.0-36.0); MEAN PLATELET VOLUME 9.6 fL (7.4-11.4); MONOCYTES # (AUTO) 0.5 10^3/uL (0.0-1.0); MONOCYTES % (AUTO) 8.2 %; NEUTROPHILS # (AUTO) 4.3 10^3/uL (1.5-6.6); NEUTROPHILS % (AUTO) 70.2 %; PLT - PLATELET COUNT 283 10^3/uL (130-450); RED BLOOD COUNT 3.02 10^6/uL (4.70-6.10); RED CELL DISTRIBUTION WIDTH 14.7 % (12.0-15.0); WHITE BLOOD COUNT 6.1 x10^3/uL (4.8-10.8)
[2019-03-16 07:08] LABS: CALCIUM 7.9 mg/dL (8.5-10.3); CREATININE 1.2 mg/dL (0.6-1.2); MAGNESIUM 1.9 mg/dL (1.7-2.8); PHOSPHORUS 2.5 mg/dL (2.5-4.6)
[2019-03-16] MEDS: TAMSULOSIN 0.4 MG CAPSULE PO SCH (07:48)
[2019-03-16] MEDS: HEPARIN 5,000 UNIT/ML VIAL SUBQ SCH ×2 (07:48→20:53)
[2019-03-16] MEDS ORDERED: AMPICILLIN 2 GM in SODIUM CHLORIDE 0.9% MINIBAG 100 ML IV SCH (12:00)
--- NOTE | 2019-03-16 15:33 | PROVIDER PROGRESS NOTE ---
Subjective - Prog Note Date Prog Note Date: 03/16/19 Prog Note Time: 15:29 - Subjective Subjective: He continues to report feeling well. He worked with PT yesterday and was able to get out of bed and into a chair wit assistance. Denies chest pain, dyspnea, abdominal pain. Current Medications - Current Medications Current Medications: Active Medications Acetaminophen (Tylenol) 650 mg PO Q6HR PRN PRN Reason: Pain 1 to 4 Last Admin: 03/15/19 00:39 Dose: 650 mg Gabapentin (Neurontin) 300 mg PO TID [facility] Last Admin: 03/16/19 13:51 Dose: 300 mg Heparin Sodium (Porcine) () 5,000 unit SUBQ BID [facility] Last Admin: 03/16/19 07:48 Dose: 5,000 unit Cefepime HCl 2 gm/ Sodium (Chloride) 100 mls @ 200 mls/hr IV Q12H [facility] Last Infusion: 03/16/19 04:45 Dose: Infused Ampicillin Sodium 2 gm/ Sodium (Chloride) 100 mls @ 100 mls/hr IV Q6HR [facility] Last Infusion: 03/16/19 13:02 Dose: Infused Levothyroxine Sodium (Synthroid) 37.5 mcg PO QDAC [facility] Last Admin: 03/16/19 06:42 Dose: 37.5 mcg Multi-Ingredient Ointment (Zinc Oxide) 1 applic TOP PRN PRN PRN Reason: Skin Care Last Admin: 03/15/19 13:50 Dose: 1 applic Ondansetron HCl (Zofran Inj) 4 mg IVP Q6HR PRN PRN Reason: Nausea / Vomiting Pravastatin Sodium (Pravachol) 20 mg PO QPM [facility] Last Admin: 03/15/19 20:54 Dose: 20 mg Sodium Chloride (Normal Saline Flush 0.9%) 10 ml IVP PRN PRN PRN Reason: NEEDED PER PROVIDER ORDERS Sodium Chloride (Normal Saline Flush 0.9%) 10 ml IVP 0100,0900,1700 [facility] Last Admin: 03/16/19 07:47 Dose: Not Given Tamsulosin HCl (Flomax) 0.4 mg PO DAILY [facility] Last Admin: 03/16/19 07:48 Dose: 0.4 mg Pravastatin Sodium [Pravachol] 20 mg PO QPM 03/05/19 Tamsulosin [Flomax] 0.4 mg PO DAILY 03/05/19 Objective - Vital Signs/Intake & Output Reviewed Vital Signs: Yes Vital Signs: Vital Signs x48h Temp Pulse Pulse Pulse Pulse Resp BP 03/16/19 13:24 36.8 C 69 24 112/47 L 03/16/19 10:27 86 99 72 BP BP BP 03/16/19 13:24 03/16/19 10:27 114/58 L 125/55 L 100/47 L Intake & Output: Intake & Output 03/13/19 03/14/19 03/15/19 03/16/19 23:59 23:59 23:59 23:59 Intake Total 2100 3456.666 1886 Output Total 50 Balance 2100 3406.666 1886 - Objective General Appearance: positive: No acute distress, Alert Eyes Bilateral: positive: Normal inspection ENT: positive: Other (Poor dentition) Neck: positive: Nml inspection Respiratory: positive: No respiratory distress, Breath sounds nml. negative: Wheezes, Rales, Rhonchi Cardiovascular: positive: Regular rate & rhythm, No murmur. negative: Tachycardia, Bradycardia Abdomen: positive: Non-tender, No distention. negative: Tenderness, Guarding Skin: positive: No rash, Warm, Dry Extremities: positive: No pedal edema Neurologic/Psychiatric: positive: Oriented x3. negative: Disoriented to person, Disoriented to place, Disoriented to time - Lab Results Fish Bones: 03/16/19 06:33 03/16/19 06:33 Other Labs: Lab Results x24hrs 03/16/19 03/16/19 Range/Units 06:33 06:33 WBC 6.1 (4.8-10.8) x10^3/uL RBC 3.02 L (4.70-6.10) 10^6/uL Hgb 9.4 L (14.0-18.0) g/dL Hct 30.2 L (42.0-52.0) % MCV 100.0 H (80.0-94.0) fL MCH 31.1 H (27.0-31.0) pg MCHC 31.1 L (32.0-36.0) g/dL RDW 14.7 (12.0-15.0) % Plt Count 283 (130-450) 10^3/uL MPV 9.6 (7.4-11.4) fL Neut # (Auto) 4.3 (1.5-6.6) 10^3/uL Lymph # (Auto) 1.1 L (1.5-3.5) 10^3/uL [place] # (Auto) 0.5 (0.0-1.0) 10^3/uL Eos # (Auto) 0.1 (0.0-0.7) 10^3/uL Baso # (Auto) 0.0 (0.0-0.1) 10^3/uL Absolute Nucleated RBC 0.00 x10^3/uL Nucleated RBC % 0.0 /100WBC Sodium 135 (135-145) mmol/L Potassium 3.9 (3.5-5.0) mmol/L Chloride 108 (101-111) mmol/L Carbon Dioxide 21 (21-32) mmol/L Anion Gap 6.0 (6-13) BUN 21 H (6-20) mg/dL Creatinine 1.2 (0.6-1.2) mg/dL Estimated GFR (MDRD) 58 L (>89) Glucose 104 H (70-100) mg/dL Calcium 7.9 L (8.5-10.3) mg/dL Phosphorus 2.5 (2.5-4.6) mg/dL Magnesium 1.9 (1.7-2.8) mg/dL ABX Reporting Has patient been on IV antibiotics over the past 48 hours?: Yes Assessment/Plan - Problem List (1) Urinary tract infection Impression: His urinalysis revealed pyuria, leukocyte esterase, and few bacteria. Fortunately, his urine culture is negative and it is evident that he responded to Zyvox and Cipro. Last culture grew enterococcus and pseudomonas. - I spoke to Infectious Disease at [facility] and because repeat cultures are negative and he does not appear septic, they believe that continuing Amoxicillin for two more days will be sufficient for mop up therapy. They do not believe the Cipro needs to be continued as his prior blood cultures never grew Pseudomonas. - Will continue Amoxicillin PO to complete treatment on 03/18. Qualifiers: Urinary tract infection type: acute cystitis Hematuria presence: with hematuria Qualified Code(s): N30.01 - Acute cystitis with hematuria (2) Diarrhea Impression: His diarrhea has resolved. C. Diff is negative. I suspect that the Zyvox may have been causing his diarrhea as it started once he was discharged and started taking the antibiotic. - Monitor stool output (3) ZOYA (acute kidney injury) Impression: This has resolved with IV fluids. - Monitor renal function (4) Hypotension Impression: This has resolved. Blood pressure has been stable without midodrine. Orthostatics were negative today. - Resume home Toprol (5) Ambulatory dysfunction Impression: This is likely secondary to deconditioning due to multiple hospitalizations com pounded by recent diarrhea. He has worked with PT but his ambulation has been limited. - PT recommending SNF - Social work to aid with disposition (6) BPH (benign prostatic hyperplasia) Impression: He is on Flomax at home. - Continue Flomax (7) Diabetes mellitus type 2, diet-controlled Impression: He has diabetes that is diet controlled. Last A1c 5.5%. - Regular diet (8) Paroxysmal atrial fibrillation Impression: He remains rate controlled. Not on anticoagulation due to prior hematuria. - Resume home metoprolol (9) Hypothyroidism Impression: On Synthroid. Stable. - Continue Synthroid
[2019-03-16] MEDS: AMOXICILLIN 250 MG CAPSULE PO SCH (20:49)
[2019-03-16] MEDS: PRAVASTATIN 10 MG TABLET PO SCH (20:49)
[2019-03-16] MEDS: AMOXICILLIN 125 MG CHEW TABLET PO SCH (20:50)
[2019-03-17] MEDS: ACETAMINOPHEN 325 MG TABLET PO PRN (00:32)
[2019-03-17] MEDS: SODIUM CHLORIDE FLUSH 0.9% 10 ML SYRINGE IVP SCH ×2 (00:33→08:11)
[2019-03-17 05:09] LABS: BASOPHILS % (AUTO) 0.5 %; EOSINOPHILS # (AUTO) 0.1 10^3/uL (0.0-0.7); EOSINOPHILS % (AUTO) 1.7 %; HGB - HEMOGLOBIN 9.3 g/dL (14.0-18.0); LYMPHOCYTES # (AUTO) 1.2 10^3/uL (1.5-3.5); LYMPHOCYTES % (AUTO) 18.8 %; MEAN CORPUSCULAR HEMOGLOBIN 31.6 pg (27.0-31.0); MEAN CORPUSCULAR HGB CONC 31.6 g/dL (32.0-36.0); MEAN PLATELET VOLUME 9.3 fL (7.4-11.4); MONOCYTES # (AUTO) 0.7 10^3/uL (0.0-1.0); MONOCYTES % (AUTO) 10.9 %; NEUTROPHILS # (AUTO) 4.4 10^3/uL (1.5-6.6); NEUTROPHILS % (AUTO) 67.5 %; PLT - PLATELET COUNT 254 10^3/uL (130-450); RED BLOOD COUNT 2.94 10^6/uL (4.70-6.10); RED CELL DISTRIBUTION WIDTH 14.6 % (12.0-15.0); WHITE BLOOD COUNT 6.5 x10^3/uL (4.8-10.8)
[2019-03-17 05:26] LABS: CALCIUM 7.9 mg/dL (8.5-10.3); CREATININE 1.2 mg/dL (0.6-1.2); MAGNESIUM 1.7 mg/dL (1.7-2.8); PHOSPHORUS 1.8 mg/dL (2.5-4.6)
[2019-03-17] MEDS: GABAPENTIN 300 MG CAPSULE PO SCH ×2 (06:22→13:57)
[2019-03-17] MEDS: LEVOTHYROXINE 75 MCG TABLET PO SCH (06:22)
[2019-03-17] MEDS: AMOXICILLIN 250 MG CAPSULE PO SCH (08:08)
[2019-03-17] MEDS: TAMSULOSIN 0.4 MG CAPSULE PO SCH (08:09)
[2019-03-17] MEDS: AMOXICILLIN 125 MG CHEW TABLET PO SCH (08:09)
[2019-03-17] MEDS: HEPARIN 5,000 UNIT/ML VIAL SUBQ SCH (08:11)
[2019-03-17] MEDS ORDERED: LACTOBACILLUS RHAMNOSUS GG CAPSULE PO SCH (09:00)
[2019-03-17] MEDS ORDERED: METOPROLOL SUCCINATE 25 MG TABLET PO SCH (09:00)
[2019-03-17] MEDS ORDERED: MIDODRINE 2.5 MG TABLET PO SCH (12:00)
--- NOTE | 2019-03-17 12:54 | Discharge Plan ---
"Discharge Plan for SNF / TRICE - Discharge Plan And Transition Orders Problem Reviewed?: Yes Disposition: 03 SNF DC/Xfer Condition: Stable Allergies and Adverse Reactions: Allergies Allergy/AdvReac Type Severity Reaction Status Date / Time No Known Drug Allergies Allergy Verified 03/14/19 09:35 Health Concerns: Admitted with weakness from diarrhea and recent hospitalization from UTI and new acute kidney injury noted. Plan of Treatment: Patient required iv hydration, diarrhea resolved and was not C. diff, an ID phone consult advised a shortened course of antibiotics, BP improved but at recheck he is still orthostatic and needs Midodrine. Care Goals: Improve strength with PT Rehab is the goal, before return home with (caregiver). Assessment: The patient is in agreement with the plan. 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 Notify PCP of admission and forward orders to primary provider for signature. Weight on admission and: Weekly Call PCP immediately if weight increases by: 5 kg Other Notification Orders: Call PCP immediately if patient develops dyspnea, chest pain/tightness or edema. House Bowel Program: Yes Additional Bowel Program Orders: If no BM after 2 days, nurse may give M.O.M. 30ml PO PRN and/or ducolax Supp 1 OK and/or RUBIO 250mg P.O., and/or senna 1-2 tabs PO. On day 3 nurse may give repeat above order until residents constipation is resolved. Annual Influenza Vaccine (between Mar 23 and October 20): Yes Two-step PPD per [facility] [phone] or approved exception documents: Yes Treatments & Other Orders: Daily PT and OT Medication Orders: PLEASE REFER TO THE DISCHARGE MEDICATION LIST. Insulin Orders?: No - Medications New Prescriptions: Amoxicillin 875 mg PO BID #3 tablet Midodrine HCl 5 mg PO TIDWM #45 tablet - Diet Type: Geriatric Texture: Regular Liquids: Thin May have monthly special meal: Yes - Therapies | Activity Therapy: Evaluation | Treat if indicated: PT, OT Rehabilitation Potential: Maximize functional status Activity: Activity as Tolerated Weight Bearing: Full Weight Assistance Devices: Walker, Cane Follow Up: Follow-up with PCP (Itzel Herr) after discharge from SNF."
[2019-03-17 13:51] VITALS: BP 122/76
--- NOTE | 2019-03-23 16:19 | DISCHARGE SUMMARY ---
Discharge Summary Admit Date: 03/14/19 Discharge Date: 03/17/19 Discharging Provider: Dr Lali Constantino Primary Care Provider: Dr Philly Herr Code Status: Attempt Resuscitation Condition at Discharge: Stable Discharge Disposition: 03 SNF DC/Xfer Discharge Facility Name: [facility] - DIAGNOSES Admission Diagnoses: 1) UTI 2) Hypotension 3) Diarrhea 4) ZOYA 5) Weakness 6) BPH and Hx hematuria 7) Paroxysmal Afib Discharge Diagnoses with Status of Each Condition: See below - HPI History of Present Illness: From the admission H&P of Dr Maya: This is an 83 year old male with a past medical history significant for prostate cancer s/p radiation, BPH, recurrent UTI who presents from home due to worsening weakness. He was just discharged from this facility approximately four days ago after being treated for a UTI/Prostatitis. Cultures at that time grew Enterococcus and and Pseudomonas. He was discharged on Cipro and Linezolid which he has been taking since discharge. He and his report that since he has been home, he has been progressively declining from a weakness standpoint to the point where he can't stand or sit. He also developed diarrhea once he was home with about 6-8 bowel movements a day. He reports no blood in his stool and that his appetite has been fine. He denies fevers, chest pain, dyspnea, abdominal pain, nausea, vomiting. He reports he has been urinating without difficulty although occasional dysuria is noted. Denies hematuria. His is concerned that she has not been able to take care of him at home with his weakness and that she has had to be by his side nearly the whole day. In the ER, he was afebrile, borderline hypotensive with SBP in the high 90's to low 100's. Labs revealed an elevated creatinine, leukocytosis, and urinalysis revealed pyruia, and few bacteria. Given these findings and new diarrhea, patient was admitted for further management. He would like CPR if he were to be a decline from a medical point of view. - HOSPITAL COURSE Hospital Course: 1) Hypotension On admission, his blood pressure was 95/50. Lactic acid was 2.2 but he was not tachycardic to suggest septic shock. His low blood pressure was felt to be from volume depletion related to diarrhea and his underlying orthostatic hypotension history. He was started on IV crystalloid replacement, beta-radames was on hold. With this management, his blood pressure improved to the 120s over 70s. 2) UTI His urinalysis revealed pyuria, leukocyte esterase, and few bacteria. He was initially started on empiric iv Cefepime and iv Vanco. His blood and urine cultures were negative and it is evident that he responded to the previous Zyvox and Cipro. (Last admission's urine culture grew Enterococcus and Pseudomonas). The Hospitalist spoke to Infectious Disease at [facility] and because repeat cultures were negative this time, and he did not appear septic, they believed that continuing Amoxicillin for two more days will be sufficient for "mop up therapy". They do not believe the Cipro needed to be continued as his prior blood cultures never grew Pseudomonas. He was treated with Amoxicillin PO to complete treatment on 03/18. 3) Diarrhea He was started on IV hydration. C. difficile and bacterial cultures were all negative. It was likely caused by his home antibiotic, Zyvox, which was stopped. He was given antidiarrheal medications and the diarrhea resolved in 1 to 2 days. 4) ZOYA This was presumed to be from volume depletion related to diarrhea. His admission creatinine was 1.5, which improved to 1.2 with several days of IV hydration. 5) Orthostatic hypotension Initially his low blood pressure improved with hydration, Midrin was therefore stopped. By the final 2 days of hospitalization, he had low blood pressures and orthostasis and Midodrin was restarted at 5 mg 3 times daily with meals, not 10 mg tid (spaced out). 6) Weakness and deconditioning Patient has now had 2 hospitalizations which have made him weak and deconditioned. He was seen by physical therapy and was a candidate for rehab and was discharged to [facility] for PT and OT rehab. 7) BPH He was kept on his home dose of Flomax while here. 8) Borderline DM The patient reported no longer taking insulin, or any oral medications for his diabetes or being on a diabetic diet. 9) Paroxysmal A. fib There is a prior history of A. fib, but during this admission, he was in sinus rhythm. In the past he was on anticoagulation which needed to be stopped when he had hematuria. No anticoagulation was used during this hospitalization. 10) Hypothyroidism He was kept on his home dose of thyroid replacement. 11) Hyperlipidemia He was kept on his home statin dose. - ALLERGIES Allergies/Adverse Reactions: Allergies Allergy/AdvReac Type Severity Reaction Status Date / Time No Known Drug Allergies Allergy Verified 03/14/19 09:35 - MEDICATIONS Home Medications: Ambulatory Orders Medication Instructions Recorded Confirmed Pravastatin Sodium [Pravachol] 20 mg PO QPM 03/05/19 03/14/19 Tamsulosin [Flomax] 0.4 mg PO DAILY 03/05/19 03/14/19 Gabapentin 300 mg PO TID #90 capsule 03/10/19 03/14/19 Levothyroxine [Synthroid] 37.5 mcg PO QDAC #45 tablet 03/10/19 03/14/19 Metoprolol Succinate [Toprol Xl] 12.5 mg PO DAILY #15 tablet 03/10/19 03/14/19 Amoxicillin 875 mg PO BID #3 tablet 03/17/19 Magnesium Oxide [Mag Ox] 400 mg PO DAILY #30 tablet 03/17/19 03/14/19 Midodrine HCl 5 mg PO TIDWM #45 tablet 03/17/19 Saccharomyces Boulardii [Florastor] 250 mg PO BID 4 Days #60 capsule 03/17/19 03/14/19 - PHYSICAL EXAM AT DISCHARGE General Appearance: positive: No acute distress, Alert Eyes Bilateral: positive: Normal inspection ENT: positive: ENT inspection nml Neck: positive: No JVD, Other (Supple) Respiratory: positive: No respiratory distress, Breath sounds nml Cardiovascular: positive: Regular rate & rhythm Abdomen: positive: Non-tender Skin: positive: Color nml Extremities: positive: No pedal edema - LABS Result Diagrams: 03/17/19 04:57 03/17/19 04:57 - DIAGNOSTIC IMAGING Diagnostic Imaging Results: Final report reviewed - FOLLOW UP Follow Up: Follow-up with PCP, after discharge from SNF - TIME SPENT Time Spent in Discharge (Minutes): 60
== END 2019-03-17 14:30 | DRG 690 ==
LOC: EDBD → EDUNIT# → ED 09:21 → UNDOADMIN 13:30 → MS2 13:30 → ED 14:16 → UNDODISIN 03-17 14:30
PROVIDERS: ADMIT Internal Medicine; ATTEND Internal Medicine
DX: N30.01 Acute cystitis with hematuria (principal); E86.0 Dehydration; I48.91 Unspecified atrial fibrillation; K52.1 Toxic gastroenteritis and colitis; I10 Essential (primary) hypertension; E78.00 Pure hypercholesterolemia, unspecified; N17.9 Acute kidney failure, unspecified; I48.0 Paroxysmal atrial fibrillation; E86.1 Hypovolemia; E03.9 Hypothyroidism, unspecified; E78.5 Hyperlipidemia, unspecified; N40.1 Benign prostatic hyperplasia with lower urinary tract symptoms; R39.15 Urgency of urination; E11.9 Type 2 diabetes mellitus without complications; M19.90 Unspecified osteoarthritis, unspecified site; G89.29 Other chronic pain; M54.9 Dorsalgia, unspecified; E86.9 Volume depletion, unspecified; I95.1 Orthostatic hypotension; R19.7 Diarrhea, unspecified; T36.8X5A Adverse effect of other systemic antibiotics, initial encounter; Y92.009 Unspecified place in unspecified non-institutional (private) residence as the place of occurrence of the external cause; R53.1 Weakness; H53.8 Other visual disturbances; R26.2 Difficulty in walking, not elsewhere classified; Z96.649 Presence of unspecified artificial hip joint; Z79.899 Other long term (current) drug therapy; Z87.440 Personal history of urinary (tract) infections; Z87.891 Personal history of nicotine dependence; Z85.46 Personal history of malignant neoplasm of prostate; Z86.11 Personal history of tuberculosis; Z92.3 Personal history of irradiation
CPT/HCPCS: 36415; 80048; 80053; 81001; 82550; 83605; 83690; 83735; 83880; 84100; 85025; 87040; 87086; 87493; 93005; 96360; 96361; 97161; 97165; 99284; 99285; A9270; J3370; J7120; 80202; 81003

== ENCOUNTER 2019-03-26 08:00 | Outpatient (CLI) | payer MEDICARE, OTHER | END 2019-03-26 23:59 | disposition home or self-care (01) | LOC: LAB.R 08:00 | DX: A15.0 Tuberculosis of lung (principal) | CPT/HCPCS: 81599; 86480 ==

== ENCOUNTER 2019-04-01 08:49 | Outpatient (CLI) | payer MEDICARE, OTHER | END 2019-04-01 08:50 | disposition EMS.NT | LOC: EMS 08:49 | PROVIDERS: ATTEND Surgery | DX: R79.89 Other specified abnormal findings of blood chemistry (principal) ==

== ENCOUNTER 2019-04-01 12:44 | Outpatient (CLI) | payer MEDICARE, OTHER | END 2019-04-01 12:45 | disposition home or self-care (01) | LOC: EMS 12:44 | PROVIDERS: ATTEND Surgery | DX: R05 Cough (principal); R91.8 Other nonspecific abnormal finding of lung field ==

== ENCOUNTER 2019-04-01 13:00 | Outpatient (CLI) | payer MEDICARE, OTHER ==
--- NOTE | 2019-04-01 13:55 | XRAY Report ---
Reason: POSITIVE QUANTIFERON Procedure Date: 04/01/2019 Accession Number: [id number] / [id number] Procedure: XR - Chest 2 View X-Ray CPT Code: 99570 FULL RESULT: EXAM: CHEST RADIOGRAPHY EXAM DATE: 04/01/2019 01:33 PM. CLINICAL HISTORY: POSITIVE QUANTIFERON. COMPARISON: CHEST 1 VIEW 09/10/2017 5:56 AM. TECHNIQUE: 2 views. FINDINGS: Lungs/Pleura: No focal opacities evident. Small left effusion.. No pneumothorax. Normal volumes. Mediastinum: Heart and mediastinal contours are unremarkable. Other: Mild wedging midthoracic vertebral bodies. IMPRESSION: Small left effusion RADIA
== END 2019-04-01 13:01 | disposition home or self-care (01) ==
LOC: DI 13:00
PROVIDERS: ATTEND Nurse Practitioner
DX: R76.12 Nonspecific reaction to cell mediated immunity measurement of gamma interferon antigen response without active tuberculosis (principal); J90 Pleural effusion, not elsewhere classified
CPT/HCPCS: 71046

== ENCOUNTER 2019-04-01 13:11 | Outpatient (CLI) | payer MEDICARE, OTHER | END 2019-04-01 13:12 | disposition critical access hospital (66) | LOC: EMS 13:11 | PROVIDERS: ATTEND Surgery | DX: R05 Cough (principal); R91.8 Other nonspecific abnormal finding of lung field; Z86.11 Personal history of tuberculosis | CPT/HCPCS: A0425; A0428 ==

== ENCOUNTER 2019-04-01 13:16 | Outpatient (CLI) | payer MEDICARE, OTHER | END 2019-04-01 13:17 | disposition critical access hospital (66) | LOC: EMS 13:16 | PROVIDERS: ATTEND Surgery | DX: R05 Cough (principal) | CPT/HCPCS: A0425; A0428 ==

== ENCOUNTER 2019-04-01 13:34 | Outpatient (CLI) | payer MEDICARE, OTHER | END 2019-04-01 13:35 | disposition home or self-care (01) | LOC: EMS 13:34 | PROVIDERS: ATTEND Surgery | DX: R05 Cough (principal); R91.8 Other nonspecific abnormal finding of lung field | CPT/HCPCS: A0425; A0428 ==

== ENCOUNTER 2019-04-11 11:50 | Outpatient (CLI) | payer MEDICARE, OTHER ==
[2019-04-11 12:45] LABS: BASOPHILS # (AUTO) 0.1 10^3/uL (0.0-0.1); BASOPHILS % (AUTO) 0.6 %; EOSINOPHILS # (AUTO) 0.1 10^3/uL (0.0-0.7); EOSINOPHILS % (AUTO) 1.1 %; HGB - HEMOGLOBIN 11.8 g/dL (14.0-18.0); LYMPHOCYTES % (AUTO) 12.2 %; MEAN CORPUSCULAR HEMOGLOBIN 32.3 pg (27.0-31.0); MEAN CORPUSCULAR VOLUME 101.1 fL (80.0-94.0); MEAN PLATELET VOLUME 11.5 fL (7.4-11.4); MONOCYTES # (AUTO) 0.8 10^3/uL (0.0-1.0); MONOCYTES % (AUTO) 8.8 %; NEUTROPHILS # (AUTO) 6.6 10^3/uL (1.5-6.6); NEUTROPHILS % (AUTO) 76.8 %; PLT - PLATELET COUNT 264 10^3/uL (130-450); RED BLOOD COUNT 3.65 10^6/uL (4.70-6.10); RED CELL DISTRIBUTION WIDTH 14.8 % (12.0-15.0); WHITE BLOOD COUNT 8.5 x10^3/uL (4.8-10.8)
[2019-04-11 13:01] LABS: ALBUMIN 2.6 g/dL (3.2-5.5); ALBUMIN/GLOBULIN RATIO 0.6 (1.0-2.2); BILIRUBIN,TOTAL 0.5 mg/dL (0.2-1.0); CALCIUM 9.1 mg/dL (8.5-10.3); CREATININE 1.3 mg/dL (0.6-1.2); TOTAL PROTEIN 7.1 g/dL (6.7-8.2)
== END 2019-04-11 23:59 | disposition home or self-care (01) ==
LOC: LAB.R 11:50
PROVIDERS: ATTEND Family Medicine
DX: R53.1 Weakness (principal); R79.89 Other specified abnormal findings of blood chemistry
CPT/HCPCS: 80053; 82728; 85025

== ENCOUNTER 2019-04-28 15:19 | Outpatient (CLI) | payer MEDICARE, OTHER | END 2019-04-28 15:20 | disposition critical access hospital (66) | LOC: EMS 15:19 | PROVIDERS: ATTEND Surgery | DX: M25.562 Pain in left knee (principal); R53.1 Weakness | CPT/HCPCS: A0425; A0429 ==

== ENCOUNTER 2019-04-28 15:36 | Emergency (ER) | payer MEDICARE, OTHER ==
[2019-04-28] MEDS ORDERED: IBUPROFEN 600 MG TABLET PO STA (15:56)
--- NOTE | 2019-04-28 16:33 | ED Physician Documentation ---
PD HPI LOWER EXT INJURY - Stated complaint Stated Complaint: L LEG SWELLING - Chief complaint Chief Complaint: Ext Problem - History obtained from History obtained from: Patient - History of Present Illness PD HPI LOW EXT INJURY LOCATION: Left, Knee Type of injury: Other (No known injury) Timing - onset: How many days ago (3) Timing - duration: Days (3) Timing - details: Still present Improved by: Nothing Worsened by: Moving Associated symptoms: Weakness, Numbness (Has a neuropathy), Tingling Contributing factors: No: Prosthetic joint Recently seen: Clinic PD PAST MEDICAL HISTORY - Past Medical History Cardiovascular: Hypertension, High cholesterol, Atrial fibrillation, Other Respiratory: Tuberculosis Neuro: None Endocrine/Autoimmune: Type 2 diabetes GI: None 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) : Benign prostate hypertrophy HEENT: None Psych: None Musculoskeletal: Osteoarthritis, Chronic back pain Derm: None - Past Surgical History Past Surgical History: Yes Ortho: Hip replacement /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 HEENT: Cataracts - Present Medications Home Medications: Ambulatory Orders Medication Instructions Recorded Confirmed Pravastatin Sodium [Pravachol] 20 mg PO QPM 03/05/19 03/14/19 Tamsulosin [Flomax] 0.4 mg PO DAILY 03/05/19 03/14/19 Gabapentin 300 mg PO TID #90 capsule 03/10/19 03/14/19 Levothyroxine [Synthroid] 37.5 mcg PO QDAC #45 tablet 03/10/19 03/14/19 Metoprolol Succinate [Toprol Xl] 12.5 mg PO DAILY #15 tablet 03/10/19 03/14/19 Amoxicillin 875 mg PO BID #3 tablet 03/17/19 Magnesium Oxide [Mag Ox] 400 mg PO DAILY #30 tablet 03/17/19 03/14/19 Midodrine HCl 5 mg PO TIDWM #45 tablet 03/17/19 Saccharomyces Boulardii [Florastor] 250 mg PO BID 4 Days #60 capsule 03/17/19 03/14/19 Ibuprofen 600 mg PO Q8HR #20 tablet 04/28/19 - Allergies Allergies/Adverse Reactions: Allergies Allergy/AdvReac Type Severity Reaction Status Date / Time No Known Drug Allergies Allergy Verified 04/28/19 15:43 - Social History Does the pt smoke?: No Smoking Status: Former smoker Does the pt drink ETOH?: No Does the pt have substance abuse?: No - Immunizations Immunizations are current?: Yes Immunizations: TDAP >10years/unknown - POLST Patient has POLST: No POLST Status: Full Code Results - Vitals Vitals: Vital Signs - 24 hr 04/28/19 15:41 Temperature 36.6 C Heart Rate 98 Respiratory 18 Rate Blood Pressure 115/63 O2 Saturation 99 Oxygen O2 Source Room air - EKG (time done) 1545 Rate: Rate (enter#) (90) Rhythm: Atrial fibrillation Ischemia: Normal ST segments. No: ST elevation c/w ischemia Compare to prior EKG: Old EKG unavailable Computer interpretation: Agree with computer PD MEDICAL DECISION MAKING - ED course Complexity details: reviewed results, re-evaluated patient, d/w patient ED course: Patient was given 1 dose of ibuprofen 600 mg orally and was able to get up and ambulate on the legX-ray confirms severe degenerative changes any significant pain.. He will be given a prescription for ibuprofen 600 mg and instructions to follow-up with his new primary care provider for further management and consideration for referral to Ortho. 1730: The arrived in the emergency department and she was upset and agitated that he was in good to be admitted for 2 weeks rehab. She feels that she cannot care for him at home. He keeps coming up to the hospital and keeps getting sent home. She would like a direct referral to orthopedist which I have given them the contact information for the Ortho on-call. I explained that he is able to ambulate here after the ibuprofen his knee pain is significantly improved and we do not have any criteria for him to be admitted currently. She was still upset and they were arguing when I left the room. Departure - Departure Disposition: 01 Home, Self Care Clinical Impression: Arthritis Knee pain Qualifiers: Chronicity: acute Laterality: left Qualified Code(s): M25.562 - Pain in left knee Condition: Good Instructions: ED Degenerative Joint Disease Follow-Up: MICHELLE GARCIA MD [Provider Admit Priv/Credential] - Jon Robledo MD [Provider Admit Priv/Credential] - Prescriptions: Ibuprofen 600 mg PO Q8HR #20 tablet Comments: Take the ibuprofen if needed for the knee pain. I would recommend a follow-up with your primary care provider as soon as possible to evaluate whether or not you should be referred for orthopedic evaluation.
--- NOTE | 2019-04-28 16:37 | XRAY Report ---
Reason: left knee pain Procedure Date: 04/28/2019 Accession Number: [id number] / [id number] Procedure: XR - Knee 4 View LT CPT Code: FULL RESULT: EXAM: LEFT KNEE RADIOGRAPHY EXAM DATE: 04/28/2019 04:16 PM. CLINICAL HISTORY: Left knee pain, medial. Swelling. COMPARISON: None. TECHNIQUE: 5 views. FINDINGS: Bones: Bones are demineralized. No definite acute fracture. Joints: No subluxation. Tricompartmental degenerative change most advanced and severe involving the lateral joint compartment, associated with mild valgus deformity. Chondrocalcinosis of medial meniscus. Small joint effusion. Soft Tissues: Irregular calcifications along the medial femoral epicondyle/condyle. Mild overlying swelling. IMPRESSION: 1. Diffuse bone demineralization diminishes trabecular detail. No acute fracture identified. 2. 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 3. Irregular calcifications along the medial epicondyle/condyle, compatible with sequela of MCL avulsion injury. 4. Medial meniscal chondrocalcinosis. 5. Small joint effusion. RADIA
[2019-04-28 17:31] VITALS: BP 109/57
--- NOTE | 2019-05-01 20:01 | ED Physician Documentation ---
ED Addendum - Addendum Addendum: 05/01/19 19:59 Physical exam: Well-developed well-nourished 83-year-old man with vital signs as charted. Eyes are clear without scleral icterus. Heart regular rate and rhythm without murmur. Respiratory no respiratory distress. Lower extremities are thin without any evident edema. His knees are enlarged with what appear to be chronic degenerative changes. There is minimal tenderness along the medial aspect of the left knee. No effusion. No erythema or warmth on the left knee. He has 2+ dorsalis pedis pulses and is able to wiggle his toes.
== END 2019-04-28 17:45 | disposition home or self-care (01) ==
LOC: EDUNIT# → ED 15:36
DX: M17.12 Unilateral primary osteoarthritis, left knee (principal); M11.262 Other chondrocalcinosis, left knee; M21.062 Valgus deformity, not elsewhere classified, left knee; E11.40 Type 2 diabetes mellitus with diabetic neuropathy, unspecified; I48.91 Unspecified atrial fibrillation; I10 Essential (primary) hypertension; Z87.891 Personal history of nicotine dependence
CPT/HCPCS: 73564; 93005; 99281; 99283; A9270

== ENCOUNTER 2019-05-18 08:30 | Outpatient (CLI) | payer MEDICARE, OTHER | END 2019-05-18 08:31 | disposition critical access hospital (66) | LOC: EMS 08:30 | PROVIDERS: ATTEND Surgery | DX: R53.1 Weakness (principal); R19.7 Diarrhea, unspecified | CPT/HCPCS: A0425; A0429 ==

== ENCOUNTER 2019-05-18 08:46 | Inpatient (IN) | payer MEDICARE, OTHER ==
[2019-05-18] MEDS ORDERED: SODIUM CHLORIDE 0.9% 1,000 ML IV ONE (09:25)
--- NOTE | 2019-05-18 09:28 | ED Physician Documentation ---
History of Present Illness - Stated complaint Stated Complaint: WEAKNESS - Chief complaint Chief Complaint: General - History obtained from History obtained from: Patient, EMS - History of Present Illness Timing: Today - Additonal information Additional information: 83-year-old male has had diarrhea for 2 days has developed weakness today and a low blood pressure. He began to collapse at home and was assisted by his grandson. He is now brought to the emergency department by paramedics with a concern of low blood pressure. He has been given 500 mils of saline in route to the hospital and his blood pressure is now over 100. He has a prior history of similar presentation with urinary tract infection and urosepsis.Today the patient states that he otherwise feels well and he did drink a quart of Gatorade this morning before medics were called. Review of Systems Constitutional: denies: Fever Eyes: denies: Decreased vision Ears: denies: Ear pain Nose: denies: Rhinorrhea / runny nose, Congestion Throat: denies: Sore throat Cardiac: denies: Chest pain / pressure, Palpitations Respiratory: denies: Dyspnea, Cough GI: reports: Diarrhea. 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 HEENT: Cataracts - Present Medications Home Medications: Ambulatory Orders Medication Instructions Recorded Confirmed Pravastatin Sodium [Pravachol] 20 mg PO QPM 03/05/19 05/18/19 Tamsulosin [Flomax] 0.4 mg PO DAILY 03/05/19 05/18/19 Gabapentin 300 mg PO TID #90 capsule 03/10/19 05/18/19 Midodrine HCl 5 mg PO TIDWM #45 tablet 03/17/19 05/18/19 Levothyroxine [Synthroid] 50 mcg PO QDAC 05/18/19 05/18/19 - Allergies Allergies/Adverse Reactions: Allergies Allergy/AdvReac Type Severity Reaction Status Date / Time No Known Drug Allergies Allergy Verified 04/28/19 15:43 - Social History Does the pt smoke?: No Smoking Status: Never smoker Does the pt drink ETOH?: No Does the pt have substance abuse?: No - Immunizations Immunizations are current?: Yes Immunizations: TDAP >10years/unknown - POLST Patient has POLST: No POLST Status: Full Code PD ED PE NORMAL - Vitals Vital signs reviewed: Yes (tachy to 107) - General General: Alert and oriented X 3, No acute distress, Well developed/nourished - HEENT HEENT: Atraumatic, PERRL, EOMI, Other (edentulous) - Neck Neck: Supple, no meningeal sign, No bony TTP - Cardiac Cardiac: No murmur, Other (tachy to 100) - Respiratory Respiratory: No respiratory distress, Clear bilaterally - Abdomen Abdomen: Normal bowel sounds, Soft, Non tender, Non distended, No organomegaly, Other (scaffoid abdomen) - Back Back: No CVA TTP, No spinal TTP - Derm Derm: Normal color, Warm and dry, No rash - Extremities Extremities: No deformity, No edema - Neuro Neuro: Alert and oriented X 3, 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, No motor deficit, No sensory deficit, Normal speech Eye Opening: Spontaneous Motor: Obeys Commands Verbal: Oriented GCS Score: 15 - Psych Psych: Normal mood, Normal affect Results - Vitals Vitals: Vital Signs - 24 hr 05/18/19 05/18/19 05/18/19 08:47 10:30 12:15 Temperature 37.1 C 36.6 C Heart Rate 107 H 81 86 Respiratory 16 20 21 Rate Blood Pressure 109/71 113/66 98/57 L O2 Saturation 100 100 100 Oxygen O2 Source Room air - Labs Labs: Laboratory Tests 05/18/19 05/18/19 05/18/19 09:37 09:37 10:22 WBC 6.9 RBC 3.79 L Hgb 12.0 L Hct 36.9 L MCV 97.4 H MCH 31.7 H MCHC 32.5 RDW 13.8 Plt Count 263 MPV 9.6 Neut # (Auto) 5.7 Lymph # (Auto) 0.6 L Sebastian # (Auto) 0.6 Eos # (Auto) 0.0 Baso # (Auto) 0.0 Absolute Nucleated RBC 0.00 Nucleated RBC % 0.0 Sodium 133 L Potassium 4.3 Chloride 98 L Carbon Dioxide 25 Anion Gap 10.0 BUN 21 H Creatinine 1.4 H Estimated GFR (MDRD) 49 L Glucose 150 H Lactic Acid Calcium 8.5 Total Bilirubin 1.2 H AST 17 ALT < 10 L Alkaline Phosphatase 134 H Total Protein 6.6 L Albumin 2.3 L Globulin 4.3 H Albumin/Globulin Ratio 0.5 L Lipase 22 Urine Color YELLOW Urine Clarity SL. CLOUDY Urine pH 7.0 Ur Specific Graham 1.020 Urine Protein 100 H Urine Glucose (UA) NEGATIVE Urine Ketones TRACE Urine Occult Blood LARGE H Urine Nitrite POSITIVE H Urine Bilirubin NEGATIVE Urine Urobilinogen 0.2 (NORMAL) Ur Leukocyte Esterase LARGE H Urine RBC 11-25 H Urine WBC >25 H Ur Squamous Epith Cells NONE SEEN Urine Bacteria Moderate H Ur Microscopic Review INDICATED Urine Culture Comments INDICATED 05/18/19 11:38 WBC RBC Hgb Hct MCV MCH MCHC RDW Plt Count MPV Neut # (Auto) Lymph # (Auto) Sebastian # (Auto) Eos # (Auto) Baso # (Auto) Absolute Nucleated RBC Nucleated RBC % Sodium Potassium Chloride Carbon Dioxide Anion Gap BUN Creatinine Estimated GFR (MDRD) Glucose Lactic Acid 1.3 Calcium Total Bilirubin AST ALT Alkaline Phosphatase Total Protein Albumin Globulin Albumin/Globulin Ratio Lipase Urine Color Urine Clarity Urine pH Ur Specific Graham Urine Protein Urine Glucose (UA) Urine Ketones Urine Occult Blood Urine Nitrite Urine Bilirubin Urine Urobilinogen Ur Leukocyte Esterase Urine RBC Urine WBC Ur Squamous Epith Cells Urine Bacteria Ur Microscopic Review Urine Culture Comments Procedures - IVC sono (time) 0920 Bedside IVC sono: IVC measures (cm) (1.49), IVC collapsed c insp (cm) (0.92), Euvolemia PD MEDICAL DECISION MAKING - ED course Complexity details: reviewed old records, reviewed results, re-evaluated patient, considered differential, d/w patient ED course: 83-year-old male with a prior history of urinary tract infection with sepsis and hypotension has developed weakness after 2 days of diarrhea. He arrives to the emergency department covered in feces and with a blood pressure of 107. He has been given 500 mils of saline in the field and had intake of 1 L of Gatorade prior to arrival here. He is weak and his blood pressure hovers around 100. He has had similar presentation with sepsis with an enterococus in the blood and enterococcus and pseudomonas in the urine. He does respond to fluids and he does have UTI again. He is at risk for fall and previously he has had injury with falls including splenic rupture and femur fracture. Hospitalization is indicated and blood cultures are pending. Departure - Departure Disposition: [facility] DC/Xfer Clinical Impression: Weakness generalized Hypotension Qualifiers: Hypotension type: unspecified hypotension type Qualified Code(s): I95.9 - Hypotension, unspecified Urinary tract infection Qualifiers: Urinary tract infection type: site unspecified Hematuria presence: with hematuria Qualified Code(s): N39.0 - Urinary tract infection, site not specified Condition: Fair
[2019-05-18 09:45] LABS: BASOPHILS % (AUTO) 0.4 %; EOSINOPHILS % (AUTO) 0.3 %; LYMPHOCYTES # (AUTO) 0.6 10^3/uL (1.5-3.5); LYMPHOCYTES % (AUTO) 8.2 %; MEAN CORPUSCULAR HEMOGLOBIN 31.7 pg (27.0-31.0); MEAN CORPUSCULAR HGB CONC 32.5 g/dL (32.0-36.0); MEAN CORPUSCULAR VOLUME 97.4 fL (80.0-94.0); MEAN PLATELET VOLUME 9.6 fL (7.4-11.4); MONOCYTES # (AUTO) 0.6 10^3/uL (0.0-1.0); MONOCYTES % (AUTO) 8.2 %; NEUTROPHILS # (AUTO) 5.7 10^3/uL (1.5-6.6); NEUTROPHILS % (AUTO) 82.3 %; PLT - PLATELET COUNT 263 10^3/uL (130-450); RED BLOOD COUNT 3.79 10^6/uL (4.70-6.10); RED CELL DISTRIBUTION WIDTH 13.8 % (12.0-15.0); WHITE BLOOD COUNT 6.9 x10^3/uL (4.8-10.8)
[2019-05-18 09:56] LABS: ALBUMIN 2.3 g/dL (3.2-5.5); ALBUMIN/GLOBULIN RATIO 0.5 (1.0-2.2); ALKALINE PHOSPHATASE 134 IU/L (42-121); ALT ALANINE AMINOTRANSFERASE < 10 IU/L (10-60); AST ASPARTATE AMINOTRANSFERASE 17 IU/L (10-42); BILIRUBIN,TOTAL 1.2 mg/dL (0.2-1.0); BUN - BLOOD UREA NITROGEN 21 mg/dL (6-20); CALCIUM 8.5 mg/dL (8.5-10.3); CARBON DIOXIDE - CO2 25 mmol/L (21-32); CHLORIDE 98 mmol/L (101-111); CREATININE 1.4 mg/dL (0.6-1.2); GFR - MDRD 49 (>89); GLUCOSE 150 mg/dL (70-100); LIPASE 22 U/L (22-51); SODIUM 133 mmol/L (135-145); TOTAL PROTEIN 6.6 g/dL (6.7-8.2)
[2019-05-18 10:30] LABS: BILIRUBIN,URINE NEGATIVE (NEGATIVE); GLUCOSE, URINE (UA) NEGATIVE (NEGATIVE); KETONES,URINE (UA) TRACE mg/dL (NEGATIVE); LEUKOCYTE ESTERASE, URINE LARGE (NEGATIVE); NITRITE,URINE POSITIVE (NEGATIVE); OCCULT BLOOD,URINE LARGE (NEGATIVE); PROTEIN,URINE 100 mg/dL (NEGATIVE); UROBILINOGEN,URINE 0.2 (NORMAL) E.U./dL (NORMAL)
[2019-05-18 10:33] LABS: CLARITY,URINE SL. CLOUDY (CLEAR)
[2019-05-18 10:41] LABS: BACTERIA,URINE Moderate /HPF (None Seen); SQUAMOUS EPITHELIAL CELL,UR NONE SEEN (<= Few)
[2019-05-18] MEDS ORDERED: CEFEPIME 1 GM in SODIUM CHLORIDE 0.9% MINIBAG 100 ML IV STA (12:31)
[2019-05-18] MEDS ORDERED: PROCHLORPERAZINE 10 MG/2 ML VIAL IVP PRN (13:13)
[2019-05-18] MEDS ORDERED: SODIUM CHLORIDE FLUSH 0.9% 10 ML SYRINGE IVP PRN (13:13)
[2019-05-18] MEDS ORDERED: ACETAMINOPHEN 325 MG TABLET PO PRN ×2 (13:13→21:58)
[2019-05-18] MEDS: DEXTROSE 5%-0.9% NACL 1,000 ML IV SCH (14:00)
[2019-05-18] MEDS ORDERED: VANCOMYCIN PER PHARMACY 100 GM in SODIUM CHLORIDE 0.9% 250 ML IV SCH (14:00)
--- NOTE | 2019-05-18 14:35 | XRAY Report ---
Reason: Hypotension Procedure Date: 05/18/2019 Accession Number: [id number] / [id number] Procedure: XR - Chest 1 View X-Ray CPT Code: 54632 FULL RESULT: EXAM: CHEST RADIOGRAPHY EXAM DATE: 05/18/2019 01:44 PM. CLINICAL HISTORY: Hypotension. COMPARISON: CHEST 2 VIEW 04/01/2019 12:53 PM. TECHNIQUE: 1 view. FINDINGS: Cardiac leads overlie the chest. Calcified plaques in the aortic arch. No consolidation, pleural effusion, or pneumothorax. Mild dextroconvex curvature of the thoracic spine. IMPRESSION: No acute cardiopulmonary findings. RADIA
--- NOTE | 2019-05-18 14:42 | XRAY Report ---
Reason: Diarrhea, hypotension Procedure Date: 05/18/2019 Accession Number: [id number] / [id number] Procedure: XR - Abdomen 1 View X-Ray CPT Code: 24276 FULL RESULT: EXAM: ABDOMEN RADIOGRAPHY EXAM DATE: 05/18/2019 01:44 PM. CLINICAL HISTORY: Diarrhea, hypotension. COMPARISON: RIGHT HIP 09/10/2017 11:30 AM. TECHNIQUE: 1 view. FINDINGS: Bowel Gas Pattern: Nonobstructive bowel gas pattern is seen. Other: Degenerative changes are seen in the spine. Internal fixation of the proximal right femur is also noted. IMPRESSION: Nonobstructive bowel gas pattern seen. RADIA
[2019-05-18] MEDS: VANCOMYCIN INJ 1 GM, VANCOMYCIN INJ 250 MG in SODIUM CHLORIDE 0.9% 250 ML IV SCH (15:05)
--- NOTE | 2019-05-18 17:49 | HISTORY & PHYSICAL EXAMINATION ---
DATE OF SERVICE: 05/18/2019 Physician: Lali Constantino MD HISTORY OF PRESENT ILLNESS: This is an 83-year-old white male with a history of BPH, frequent UTIs, last admission here approximately 2 months ago for UTI and sepsis. He also has a history of prostate cancer, type 2 diabetes on diet only, neuropathy, paroxysmal afib with no anticoagulation since having hematuria, chronic back pain, remote tuberculosis, hyperlipidemia and orthostatic hypotension, for which he has needed midodrine on and off in the past. The patient presents with a 2-day history of severe weakness; he could not even raise himself out of bed and fell several times at home and needed to be raised up by his grandson. Paramedics were called by the and he was documented to have a low blood pressure and received 500 mL of saline en route to the hospital. The exact blood pressure is not known because the ambulance run sheet is not available to me. On presentation to the ER, his heart rate was 120, in A-Fib and blood pressure 100. He is being admitted to the ICU for severe sepsis with evidence on labs of another UTI and hypotension and tachycardia. PAST MEDICAL HISTORY: As in HPI (paragraph #1). ALLERGIES: NONE. MEDICATIONS: 1. Pravastatin 20 mg every night. 2. Flomax 0.4 mg daily. 3. Gabapentin 300 mg t.i.d. 4. Midodrine 5 mg t.i.d. 5. Synthroid 50 mcg daily. FAMILY HISTORY: Noncontributory. SOCIAL HISTORY: He is a nonsmoker, who never smoked, uses no alcohol and no substance abuse. He lives with his . He lost all his teeth playng hockey. he has lost 100 lbs since that time. REVIEW OF SYSTEMS: He cannot remember much about the last 2 days, because of his generalized weakness and cannot tell me if there was a fever, or any incontinence; he denies nausea, vomiting, chest pain, or shortness of breath. He does describe diarrhea and in the Emergency Room, they noted that he was covered with feces on his skin. PHYSICAL EXAMINATION: GENERAL: Edentulous, cachectic white male. He is in no distress, supine in bed. VITAL SIGNS: Blood pressure 100/58, heart rate 100-128 in A-Fib, afebrile, room air saturation 100%. HEENT: Reveals dry oral membranes and he is edentulous. NECK: No JVD. CHEST: Clear at the anterior bases. HEART: Heart sounds tachycardic. No audible murmur. ABDOMEN: Soft, thin. No organomegaly. No tenderness. EXTREMITIES: No clubbing, cyanosis or edema. NEUROLOGIC: Grossly intact. LABORATORY DATA: Sodium 133, potassium 4.3, BUN 21, creatinine 1.4. In the past, he has run creatinines of 1.3 to as high as 2.0. Normal liver tests except alk phos 134. Albumin low at 2.3. Lipase normal at 22. White blood count 6.9 with a normal differential, hemoglobin 12 with MCV 97, platelet count normal at 263. No INR was done. Urinalysis shows large protein, large occult blood, positive nitrites, large leukocyte esterase, many white blood cells and moderate bacteria. His nasal MRSA screen was negative CHEST X-RAY: No active pulmonary disease, normal heart size. ABDOMINAL KUB FILM: Essentially normal. EKG: No EKG was done. IMPRESSION: 1. Severe sepsis with infection, end-organ damage and hypotension. 2. Urinary tract infection. 3. Paroxysmal atrial fibrillation, on no anticoagulation since having hematuria. 4. Cisht-pf-vhljrkr kidney disease. 5. Diarrhea 6. History of prostate cancer and BPH 7. Cachexia. 8. Anemia. 9. Hypothyroidism. PLAN: Admit the patient to the ICU on telemetry. Continue to replace volume with iv crystalloids. Start empiric antibiotics after urine and blood cultures sent. We will use cefepime and vancomycin. Continue his benign prostatic hypertrophy medication, Tamsulosin and his hypothyroid medication, Synthroid. While he is supine, will not begin midodrine. Check troponins x3 because of the recurrence of atrial fibrillation and obtain an EKG and Echo. Check thyroid function tests as well. Evaluate the diarrhea for C. diff. Bowel rest planned with only clear liquids for a diet, advance as tolerated. DEEP VENOUS THROMBOSIS PROPHYLAXIS: Pharmacotherapy. CODE STATUS: FULL CODE. ATTESTATION: The patient is expected to be discharged or transferred to another facility within 96 hours: Yes. cc: Jonel Hays MD TD: 05/18/2019 17:14 [facility]
[2019-05-18] MEDS: SODIUM CHLORIDE FLUSH 0.9% 10 ML SYRINGE IVP SCH (18:24)
[2019-05-18] MEDS: GABAPENTIN 300 MG CAPSULE PO SCH (18:24)
[2019-05-18] MEDS: HEPARIN 5,000 UNIT/ML VIAL SUBQ SCH (20:36)
[2019-05-18] MEDS: FAMOTIDINE 20 MG/2 ML VIAL IVP SCH (20:36)
[2019-05-18] MEDS: QUEtiapine 25 MG TABLET PO SCH (20:37)
[2019-05-18] MEDS: MIN OIL/DIMETHICON/COCONUT OIL 92 GM TUBE TOP PRN (21:12)
[2019-05-19] MEDS: CEFEPIME 1 GM in SODIUM CHLORIDE 0.9% MINIBAG 100 ML IV SCH ×2 (00:44→12:56)
[2019-05-19] MEDS: DEXTROSE 5%-0.9% NACL 1,000 ML IV SCH ×3 (00:44→23:49)
[2019-05-19] MEDS: SODIUM CHLORIDE FLUSH 0.9% 10 ML SYRINGE IVP SCH ×3 (00:45→16:13)
[2019-05-19] MEDS ORDERED: HYDROcod/ACETAM 5/325 MG TABLET PO PRN (01:42)
[2019-05-19 05:03] LABS: BASOPHILS % (AUTO) 0.6 %; EOSINOPHILS # (AUTO) 0.1 10^3/uL (0.0-0.7); EOSINOPHILS % (AUTO) 1.2 %; LYMPHOCYTES # (AUTO) 1.2 10^3/uL (1.5-3.5); LYMPHOCYTES % (AUTO) 23.3 %; MEAN CORPUSCULAR HEMOGLOBIN 30.1 pg (27.0-31.0); MEAN CORPUSCULAR HGB CONC 31.1 g/dL (32.0-36.0); MEAN PLATELET VOLUME 10.1 fL (7.4-11.4); MONOCYTES # (AUTO) 0.5 10^3/uL (0.0-1.0); MONOCYTES % (AUTO) 10.6 %; NEUTROPHILS # (AUTO) 3.3 10^3/uL (1.5-6.6); NEUTROPHILS % (AUTO) 63.9 %; PLT - PLATELET COUNT 229 10^3/uL (130-450); RED BLOOD COUNT 3.32 10^6/uL (4.70-6.10); RED CELL DISTRIBUTION WIDTH 13.8 % (12.0-15.0); WHITE BLOOD COUNT 5.1 x10^3/uL (4.8-10.8)
[2019-05-19 05:15] LABS: ALBUMIN 1.9 g/dL (3.2-5.5); ALBUMIN/GLOBULIN RATIO 0.5 (1.0-2.2); ALKALINE PHOSPHATASE 112 IU/L (42-121); ALT ALANINE AMINOTRANSFERASE < 10 IU/L (10-60); AST ASPARTATE AMINOTRANSFERASE 19 IU/L (10-42); BILIRUBIN,TOTAL 0.5 mg/dL (0.2-1.0); BUN - BLOOD UREA NITROGEN 21 mg/dL (6-20); CALCIUM 7.8 mg/dL (8.5-10.3); CARBON DIOXIDE - CO2 23 mmol/L (21-32); CHLORIDE 104 mmol/L (101-111); CREATININE 1.2 mg/dL (0.6-1.2); GFR - MDRD 58 (>89); GLUCOSE 119 mg/dL (70-100); MAGNESIUM 1.8 mg/dL (1.7-2.8); PHOSPHORUS 2.5 mg/dL (2.5-4.6); SODIUM 135 mmol/L (135-145); TOTAL PROTEIN 5.4 g/dL (6.7-8.2)
[2019-05-19] MEDS: GABAPENTIN 300 MG CAPSULE PO SCH ×3 (06:11→20:37)
[2019-05-19] MEDS: LEVOTHYROXINE 25 MCG TABLET PO SCH (06:11)
[2019-05-19] MEDS: FAMOTIDINE 20 MG/2 ML VIAL IVP SCH ×2 (09:03→20:38)
[2019-05-19] MEDS: TAMSULOSIN 0.4 MG CAPSULE PO SCH (09:04)
[2019-05-19] MEDS: HEPARIN 5,000 UNIT/ML VIAL SUBQ SCH ×2 (09:08→20:43)
[2019-05-19 14:50] LABS: VANCOMYCIN,RANDOM 7.7 ug/mL
--- NOTE | 2019-05-19 15:00 | PROVIDER PROGRESS NOTE ---
Assessment/Plan - Problem List (1) C. difficile diarrhea Assessment/Plan: He had been on antibiotics approximately 2 months ago. This diarrhea started about 2 days ago. C. difficile positive by PCR today. Isolation precautions ordered We will start oral vancomycin. (2) Sepsis due to gram-negative UTI Assessment/Plan: Urine culture is growing a gram-negative dat. And cultures are negative to date Heart rate and blood pressure are better. Continue with empiric IV antibiotics (3) Confusion and disorientation Assessment/Plan: The ER nurse told our staff that she knows that the patient sundown's. Last night at approximately 7 PM he started to be confused, agitated and required dose of Seroquel. Later he was sleepy after receiving [place] and slept through the night. Continue meds for . (4) Atrial fibrillation with RVR Assessment/Plan: His A. fib is paroxysmal. 2 months ago he was in sinus rhythm. He had been on Coumadin in the past which was stopped when he developed hematuria. Heart rate is under better control today with management of his infection and better volume status. (5) Anemia Assessment/Plan: This is likely hemodilution on top of chronic anemia. We will order B12, folate levels and check iron store and replace if (6) ZOYA (acute kidney injury) Assessment/Plan: There has been improvement in creatinine with rehydration. Follow BMP daily (7) Hypothyroidism Assessment/Plan: This patient was on thyroid replacement. His TSH returned high. We will check freeT4 (8) History of BPH Assessment/Plan: He also has a history of prostate cancer with treatment in the past. Continue his Flomax (9) Cachexia Assessment/Plan: Will request a dietary consult - Current Meds Current Meds: Current Medications Generic Name Dose Route Start Last Admin Trade Name Freq PRN Reason Stop Dose Admin Acetaminophen 650 mg 05/18/19 13:13 05/18/19 22:44 Tylenol PO 650 mg Q4HR PRN Administration Pain 1 to 4 Hydrocodone Bitart/Acetaminophen 1 tab 05/19/19 01:42 05/19/19 09:59 [place] 5/325 PO 1 tab Q4HR PRN Administration PAIN Famotidine 20 mg 05/18/19 21:00 05/19/19 09:03 Pepcid IVP 20 mg BID DONALD Administration Gabapentin 300 mg 05/18/19 18:00 05/19/19 14:49 Neurontin PO Not Given TID DONALD Heparin Sodium (Porcine) 5,000 unit 05/18/19 21:00 05/19/19 09:08 SUBQ 5,000 unit BID DONALD Administration Dextrose/Sodium Chloride 1,000 mls @ 100 mls/hr 05/18/19 14:00 05/19/19 11:29 D5ns IV 100 mls/hr .Q10H DONALD Administration Cefepime HCl 1 gm/ Sodium 100 mls @ 200 mls/hr 05/19/19 01:00 05/19/19 12:56 Chloride IV 200 mls/hr Q12H DONALD Administration Vancomycin HCl 1 gm/ 250 mls @ 167 mls/hr 05/18/19 15:00 05/18/19 16:57 Vancomycin HCl 250 mg/ Sodium IV Infused Chloride Q24H DONALD Infusion Levothyroxine Sodium 50 mcg 05/19/19 07:00 05/19/19 06:11 Synthroid PO 50 mcg QDAC DONALD Administration Mineral Oil 1 applic 05/18/19 20:38 05/18/19 21:12 Cavilon TOP 1 applic PRN PRN Administration Skin Care Quetiapine Fumarate 25 mg 05/18/19 21:00 05/18/19 20:37 Seroquel PO 25 mg QPM DONALD Administration Sodium Chloride 10 ml 05/18/19 17:00 05/19/19 09:03 Normal Saline Flush 0.9% IVP 10 ml 0100,0900,1700 DONALD Administration Tamsulosin HCl 0.4 mg 05/19/19 09:00 05/19/19 09:04 Flomax PO 0.4 mg DAILY DONALD Administration - Lab Result Fish Bone Diagrams: 05/19/19 04:36 05/19/19 04:36 - Additional Planning My Orders: My Active Orders 05/18/19 14:00 Dextrose 5%-0.9% NaCl [D5ns] 1,000 ml IV 100 mls/hr 05/18/19 15:00 Vancomycin Inj [Vancomycin] 1 gm Vancomycin Inj 250 mg Sodium Chloride 0.9% [Normal Saline 0.9%] 250 ml IV Q24H 05/18/19 17:00 Sodium Chloride Flush 0.9% [Normal Saline Flush 0.9%] 10 ml IVP 0100,0900,1700 05/18/19 18:00 Gabapentin [Neurontin] 300 mg PO TID 05/18/19 20:38 Min Oil/Dimeth/Coconut Oil Crm [Cavilon] 1 applic TOP PRN PRN 05/18/19 21:00 Famotidine [Pepcid] 20 mg IVP BID Heparin 5,000 unit SUBQ BID 05/18/19 Dinner DIET [Soft (Low Fiber) Diet] [DIET] 05/19/19 01:00 Cefepime 1 gm Sodium Chloride 0.9% Minibag [Normal Saline 0.9% Minibag] 100 ml IV Q12H 05/19/19 07:00 Levothyroxine [Synthroid] 50 mcg PO QDAC 05/19/19 09:00 Tamsulosin [Flomax] 0.4 mg PO DAILY 05/19/19 15:00 Vancomycin [Vancocin] 125 mg PO QID 05/20/19 05:00 CBC - COMP BLD CT W/AUTO DIFF [HEME] DAILYLAB COMPREHENSIVE METABOLIC PANEL [CHEM] DAILYLAB PHOSPHORUS [CHEM] DAILYLAB 05/21/19 05:00 CBC - COMP BLD CT W/AUTO DIFF [HEME] DAILYLAB COMPREHENSIVE METABOLIC PANEL [CHEM] DAILYLAB Subjective - Subjective Patient Reports: Resting Comfortably Objective Vital Signs: Vital Signs - 24 hr 05/18/19 05/18/19 05/18/19 15:00 17:00 19:00 Temperature 36.8 C Heart Rate [ 96 100 92 Monitoring electrodes] Respiratory 25 H 15 22 Rate Blood Pressure 100/58 L 113/69 [Right Brachial artery] O2 Saturation 100 100 100 05/18/19 05/18/19 05/19/19 21:20 23:00 01:00 Temperature Heart Rate [ 98 105 H 100 Monitoring electrodes] Respiratory 18 18 23 Rate Blood Pressure 114/69 106/69 99/54 L [Right Brachial artery] O2 Saturation 100 99 100 05/19/19 05/19/19 05/19/19 03:00 05:00 07:00 Temperature 36.6 C Heart Rate [ 92 91 87 Monitoring electrodes] Respiratory 22 19 22 Rate Blood Pressure 89/63 L 114/64 100/64 [Right Brachial artery] O2 Saturation 97 05/19/19 05/19/19 05/19/19 09:00 10:00 12:24 Temperature 36.4 C L 36.6 C Heart Rate [ 86 98 94 Monitoring electrodes] Respiratory 17 22 22 Rate Blood Pressure 106/64 101/75 94/61 [Right Brachial artery] O2 Saturation 97 98 97 05/19/19 14:50 Temperature Heart Rate [ 98 Monitoring electrodes] Respiratory 97 H Rate Blood Pressure 110/66 [Right Brachial artery] O2 Saturation 21 L Oxygen O2 Source Room air I&O (Last 24 Hrs): Intake and Output Totals x24h 05/17/19 05/18/19 05/19/19 23:59 23:59 23:59 Intake Total 2049 2769 Output Total 0 Balance 2049 2769 General: Other (Sleeping, sedated last night) HEENT: Mucous membr. moist/pink, Other (edentulous, temporal wasting) Neck: Supple Neuro: Disoriented (last night), Non Focal Cardiovascular: No murmurs, Other (Irreg) Respiratory: No respiratory distress, Breath sounds nml Abdomen: Normal bowel sounds, Soft Extremities: No edema - Results Results: Laboratory Results WBC 5.1 x10^3/uL (4.8-10.8) 05/19/19 04:36 RBC 3.32 10^6/uL (4.70-6.10) L 05/19/19 04:36 Hgb 10.0 g/dL (14.0-18.0) L 05/19/19 04:36 Hct 32.2 % (42.0-52.0) L 05/19/19 04:36 MCV 97.0 fL (80.0-94.0) H 05/19/19 04:36 MCH 30.1 pg (27.0-31.0) 05/19/19 04:36 MCHC 31.1 g/dL (32.0-36.0) L 05/19/19 04:36 RDW 13.8 % (12.0-15.0) 05/19/19 04:36 Plt Count 229 10^3/uL (130-450) 05/19/19 04:36 MPV 10.1 fL (7.4-11.4) 05/19/19 04:36 Neut # (Auto) 3.3 10^3/uL (1.5-6.6) 05/19/19 04:36 Lymph # (Auto) 1.2 10^3/uL (1.5-3.5) L 05/19/19 04:36 [place] # (Auto) 0.5 10^3/uL (0.0-1.0) 05/19/19 04:36 Eos # (Auto) 0.1 10^3/uL (0.0-0.7) 05/19/19 04:36 Baso # (Auto) 0.0 10^3/uL (0.0-0.1) 05/19/19 04:36 Absolute Nucleated RBC 0.00 x10^3/uL 05/19/19 04:36 Nucleated RBC % 0.0 /100WBC 05/19/19 04:36 Sodium 135 mmol/L (135-145) 05/19/19 04:36 Potassium 3.6 mmol/L (3.5-5.0) 05/19/19 04:36 Chloride 104 mmol/L (101-111) 05/19/19 04:36 Carbon Dioxide 23 mmol/L (21-32) 05/19/19 04:36 Anion Gap 8.0 (6-13) 05/19/19 04:36 BUN 21 mg/dL (6-20) H 05/19/19 04:36 Creatinine 1.2 mg/dL (0.6-1.2) 05/19/19 04:36 Estimated GFR (MDRD) 58 (>89) L 05/19/19 04:36 Glucose 119 mg/dL (70-100) H 05/19/19 04:36 Lactic Acid 1.3 mmol/L (0.5-2.2) 05/18/19 11:38 Calcium 7.8 mg/dL (8.5-10.3) L 05/19/19 04:36 Phosphorus 2.5 mg/dL (2.5-4.6) 05/19/19 04:36 Magnesium 1.8 mg/dL (1.7-2.8) 05/19/19 04:36 Total Bilirubin 0.5 mg/dL (0.2-1.0) 05/19/19 04:36 AST 19 IU/L (10-42) 05/19/19 04:36 ALT < 10 IU/L (10-60) L 05/19/19 04:36 Alkaline Phosphatase 112 IU/L (42-121) 05/19/19 04:36 Troponin I High Sens 6.1 pg/mL (2.3-19.7) 05/18/19 18:35 Total Protein 5.4 g/dL (6.7-8.2) L 05/19/19 04:36 Albumin 1.9 g/dL (3.2-5.5) L 05/19/19 04:36 Globulin 3.5 g/dL (2.1-4.2) 05/19/19 04:36 Albumin/Globulin Ratio 0.5 (1.0-2.2) L 05/19/19 04:36 Lipase 22 U/L (22-51) 05/18/19 09:37 TSH 8.75 uIU/mL (0.34-5.60) H 05/19/19 04:36 Urine Color YELLOW 05/18/19 10:22 Urine Clarity SL. CLOUDY (CLEAR) 05/18/19 10:22 Urine pH 7.0 PH (5.0-7.5) 05/18/19 10:22 Ur Specific [place] 1.020 (1.002-1.030) 05/18/19 10:22 Urine Protein 100 mg/dL (NEGATIVE) H 05/18/19 10:22 Urine Glucose (UA) NEGATIVE mg/dL (NEGATIVE) 05/18/19 10:22 Urine Ketones TRACE mg/dL (NEGATIVE) 05/18/19 10:22 Urine Occult Blood LARGE (NEGATIVE) H 05/18/19 10:22 Urine Nitrite POSITIVE (NEGATIVE) H 05/18/19 10:22 Urine Bilirubin NEGATIVE (NEGATIVE) 05/18/19 10:22 Urine Urobilinogen 0.2 (NORMAL) E.U./dL (NORMAL) 05/18/19 10:22 Ur Leukocyte Esterase LARGE (NEGATIVE) H 05/18/19 10:22 Urine RBC 11-25 /HPF (0-5) H 05/18/19 10:22 Urine WBC >25 /HPF (0-3) H 05/18/19 10:22 Ur Squamous Epith Cells NONE SEEN (<= Few) 05/18/19 10:22 Urine Bacteria Moderate /HPF (None Seen) H 05/18/19 10:22 Ur Microscopic Review INDICATED 05/18/19 10:22 Urine Culture Comments INDICATED 05/18/19 10:22 Nasal Screen MRSA (PCR) NEGATIVE (NEGATIVE) 05/18/19 13:50 Stl C. diff Tox B Gene POSITIVE (NEGATIVE) A* 05/19/19 09:45 Last Dose Date 05/18/19 05/19/19 14:34 Last Dose Time 165605/19/19 14:34 Random Vancomycin 7.7 ug/mL 05/19/19 14:34 - Procedures Procedures: Procedures REPOSITION RIGHT UPPER FEMUR WITH INT FIX, OPEN APPROACH (09/10/17)
[2019-05-19] MEDS ORDERED: IBUPROFEN 600 MG TABLET PO SCH (15:14)
[2019-05-19] MEDS: VANCOMYCIN INJ 1 GM, VANCOMYCIN INJ 250 MG in SODIUM CHLORIDE 0.9% 250 ML IV SCH (16:12)
[2019-05-19] MEDS: VANCOMYCIN 125 MG CAPSULE PO SCH ×2 (16:12→20:37)
[2019-05-19] MEDS: QUEtiapine 25 MG TABLET PO SCH (20:37)
[2019-05-19] MEDS: MIN OIL/DIMETHICON/COCONUT OIL 92 GM TUBE TOP PRN (20:53)
[2019-05-20] MEDS: SODIUM CHLORIDE FLUSH 0.9% 10 ML SYRINGE IVP SCH ×3 (00:50→17:04)
[2019-05-20] MEDS: CEFEPIME 1 GM in SODIUM CHLORIDE 0.9% MINIBAG 100 ML IV SCH ×2 (00:52→13:36)
[2019-05-20 05:23] LABS: BASOPHILS % (AUTO) 0.6 %; EOSINOPHILS % (AUTO) 0.7 %; HGB - HEMOGLOBIN 9.9 g/dL (14.0-18.0); LYMPHOCYTES # (AUTO) 1.2 10^3/uL (1.5-3.5); LYMPHOCYTES % (AUTO) 21.7 %; MEAN CORPUSCULAR HEMOGLOBIN 30.2 pg (27.0-31.0); MEAN CORPUSCULAR HGB CONC 30.9 g/dL (32.0-36.0); MEAN CORPUSCULAR VOLUME 97.6 fL (80.0-94.0); MONOCYTES # (AUTO) 0.5 10^3/uL (0.0-1.0); MONOCYTES % (AUTO) 8.3 %; NEUTROPHILS # (AUTO) 3.7 10^3/uL (1.5-6.6); NEUTROPHILS % (AUTO) 68.3 %; PLT - PLATELET COUNT 211 10^3/uL (130-450); RED BLOOD COUNT 3.28 10^6/uL (4.70-6.10); WHITE BLOOD COUNT 5.4 x10^3/uL (4.8-10.8)
[2019-05-20 05:44] LABS: ALBUMIN 1.9 g/dL (3.2-5.5); ALBUMIN/GLOBULIN RATIO 0.5 (1.0-2.2); ALKALINE PHOSPHATASE 135 IU/L (42-121); ALT ALANINE AMINOTRANSFERASE < 10 IU/L (10-60); AST ASPARTATE AMINOTRANSFERASE 18 IU/L (10-42); BILIRUBIN,TOTAL 0.7 mg/dL (0.2-1.0); BUN - BLOOD UREA NITROGEN 15 mg/dL (6-20); CALCIUM 8.2 mg/dL (8.5-10.3); CARBON DIOXIDE - CO2 23 mmol/L (21-32); CHLORIDE 110 mmol/L (101-111); GFR - MDRD 72 (>89); GLUCOSE 151 mg/dL (70-100); IRON 24 ug/dL (45-182); PHOSPHORUS 2.7 mg/dL (2.5-4.6); SODIUM 139 mmol/L (135-145); TOTAL PROTEIN 5.4 g/dL (6.7-8.2); TRANSFERRIN < 70 mg/dL (180-329)
[2019-05-20 05:59] LABS: FREE T4 (FREE THYROXINE) 0.79 ng/dL (0.58-1.64)
[2019-05-20 06:08] LABS: FOLATE 3.89 ng/mL (5.90 - >24.8)
[2019-05-20] MEDS: GABAPENTIN 300 MG CAPSULE PO SCH ×3 (06:14→21:19)
[2019-05-20] MEDS: DEXTROSE 5%-0.9% NACL 1,000 ML IV SCH ×3 (06:14→22:20)
[2019-05-20] MEDS: LEVOTHYROXINE 25 MCG TABLET PO SCH (06:14)
--- NOTE | 2019-05-20 09:12 | PROVIDER PROGRESS NOTE ---
Subjective - Prog Note Date Prog Note Date: 05/20/19 Prog Note Time: 09:24 - Subjective Subjective: his main observation is that we don't know what we're doing with regards to his food or medicine or pain control. c/o left knee pain and is "going to get bone graft" tomorrow. there is no cp, sob, abd pain. Current Medications - Current Medications Current Medications: Active Medications Acetaminophen (Tylenol) 650 mg PO Q4HR PRN PRN Reason: Pain or Fever > 38C (100.4F) Last Admin: 05/19/19 20:43 Dose: 650 mg Hydrocodone Bitart/Acetaminophen ([place] 5/325) 1 tab PO Q4HR PRN PRN Reason: PAIN Last Admin: 05/19/19 09:59 Dose: 1 tab Famotidine (Pepcid) 20 mg IVP BID [facility] Last Admin: 05/19/19 20:38 Dose: 20 mg Gabapentin (Neurontin) 300 mg PO TID [facility] Last Admin: 05/20/19 06:14 Dose: 300 mg Heparin Sodium (Porcine) () 5,000 unit SUBQ BID [facility] Last Admin: 05/19/19 20:43 Dose: 5,000 unit Dextrose/Sodium Chloride (D5ns) 1,000 mls @ 100 mls/hr IV .Q10H [facility] Last Admin: 05/20/19 06:14 Dose: Not Given Cefepime HCl 1 gm/ Sodium (Chloride) 100 mls @ 200 mls/hr IV Q12H [facility] Last Infusion: 05/20/19 01:30 Dose: Infused Ibuprofen (Motrin) 600 mg PO Q6HR PRN PRN Reason: pain Levothyroxine Sodium (Synthroid) 50 mcg PO QDAC [facility] Last Admin: 05/20/19 06:14 Dose: 50 mcg Mineral Oil (Cavilon) 1 applic TOP PRN PRN PRN Reason: Skin Care Last Admin: 05/19/19 20:53 Dose: 1 applic Prochlorperazine Edisylate (Compazine Inj) 10 mg IVP Q6HR PRN PRN Reason: Nausea / Vomiting Quetiapine Fumarate (Seroquel) 25 mg PO QPM [facility] Last Admin: 05/19/19 20:37 Dose: 25 mg Sodium Chloride (Normal Saline Flush 0.9%) 10 ml IVP 0100,0900,1700 [facility] Last Admin: 05/20/19 00:50 Dose: Not Given Sodium Chloride (Normal Saline Flush 0.9%) 10 ml IVP PRN PRN PRN Reason: NEEDED PER PROVIDER ORDERS Tamsulosin HCl (Flomax) 0.4 mg PO DAILY [facility] Last Admin: 05/19/19 09:04 Dose: 0.4 mg Vancomycin HCl (Vancocin) 125 mg PO QID [facility] Last Admin: 05/19/19 20:37 Dose: 125 mg Pravastatin Sodium [Pravachol] 20 mg PO QPM 03/05/19 Tamsulosin [Flomax] 0.4 mg PO DAILY 03/05/19 Levothyroxine [Synthroid] 50 mcg PO QDAC 05/18/19 Midodrine HCl 10 mg PO TIDWM 05/18/19 Objective - Vital Signs/Intake & Output Reviewed Vital Signs: Yes Vital Signs: Vital Signs x48h Temp Pulse Resp BP Pulse Ox 05/20/19 07:00 36.8 C 100 21 130/81 H 97 05/20/19 06:12 36.8 C 83 20 102/63 99 05/20/19 04:13 76 19 86/55 L Intake & Output: Intake & Output 05/17/19 05/18/19 05/19/19 05/20/19 23:59 23:59 23:59 23:59 Intake Total 2049 4120 700 Output Total 0 200 Balance 2049 3920 700 - Objective General Appearance: positive: No acute distress, Alert, Other (cachectic eldelry male with jenkins, lack of teeth, not happy) Eyes Bilateral: positive: PERRL, EOMI Neck: positive: No JVD. negative: Stiff neck, Carotid bruit Respiratory: positive: Chest non-tender. negative: Wheezes, Rales, Rhonchi Cardiovascular: positive: Irregularly irregular, Other (tachycardia improved this am). negative: Gallop/S4, Friction rub Abdomen: positive: Non-tender, No organomegaly, Nml bowel sounds, No distention Skin: positive: Warm, Dry Extremities: positive: Full ROM, No pedal edema. negative: Joint swelling Neurologic/Psychiatric: positive: Oriented x3, CN's nml (2-12), Motor nml (but he is refusing to get out of bed bc of left knee pain) - Lab Results Fish Bones: 05/20/19 04:54 05/20/19 04:54 Other Labs: Lab Results x24hrs 05/20/19 05/20/19 05/20/19 Range/Units 04:54 04:54 04:54 WBC 5.4 (4.8-10.8) x10^3/uL RBC 3.28 L (4.70-6.10) 10^6/uL Hgb 9.9 L (14.0-18.0) g/dL Hct 32.0 L (42.0-52.0) % MCV 97.6 H (80.0-94.0) fL MCH 30.2 (27.0-31.0) pg MCHC 30.9 L (32.0-36.0) g/dL RDW 14.0 (12.0-15.0) % Plt Count 211 (130-450) 10^3/uL MPV 10.0 (7.4-11.4) fL Neut # (Auto) 3.7 (1.5-6.6) 10^3/uL Lymph # (Auto) 1.2 L (1.5-3.5) 10^3/uL [place] # (Auto) 0.5 (0.0-1.0) 10^3/uL Eos # (Auto) 0.0 (0.0-0.7) 10^3/uL Baso # (Auto) 0.0 (0.0-0.1) 10^3/uL Absolute Nucleated RBC 0.00 x10^3/uL Nucleated RBC % 0.0 /100WBC Sodium 139 (135-145) mmol/L Potassium 3.5 (3.5-5.0) mmol/L Chloride 110 (101-111) mmol/L Carbon Dioxide 23 (21-32) mmol/L Anion Gap 6.0 (6-13) BUN 15 (6-20) mg/dL Creatinine 1.0 (0.6-1.2) mg/dL Estimated GFR (MDRD) 72 L (>89) Glucose 151 H (70-100) mg/dL Calcium 8.2 L (8.5-10.3) mg/dL Phosphorus 2.7 (2.5-4.6) mg/dL Iron 24 L (45-182) ug/dL Transferrin < 70 L (180-329) mg/dL Total Bilirubin 0.7 (0.2-1.0) mg/dL AST 18 (10-42) IU/L ALT < 10 L (10-60) IU/L Alkaline Phosphatase 135 H (42-121) IU/L Total Protein 5.4 L (6.7-8.2) g/dL Albumin 1.9 L (3.2-5.5) g/dL Globulin 3.5 (2.1-4.2) g/dL Albumin/Globulin Ratio 0.5 L (1.0-2.2) Folate 3.89 L (5.90 - >24.8) ng/mL Free T4 0.79 (0.58-1.64) ng/dL Stl C. diff Tox B Gene (NEGATIVE) Last Dose Date Last Dose Time Random Vancomycin ug/mL 05/19/19 05/19/19 Range/Units 14:34 09:45 WBC (4.8-10.8) x10^3/uL RBC (4.70-6.10) 10^6/uL Hgb (14.0-18.0) g/dL Hct (42.0-52.0) % MCV (80.0-94.0) fL MCH (27.0-31.0) pg MCHC (32.0-36.0) g/dL RDW (12.0-15.0) % Plt Count (130-450) 10^3/uL MPV (7.4-11.4) fL Neut # (Auto) (1.5-6.6) 10^3/uL Lymph # (Auto) (1.5-3.5) 10^3/uL [place] # (Auto) (0.0-1.0) 10^3/uL Eos # (Auto) (0.0-0.7) 10^3/uL Baso # (Auto) (0.0-0.1) 10^3/uL Absolute Nucleated RBC x10^3/uL Nucleated RBC % /100WBC Sodium (135-145) mmol/L Potassium (3.5-5.0) mmol/L Chloride (101-111) mmol/L Carbon Dioxide (21-32) mmol/L Anion Gap (6-13) BUN (6-20) mg/dL Creatinine (0.6-1.2) mg/dL Estimated GFR (MDRD) (>89) Glucose (70-100) mg/dL Calcium (8.5-10.3) mg/dL Phosphorus (2.5-4.6) mg/dL Iron (45-182) ug/dL Transferrin (180-329) mg/dL Total Bilirubin (0.2-1.0) mg/dL AST (10-42) IU/L ALT (10-60) IU/L Alkaline Phosphatase (42-121) IU/L Total Protein (6.7-8.2) g/dL Albumin (3.2-5.5) g/dL Globulin (2.1-4.2) g/dL Albumin/Globulin Ratio (1.0-2.2) Folate (5.90 - >24.8) ng/mL Free T4 (0.58-1.64) ng/dL Stl C. diff Tox B Gene POSITIVE A* (NEGATIVE) Last Dose Date 05/18/19 Last Dose Time 1657 Random Vancomycin 7.7 ug/mL ABX Reporting Has patient been on IV antibiotics over the past 48 hours?: Yes Assessment/Plan - Problem List (1) C. difficile diarrhea Impression: He had been on antibiotics approximately 2 months ago. This diarrhea started about 3 days ago. C. difficile positive by PCR 05/19 Isolation precautions ordered We will start oral vancomycin. Day #2 (2) Sepsis due to gram-negative UTI. Sepsis has resolved. Assessment/Plan: Urine culture is growing pseudomonas. And blood cultures are negative to date Heart rate and blood pressure are better. Stop vancomycin IV and continue cefipime Day #2 today (which does cover the pseudomonas). He doesn't have elevated WBC and fever is not present. Change to oral levaquin tomorrow. (3) Confusion and disorientation Assessment/Plan: The ER nurse told our staff that she knows that the patient 's. 05/18, approximately 7 PM he started to be confused, agitated and required dose of Seroquel. So far that is working. 05/19 early am received [place] and slept thru the day. Today, He is not happy this am. Feels no one knows what they're doing here, doesn't like the food. Continue meds for . (4) Atrial fibrillation with RVR Assessment/Plan: His A. fib is paroxysmal. 2 months ago he was in sinus rhythm. He had been on Coumadin in the past which was stopped when he developed hematuria. Heart rate is under better control with management of his infection and better volume status. He is not on rate lowering meds at this time. 05/19 at night 104-112, this am 76-100 No new meds at this time. (5) Anemia most likely due to nutritional deficiency Assessment/Plan: This is likely hemodilution on top of chronic anemia. He has both a folate def as well as iron def. Laboratory Tests 05/19/19 05/20/19 05/20/19 04:36 04:54 04:54 Iron 24 L Transferrin < 70 L Folate 3.89 L TSH 8.75 H Free T4 0.79 Start oral iron and folate. (6) ZOYA (acute kidney injury) resolved. Assessment/Plan: There has been improvement in creatinine with rehydration. Creat 1.4>1.2>1.0 (7) Hypothyroidism Assessment/Plan: This patient was on thyroid replacement. His TSH returned high. We will check freeT4 which is low normal. continue his usual dose without change (8) History of BPH Assessment/Plan: He also has a history of prostate cancer with treatment in the past. Continue his Flomax (9) Cachexia and failure to thrive with generalized weakness, left knee pain from OA Assessment/Plan: Will request a dietary consult PT/OT ulices [employer] has spoken to his and patient/ agree he is to be placed si nce she cannot take care of him. He wants his knee treated since it is cause of pain and lack of ambulation. I don't know how far ortho was going to go with this. I will investigate.
[2019-05-20] MEDS: HEPARIN 5,000 UNIT/ML VIAL SUBQ SCH ×2 (10:28→21:20)
[2019-05-20] MEDS: FAMOTIDINE 20 MG/2 ML VIAL IVP SCH ×2 (10:33→21:19)
[2019-05-20] MEDS: FOLIC ACID 1 MG TABLET PO SCH (10:36)
[2019-05-20] MEDS: IBUPROFEN 600 MG TABLET PO PRN ×2 (10:37→22:23)
[2019-05-20] MEDS: VANCOMYCIN 125 MG CAPSULE PO SCH ×4 (10:38→21:19)
[2019-05-20] MEDS: MIN OIL/DIMETHICON/COCONUT OIL 92 GM TUBE TOP PRN ×2 (10:45→17:04)
[2019-05-20] MEDS: FERROUS GLUCONATE 324 MG TABLET PO SCH (10:45)
[2019-05-20] MEDS: TAMSULOSIN 0.4 MG CAPSULE PO SCH (10:51)
[2019-05-20] MEDS: MULTIVITAMIN W/MINERALS TABLET PO SCH (17:03)
[2019-05-20] MEDS: LACTOBACILLUS RHAMNOSUS GG CAPSULE PO SCH (17:03)
[2019-05-20] MEDS: QUEtiapine 25 MG TABLET PO SCH (21:19)
[2019-05-21] MEDS: SODIUM CHLORIDE FLUSH 0.9% 10 ML SYRINGE IVP SCH ×2 (00:41→09:10)
[2019-05-21] MEDS: CEFEPIME 1 GM in SODIUM CHLORIDE 0.9% MINIBAG 100 ML IV SCH ×2 (00:41→13:31)
[2019-05-21 04:56] LABS: BASOPHILS % (AUTO) 0.8 %; EOSINOPHILS # (AUTO) 0.1 10^3/uL (0.0-0.7); EOSINOPHILS % (AUTO) 2.1 %; HGB - HEMOGLOBIN 10.3 g/dL (14.0-18.0); LYMPHOCYTES # (AUTO) 1.2 10^3/uL (1.5-3.5); MEAN CORPUSCULAR HEMOGLOBIN 31.1 pg (27.0-31.0); MEAN CORPUSCULAR HGB CONC 31.4 g/dL (32.0-36.0); MEAN CORPUSCULAR VOLUME 99.1 fL (80.0-94.0); MONOCYTES # (AUTO) 0.5 10^3/uL (0.0-1.0); NEUTROPHILS # (AUTO) 3.5 10^3/uL (1.5-6.6); NEUTROPHILS % (AUTO) 64.7 %; PLT - PLATELET COUNT 226 10^3/uL (130-450); RED BLOOD COUNT 3.31 10^6/uL (4.70-6.10); RED CELL DISTRIBUTION WIDTH 13.9 % (12.0-15.0); WHITE BLOOD COUNT 5.3 x10^3/uL (4.8-10.8)
[2019-05-21 05:11] LABS: ALBUMIN 1.8 g/dL (3.2-5.5); ALBUMIN/GLOBULIN RATIO 0.5 (1.0-2.2); BILIRUBIN,TOTAL 0.5 mg/dL (0.2-1.0); TOTAL PROTEIN 5.4 g/dL (6.7-8.2)
[2019-05-21] MEDS: LEVOTHYROXINE 25 MCG TABLET PO SCH (06:28)
[2019-05-21] MEDS: GABAPENTIN 300 MG CAPSULE PO SCH ×2 (06:28→13:31)
[2019-05-21] MEDS ORDERED: CYANOCOBALAMIN 1,000 MCG/ML VIAL IM ONE (08:50)
[2019-05-21] MEDS: VANCOMYCIN 125 MG CAPSULE PO SCH ×2 (09:09→13:31)
[2019-05-21] MEDS: LACTOBACILLUS RHAMNOSUS GG CAPSULE PO SCH (09:09)
[2019-05-21] MEDS: MULTIVITAMIN W/MINERALS TABLET PO SCH (09:09)
[2019-05-21] MEDS: FOLIC ACID 1 MG TABLET PO SCH (09:10)
[2019-05-21] MEDS: TAMSULOSIN 0.4 MG CAPSULE PO SCH (09:10)
[2019-05-21] MEDS: HEPARIN 5,000 UNIT/ML VIAL SUBQ SCH (09:10)
[2019-05-21] MEDS: FAMOTIDINE 20 MG/2 ML VIAL IVP SCH (09:10)
[2019-05-21] MEDS: FERROUS GLUCONATE 324 MG TABLET PO SCH (09:10)
[2019-05-21] MEDS: DEXTROSE 5%-0.9% NACL 1,000 ML IV SCH (09:11)
--- NOTE | 2019-05-21 09:39 | PROVIDER PROGRESS NOTE ---
Subjective - Prog Note Date Prog Note Date: 05/21/19 Prog Note Time: 18:15 - Subjective Pt reports feeling: Improved Subjective: ready to go to [facility] Current Medications - Current Medications Current Medications: Pravastatin Sodium [Pravachol] 20 mg PO QPM 03/05/19 Midodrine HCl 10 mg PO TIDWM 05/18/19 Objective - Vital Signs/Intake & Output Reviewed Vital Signs: Yes Vital Signs: Vital Signs x48h Temp Pulse Resp BP Pulse Ox 05/21/19 08:35 90 18 150/111 H 97 05/21/19 04:39 36.6 C 81 16 109/57 L 99 Intake & Output: Intake & Output 05/18/19 05/19/19 05/20/19 05/21/19 23:59 23:59 23:59 23:59 Intake Total 2049 4120 3980 Output Total 0 200 Balance 2049 3920 3980 - Objective General Appearance: positive: Alert, Other (see discharge summary) - Lab Results Fish Bones: 05/21/19 04:35 05/21/19 04:35 Other Labs: Lab Results x24hrs 05/21/19 05/21/19 05/21/19 Range/Units 04:35 04:35 04:35 WBC 5.3 (4.8-10.8) x10^3/uL RBC 3.31 L (4.70-6.10) 10^6/uL Hgb 10.3 L (14.0-18.0) g/dL Hct 32.8 L (42.0-52.0) % MCV 99.1 H (80.0-94.0) fL MCH 31.1 H (27.0-31.0) pg MCHC 31.4 L (32.0-36.0) g/dL RDW 13.9 (12.0-15.0) % Plt Count 226 (130-450) 10^3/uL MPV 10.0 (7.4-11.4) fL Neut # (Auto) 3.5 (1.5-6.6) 10^3/uL Lymph # (Auto) 1.2 L (1.5-3.5) 10^3/uL [place] # (Auto) 0.5 (0.0-1.0) 10^3/uL Eos # (Auto) 0.1 (0.0-0.7) 10^3/uL Baso # (Auto) 0.0 (0.0-0.1) 10^3/uL Absolute Nucleated RBC 0.00 x10^3/uL Nucleated RBC % 0.0 /100WBC Sodium 136 (135-145) mmol/L Potassium 3.8 (3.5-5.0) mmol/L Chloride 107 (101-111) mmol/L Carbon Dioxide 23 (21-32) mmol/L Anion Gap 6.0 (6-13) BUN 13 (6-20) mg/dL Creatinine 1.0 (0.6-1.2) mg/dL Estimated GFR (MDRD) 72 L (>89) Glucose 143 H (70-100) mg/dL Calcium 8.0 L (8.5-10.3) mg/dL Total Bilirubin 0.5 (0.2-1.0) mg/dL AST 35 (10-42) IU/L ALT 14 (10-60) IU/L Alkaline Phosphatase 172 H (42-121) IU/L Total Protein 5.4 L (6.7-8.2) g/dL Albumin 1.8 L (3.2-5.5) g/dL Globulin 3.6 (2.1-4.2) g/dL Albumin/Globulin Ratio 0.5 L (1.0-2.2) Vitamin B12 173 L (180-914) pg/mL Assessment/Plan - Problem List (1) C. difficile diarrhea Impression: He had been on antibiotics approximately 2 months ago. This diarrhea started about 3 days ago. C. difficile positive by PCR 05/19 Isolation precautions ordered We will start oral vancomycin. Day #3 (2) Sepsis due to gram-negative UTI. Sepsis has resolved. Assessment/Plan: Urine culture is growing pseudomonas. And blood cultures are negative to date Heart rate and blood pressure are better. Stop vancomycin IV and continue cefipime Day #3 today (which does cover the pseudomonas) and will be changed to cipro for SNF. He doesn't have elevated WBC and fever is not present. (3) Confusion and disorientation Assessment/Plan: The ER nurse told our staff that she knows that the patient sund's. 05/18, approximately 7 PM he started to be confused, agitated and required dose of Seroquel. So far that is working. 05/19 early am received Joes and slept thru the day. Yesterday, He was not happy in am. Feels no one knows what they're doing here, doesn't like the food. Better by afternoon and this am, no comp laints. Continue meds for . (4) Atrial fibrillation with RVR Assessment/Plan: His A. fib is paroxysmal. 2 months ago he was in sinus rhythm. He had been on Coumadin in the past which was stopped when he developed hematuria. Heart rate is under better control with management of his infection and better volume status. He is not on rate lowering meds at this time. No new meds at this time. (5) Anemia most likely due to nutritional deficiency Assessment/Plan: This is likely hemodilution on top of chronic anemia. He has both a folate def as well as iron def. Laboratory Tests 05/19/19 05/20/19 05/20/19 04:36 04:54 04:54 Iron 24 L Transferrin < 70 L Folate 3.89 L TSH 8.75 H Free T4 0.79 on oral supplementation. 05/21/19 04:35 Vitamin B12 173 L Started oral iron and folate 05/20 and will add B12 today. (6) ZOYA (acute kidney injury) resolved. Assessment/Plan: There has been improvement in creatinine with rehydration. Creat 1.4>1.2>1.0 (7) Hypothyroidism Assessment/Plan: This patient was on thyroid replacement. His TSH returned high. We will check freeT4 which is low normal. continue his usual dose without change (8) History of BPH Assessment/Plan: He also has a history of prostate cancer with treatment in the past. Continue his Flomax (9) Cachexia and failure to thrive with generalized weakness, left knee pain from OA Assessment/Plan: Will request a dietary consult PT/OT ulices marrero done. Social work has spoken to his and patient/ agree he is to be placed since she cannot take care of him. He wants his knee treated since it is cause of pain and lack of ambulation. I don't know how far ortho was going to go with this. I will investigate.
--- NOTE | 2019-05-21 11:29 | Discharge Plan ---
"Discharge Plan for SNF / TRICE - Discharge Plan And Transition Orders Problem Reviewed?: Yes Disposition: 03 SNF DC/Xfer Condition: Fair Allergies and Adverse Reactions: Allergies Allergy/AdvReac Type Severity Reaction Status Date / Time No Known Drug Allergies Allergy Verified 04/28/19 15:43 Health Concerns: You were brought to the hospital by your because of severe weakness after 2 days of diarrhea, confusion, not eating much. You had gotten to the point that you were not getting out of bed and were covered in stool. Plan of Treatment: The following were the problems that we found: 1. C. difficile diarrhea. It is a diarrhea produced from a toxin in your bowel. Most likely it arose from previous antibiotic therapy in the last few months. 2. Dehydration, weakness, and malnutrition. 3. Dehydration resulted in acute kidney injury which resolved 4. Enough malnutrition that you have iron deficiency as well as B12 deficiency. You will need to take iron for the next few months. And you will need to take B12 once a month through an injection. 5. Urinary tract infection with Pseudomonas. You will need to take an antibiotic for the next week to complete treatment. Care Goals: 1. To regain nutrition and strength. 2. To complete therapy for the urinary tract infection and C. difficile colitis Assessment: Patient states he understands these goals but will decide on his own, on a [id number] basis, whether he will comply with recommendations. - SNF / CARE HOME Transition Orders Admit to (Facility): [facility] Under the care of (Name): Basim Otto/Jonel Hays Discharge Diagnosis: 1. Severe sepsis with endorgan damage of acute kidney injury and hypotension 2. Pseudomonas UTI 3. C. difficile colitis and diarrhea 4. Paroxysmal atrial fibrillation, no anticoagulation due to hematuria 5. Acute on chronic kidney disease 7. History of prostate cancer 8. Malnutrition with cachexia, B12 deficiency anemia, iron deficiency anemia 9. Hypothyroidism Medicare Certification Statement: I certify that Post Hospital custodial care is medically necessary on a continuing basis for any of the conditions for which she/he is receiving care during hospitalization. Notify PCP of admission and forward orders to primary provider for signature. Weight on admission and: Weekly Other Notification Orders: Call PCP immediately if patient develops dyspnea, chest pain/tightness or edema. House Bowel Program: Yes Additional Bowel Program Orders: If no BM after 2 days, nurse may give M.O.M. 30ml PO PRN and/or ducolax Supp 1 RI and/or RUBIO 250mg P.O., and/or senna 1-2 tabs PO. On day 3 nurse may give repeat above order until residents constipation is resolved. Annual Influenza Vaccine (between Mar 23 and October 20): Yes Two-step PPD per [facility] [id number] or approved exception documents: Yes Lab Tests or X-ray Orders: cbc, bmp in one week Medication Orders: PLEASE REFER TO THE DISCHARGE MEDICATION LIST. Insulin Orders?: No - Medications New Prescriptions: Ciprofloxacin HCl [Cipro] 500 mg PO BID #8 tablet - Diet Type: Geriatric Texture: Regular Liquids: Thin May have monthly special meal: Yes - Therapies | Activity Therapy: Evaluation | Treat if indicated: PT, OT Rehabilitation Potential: Maximize functional status Activity: Activity as Tolerated Assistance Devices: Walker"
[2019-05-21 16:46] VITALS: BP 109/59
--- NOTE | 2019-05-21 19:14 | DISCHARGE SUMMARY ---
Physician: Missy Isaacs MD DATE OF ADMISSION: 05/18/2019 DATE OF DISCHARGE: 05/21/2019 DISCHARGE DIAGNOSES 1. Sepsis due to Pseudomonas urinary tract infection, resolved. 2. Metabolic encephalopathy, resolved. 3. Pseudomonas urinary tract infection. 4. Clostridium difficile diarrhea. 5. Chronic atrial fibrillation with rapid ventricular response. 6. Nutritional deficiency anemia of both iron and B12 deficiency. 7. Acute kidney injury, resolved. 8. Hypothyroidism. 9. History of benign prostatic hypertrophy. 10. Failure to thrive. 11. Generalized weakness. 12. Left knee pain from osteoarthritis. DISCHARGE MEDICATIONS 1. Midodrine 10 mg t.i.d. 2. Pravachol 20 mg daily. 3. Tylenol 650 mg every 4 hours p.r.n. fever or pain or headache. 4. Cipro 500 mg p.o. b.i.d., #8 tablets. 5. Folic acid 1 mg daily. 6. Gabapentin 300 mg p.o. t.i.d. 7. Lactobacillus 1 capsule daily. 8. Synthroid 50 mcg daily. 9. Seroquel 25 mg p.o. q.p.m. p.r.n. insomnia or agitation. 10. Flomax 0.4 mg daily. 11. Vancomycin 125 mg p.o. q.i.d., 48 capsules. PRINCIPAL PROCEDURES 1. Abdominal x-ray, nonobstructive bowel gas pattern seen. No acute changes. 2. Chest x-ray: No acute cardiopulmonary findings. 3. Urine culture with Pseudomonas aeruginosa resistant to cefazolin, but sensitive to everything else. 4. Blood cultures negative after 2 days. HOSPITAL COURSE: Patient is an 83-year-old white male who lives at home. He has already been to [facility] after the last admission here 2 months ago for UTI and sepsis. He has been home a few weeks. is finding it increasingly untenable in her ability to take care of him. He waxes and wanes with compliance with medications with mood. He started having decreasing appetite and abdominal bloating a few days ago, then started having copious diarrhea. The diarrhea was so severe he was no longer able to get out of bed. He fell several times at home and he needed to be picked up by his grandson. When he could no longer pick himself up to go to the bathroom, and was covered in feces, paramedics were called. He had a low blood pressure and received 500 mL of saline en route to the hospital. This gentleman already has documented hypotension and is on midodrine. On presentation in the ER, his heart rate was 120, he is in atrial fibrillation, and a systolic blood pressure of 100. His sodium was 133, lactic acid 1.3. BUN and creatinine acutely elevated at 21 and 1.4. Total bilirubin 1.2. Protein low at 6.6, albumin low at 2.3. White cell count was 6.9, hemoglobin 12.0. MCV 97.4. Platelets 263. Urinalysis had proteinuria, a large amount of blood, positive for nitrites, large amount of leukocyte esterase, 11-25 red cells, greater than 25 white cells, moderate bacteria. Patient was initially admitted as sepsis. Probable UTI, but he did receive broad spectrum cefepime, vancomycin, C. difficile toxin came back on his stool, and urine started growing out Pseudomonas. As such, vancomycin was discontinued IV. He received vancomycin orally and continued on cefepime. Blood cultures remained negative and he did not have any bacteremia. White cell count continued to be normal and fever was never present. Sepsis criteria eventually resolved. He was treated as simple Clostridium difficile diarrhea. He is expected to receive at least 2 weeks of oral vancomycin with the discretion of how to continue per the long-term facility physician or his primary care provider, Tho Hays. When he was initially admitted, he had a metabolic encephalopathy manifested as confusion and disorientation. He would sundown in the evening. He received Seroquel for the sundowning, and by the second day of admission, was sleeping through the day, in a much better mood. He was continued on Seroquel p.r.n. He has a history of paroxysmal atrial fibrillation. Two months ago, he was in sinus rhythm. He has been on Coumadin in the past for atrial fibrillation, but it was stopped when he developed hematuria. He is on no rate lowering drugs at this time. During the rest of his stay, he converted to sinus rhythm and stayed in the 70s-80s. He is 74.5 kilograms and is 6 feet tall. Appears cachectic with nutritional deficiency. Iron studies were low with an iron of 24, transferrin less than 70. Folate 3.89 and low. B12 low at 173. TSH elevated at 8.75 with a free T4 of 0.79, which is low normal. He was started on folic acid, given 1000 mg IM shot of B12. It is recommended he continue that on a monthly basis. The injection was given on 05/20. Acute kidney injury, resolved. Creatinine started at 1.4 and went down to 1.0. Synthroid was not changed. He was continued on Flomax for his BPH. He was seen by physical therapy because he was so weak. He was able to waken from sleeping with verbal cues. He resisted waking up at first, but was able to open his eyes and participate. He was annoyed at having to be woken up, but eventually agreed to walk with physical therapy. He required cues to stop, to support himself appropriately with sitting and scooting to the edge of the bed. He tended to impulsively jackson through movements and transfers requiring multiple verbal cues for safety. He was able to ambulate 5 feet forward and backwards with contact guard assist, using a front-wheeled walker. No loss of balance. He has 3/5 lower extremity strength. Physical therapy did recommend he continue with strengthening exercises. They did recommend transfer to SNF after hospital stay to continue with PT, OT working toward his functional mobility goals. They did feel he was able to be transferred via wheelchair van. PHYSICAL EXAMINATION AT DISCHARGE VITAL SIGNS: Blood pressure was 109/59, pulse 77, temperature 36.5, respirations 18, 96% on room air. GENERAL: He is a lanky, cachectic, elderly man with some of his teeth partially gone or cracked. NECK: Supple. LUNGS: Clear with diminished breath sounds at the bases, but no increased respiratory effort. PMI is normally placed. HEART: At this time, he has a regular rate, rhythm and is not in AFib. Later in the exam, I found him back to be in atrial fibrillation again. Again, this gentleman has history of paroxysmal atrial fibrillation and is not on anticoagulation because of his hematuria and history of falls and noncompliance. He is occasionally incontinent of urine. Last BM was today. ABDOMEN: Soft, nontender, concave. EXTREMITIES: He has generalized weakness, ecchymosis on his arms/forearms. It is recommended he followup with his primary care provider after discharge. Discussed how long he should be on vancomycin for Clostridium difficile colitis. Continue to provide diet supplements for his malnourished state that was found during the hospitalization. Continue his B12 once a month. Continue iron until hemoglobin and hematocrit are acceptable. TD: 05/21/2019 18:35 MARY
== END 2019-05-21 16:50 | DRG 871 ==
LOC: EDUNIT# → ED 08:46 → ICU 12:51 → MS3 05-20 18:52
PROVIDERS: ADMIT Internal Medicine; ATTEND Specialist
DX: A41.52 Sepsis due to Pseudomonas (principal); I95.9 Hypotension, unspecified; I10 Essential (primary) hypertension; E78.00 Pure hypercholesterolemia, unspecified; I48.91 Unspecified atrial fibrillation; G93.41 Metabolic encephalopathy; E11.9 Type 2 diabetes mellitus without complications; N39.0 Urinary tract infection, site not specified; Z92.3 Personal history of irradiation; M19.90 Unspecified osteoarthritis, unspecified site; A04.72 Enterocolitis due to Clostridium difficile, not specified as recurrent; N17.9 Acute kidney failure, unspecified; Z96.649 Presence of unspecified artificial hip joint; Z91.81 History of falling; Z16.19 Resistance to other specified beta lactam antibiotics; R64 Cachexia; E46 Unspecified protein-calorie malnutrition; R62.7 Adult failure to thrive; I48.0 Paroxysmal atrial fibrillation; R65.20 Severe sepsis without septic shock; D50.9 Iron deficiency anemia, unspecified; D51.9 Vitamin B12 deficiency anemia, unspecified; D52.9 Folate deficiency anemia, unspecified; I95.1 Orthostatic hypotension; E86.0 Dehydration; E11.40 Type 2 diabetes mellitus with diabetic neuropathy, unspecified; E11.22 Type 2 diabetes mellitus with diabetic chronic kidney disease; N18.9 Chronic kidney disease, unspecified; E03.9 Hypothyroidism, unspecified; E78.5 Hyperlipidemia, unspecified; N40.0 Benign prostatic hyperplasia without lower urinary tract symptoms; Z68.21 Body mass index [BMI] 21.0-21.9, adult; G89.29 Other chronic pain; M54.9 Dorsalgia, unspecified; M17.12 Unilateral primary osteoarthritis, left knee; Z85.46 Personal history of malignant neoplasm of prostate; Z87.440 Personal history of urinary (tract) infections; Z86.11 Personal history of tuberculosis
CPT/HCPCS: 36415; 71045; 74018; 80053; 80202; 81001; 82607; 82746; 83540; 83605; 83690; 83735; 84100; 84439; 84443; 84466; 84484; 85025; 87040; 87077; 87086; 87150; 87181; 87493; 93005; 97161; 99284; 99285; A6250; A9270; J3370; J8499; 81003

== ENCOUNTER 2019-06-25 14:46 | Outpatient (CLI) | payer MEDICARE, OTHER | END 2019-06-25 14:47 | disposition short-term general hospital (02) | LOC: EMS 14:46 | PROVIDERS: ATTEND Surgery | DX: R19.7 Diarrhea, unspecified (principal) | CPT/HCPCS: A0425; A0429; A0888 ==

== ENCOUNTER 2019-07-22 08:00 | Outpatient (CLI) | payer MEDICARE, OTHER ==
[2019-07-22 19:33] LABS: BASOPHILS # (AUTO) 0.1 10^3/uL (0.0-0.1); BASOPHILS % (AUTO) 0.6 %; EOSINOPHILS % (AUTO) 0.2 %; LYMPHOCYTES # (AUTO) 1.8 10^3/uL (1.5-3.5); LYMPHOCYTES % (AUTO) 13.2 %; MEAN CORPUSCULAR HEMOGLOBIN 30.8 pg (27.0-31.0); MEAN CORPUSCULAR HGB CONC 31.7 g/dL (32.0-36.0); MEAN CORPUSCULAR VOLUME 97.4 fL (80.0-94.0); MEAN PLATELET VOLUME 10.9 fL (7.4-11.4); MONOCYTES # (AUTO) 1.1 10^3/uL (0.0-1.0); NEUTROPHILS # (AUTO) 10.3 10^3/uL (1.5-6.6); NEUTROPHILS % (AUTO) 77.3 %; PLT - PLATELET COUNT 276 10^3/uL (130-450); RED BLOOD COUNT 3.89 10^6/uL (4.70-6.10); RED CELL DISTRIBUTION WIDTH 15.6 % (12.0-15.0); WHITE BLOOD COUNT 13.3 x10^3/uL (4.8-10.8)
[2019-07-22 19:43] LABS: ALBUMIN 2.2 g/dL (3.2-5.5); ALBUMIN/GLOBULIN RATIO 0.6 (1.0-2.2); BILIRUBIN,TOTAL 0.6 mg/dL (0.2-1.0); CALCIUM 8.4 mg/dL (8.5-10.3); CREATININE 1.3 mg/dL (0.6-1.2); MAGNESIUM 1.7 mg/dL (1.7-2.8)
== END 2019-07-22 23:59 | disposition home or self-care (01) ==
LOC: LAB.R 08:00
DX: E87.1 Hypo-osmolality and hyponatremia (principal); R63.4 Abnormal weight loss; R62.7 Adult failure to thrive; E46 Unspecified protein-calorie malnutrition
CPT/HCPCS: 80053; 83735; 85025

== ENCOUNTER 2019-07-28 08:00 | Outpatient (CLI) | payer MEDICARE, OTHER ==
[2019-07-28 01:20] LABS: CALCIUM 8.8 mg/dL (8.5-10.3); CREATININE 1.1 mg/dL (0.6-1.2)
== END 2019-07-28 23:59 | disposition home or self-care (01) ==
LOC: LAB.R 08:00
PROVIDERS: ATTEND Family Medicine
DX: I10 Essential (primary) hypertension (principal)
CPT/HCPCS: 80048

== ENCOUNTER 2019-09-04 17:00 | Outpatient (CLI) | payer MEDICARE, OTHER | END 2019-09-04 23:59 | disposition home or self-care (01) | LOC: LAB.R 17:00 | PROVIDERS: ATTEND Family Medicine | DX: R31.9 Hematuria, unspecified (principal) | CPT/HCPCS: 87086; 87181 ==

== ENCOUNTER 2019-09-12 09:36 | Outpatient (CLI) | payer MEDICARE, OTHER | END 2019-09-12 09:37 | disposition critical access hospital (66) | LOC: EMS 09:36 | PROVIDERS: ATTEND Surgery | DX: R09.89 Other specified symptoms and signs involving the circulatory and respiratory systems (principal); R13.10 Dysphagia, unspecified | CPT/HCPCS: A0425; A0429 ==

== ENCOUNTER 2019-09-12 09:52 | Emergency (ER) | payer MEDICARE, OTHER ==
--- NOTE | 2019-09-12 11:27 | ED Physician Documentation ---
PD HPI HEENT - Stated complaint Stated Complaint: DIFF. SWALLOWING - Chief complaint Chief Complaint: General - History obtained from History obtained from: Patient - History of Present Illness Timing - onset: How many weeks ago (2) Timing - duration: Weeks (2) Timing - details: Abrupt onset (he says he suddenly started feeling like there was a lump in his throat/upper esophagus area couple weeks ago, and has had difficulty eating solids (hurts) and drinking fluids. No vomiting during the time. Having normal BMs. Has had cough during that time with some wheezing, mild clear to white sputum, and dyspnea. No edema.), Still present Location: Throat Worsens: Swalllowing Associated symptoms: Swollen nodes, Cough. No: Fever, Congestion, Rhinorrhea Similar symptoms before: Has not had sx before (ds) Recently seen: Not recently seen Review of Systems Constitutional: reports: Myalgias, Fatigue. denies: Fever, Chills Nose: denies: Rhinorrhea / runny nose, Congestion Throat: denies: Sore throat Cardiac: denies: Chest pain / pressure, Palpitations, Pedal edema Respiratory: reports: Dyspnea, Cough, Wheezing GI: reports: Nausea. denies: Abdominal Pain, Vomiting, Diarrhea Skin: denies: Rash PD PAST MEDICAL HISTORY - Past Medical History Past Medical History: Yes Cardiovascular: Hypertension, High cholesterol, Atrial fibrillation, Other Respiratory: Tuberculosis Neuro: None Endocrine/Autoimmune: Type 2 diabetes GI: None COSMETICS PRESSER: Other (Prostate CA s/p radiation) : Benign prostate hypertrophy, Indwelling catheter HEENT: None Psych: None Musculoskeletal: Osteoarthritis, Chronic back pain Derm: None - Past Surgical History Past Surgical History: Yes Ortho: Hip replacement /COSMETICS PRESSER: Other HEENT: Cataracts - Present Medications Home Medications: Ambulatory Orders Medication Instructions Recorded Confirmed Pravastatin Sodium [Pravachol] 20 mg PO QPM 03/05/19 05/18/19 Midodrine HCl 10 mg PO TIDWM 05/18/19 05/18/19 Acetaminophen [Tylenol] 650 mg PO Q4HR PRN tablet 05/21/19 Ciprofloxacin HCl [Cipro] 500 mg PO BID #8 tablet 05/21/19 Folic Acid 1 mg PO DAILY tablet 05/21/19 Gabapentin 300 mg PO TID #90 capsule 05/21/19 05/18/19 Lactobacillus Rhamnosus GG 1 cap PO DAILY capsule 05/21/19 [Culturelle] Levothyroxine [Synthroid] 50 mcg PO QDAC #1 05/21/19 05/18/19 QUEtiapine [SEROquel] 25 mg PO QPM tablet 05/21/19 Tamsulosin [Flomax] 0.4 mg PO DAILY #0 05/21/19 05/18/19 Vancomycin [Vancocin] 125 mg PO QID #48 capsule 05/21/19 Albuterol Sulfate [Albuterol 2 puffs IH QID #1 hfa.aer.ad 09/12/19 Sulfate Hfa] Doxycycline Monohydrate 100 mg PO BID #14 tablet 09/12/19 Famotidine 20 mg PO DAILY #30 tablet 09/12/19 Lidocaine Viscous 2% [Xylocaine 5 ml PO Q4H PRN #100 ml 09/12/19 Viscous 2%] dexAMETHasone [Decadron] 4 mg PO DAILY #5 tablet 09/12/19 - Allergies Allergies/Adverse Reactions: Allergies Allergy/AdvReac Type Severity Reaction Status Date / Time rivaroxaban [From Xarelto] Allergy Unknown Verified 09/12/19 10:05 - Social History Does the pt smoke?: No Smoking Status: Never smoker Does the pt drink ETOH?: No Does the pt have substance abuse?: No - Immunizations Immunizations are current?: Yes Immunizations: TDAP >10years/unknown - POLST Patient has POLST: No POLST Status: Full Code PD ED PE NORMAL - Vitals Vital signs reviewed: Yes - General General: Alert and oriented X 3, No acute distress, Other (normal voice without hoarseness. ). No: Well developed/nourished (moderately frail. ) - HEENT HEENT: Moist mucous membranes, Pharynx benign - Neck Neck: Supple, no meningeal sign, No adenopathy - Cardiac Cardiac: RRR, No murmur - Respiratory Respiratory: No: Clear bilaterally (some congested sounds right upper. No chestwall tenderness) - Abdomen Abdomen: Soft, Non tender - Back Back: No CVA TTP - Derm Derm: Normal color, Warm and dry - Extremities Extremities: No tenderness to palpate, Normal ROM s pain, No edema, No calf tenderness / cord - Neuro Neuro: Alert and oriented X 3, No motor deficit, Normal speech Results - Vitals Vitals: Vital Signs - 24 hr 09/12/19 09/12/19 09/12/19 09:53 10:30 11:00 Temperature 36.2 C L Heart Rate 102 H 86 84 Respiratory 16 16 16 Rate Blood Pressure 100/62 99/59 L 96/52 L O2 Saturation 99 96 99 09/12/19 09/12/19 09/12/19 11:24 12:31 14:54 Temperature 36.1 C L Heart Rate 86 83 87 Respiratory 18 16 20 Rate Blood Pressure 96/52 L 100/57 L 103/59 L O2 Saturation 99 99 98 09/12/19 09/12/19 15:37 16:34 Temperature 36.2 C L Heart Rate 78 89 Respiratory 16 12 Rate Blood Pressure 97/58 L 104/60 O2 Saturation 97 100 Oxygen O2 Source Room air - Labs Labs: Laboratory Tests 09/12/19 09/12/19 12:07 12:07 WBC 5.9 RBC 3.78 L Hgb 12.0 L Hct 36.5 L MCV 96.6 H MCH 31.7 H MCHC 32.9 RDW 13.5 Plt Count 202 MPV 10.6 Neut # (Auto) 4.4 Lymph # (Auto) 0.9 L [place] # (Auto) 0.5 Eos # (Auto) 0.1 Baso # (Auto) 0.0 Absolute Nucleated RBC 0.00 Nucleated RBC % 0.0 Sodium 131 L Potassium 3.5 Chloride 101 Carbon Dioxide 22 Anion Gap 8.0 BUN 7 Creatinine 0.9 Estimated GFR (MDRD) 81 L Glucose 121 H Calcium 8.0 L Magnesium 1.7 Total Bilirubin 0.7 AST 17 ALT < 10 L Alkaline Phosphatase 132 H Total Protein 5.9 L Albumin 2.2 L Globulin 3.7 Albumin/Globulin Ratio 0.6 L Lipase 21 L - Rads (name of study) neck and chest CT Radiology: Prelim report reviewed (no mass, acute process seen in neck nor esophageal course. RUL lung infiltrate c/w pneumonia. ), See rad report PD MEDICAL DECISION MAKING - ED course Complexity details: reviewed results, re-evaluated patient, considered differential (consider mass effect as worst potential. Will get CT neck and chest to eval. Also consider esophagitis, FB impaction, infection.), d/w patient Departure - Departure Disposition: 01 Home, Self Care Clinical Impression: Swallowing pain Pneumonia Qualifiers: Pneumonia type: due to unspecified organism Laterality: right Lung location: upper lobe of lung Qualified Code(s): J18.9 - Pneumonia, unspecified organism Condition: Stable Record reviewed to determine appropriate education?: Yes Instructions: ED Pneumonia Adult Follow-Up: MICHELLE GARCIA MD [Provider Admit Priv/Credential] - Prescriptions: Albuterol Sulfate [Albuterol Sulfate Hfa] 2 puffs IH QID #1 hfa.aer.ad dexAMETHasone [Decadron] 4 mg PO DAILY #5 tablet Doxycycline Monohydrate 100 mg PO BID #14 tablet Famotidine 20 mg PO DAILY #30 tablet Lidocaine Viscous 2% [Xylocaine Viscous 2%] 5 ml PO Q4H PRN #100 ml PRN Reason: Pain Comments: Small frequent fluids to stay hydrated. Soft foods or liquid diet for the next several days or so. Famotidine acid reducing medicine and daily and you can add Mylanta or Maalox type antacids with a little lidocaine to help with the esophageal discomfort. Your CT scan appears normal so I presume the discomfort feeling with swallowing is related to inflammation or impaired motility of the esophagus. If the symptoms persist you may need to get a swallowing study done to look at the esophageal motion. This would be done and scheduled through your primary care. However if things improve with acid reducing medicine and coating the esophagus, then you may have just needed some time to heal. For your cough and pneumonia, use doxycycline antibiotic twice daily for a week and albuterol inhaler 2 puffs 4 times a day. Also Decadron steroid for inflammation daily for 5 more days. Follow-up with your primary care next week, call for an appointment. Return sooner if worsening. Discharge Date/Time: 09/12/19 17:20
[2019-09-12] MEDS ORDERED: SODIUM CHLORIDE 0.9% 1,000 ML IV ONE (11:41)
[2019-09-12] MEDS ORDERED: FAMOTIDINE 20 MG/2 ML VIAL IVP STA (11:44)
[2019-09-12] MEDS ORDERED: ONDANSETRON 4 MG/2 ML VIAL IVP STA (11:44)
[2019-09-12 12:12] LABS: BASOPHILS % (AUTO) 0.7 %; EOSINOPHILS # (AUTO) 0.1 10^3/uL (0.0-0.7); EOSINOPHILS % (AUTO) 1.4 %; LYMPHOCYTES # (AUTO) 0.9 10^3/uL (1.5-3.5); LYMPHOCYTES % (AUTO) 14.5 %; MEAN CORPUSCULAR HEMOGLOBIN 31.7 pg (27.0-31.0); MEAN CORPUSCULAR HGB CONC 32.9 g/dL (32.0-36.0); MEAN CORPUSCULAR VOLUME 96.6 fL (80.0-94.0); MEAN PLATELET VOLUME 10.6 fL (7.4-11.4); MONOCYTES # (AUTO) 0.5 10^3/uL (0.0-1.0); MONOCYTES % (AUTO) 7.7 %; NEUTROPHILS # (AUTO) 4.4 10^3/uL (1.5-6.6); NEUTROPHILS % (AUTO) 75.2 %; PLT - PLATELET COUNT 202 10^3/uL (130-450); RED BLOOD COUNT 3.78 10^6/uL (4.70-6.10); RED CELL DISTRIBUTION WIDTH 13.5 % (12.0-15.0); WHITE BLOOD COUNT 5.9 x10^3/uL (4.8-10.8)
[2019-09-12] MEDS ORDERED: IOVERSOL 320 100 ML VIAL IVP ONE ×2 (12:12→13:09)
[2019-09-12 12:24] LABS: ALBUMIN 2.2 g/dL (3.2-5.5); ALBUMIN/GLOBULIN RATIO 0.6 (1.0-2.2); ALKALINE PHOSPHATASE 132 IU/L (42-121); ALT ALANINE AMINOTRANSFERASE < 10 IU/L (10-60); AST ASPARTATE AMINOTRANSFERASE 17 IU/L (10-42); BILIRUBIN,TOTAL 0.7 mg/dL (0.2-1.0); BUN - BLOOD UREA NITROGEN 7 mg/dL (6-20); CARBON DIOXIDE - CO2 22 mmol/L (21-32); CHLORIDE 101 mmol/L (101-111); CREATININE 0.9 mg/dL (0.6-1.2); GFR - MDRD 81 (>89); GLUCOSE 121 mg/dL (70-100); LIPASE 21 U/L (22-51); MAGNESIUM 1.7 mg/dL (1.7-2.8); SODIUM 131 mmol/L (135-145); TOTAL PROTEIN 5.9 g/dL (6.7-8.2)
--- NOTE | 2019-09-12 13:40 | CT Report ---
Reason: feeling of swelling in neck/esophagus with swallow Procedure Date: 09/12/2019 Accession Number: [id number] / [id number] Procedure: CT - SOFT TISSUE NECK W CPT Code: Final Report FULL RESULT: EXAM: CT SOFT TISSUE NECK WITH CONTRAST. EXAM DATE: 09/12/2019 01:08 PM. HISTORY: Feeling of swelling in neck/esophagus with swallow. COMPARISONS: CT CHEST W/ 09/12/2019 1:00 PM. TECHNIQUE: Routine soft tissue neck CT protocol with contrast. Reconstructions: Coronal and sagittal. IV contrast: 80 cc Optiray 320. In accordance with CT protocol optimization, one or more of the following dose reduction techniques were utilized for this exam: automated exposure control, adjustment of mA and/or KV based on patient size, or use of iterative reconstructive technique. FINDINGS: Visualized Intracranial Contents: Unremarkable. Orbits: Unremarkable. Note is made of bilateral lens removal. Sinuses: Visualized paranasal sinuses and mastoid air cells are clear. Oral cavity: The visualized oral cavity is unremarkable. The floor of the mouth is symmetric. The patient is nearly completely edentulous. Pharynx: Pharyngeal mucosa is unremarkable.The supervisor production managing spaces and pterygopalatine fossa are unremarkable.The infratemporal fossa, parapharyngeal spaces, and retropharyngeal space are unremarkable. The base of the tongue is symmetric and unremarkable. The airway is patent. Larynx: Larynx and supraglottic airway are patent without mass lesion. Vocal cords are symmetric. The visualized trachea is unremarkable. Parotid and Submandibular Glands: Symmetric and unremarkable. Lymph Nodes: No enlarged lymph nodes are identified in the cervical, supraclavicular, and visualized superior mediastinal regions. Note is made of a right paratracheal lymph node in the thoracic inlet measuring 14 x 5 x 6 mm. Soft tissues: Soft tissues are unremarkable. No mass lesion or abnormal enhancement. Vascular Structures: Patent and unremarkable. Thyroid Gland: Small in size. Lung: Subtle patchy interstitial prominence is seen in the visualized right upper lung zone. (See report of CT scan of chest performed same time). Bones: No evidence of acute fracture or malalignment. There are mild degenerative changes. Other: None. IMPRESSION: 1. Negative CT scan of the neck. No mass or adenopathy. RADIA
--- NOTE | 2019-09-12 14:15 | CT Report ---
Reason: feeling of swelling in neck/esophagus with swallow Procedure Date: 09/12/2019 Accession Number: [id number] / [id number] Procedure: CT - CHEST W CPT Code: Final Report FULL RESULT: EXAM: CT CHEST EXAM DATE: 09/12/2019 01:08 PM. CLINICAL HISTORY: Feeling of swelling in neck/esophagus with swallow. COMPARISONS: CHEST ANGIO 03/06/2019 11:30 AM. TECHNIQUE: Routine helical CT imaging was performed through the chest. IV contrast: 80 cc Optiray 320. Reconstructions: Coronal and sagittal. In accordance with CT protocol optimization, one or more of the following dose reduction techniques were utilized for this exam: automated exposure control, adjustment of mA and/or KV based on patient size, or use of iterative reconstructive technique. FINDINGS: Lungs/Pleura: Peribronchovascular nodularity with associated subtle groundglass opacities and tree in bud opacities in the posterior segment of the right upper lobe (14/57-91) and in the right base could reflect aspiration or atypical infection. Bilateral central bronchial wall thickening is noted with associated mild cylindrical bronchiectasis that could reflect sequelae of chronic central airways disease. No new focal airspace consolidation. Few other scattered tiny sub-centimeters pulmonary nodules appear stable compared to 2019. Mediastinum: Normal. No adenopathy or masses. The heart and great vessels are normal. Visualized esophagus is unremarkable by CT. No enhancing esophageal nodules or masses are evident. Bones: Osteopenia. Multilevel degenerative disk disease in the spine. Subtle lucencies in the vertebral bodies are of unclear etiology. Visualized Abdomen: Hepatic cirrhosis evident. No ascites. Other: None. IMPRESSION: 1. New posterior right pulmonary peribronchovascular nodularity, and treatment opacities, ground glass opacities could reflect atypical infection or aspiration. Follow-up to radiographic resolution is suggested. 2. unremarkable visualized esophagus without evidence for wall thickening, enhancing nodule, or mass. If concern persists, fluoroscopic esophagram is recommended for further evaluation. 3. No Mediastinal or hilar lymphadenopathy. RADIA
[2019-09-12] MEDS ORDERED: FAMOTIDINE 20 MG TABLET PO STA (15:11)
[2019-09-12] MEDS ORDERED: MAG HYDROX/AL HYDROX/SIMETH 30 ML UDC PO STA (15:11)
[2019-09-12 16:35] VITALS: BP 104/60
== END 2019-09-12 17:20 | disposition home or self-care (01) ==
LOC: EDUNIT# → EDBD → ED 09:52
DX: R13.10 Dysphagia, unspecified (principal); E11.9 Type 2 diabetes mellitus without complications; I10 Essential (primary) hypertension; J18.9 Pneumonia, unspecified organism
CPT/HCPCS: 36415; 70491; 71260; 80053; 83690; 83735; 85025; 96361; 96374; 99284; A9270; Q9967

== ENCOUNTER 2019-09-19 11:51 | Outpatient (CLI) | payer MEDICARE, OTHER ==
[2019-09-19 19:02] LABS: BASOPHILS % (AUTO) 0.3 %; EOSINOPHILS % (AUTO) 0.3 %; HGB - HEMOGLOBIN 13.5 g/dL (14.0-18.0); LYMPHOCYTES # (AUTO) 2.2 10^3/uL (1.5-3.5); MEAN CORPUSCULAR HEMOGLOBIN 29.9 pg (27.0-31.0); MEAN CORPUSCULAR VOLUME 96.5 fL (80.0-94.0); MEAN PLATELET VOLUME 11.3 fL (7.4-11.4); MONOCYTES # (AUTO) 0.4 10^3/uL (0.0-1.0); MONOCYTES % (AUTO) 5.3 %; NEUTROPHILS % (AUTO) 64.6 %; PLT - PLATELET COUNT 233 10^3/uL (130-450); RED BLOOD COUNT 4.51 10^6/uL (4.70-6.10); RED CELL DISTRIBUTION WIDTH 13.4 % (12.0-15.0); WHITE BLOOD COUNT 7.7 x10^3/uL (4.8-10.8)
[2019-09-19 19:20] LABS: ALBUMIN 2.4 g/dL (3.2-5.5); ALBUMIN/GLOBULIN RATIO 0.6 (1.0-2.2); ALKALINE PHOSPHATASE 111 IU/L (42-121); ALT ALANINE AMINOTRANSFERASE < 10 IU/L (10-60); AST ASPARTATE AMINOTRANSFERASE 25 IU/L (10-42); BILIRUBIN,TOTAL 0.4 mg/dL (0.2-1.0); BUN - BLOOD UREA NITROGEN 12 mg/dL (6-20); CALCIUM 8.3 mg/dL (8.5-10.3); CARBON DIOXIDE - CO2 21 mmol/L (21-32); CHLORIDE 101 mmol/L (101-111); CREATININE 1.1 mg/dL (0.6-1.2); GFR - MDRD 64 (>89); GLUCOSE 108 mg/dL (70-100); SODIUM 131 mmol/L (135-145); TOTAL PROTEIN 6.2 g/dL (6.7-8.2)
== END 2019-09-19 23:59 | disposition home or self-care (01) ==
LOC: LAB.N 11:51
PROVIDERS: ATTEND Family Medicine
DX: E03.9 Hypothyroidism, unspecified (principal); Z85.46 Personal history of malignant neoplasm of prostate
CPT/HCPCS: 36415; 80053; 84153; 84443; 85025

== ENCOUNTER 2019-09-29 02:09 | Outpatient (CLI) | payer MEDICARE, OTHER | END 2019-09-29 02:10 | disposition critical access hospital (66) | LOC: EMS 02:09 | PROVIDERS: ATTEND Surgery | DX: R45.1 Restlessness and agitation (principal); R41.0 Disorientation, unspecified; R82.90 Unspecified abnormal findings in urine | CPT/HCPCS: A0425; A0429 ==

== ENCOUNTER 2019-09-29 02:24 | Inpatient (IN) | payer MEDICARE, OTHER ==
[2019-09-29] MEDS ORDERED: SODIUM CHLORIDE 0.9% 1,000 ML IV ONE (02:44)
--- NOTE | 2019-09-29 02:48 | ED Physician Documentation ---
History of Present Illness - Stated complaint Stated Complaint: AGITATED - Chief complaint Chief Complaint: Neuro - History obtained from History obtained from: Patient, Family, EMS - Additonal information Additional information: Patient is brought to the emergency department by EMS after family called because the patient has been agitated all night. Family states the patient has been up for 3 nights in a row and is uncontrollable at home. The patient states he has not been able to sleep but he does not know why. He denies any pain anywhere. He is not nauseated. No chills. No cough or shortness of breath. Patient denies any dizziness. He states that he just cannot sleep. Family states that the patient normally is sharp and with it, but that after a bout of pneumonia with a prolonged rehab stay, the patient has not quite been himself. He came home from rehab last month and has been living at home with his and grandson. He has been confused for the last few days not knowing who his is and occasionally, not recognizing his grandson. They state that he refuses to take his medications any refuses to eat, and that he is constantly yelling and calling them all night long. They state that they cannot handle it anymore. Review of Systems Ten Systems: 10 systems reviewed and negative Constitutional: reports: Reviewed and negative Eyes: reports: Reviewed and negative Ears: reports: Reviewed and negative Nose: reports: Reviewed and negative Throat: reports: Reviewed and negative Cardiac: reports: Reviewed and negative Respiratory: reports: Reviewed and negative GI: reports: Reviewed and negative : reports: Reviewed and negative Skin: reports: Reviewed and negative Musculoskeletal: reports: Reviewed and negative Neurologic: reports: Reviewed and negative Psychiatric: reports: Insomnia Endocrine: reports: Reviewed and negative Immunocompromised: reports: Reviewed and negative PD PAST MEDICAL HISTORY - Past Medical History Cardiovascular: Hypertension, High cholesterol, Atrial fibrillation, Other Respiratory: Pneumonia, Tuberculosis Neuro: None Endocrine/Autoimmune: Type 2 diabetes GI: None DORMITORY MAID: Other (Prostate CA s/p radiation) : Benign prostate hypertrophy, Indwelling catheter HEENT: None Psych: None Musculoskeletal: Osteoarthritis, Chronic back pain Derm: None - Past Surgical History Past Surgical History: Yes Ortho: Hip replacement /DORMITORY MAID: Other HEENT: Cataracts - Present Medications Home Medications: Ambulatory Orders Medication Instructions Recorded Confirmed Pravastatin Sodium [Pravachol] 20 mg PO QPM 03/05/19 05/18/19 Midodrine HCl 10 mg PO TIDWM 05/18/19 05/18/19 Acetaminophen [Tylenol] 650 mg PO Q4HR PRN tablet 05/21/19 Folic Acid 1 mg PO DAILY tablet 05/21/19 Gabapentin 300 mg PO TID #90 capsule 05/21/19 05/18/19 Lactobacillus Rhamnosus GG 1 cap PO DAILY capsule 05/21/19 [Culturelle] Levothyroxine [Synthroid] 50 mcg PO QDAC #1 05/21/19 05/18/19 Tamsulosin [Flomax] 0.4 mg PO DAILY #0 05/21/19 05/18/19 Albuterol Sulfate [Albuterol 2 puffs IH QID #1 [id number].[id number] 09/12/19 Sulfate Hfa] Famotidine 20 mg PO DAILY #30 tablet 09/12/19 Lidocaine Viscous 2% [Xylocaine 5 ml PO Q4H PRN #100 ml 09/12/19 Viscous 2%] - Allergies Allergies/Adverse Reactions: Allergies Allergy/AdvReac Type Severity Reaction Status Date / Time rivaroxaban [From Xarelto] Allergy Unknown Verified 09/29/19 02:33 - Social History Does the pt smoke?: No Smoking Status: Never smoker Does the pt drink ETOH?: No Does the pt have substance abuse?: No - Immunizations Immunizations are current?: Yes Immunizations: TDAP >10years/unknown - POLST Patient has POLST: No POLST Status: Full Code PD ED PE NORMAL - Vitals Vital signs reviewed: Yes - General General: No acute distress, Other (Patient is alert and generally answers questions appropriately, though occasionally seems somewhat confused.) - HEENT HEENT: Atraumatic, PERRL, EOMI, Moist mucous membranes - Neck Neck: Supple, no meningeal sign - Cardiac Cardiac: RRR, No murmur - Respiratory Respiratory: No respiratory distress, Clear bilaterally - Abdomen Abdomen: Soft, Non tender, Non distended - Derm Derm: Warm and dry - Extremities Extremities: No deformity, No tenderness to palpate, Normal ROM s pain, No edema - Neuro Neuro: hourly shift manager 2-12 intact, No motor deficit, No sensory deficit, Normal speech, Other (The patient is alert and in general, answers questions appropriately. He knows who his grandson is. He does not recognize his . 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.) - Psych Psych: Normal mood, Normal affect Results - Vitals Vitals: Vital Signs - 24 hr 09/29/19 02:27 Temperature 36.4 C L Heart Rate 95 Respiratory 20 Rate Blood Pressure 101/71 O2 Saturation 98 Oxygen O2 Source Room air - EKG (time done) 0250 Rate: Rate (enter#) (96) Rhythm: Atrial fibrillation [place]ium: Normal Intervals: RBBB QRS: Normal Ischemia: Normal ST segments, T wave inversion (Leads V2, V3) Compare to prior EKG: Old EKG unavailable - Labs Labs: Laboratory Tests 09/29/19 09/29/19 09/29/19 02:36 02:59 02:59 WBC 5.9 RBC 3.55 L Hgb 11.0 L Hct 33.7 L MCV 94.9 H MCH 31.0 MCHC 32.6 RDW 13.3 Plt Count 160 MPV 11.5 H Neut # (Auto) 3.8 Lymph # (Auto) 1.3 L [place] # (Auto) 0.5 Eos # (Auto) 0.2 Baso # (Auto) 0.1 Absolute Nucleated RBC 0.00 Nucleated RBC % 0.0 PT 14.1 H INR 1.3 H Sodium Potassium Chloride Carbon Dioxide Anion Gap BUN Creatinine Estimated GFR (MDRD) Glucose Calcium Total Bilirubin AST ALT Alkaline Phosphatase Total Protein Albumin Globulin Albumin/Globulin Ratio Lipase TSH Urine Color YELLOW Urine Clarity CLOUDY Urine pH 6.0 Ur Specific [place] 1.025 Urine Protein 100 H Urine Glucose (UA) 100 H Urine Ketones NEGATIVE Urine Occult Blood LARGE H Urine Nitrite POSITIVE H Urine Bilirubin NEGATIVE Urine Urobilinogen 0.2 (NORMAL) Ur Leukocyte Esterase LARGE H Urine RBC TNTC H Urine WBC >25 H Ur Squamous Epith Cells NONE SEEN Urine Bacteria Moderate H Ur Microscopic Review INDICATED Urine Culture Comments INDICATED 09/29/19 09/29/19 02:59 02:59 WBC RBC Hgb Hct MCV MCH MCHC RDW Plt Count MPV Neut # (Auto) Lymph # (Auto) [place] # (Auto) Eos # (Auto) Baso # (Auto) Absolute Nucleated RBC Nucleated RBC % PT INR Sodium 131 L Potassium 3.2 L Chloride 100 L Carbon Dioxide 24 Anion Gap 7.0 BUN 17 Creatinine 1.1 Estimated GFR (MDRD) 64 L Glucose 98 Calcium 8.1 L Total Bilirubin 1.1 H AST 17 ALT < 10 L Alkaline Phosphatase 99 Total Protein 5.6 L Albumin 2.4 L Globulin 3.2 Albumin/Globulin Ratio 0.8 L Lipase 23 TSH 3.72 Urine Color Urine Clarity Urine pH Ur Specific [place] Urine Protein Urine Glucose (UA) Urine Ketones Urine Occult Blood Urine Nitrite Urine Bilirubin Urine Urobilinogen Ur Leukocyte Esterase Urine RBC Urine WBC Ur Squamous Epith Cells Urine Bacteria Ur Microscopic Review Urine Culture Comments - Rads (name of study) CT head Radiology: Final report received, EMP read indepedently, See rad report (Final radiologist interpretation: No evidence of acute intracranial pathology; mild white matter changes typical of chronic microvascular ischemia; mild diffuse atrophy) Chest x-ray Radiology: Final report received, EMP read indepedently, See rad report (Final radiologist interpretation: No focal consolidation.) PD MEDICAL DECISION MAKING - ED course Complexity details: reviewed results, re-evaluated patient, considered differential, d/w patient, d/w family ED course: Patient was mildly agitated on arrival in the but was actually fairly cooperative. The patient's family seemed very frustrated with the way that things had been going at home, and felt that this was a newer change for the patient. Patient was worked up with labs, urinalysis, CT of the head, EKG, and chest x-ray. Urine was strongly positive on a fresh draw from the catheter. Patient was started on Levaquin for this. I spoke with hospitalist on-call, who did agree to admit the patient to his service for UTI and delirium. Patient was treated with IV fluids for his dehydration. After Ativan, he was found to be more calm in the emergency department. Departure - Departure Disposition: [facility] DC/Xfer Clinical Impression: Delirium Altered mental status Qualifiers: Altered mental status type: delirium Qualified Code(s): R41.0 - Disorientation, unspecified Urinary tract infection Qualifiers: Urinary tract infection type: catheter-associated UTI Indwelling urinary catheter type: indwelling urethral catheter Encounter type: initial encounter Qualified Code(s): T83.511A - Infection and inflammatory reaction due to indwe lling urethral catheter, initial encounter Condition: Serious
[2019-09-29 03:06] LABS: BASOPHILS # (AUTO) 0.1 10^3/uL (0.0-0.1); EOSINOPHILS # (AUTO) 0.2 10^3/uL (0.0-0.7); EOSINOPHILS % (AUTO) 3.2 %; LYMPHOCYTES # (AUTO) 1.3 10^3/uL (1.5-3.5); LYMPHOCYTES % (AUTO) 22.6 %; MEAN CORPUSCULAR HGB CONC 32.6 g/dL (32.0-36.0); MEAN CORPUSCULAR VOLUME 94.9 fL (80.0-94.0); MEAN PLATELET VOLUME 11.5 fL (7.4-11.4); MONOCYTES # (AUTO) 0.5 10^3/uL (0.0-1.0); MONOCYTES % (AUTO) 8.3 %; NEUTROPHILS # (AUTO) 3.8 10^3/uL (1.5-6.6); NEUTROPHILS % (AUTO) 64.6 %; PLT - PLATELET COUNT 160 10^3/uL (130-450); RED BLOOD COUNT 3.55 10^6/uL (4.70-6.10); RED CELL DISTRIBUTION WIDTH 13.3 % (12.0-15.0); WHITE BLOOD COUNT 5.9 x10^3/uL (4.8-10.8)
[2019-09-29 03:07] LABS: BILIRUBIN,URINE NEGATIVE (NEGATIVE); GLUCOSE, URINE (UA) 100 mg/dL (NEGATIVE); KETONES,URINE (UA) NEGATIVE (NEGATIVE); LEUKOCYTE ESTERASE, URINE LARGE (NEGATIVE); NITRITE,URINE POSITIVE (NEGATIVE); OCCULT BLOOD,URINE LARGE (NEGATIVE); PROTEIN,URINE 100 mg/dL (NEGATIVE); UROBILINOGEN,URINE 0.2 (NORMAL) E.U./dL (NORMAL)
[2019-09-29 03:12] LABS: INR 1.3 (0.8-1.2); PT - PROTHROMBIN TIME 14.1 secs (9.9-12.6)
[2019-09-29 03:13] LABS: CLARITY,URINE CLOUDY (CLEAR)
[2019-09-29 03:19] LABS: BACTERIA,URINE Moderate /HPF (None Seen); RBC,URINE TNTC /HPF (0-5); SQUAMOUS EPITHELIAL CELL,UR NONE SEEN (<= Few)
[2019-09-29 03:21] LABS: ALBUMIN 2.4 g/dL (3.2-5.5); ALBUMIN/GLOBULIN RATIO 0.8 (1.0-2.2); ALKALINE PHOSPHATASE 99 IU/L (42-121); ALT ALANINE AMINOTRANSFERASE < 10 IU/L (10-60); AST ASPARTATE AMINOTRANSFERASE 17 IU/L (10-42); BILIRUBIN,TOTAL 1.1 mg/dL (0.2-1.0); BUN - BLOOD UREA NITROGEN 17 mg/dL (6-20); CALCIUM 8.1 mg/dL (8.5-10.3); CARBON DIOXIDE - CO2 24 mmol/L (21-32); CHLORIDE 100 mmol/L (101-111); CREATININE 1.1 mg/dL (0.6-1.2); GLUCOSE 98 mg/dL (70-100); LIPASE 23 U/L (22-51); SODIUM 131 mmol/L (135-145); TOTAL PROTEIN 5.6 g/dL (6.7-8.2)
--- NOTE | 2019-09-29 03:26 | XRAY Report ---
Reason: chest pain Procedure Date: 09/29/2019 Accession Number: [id number] / [id number] Procedure: XR - Chest 1 View X-Ray CPT Code: 05353 Final Report FULL RESULT: EXAM: CHEST RADIOGRAPHY EXAM DATE: 09/29/2019 03:21 AM. CLINICAL HISTORY: Chest pain. COMPARISON: CHEST 1 VIEW 05/18/2019 1:31 PM CHEST W/ 09/12/2019 1:00 PM. TECHNIQUE: 1 view. FINDINGS: The mediastinal and cardiac silhouettes are normal. The lungs are clear. No pleural effusion or pneumothorax is seen. Degenerative changes are seen in the acromial clavicular joints. IMPRESSION: No focal consolidation. RADIA
--- NOTE | 2019-09-29 03:28 | CT Report ---
Reason: altered mental status Procedure Date: 09/29/2019 Accession Number: [id number] / [id number] Procedure: CT - HEAD WO CPT Code: Final Report FULL RESULT: EXAM: CT HEAD EXAM DATE: 09/29/2019 02:09 AM. CLINICAL HISTORY: Altered mental status. COMPARISON: None. TECHNIQUE: Multiaxial CT images were obtained from the foramen magnum to the vertex. Reformats: Sagittal and coronal. IV contrast: None. In accordance with CT protocol optimization, one or more of the following dose reduction techniques were utilized for this exam: automated exposure control, adjustment of mA and/or KV based on patient size, or use of iterative reconstructive technique. FINDINGS: Parenchyma: No intraparenchymal hemorrhage. No evidence of mass, midline shift, or CT findings of infarction. Ernst-white differentiation is distinct. Mild periventricular hypodensity is noted, nonspecific but most likely due to chronic microvascular ischemia. Extraaxial Spaces: Mild sulcal prominence. No subdural or epidural collections identified. Ventricles: The ventricles and sulci are mildly prominent consistent with atrophy. Sinuses and Orbits: Imaged paranasal sinuses, orbits, and mastoids show no significant abnormality. Changes of cataract extraction are noted bilaterally. Bones: No evidence of fracture or calvarial defect. Other: Vascular calcification is visualized in the cavernous segments of the bilateral ICAs. IMPRESSION: 1. No evidence of acute intracranial pathology. 2. Mild white matter changes typical of chronic microvascular ischemia. 3. Mild diffuse atrophy. RADIA
[2019-09-29] MEDS ORDERED: levoFLOXacin 500 MG/100 ML 500 MG/100 ML BAG IV ONE (03:43)
[2019-09-29] MEDS ORDERED: SODIUM CHLORIDE FLUSH 0.9% 10 ML SYRINGE IVP PRN ×2 (03:48→08:36)
[2019-09-29] MEDS ORDERED: ONDANSETRON 4 MG/2 ML VIAL IVP PRN (03:48)
--- NOTE | 2019-09-29 03:59 | HISTORY & PHYSICAL EXAMINATION ---
Chief Complaint - Chief Complaint Chief Complaint: Confusion History of Present Illness - Admitted From Admitted From:: Home - History Obtained From Records Reviewed: Yes History obtained from: Patient, Spouse, Grandson, ER Physician, EMR - History of Present Illness HPI Comment/Other: Is a 84-year-old male with a past medical history significant for chronic atrial fibrillation who is not on anticoagulation due to hematuria, chronic indwelling Matthew catheter for BPH and history of prostate cancer, hypotension on midodrine, hypothyroidism, recurrent urinary tract infections who presents today from home after his family was concerned that he had been confused for the past 3 days. Patient currently knows that he is at the hospital but he is not sure which and he believes it is August 2020. He denies really having any acute complaints. He states that he has not slept for the past 3 days and he is not sure why. He has not had any fevers, chills, chest pain, dyspnea, palpitations, abdominal pain, nausea, vomiting. He believes that he has been eating well at home although his family tells me that he really has not been eating much food and his liquid intake is average at best. They report that over the past 3 days, he could not recognize them and did not know who they were when at baseline he can identify each family member. They also state that he would sit in bed most of the time and would not ambulate. He would even sit in bed and think that he was driving to [employer]. His reports that he has been to skilled nurse facilities multiple times over the past year. She states that he does well there and works with physical therapy but that the moment he goes home, he just sits in bed all the time. He does currently have home health and he sees physical therapy on a weekly basis. Family also tells me that he has been losing weight over the past few months. The patient states that he has difficulty swallowing and occasional pain with swallowing. He does not feel like he is aspirating. The family states that he has never reported to them that he has had difficulty swallowing. The patient did recently complete a course of doxycycline for pneumonia last month. They state his urinary catheter was replaced at the end of August. He has an. appointment with his urologist later this month. In the emergency department, he was found to be afebrile with temperature of 36.4 C. He was tachycardic and in atrial fibrillation with a heart rate of 95. His blood pressure was 101/71. He was not tachypneic and saturating well on room air. His labs were significant for sodium of 131 and a potassium of 3.2. TSH within normal limits. A CT of the head was obtained which showed no acute abnormalities. A urinalysis was also obtained which showed large occult blood, positive nitrites, large leukocyte Estrace, over 25 WBCs, and moderate bacteria. He was given Ativan in the emergency department for agitation. He also received Levaquin IV for his urinary tract infection. Medicine was consulted for admission. I did discuss goals of care with the patient and he would like to be a full code. History - Past Medical History Cardiovascular: reports: Hypertension, High cholesterol, Atrial fibrillation, Other Respiratory: reports: Pneumonia, Tuberculosis Neuro: reports: None Endocrine/Autoimmune: reports: Type 2 diabetes GI: reports: None BRIDGE DESIGN ENGINEER: reports: Other (Prostate CA s/p radiation) : reports: Benign prostate hypertrophy, Indwelling catheter HEENT: reports: None Psych: reports: None Musculoskeletal: reports: Osteoarthritis, Chronic back pain Derm: reports: None MRSA Hx?: No - Past Surgical History Ortho: reports: Hip replacement /BRIDGE DESIGN ENGINEER: reports: Other HEENT: reports: Cataracts - Family & Social History Family History: Mother: , Father: , Sister: Family History Comment/Other: Mother of pulmonary edema, [place]. She also had a history of DVT. Father of CVA, cancer. Living arrangement: At home Living Situation: With family Social History Notes: The patient lives in [place] with his and grandchildren. He was born in [facility] and moved to [place] where he lived there for nearly 40 years. The patient states that he traveled all throughout the world with the [employer] including the [place] and [place]. The patient quit smoking about 30 years ago and smoked 2 packs a day for about 20 years. Patient currently does not drink alcohol or use any illicit drugs. - Substance History Use: Uses substance without health or social issues: NONE - POLST Patient has POLST: No POLST Status: Full Code Meds/Allgy - Home Medications Home Medications: Ambulatory Orders Medication Instructions Recorded Confirmed Pravastatin Sodium [Pravachol] 20 mg PO QPM 03/05/19 05/18/19 Midodrine HCl 10 mg PO TIDWM 05/18/19 05/18/19 Acetaminophen [Tylenol] 650 mg PO Q4HR PRN tablet 05/21/19 Folic Acid 1 mg PO DAILY tablet 05/21/19 Gabapentin 300 mg PO TID #90 capsule 05/21/19 05/18/19 Lactobacillus Rhamnosus GG 1 cap PO DAILY capsule 05/21/19 [Culturelle] Levothyroxine [Synthroid] 50 mcg PO QDAC #1 05/21/19 05/18/19 Tamsulosin [Flomax] 0.4 mg PO DAILY #0 05/21/19 05/18/19 Albuterol Sulfate [Albuterol 2 puffs IH QID #1 hfa.aer.ad 09/12/19 Sulfate Hfa] Famotidine 20 mg PO DAILY #30 tablet 09/12/19 Lidocaine Viscous 2% [Xylocaine 5 ml PO Q4H PRN #100 ml 09/12/19 Viscous 2%] - Allergies Allergies/Adverse Reactions: Allergies Allergy/AdvReac Type Severity Reaction Status Date / Time rivaroxaban [From Xarelto] Allergy Unknown Verified 09/29/19 02:33 Review of Systems - Constitutional Constitutional: reports: Poor appetite, Weight loss. denies: Fever, Chills, Malaise, Weakness - Cardiovascular Cariovascular: denies: Palpitations, Chest pain, Exertional dyspnea, Decr. exercise tolerance - Respiratory Respiratory: denies: Cough, SOB at rest, SOB with exertion - Gastrointestinal Gastrointestinal: denies: Abdominal pain, Diarrhea, Vomiting - Genitourinary Genitourinary: denies: Dysuria, Hematuria - Musculoskeletal Musculoskeletal: reports: Joint pain - Integumentary Integumentary: denies: Rash - Neurological Neurological: reports: General weakness, Other (Insomnia). denies: Focal weakness, Numbness - Hematologic/Lymphatic Hematologic/Lymphatic: reports: Bleeding tendencies - All Other Systems All Other Systems: reports: Reviewed and negative Prior Level of Functionality: Family reports that he is currently dependent for his ADLs and is bedridden most of the day. He was previously ambulating with a walker. Exam - Vital Signs Reviewed Vital Signs: Yes Vital Signs: Vital Signs x48h Temp Pulse Resp BP Pulse Ox 09/29/19 02:27 36.4 C L 95 20 101/71 98 - Physical Exam General Appearance: positive: No acute distress, Alert Eyes Bilateral: positive: Normal inspection, Conjunctivae nml ENT: positive: ENT inspection nml, Dry mucous membranes, Other (Poor dentition) Neck: positive: Nml inspection Respiratory: positive: No respiratory distress. negative: Wheezes, Rales, Rhonchi Cardiovascular: positive: No murmur, Irregularly irregular, Tachycardia. negative: Bradycardia, Systolic murmur, Diastolic murmur Abdomen: positive: Non-tender, Nml bowel sounds, No distention. negative: Tenderness, Guarding, Rebound Skin: positive: No rash, Warm, Dry Extremities: positive: No pedal edema Neurologic/Psychiatric: positive: Disoriented to time, Other (No focal motor deficits.). negative: Oriented x3, Disoriented to person, Disoriented to place, Slurred/abnml speech Conclusion/Plan - Problem List (1) Delirium Conclusion/Plan: This is likely multifactorial and secondary to his urinary tract infection and dehydration. Presents from home with confusion and disorientation. At baseline he is quite sharp mentally his family tells me. At home he would think he was driving to [employer] While he was just sitting in bed. He also can identify his grandson and at times. Now in the emergency department, he does recognize them but he thinks it is August 2020. CT the head was negative. His LFTs are normal so less likely that this would be secondary to hyperammonemia so will not check an ammonia. We will treat his UTI with IV antibiotics. Hydrate him with IV fluids. Avoid benzodiazepines. Delirium precautions. For his insomnia, will consider Seroquel if there is no improvement. He will require an inpatient stay given his inability to feed and hydrate himself at home. (2) Urinary tract infection Conclusion/Plan: This is catheter associated UTI and was present on admission. His urinalysis is suggestive of infection. His family states the catheter was changed just over a week ago. He has history of multiple UTIs in the past and has grown Pseudomonas. He received Levaquin IV in the emergency department. We will place him on meropenem IV and await urine cultures. Fortunately, he does not appear to be septic. Qualifiers: Urinary tract infection type: catheter-associated UTI Indwelling urinary catheter type: indwelling urethral catheter Encounter type: initial encounter Qualified Code(s): T83.511A - Infection and inflammatory reaction due to indwelling urethral catheter, initial encounter; N39.0 - Urinary tract infection, site not specified (3) Dehydration Conclusion/Plan: This is likely secondary to poor oral intake at home. Family reports he has not been eating much this past week and his liquid intake has been average. There appears to be no renal dysfunction as his creatinine is at baseline. We will hydrate him with IV lactated Ringer's. (4) Chronic atrial fibrillation Conclusion/Plan: He has chronic atrial fibrillation and is not on any home medications for rate c ontrol. His heart rate is currently stable in the 90s. He is on anticoagulation due to prior history of hematuria. Will monitor on telemetry and check a troponin. (5) Hypotension Conclusion/Plan: He has a history of orthostatic hypotension for which he takes midodrine. His blood pressures currently stable in the 110s. We will continue his home midodrine. Qualifiers: Hypotension type: orthostatic hypotension Qualified Code(s): I95.1 - Orthostatic hypotension (6) Dysphagia Conclusion/Plan: He reports dysphagia and occasional odynophagia and he believes this may potentially be why he is not eating much. We will ask speech therapy to evaluate him. He may need a barium swallow and possibly even an EGD. Diet as tolerated. (7) History of BPH Conclusion/Plan: He has a chronic indwelling Matthew for BPH and a prior history of prostate cancer. Given the Matthew was just recently changed, will keep it in place at the moment. If there is no improvement from a clinical standpoint and treatment of his UTI, will exchange the catheter. He will continue to follow-up on outpatient basis with his urologist. We have resumed his home Flomax. (8) Hyponatremia Conclusion/Plan: This is likely hypovolemic hyponatremia. His sodium is decreased at 131. We have started him on IV fluids we will monitor his sodium. (9) Hypokalemia Conclusion/Plan: Potassium is low at 3.2. Replace this orally and we will continue to monitor and replace as needed. (10) Protein-calorie malnutrition, severe Conclusion/Plan: He meets criteria per [facility] given his weight loss. We will place a nutrition consult. Diet as tolerated. Ensure with meals. (11) Hypothyroidism Conclusion/Plan: TSH is within normal limits. We have resumed his home Synthroid. - Lab Results Lab results reviewed: Yes Fish Bones: 09/29/19 02:59 09/29/19 02:59 - Diagnostic Imaging Results Diagnostic Imaging Results: positive: Final report reviewed Core Measures - Anticipated LOS I expect patient to be DC'd or transferred within 96 hours.: Yes - Issues Hospital Issues and Management Plan: 84-year-old male with chronic indwelling Matthew catheter who presents with delirium and UTI. Will admit for IV antibiotics and IV fluid given he is unable to feed and hydrate himself at home. - DVT/VTE - Prophylaxis VTE/DVT Device ordered at admit?: Yes VTE/DVT Prophylaxis med ordered at admit?: Yes
[2019-09-29] MEDS: LACTATED RINGERS 1,000 ML IV SCH ×2 (05:02→18:43)
[2019-09-29] MEDS: MIDODRINE 2.5 MG TABLET PO SCH ×3 (06:09→21:49)
[2019-09-29] MEDS: LEVOTHYROXINE 25 MCG TABLET PO SCH (06:09)
[2019-09-29] MEDS ORDERED: POTASSIUM CHLORIDE 20 MEQ TABLET PO ONE (06:59)
[2019-09-29] MEDS ORDERED: levETIRAcetam INJ 1,000 MG in SODIUM CHLORIDE 0.9% 100ML 100 ML IV STA (08:39)
[2019-09-29] MEDS ORDERED: SODIUM CHLORIDE FLUSH 0.9% 10 ML SYRINGE IVP SCH (09:00)
[2019-09-29] MEDS ORDERED: MEROPENEM 1 GM in SODIUM CHLORIDE 0.9% MINIBAG 100 ML IV SCH (09:00)
--- NOTE | 2019-09-29 09:01 | PROVIDER PROGRESS NOTE ---
Assessment/Plan - Problem List (1) New onset seizure without head trauma Assessment/Plan: The FURNACE ROOM SUPERVISOR witnessed him to have a seizure at about 0836, who told his RN, who called me into the patient's room. I witness about 3 sec of tonic clonic movements of his arms, R gaze preference and breath holding, then a gasp and he went flaccid and did not respond to sternal rub. Imp: New Onset Seizures without trauma.. Etiology could be his abnormal brain by CT (findings consistent with atrophy and chronic microvascular ischemia) vs the Quinolone he received just several hours ago vs the infection (although he has no fever). Plan: Transfer to ICU Seizure precautions NPO until he awakens from his post-ictal status. Change essential meds to iv form Continue iv hydration with D5 in solution for some calories Keppra load with 1 gm iv Will R/O hypoglycemia, since he has not been eating, as a cause of the seizure. He received Levaquin, which is a likely cause of his seizure. Will change antibiotic. Meropenam was planned but this is also listed on the meds that are associated with seizures. Will use Aztreonam. Will consider obtaining brain MRI, but he just had a head CT 5 hours ago. Will request Palliative digital media sales consultant to restart following (Aimee Lockwood, SHAKIRA saw him when he "lived" at [facility] 2 years ago), regarding question of how aggressively to proceed, and DNR status instead of Full Code, since he is failing. PT will be cancelled. Speech Therapy was ordered to eval the dysphagia, and if he awakens from his post-ictal status by the time the bedside clinical swallowing eval is to be done by the ST, will leave that order. CRITICAL CARE TIME SPENT: 35 min. - Current Meds Current Meds: Current Medications Generic Name Dose Route Start Last Admin Trade Name Freq PRN Reason Stop Dose Admin Lactated Ringer's 1,000 mls @ 100 mls/hr 09/29/19 04:00 09/29/19 05:02 Lr IV 100 mls/hr .Q10H DONALD Administration Levothyroxine Sodium 50 mcg 09/29/19 07:00 09/29/19 06:09 Synthroid PO 50 mcg QDAC DONALD Administration Midodrine 10 mg 09/29/19 06:00 09/29/19 06:09 PO 10 mg TID DONALD Administration - Lab Result Fish Bone Diagrams: 09/29/19 02:59 09/29/19 02:59 - Additional Planning My Orders: My Active Orders 09/29/19 Palliative Care Consult [CONS] Routine 09/29/19 08:34 Transfer [Admit \\ Transfer \\ Status] [RC] .ONCE 09/29/19 08:36 Activity Orders [RC] Q2HR Daily Weight [RC] 0600 IO [RC] Q1HR Initiate Bowel Care Protocol [RC] QSHIFT Initiate Flu Vaccine Screening [RC] ONCE Initiate ICU Electrolyte Prot. [RC] .protocol Initiate Line Care Protocol [RC] .protocol Initiate Personal Care Protoco [RC] .protocol Initiate Pneumonia Vaccine Scr [RC] ONCE Vital Signs [RC] Q2HR MRSA PCR,CCU ADMIT Routine Code Status [OTHERS] Routine Condition of Patient [OTHERS] Routine 09/29/19 08:37 Blood Glucose POC [RC] Routine NPO except Meds [DIET] 09/29/19 08:38 Telemetry- [RC] Q4HR 09/29/19 08:39 Seizure Manage [RC] PRN levETIRAcetam INJ [Keppra Inj] 1,000 mg Sodium Chloride 0.9% 100Ml [Normal Saline 0.9% 100Ml] 100 ml IV ONCE 09/29/19 09:00 Meropenem [Merrem] 1 gm Sodium Chloride 0.9% Minibag [Normal Saline 0.9% Minibag] 100 ml IV Q12H Subjective - Subjective Nursing Reports: Confused, Other (Seizure) Objective Vital Signs: Vital Signs - 24 hr 09/29/19 09/29/19 09/29/19 02:27 04:03 05:00 Temperature 36.4 C L 36.2 C L Heart Rate 95 97 Heart Rate [ 103 H Brachial] Respiratory 20 17 20 Rate Blood Pressure 101/71 110/69 Blood Pressure 112/76 [Left Brachial artery] O2 Saturation 98 98 100 09/29/19 08:07 Temperature 36.1 C L Heart Rate Heart Rate [ 92 Brachial] Respiratory 20 Rate Blood Pressure Blood Pressure 100/52 L [Left Brachial artery] O2 Saturation 91 L Oxygen O2 Source Room air I&O (Last 24 Hrs): Intake and Output Totals x24h 09/27/19 09/28/19 09/29/19 22:59 23:59 23:59 Intake Total 1100 Output Total 200 Balance 900 General: Other (Obtunded, no response to sternal rub) HEENT: Other (Dry mucosa, disheveld) Neck: No JVD Neuro: Other (Obtunded, no respponse to pain, flaccid extremities) Cardiovascular: Regular rate Respiratory: No respiratory distress Abdomen: Soft Extremities: No edema - Results Results: Laboratory Results WBC 5.9 x10^3/uL (4.8-10.8) 09/29/19 02:59 RBC 3.55 10^6/uL (4.70-6.10) L 09/29/19 02:59 Hgb 11.0 g/dL (14.0-18.0) L 09/29/19 02:59 Hct 33.7 % (42.0-52.0) L 09/29/19 02:59 MCV 94.9 fL (80.0-94.0) H 09/29/19 02:59 MCH 31.0 pg (27.0-31.0) 09/29/19 02:59 MCHC 32.6 g/dL (32.0-36.0) 09/29/19 02:59 RDW 13.3 % (12.0-15.0) 09/29/19 02:59 Plt Count 160 10^3/uL (130-450) 09/29/19 02:59 MPV 11.5 fL (7.4-11.4) H 09/29/19 02:59 Neut # (Auto) 3.8 10^3/uL (1.5-6.6) 09/29/19 02:59 Lymph # (Auto) 1.3 10^3/uL (1.5-3.5) L 09/29/19 02:59 Parke # (Auto) 0.5 10^3/uL (0.0-1.0) 09/29/19 02:59 Eos # (Auto) 0.2 10^3/uL (0.0-0.7) 09/29/19 02:59 Baso # (Auto) 0.1 10^3/uL (0.0-0.1) 09/29/19 02:59 Absolute Nucleated RBC 0.00 x10^3/uL 09/29/19 02:59 Nucleated RBC % 0.0 /100WBC 09/29/19 02:59 PT 14.1 secs (9.9-12.6) H 09/29/19 02:59 INR 1.3 (0.8-1.2) H 09/29/19 02:59 Sodium 131 mmol/L (135-145) L 09/29/19 02:59 Potassium 3.2 mmol/L (3.5-5.0) L 09/29/19 02:59 Chloride 100 mmol/L (101-111) L 09/29/19 02:59 Carbon Dioxide 24 mmol/L (21-32) 09/29/19 02:59 Anion Gap 7.0 (6-13) 09/29/19 02:59 BUN 17 mg/dL (6-20) 09/29/19 02:59 Creatinine 1.1 mg/dL (0.6-1.2) 09/29/19 02:59 Estimated GFR (MDRD) 64 (>89) L 09/29/19 02:59 Glucose 98 mg/dL (70-100) 09/29/19 02:59 Calcium 8.1 mg/dL (8.5-10.3) L 09/29/19 02:59 Total Bilirubin 1.1 mg/dL (0.2-1.0) H 09/29/19 02:59 AST 17 IU/L (10-42) 09/29/19 02:59 ALT < 10 IU/L (10-60) L 09/29/19 02:59 Alkaline Phosphatase 99 IU/L (42-121) 09/29/19 02:59 Troponin I High Sens 13.4 ng/L (2.3-19.7) 09/29/19 05:04 Total Protein 5.6 g/dL (6.7-8.2) L 09/29/19 02:59 Albumin 2.4 g/dL (3.2-5.5) L 09/29/19 02:59 Globulin 3.2 g/dL (2.1-4.2) 09/29/19 02:59 Albumin/Globulin Ratio 0.8 (1.0-2.2) L 09/29/19 02:59 Lipase 23 U/L (22-51) 09/29/19 02:59 TSH 3.72 uIU/mL (0.34-5.60) 09/29/19 02:59 Urine Color YELLOW 09/29/19 02:36 Urine Clarity CLOUDY (CLEAR) 09/29/19 02:36 Urine pH 6.0 PH (5.0-7.5) 09/29/19 02:36 Ur Specific [place] 1.025 (1.002-1.030) 09/29/19 02:36 Urine Protein 100 mg/dL (NEGATIVE) H 09/29/19 02:36 Urine Glucose (UA) 100 mg/dL (NEGATIVE) H 09/29/19 02:36 Urine Ketones NEGATIVE mg/dL (NEGATIVE) 09/29/19 02:36 Urine Occult Blood LARGE (NEGATIVE) H 09/29/19 02:36 Urine Nitrite POSITIVE (NEGATIVE) H 09/29/19 02:36 Urine Bilirubin NEGATIVE (NEGATIVE) 09/29/19 02:36 Urine Urobilinogen 0.2 (NORMAL) E.U./dL (NORMAL) 09/29/19 02:36 Ur Leukocyte Esterase LARGE (NEGATIVE) H 09/29/19 02:36 Urine RBC TNTC /HPF (0-5) H 09/29/19 02:36 Urine WBC >25 /HPF (0-3) H 09/29/19 02:36 Ur Squamous Epith Cells NONE SEEN (<= Few) 09/29/19 02:36 Urine Bacteria Moderate /HPF (None Seen) H 09/29/19 02:36 Ur Microscopic Review INDICATED 09/29/19 02:36 Urine Culture Comments INDICATED 09/29/19 02:36 - Procedures Procedures: Procedures REPOSITION RIGHT UPPER FEMUR WITH INT FIX, OPEN APPROACH (09/10/17)
[2019-09-29] MEDS: SODIUM CHLORIDE FLUSH 0.9% 10 ML SYRINGE IVP SCH ×2 (09:56→18:25)
[2019-09-29] MEDS ORDERED: AZTREONAM 1 GM in SODIUM CHLORIDE 0.9% MINIBAG 100 ML IV SCH ×2 (10:00→18:00)
[2019-09-29] MEDS: ENOXAPARIN 40 MG/0.4 ML SYRINGE SUBQ SCH (10:14)
[2019-09-29 11:17] LABS: MAGNESIUM 1.8 mg/dL (1.7-2.8); PHOSPHORUS 2.5 mg/dL (2.5-4.6)
[2019-09-29] MEDS: TAMSULOSIN 0.4 MG CAPSULE PO SCH (13:16)
--- NOTE | 2019-09-29 13:23 | CONSULTATION NOTE ---
Palliative Care Consultation - Referral Referring Provider: Elizabet Goodman MD Time of Visit: 1015-11; [id number] Referral setting: Hospitalized patient Referral Reason: UTI/Protien Calorie Malnutrtion /FTT/Dysphagia - Information Sources Records reviewed: Previous records reviewed History/Review of Systems obtained from: Patient, Family (met with Emily) Exam limitations: Clinical condition (patient post seizure; able to engage in conversation) - History of Present Illness Brief History of Present Illness: This is an 84-year-old gentleman who I am seeing who is just post ictal, had a seizure about half hour before he came. He actually was able to engage and converse in conversation. He had been brought in early this a.m. as he had had a history of 2 weeks of confusion, worsening over the last few days, including hallucinations, thinking he was driving in his hospital bed. Patient is aware he is in the hospital, he actually does recall his seizure, shaking and feeling quite frightened with this. He does have a chronic indwelling catheter, as a result of his prostate cancer. He has had previous hospitalizations related to his UTI, most recently was discharged to [facility] Where he did continue to improve with his functional status, but much to his family's distress who continued to deteriorate at home. He is followed by home health, but of note it does appear he is been losing weight, and looks like about a 25 to 30 pound weight loss over this last 6 months. 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 But more pertinent, as patient reports he has had no appetite, that things have been getting "stuck in his throat", and has had more difficulty swallowing. His original complaint was dysphagia when he presented to the ED 09/12 and he was treated for pneumonia, but with little improvement. He has not had any further work-up on the outpatient basis. reports he has been refusing food, she is tried all kinds of different foods some he asked for, brought in from the outside, reports he will eat just a few bites and then stop. He reports to be able to eat he has a swallow with large amounts of water. She reports he is having increased trouble with pills. The patient denies stomach pain, observes patient has been holding his stomach like it hurts. Patient does have some awareness that he is declining, he reports he is mostly chair and wheelchair bound, his daughter's boyfriend has to carry him and place him in the wheelchair. He has increased care needs, does not always cooperate or engage with his and or therapy. She is felt quite overwhelmed, and sees his decline as well. She is originally from the [facility], where she has 9 sisters and 2 brothers, she just found out last night her brother has had a stroke. Her family that is here in the [facility], are in [place]. She has 3 children and then they have the 1 daughter together. When approached patient regarding his frail status, and concern for ongoing decline, patient reports he is "not afraid to go to [facility]". But when pursued further regarding CODE STATUS, patient reports he is not afraid to have someone try. We did agree in the context of further follow-up, we would discuss this after I talk to his . We also would want to wait until further work-up, as it does look like he has some underlying etiology that is adding to his fairly rapid decline. He does have multiple comorbidities, including chronic atrial fib not on anti- coag, chronic indwelling Landaverde catheter for BPH and history of prostate cancer, hypertension, hypothyroidism, and frequent hospitalizations. 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 He did travel quite a bit. 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 He has been quite frail over the last several years, he and his have moved from [place] to be with their daughter and grandson. They have had multiple financial stressors, she is working to try and get some VA benefits. Patient is quite perturbed with , suspect has more to do with his increasing care needs and poor follow-through with therapies. They do have a hospital bed at home.Their daughter though does work, and is not available for help, francia winn's boyfriend does help sometimes with care needs. Family History - Family History Family History: Mother: (per had 9 brothers and sisters; only one left), CAD, [place], Father: , Cancer, CVA/TIA, Sister: , Brother: Medications/Allergies - Medications Active Medication List: Active Medications Acetaminophen (Tylenol) 650 mg PO Q4HR PRN PRN Reason: Pain 1 to 4 Enoxaparin Sodium (Lovenox) 40 mg SUBQ DAILY [facility] Last Admin: 09/29/19 10:14 Dose: 40 mg Lactated Ringer's (Lr) 1,000 mls @ 100 mls/hr IV .Q10H [facility] Last Infusion: 09/29/19 10:57 Dose: 100 mls/hr Aztreonam 1 gm/ Sodium (Chloride) 100 mls @ 200 mls/hr IV Q8H [facility] Levothyroxine Sodium (Synthroid) 50 mcg PO QDAC [facility] Last Admin: 09/29/19 06:09 Dose: 50 mcg Midodrine () 10 mg PO TID [facility] Last Admin: 09/29/19 06:09 Dose: 10 mg Ondansetron HCl (Zofran Inj) 4 mg IVP Q6HR PRN PRN Reason: Nausea / Vomiting Sodium Chloride (Normal Saline Flush 0.9%) 10 ml IVP PRN PRN PRN Reason: NEEDED PER PROVIDER ORDERS Sodium Chloride (Normal Saline Flush 0.9%) 10 ml IVP 0100,0900,1700 [facility] Last Admin: 09/29/19 09:56 Dose: 10 ml Sodium Phosphate (K-Phos Neutral) 250 mg PO Q2H [facility]; Protocol Stop: 09/29/19 14:01 Tamsulosin HCl (Flomax) 0.4 mg PO DAILY [facility] Last Admin: 09/29/19 13:16 Dose: 0.4 mg Pravastatin Sodium [Pravachol] 20 mg PO QPM 03/05/19 Midodrine HCl 10 mg PO TIDWM 05/18/19 - Allergies Allergies/Adverse Reactions: Allergies Allergy/AdvReac Type Severity Reaction Status Date / Time rivaroxaban [From Xarelto] Allergy Unknown Verified 09/29/19 02:33 Review of Systems - Constitutional Constitutional: reports: Fatigue (04/28/2019 170; 09/29/2019 141), Poor appetite, Weight loss. denies: Fever, Chills - Eyes Eyes: reports: Vision loss - Ears, Nose & Throat Ears, Nose & Throat: reports: Hearing loss (mild), Hoarseness, Dental decay (few single teeth) - Cardiovascular Cardiovascular: reports: Exertional dyspnea, Decr. exercise tolerance. denies: Chest pain - Respiratory Respiratory: reports: SOB with exertion. denies: SOB at rest - Gastrointestinal Gastrointestinal: reports: Constipation (reports BM 2 days ago), Nausea, Reflux/heartburn, Poor appetite - Genitourinary Genitourinary: reports: Other (has landaverde catheter) - Musculoskeletal Musculoskeletal: reports: Back pain, Muscle aches, Stiffness, Limited range of motion, Muscle weakness, Joint pain (left knee joint), Transfer issues (wheelchair bound at home; though had previously been walking at [facility]) - Integumentary Integumentary: reports: Dryness - Neurological Neurological: reports: Seizures (first time this AM) - Psychiatric Psychiatric: reports: Depression, Anxiety, Hallucinations (previous to hospital admit) - Endocrine Endocrine: reports: Intolerance to cold - Hematologic/Lymphatic Hematologic/Lymphatic: reports: Anemia (11.0), Recurrent infections - All Other Systems All Other Systems: reports: Other (limited ROS) Physical Exam - Vital Signs Vital Signs: Vital Signs x48h Temp Pulse Pulse Resp BP Pulse Ox 09/29/19 13:00 84 22 09/29/19 11:00 36.2 C L 96 16 99/55 L 100 09/29/19 10:08 99 16 93/62 100 09/29/19 09:00 36.0 C L 09/29/19 08:59 35.7 C L 102 H 20 127/85 H 100 09/29/19 08:36 116 H 20 128/80 94 09/29/19 08:07 36.1 C L 92 20 100/52 L 91 L - Physical Exam General Appearance: positive: No acute distress, Lethargic, Cachetic Eyes Bilateral: positive: Other (kept eyes closed most of exam) ENT: positive: Other (few teeth; speech impacted) Neck: positive: No JVD, Trachea midline Cardiovascular: positive: Irregularly irregular Respiratory: positive: No respiratory distress, Diminished in bases. negative: Wheezes, Rales, Rhonchi Abdomen: positive: Mass (small area of firmness RUQ; nonfixed 2 x 3 cm mass not painful), Other (concave) Skin: positive: Pallor, Dryness, Bruising Extremities: positive: No pedal edema Neurologic/Psychiatric: positive: Disoriented to time, Weakness, Depressed mood/affect, Flat affect Palliative Care - POLST Patient has POLST: No POLST Status: Full Code Pain: Pain worsening, Location (Patient reports pain has worsened, reports he has severe lower extremity neuropathy, with sharp shooting pains. He is on gabapentin on his home med list, unable to evaluate if this was effective or not.Reports his worst pain has actually been his left knee, it is tender to palpation. Does not appear to have a large amount of effusion, but is fairly soft over the proximal part of the kneecap.) Tiredness/Fatigue: Severe (7-10) Drowsiness/Sedation: Moderate (4-6) Nausea: Mild (1-3) Anorexia: Severe (7-10), Weight loss Dyspnea: Mild (1-3) Depression: Moderate (4-6) Anxiety: Mild (1-3) Performance Status: reports functional status declining, patient confirms this. Is mostly in the hospital bed, and or in wheelchair for medical appointments. Does need to be carried, is no longer walking, though was discharged walking from [facility] several weeks ago. Does need total assist with bathing, some assist with bed mobility noted on exam. - Palliative Care Discussion: Patient is able to engage and have a conversation, does admit to declining particular over the last several weeks. Does attribute this to not eating, and describes a series of symptoms adding to this. He denies feeling worried, reports he is not afraid to . He was frightened by his seizure, when asked if he felt like he was going to get better, he does have insight he is not expecting to. When asked how things were going at home, he reports he and his are having trouble but did not add much to complete this understanding. Did introduce the conversation regarding CODE STATUS, that I worried that he is continued to decline, when asked if he understood regarding resuscitation, he reported he "wanted to try", did not seem perplexed by the information this most likely would not succeed and might be traumatic. He did agree I could talk to him about this more, I did tell him I was going to follow-up with his family. I did have a chance to meet with his separately, she is from [facility], is quite distressed by his ongoing decline. She has been trying to get him to eat, reports he has been drinking mostly Gatorade, having trouble with pills and worries about his stomach which is "dipping down". She would like him to go back to the senior care, he has been at [facility] and [facility], both times improved. Introduced my concerns that patient has lost a lot of weight, is continuing to deteriorate, and now has been hospitalized again. She would hope he would have a chance to go back to the SNF, I am unclear how many days he has left on his benefit as he has been there recently. She reports he is been much more irritable, or difficult to redirect, or please. Reports he is a very kind man and brought all her children over to [place] from the [facility], than they had their daughter together. Her daughter is , and works full-time and does not available much for support. She reports her 19 year old grandson who has special needs, lives with them as well. She reports her significant financial stressors, that if he were to need permanent placement, it would not be able to afford this. She feels distraught as her children and other family are in [place], she would return there if he were to . She lost her first to TB. Results - Lab Results Lab results reviewed: Yes Fish Bones: 09/29/19 02:59 09/29/19 02:59 Lab and Imaging Results: Lab Results x24hrs 09/29/19 09/29/19 09/29/19 Range/Units 08:50 05:04 05:04 WBC (4.8-10.8) x10^3/uL RBC (4.70-6.10) 10^6/uL Hgb (14.0-18.0) g/dL Hct (42.0-52.0) % MCV (80.0-94.0) fL MCH (27.0-31.0) pg MCHC (32.0-36.0) g/dL RDW (12.0-15.0) % Plt Count (130-450) 10^3/uL MPV (7.4-11.4) fL Neut # (Auto) (1.5-6.6) 10^3/uL Lymph # (Auto) (1.5-3.5) 10^3/uL [place] # (Auto) (0.0-1.0) 10^3/uL Eos # (Auto) (0.0-0.7) 10^3/uL Baso # (Auto) (0.0-0.1) 10^3/uL Absolute Nucleated RBC x10^3/uL Nucleated RBC % /100WBC PT (9.9-12.6) secs INR (0.8-1.2) Sodium (135-145) mmol/L Potassium (3.5-5.0) mmol/L Chloride (101-111) mmol/L Carbon Dioxide (21-32) mmol/L Anion Gap (6-13) BUN (6-20) mg/dL Creatinine (0.6-1.2) mg/dL Estimated GFR (MDRD) (>89) Glucose (70-100) mg/dL Calcium (8.5-10.3) mg/dL Phosphorus 2.5 (2.5-4.6) mg/dL Magnesium 1.8 (1.7-2.8) mg/dL Total Bilirubin (0.2-1.0) mg/dL AST (10-42) IU/L ALT (10-60) IU/L Alkaline Phosphatase (42-121) IU/L Troponin I High Sens 13.4 (2.3-19.7) ng/L Total Protein (6.7-8.2) g/dL Albumin (3.2-5.5) g/dL Globulin (2.1-4.2) g/dL Albumin/Globulin Ratio (1.0-2.2) Lipase (22-51) U/L TSH (0.34-5.60) uIU/mL Urine Color Urine Clarity (CLEAR) Urine pH (5.0-7.5) PH Ur Specific [place] (1.002-1.030) Urine Protein (NEGATIVE) mg/dL Urine Glucose (UA) (NEGATIVE) mg/dL Urine Ketones (NEGATIVE) mg/dL Urine Occult Blood (NEGATIVE) Urine Nitrite (NEGATIVE) Urine Bilirubin (NEGATIVE) Urine Urobilinogen (NORMAL) E.U./dL Ur Leukocyte Esterase (NEGATIVE) Urine RBC (0-5) /HPF Urine WBC (0-3) /HPF Ur Squamous Epith Cells (<= Few) Urine Bacteria (None Seen) /HPF Ur Microscopic Review Urine Culture Comments Nasal Screen MRSA (PCR) NEGATIVE (NEGATIVE) 09/29/19 09/29/19 09/29/19 Range/Units 02:59 02:59 02:59 WBC (4.8-10.8) x10^3/uL RBC (4.70-6.10) 10^6/uL Hgb (14.0-18.0) g/dL Hct (42.0-52.0) % MCV (80.0-94.0) fL MCH (27.0-31.0) pg MCHC (32.0-36.0) g/dL RDW (12.0-15.0) % Plt Count (130-450) 10^3/uL MPV (7.4-11.4) fL Neut # (Auto) (1.5-6.6) 10^3/uL Lymph # (Auto) (1.5-3.5) 10^3/uL [place] # (Auto) (0.0-1.0) 10^3/uL Eos # (Auto) (0.0-0.7) 10^3/uL Baso # (Auto) (0.0-0.1) 10^3/uL Absolute Nucleated RBC x10^3/uL Nucleated RBC % /100WBC PT 14.1 H (9.9-12.6) secs INR 1.3 H (0.8-1.2) Sodium 131 L (135-145) mmol/L Potassium 3.2 L (3.5-5.0) mmol/L Chloride 100 L (101-111) mmol/L Carbon Dioxide 24 (21-32) mmol/L Anion Gap 7.0 (6-13) BUN 17 (6-20) mg/dL Creatinine 1.1 (0.6-1.2) mg/dL Estimated GFR (MDRD) 64 L (>89) Glucose 98 (70-100) mg/dL Calcium 8.1 L (8.5-10.3) mg/dL Phosphorus (2.5-4.6) mg/dL Magnesium (1.7-2.8) mg/dL Total Bilirubin 1.1 H (0.2-1.0) mg/dL AST 17 (10-42) IU/L ALT < 10 L (10-60) IU/L Alkaline Phosphatase 99 (42-121) IU/L Troponin I High Sens (2.3-19.7) ng/L Total Protein 5.6 L (6.7-8.2) g/dL Albumin 2.4 L (3.2-5.5) g/dL Globulin 3.2 (2.1-4.2) g/dL Albumin/Globulin Ratio 0.8 L (1.0-2.2) Lipase 23 (22-51) U/L TSH 3.72 (0.34-5.60) uIU/mL Urine Color Urine Clarity (CLEAR) Urine pH (5.0-7.5) PH Ur Specific [place] (1.002-1.030) Urine Protein (NEGATIVE) mg/dL Urine Glucose (UA) (NEGATIVE) mg/dL Urine Ketones (NEGATIVE) mg/dL Urine Occult Blood (NEGATIVE) Urine Nitrite (NEGATIVE) Urine Bilirubin (NEGATIVE) Urine Urobilinogen (NORMAL) E.U./dL Ur Leukocyte Esterase (NEGATIVE) Urine RBC (0-5) /HPF Urine WBC (0-3) /HPF Ur Squamous Epith Cells (<= Few) Urine Bacteria (None Seen) /HPF Ur Microscopic Review Urine Culture Comments Nasal Screen MRSA (PCR) (NEGATIVE) 09/29/19 09/29/19 Range/Units 02:59 02:36 WBC 5.9 (4.8-10.8) x10^3/uL RBC 3.55 L (4.70-6.10) 10^6/uL Hgb 11.0 L (14.0-18.0) g/dL Hct 33.7 L (42.0-52.0) % MCV 94.9 H (80.0-94.0) fL MCH 31.0 (27.0-31.0) pg MCHC 32.6 (32.0-36.0) g/dL RDW 13.3 (12.0-15.0) % Plt Count 160 (130-450) 10^3/uL MPV 11.5 H (7.4-11.4) fL Neut # (Auto) 3.8 (1.5-6.6) 10^3/uL Lymph # (Auto) 1.3 L (1.5-3.5) 10^3/uL [place] # (Auto) 0.5 (0.0-1.0) 10^3/uL Eos # (Auto) 0.2 (0.0-0.7) 10^3/uL Baso # (Auto) 0.1 (0.0-0.1) 10^3/uL Absolute Nucleated RBC 0.00 x10^3/uL Nucleated RBC % 0.0 /100WBC PT (9.9-12.6) secs INR (0.8-1.2) Sodium (135-145) mmol/L Potassium (3.5-5.0) mmol/L Chloride (101-111) mmol/L Carbon Dioxide (21-32) mmol/L Anion Gap (6-13) BUN (6-20) mg/dL Creatinine (0.6-1.2) mg/dL Estimated GFR (MDRD) (>89) Glucose (70-100) mg/dL Calcium (8.5-10.3) mg/dL Phosphorus (2.5-4.6) mg/dL Magnesium (1.7-2.8) mg/dL Total Bilirubin (0.2-1.0) mg/dL AST (10-42) IU/L ALT (10-60) IU/L Alkaline Phosphatase (42-121) IU/L Troponin I High Sens (2.3-19.7) ng/L Total Protein (6.7-8.2) g/dL Albumin (3.2-5.5) g/dL Globulin (2.1-4.2) g/dL Albumin/Globulin Ratio (1.0-2.2) Lipase (22-51) U/L TSH (0.34-5.60) uIU/mL Urine Color YELLOW Urine Clarity CLOUDY (CLEAR) Urine pH 6.0 (5.0-7.5) PH Ur Specific [place] 1.025 (1.002-1.030) Urine Protein 100 H (NEGATIVE) mg/dL Urine Glucose (UA) 100 H (NEGATIVE) mg/dL Urine Ketones NEGATIVE (NEGATIVE) mg/dL Urine Occult Blood LARGE H (NEGATIVE) Urine Nitrite POSITIVE H (NEGATIVE) Urine Bilirubin NEGATIVE (NEGATIVE) Urine Urobilinogen 0.2 (NORMAL) (NORMAL) E.U./dL Ur Leukocyte Esterase LARGE H (NEGATIVE) Urine RBC TNTC H (0-5) /HPF Urine WBC >25 H (0-3) /HPF Ur Squamous Epith Cells NONE SEEN (<= Few) Urine Bacteria Moderate H (None Seen) /HPF Ur Microscopic Review INDICATED Urine Culture Comments INDICATED Nasal Screen MRSA (PCR) (NEGATIVE) Impression and Recommendations - Palliative Care Impression: This is an 84-year-old gentleman who presents with dehydration, and delirium attributed to UTI. Patient is just recovering from a seizure of unknown etiology. Patient awaiting follow-up from speech therapy, does appear his dysphagia and odynophagia has had significant impact on his ongoing weight loss as well as described anorexia. Patient has had functional decline, and presents with failure to thrive. Patient is quite fragile, does not have good insight into his current status, and remains at high risk for ongoing decline and sequela from his recurrent hospitalizations. Palliative care establishing rapport, will continue to work with family regarding goals of care and transition planning. Recommendations/Counseling Done: 1. Protein calorie malnutrition. Patient has had ongoing weight loss, this is multifactorial including anorexia, symptoms of dysphagia and odynophagia. Patient's total protein is 5.6 and albumin 2.4 Patient describes early satiety, reports unable to find anything that appeals to him, difficulty with swallowing pills. Will await outcome of speech therapy evaluation, would consider initiating mirtazapine 7.5 mg at bedtime. 2. Generalized weakness. Patient has had ongoing functional decline, this is created increased care needs that are more difficult to meet in the home setting. He has been functional previous SNF stays, but has had home therapies with patient not following through them very little success. Patient is currently open to home health, has been helpful for the nurse and helping with medication management. Unclear if is going to be able to care for him safely if he continues to decline functionally. Would recommend if patient willing, consider a bridge to his SNF again to address functional status. 3. Advanced care planning. Patient does not have any advanced care planning documents, by default would be the D POA. Have not spoken with daughter, unclear her involvement in care. Patient is quite frail, high risk for ongoing decline and sequela of a fall or ongoing acute infections. Patient has multiple comorbidities, unclear if there is a more serious underlying etiology for his ongoing decline. Patient is having more difficulty getting his care needs met at home, caregiver , is overwhelmed. She is working to access [employer], has very little family support in the area, and she herself has multiple health problems. Initiated conversation regarding CODE STATUS, counseling to set rapport, introduce concepts of serious illness in the context of long-term decision making as well as implications for advance care planning. Patient falls on E prognosis Bharath index is a total score of 8. This looks at hospitalized adults 70 and older, and outcome of all cause 1 year mortality. Patient scores greater than a 6, this translates into risk of 1 year mortality of 64%. Risk calculators cannot predict the future for anyone individual but can give an estimate of how many people with similar risk factors will live and but not identify who will live in who will . Time Spent: Met with both patient and separately, and coordination of care with hospitalist and hospital team.90 minutes with greater than 50% of this done in counseling regarding goals of care,
[2019-09-29] MEDS: NEUTRA-PHOS 250 MG TABLET PO SCH (15:10)
[2019-09-29] MEDS ORDERED: POTASSIUM PHOSPHATE 15 MMOL in SODIUM CHLORIDE 0.9% 250 ML IV ONE (15:30)
[2019-09-29] MEDS: ACETAMINOPHEN 325 MG TABLET PO PRN ×2 (17:51→21:50)
[2019-09-29] MEDS: levETIRAcetam INJ 500 MG in SODIUM CHLORIDE 0.9% 100ML 100 ML IV SCH (21:16)
[2019-09-29] MEDS: GABAPENTIN 300 MG CAPSULE PO SCH (21:49)
[2019-09-30] MEDS: LACTATED RINGERS 1,000 ML IV SCH ×2 (04:53→15:01)
[2019-09-30 05:20] LABS: BASOPHILS % (AUTO) 0.8 %; EOSINOPHILS # (AUTO) 0.1 10^3/uL (0.0-0.7); EOSINOPHILS % (AUTO) 2.8 %; HGB - HEMOGLOBIN 10.7 g/dL (14.0-18.0); LYMPHOCYTES # (AUTO) 1.3 10^3/uL (1.5-3.5); LYMPHOCYTES % (AUTO) 26.3 %; MEAN CORPUSCULAR HEMOGLOBIN 31.1 pg (27.0-31.0); MEAN CORPUSCULAR HGB CONC 32.8 g/dL (32.0-36.0); MEAN CORPUSCULAR VOLUME 94.8 fL (80.0-94.0); MEAN PLATELET VOLUME 11.1 fL (7.4-11.4); MONOCYTES # (AUTO) 0.4 10^3/uL (0.0-1.0); MONOCYTES % (AUTO) 7.8 %; NEUTROPHILS # (AUTO) 3.1 10^3/uL (1.5-6.6); NEUTROPHILS % (AUTO) 61.9 %; PLT - PLATELET COUNT 162 10^3/uL (130-450); RED BLOOD COUNT 3.44 10^6/uL (4.70-6.10); RED CELL DISTRIBUTION WIDTH 13.4 % (12.0-15.0)
[2019-09-30 05:35] LABS: CALCIUM 7.8 mg/dL (8.5-10.3); CREATININE 0.9 mg/dL (0.6-1.2); MAGNESIUM 1.8 mg/dL (1.7-2.8); PHOSPHORUS 3.2 mg/dL (2.5-4.6)
[2019-09-30] MEDS: AZTREONAM 1 GM in SODIUM CHLORIDE 0.9% MINIBAG 100 ML IV SCH ×3 (06:13→22:52)
[2019-09-30] MEDS: GABAPENTIN 300 MG CAPSULE PO SCH ×3 (06:18→22:18)
[2019-09-30] MEDS: MIDODRINE 2.5 MG TABLET PO SCH ×3 (06:18→22:18)
[2019-09-30] MEDS: LEVOTHYROXINE 25 MCG TABLET PO SCH (06:58)
[2019-09-30] MEDS: SODIUM CHLORIDE FLUSH 0.9% 10 ML SYRINGE IVP SCH ×3 (07:01→16:37)
--- NOTE | 2019-09-30 07:54 | PROVIDER PROGRESS NOTE ---
Assessment/Plan - Problem List (1) New onset seizure without head trauma Assessment/Plan: He was loaded with Keppra 1gm iv then started on 500 mg iv bid last night. No further seizures and more alert today. Will transfer out of ICU. Continue Keppra, transition to oral after swallow eval done and recommendations available from ST. (2) Altered mental status Qualifiers: Altered mental status type: delirium Qualified Code(s): R41.0 - Di sorientation, unspecified Assessment/Plan: He may have been post-ictal at home and not altered from an infection. (3) Dysphagia Assessment/Plan: Still awaiting swallow eval (4) UTI (urinary tract infection) Assessment/Plan: Continue empiric antibiotics Await culture results (5) Orthostatic hypotension Assessment/Plan: He is hypotensive since in ICU. His Midodrine 10 mg tid has been restarted. Will start to get OOB to chair and then PT. (6) Hypothyroidism Assessment/Plan: His TSH is slightly high at 10, possibly from not tyaking his po med for several days at home and 2 days here. Will resume his home dose. (7) Anemia Assessment/Plan: Will check B12, Folate levels and Iron stores and replace if low. (8) Hyponatremia Assessment/Plan: Related to poor po intake. Continue NS, decrease iv rate when drinking adequately. Follow BMP daily. (9) Chronic pain Assessment/Plan: His Gabapentin was resumed for treating chronic foot pain. (10) Generalized weakness Assessment/Plan: Aimee Lockwood MANAGER ADULT met with the yesterday about his progressive decline with each hospitalization. After several, [place] [facility] [place] He does less and less at home. (11) Severe protein-calorie malnutrition Assessment/Plan: He has severe protein-calorie malnutrition due to nutrition intake of < 50% of recommended intake for 2 weeks or more and weight loss of 13% in past 4 mos. - Current Meds Current Meds: Current Medications Generic Name Dose Route Start Last Admin Trade Name Freq PRN Reason Stop Dose Admin Acetaminophen 650 mg 09/29/19 03:48 09/29/19 21:50 Tylenol PO 650 mg Q4HR PRN Administration Pain 1 to 4 Enoxaparin Sodium 40 mg 09/29/19 09:00 09/29/19 10:14 Lovenox SUBQ 40 mg DAILY DONALD Administration Gabapentin 300 mg 03/09/20 22:00 09/30/19 06:18 Neurontin PO 300 mg TID DONALD Administration Lactated Ringer's 1,000 mls @ 100 mls/hr 09/29/19 04:00 09/30/19 04:53 Lr IV 100 mls/hr .Q10H DONALD Administration Levetiracetam 500 mg/ Sodium 105 mls @ 400 mls/hr 09/29/19 21:00 09/29/19 21:32 Chloride IV Infused BID DONALD Infusion Aztreonam 1 gm/ Sodium 100 mls @ 200 mls/hr 09/30/19 06:00 09/30/19 06:45 Chloride IV Infused Q8H DONALD Infusion Levothyroxine Sodium 50 mcg 09/29/19 07:00 09/30/19 06:58 Synthroid PO 50 mcg QDAC DONALD Administration Midodrine 10 mg 09/29/19 06:00 09/30/19 06:18 PO 10 mg TID DONALD Administration Sodium Chloride 10 ml 09/29/19 09:00 09/30/19 07:01 Normal Saline Flush 0.9% IVP Not Given 0100,0900,1700 DONALD Tamsulosin HCl 0.4 mg 09/29/19 09:00 09/29/19 13:16 Flomax PO 0.4 mg DAILY DONALD Administration - Lab Result Fish Bone Diagrams: 09/30/19 05:09 09/30/19 05:09 - Additional Planning My Orders: My Active Orders 09/29/19 08:36 Daily Weight [RC] 0600 IO [RC] Q1HR Initiate Bowel Care Protocol [RC] QSHIFT Initiate ICU Electrolyte Prot. [RC] .protocol Initiate Line Care Protocol [RC] .protocol Initiate Personal Care Protoco [RC] .protocol Vital Signs [RC] Q4HR Code Status [OTHERS] Routine Condition of Patient [OTHERS] Routine 09/29/19 08:37 Blood Glucose POC [RC] Routine 09/29/19 08:38 Telemetry- [RC] Q4HR 09/29/19 08:39 Seizure Manage [RC] PRN 09/29/19 21:00 levETIRAcetam INJ [Keppra Inj] 500 mg Sodium Chloride 0.9% 100Ml [Normal Saline 0.9% 100Ml] 100 ml IV BID 09/30/19 Clinical Swallow Evaluation [ST] Routine 09/30/19 05:00 LACTIC ACID, VENOUS [CHEM] Routine 09/30/19 06:00 Aztreonam 1 gm Sodium Chloride 0.9% Minibag [Normal Saline 0.9% Minibag] 100 ml IV Q8H 09/30/19 07:50 Transfer [Admit \ Transfer \ Status] [RC] .ONCE 09/30/19 07:51 Telemetry- [RC] Q4HR Subjective - Subjective Patient Reports: Resting Comfortably (Able to communicate, oriented x3), No Complaints Objective Vital Signs: Vital Signs - 24 hr 09/29/19 09/29/19 09/29/19 08:07 08:36 08:59 Temperature 36.1 C L 35.7 C L Heart Rate Heart Rate [ 92 116 H 102 H Brachial] Respiratory 20 20 20 Rate Blood Pressure 100/52 L 128/80 127/85 H [Left Brachial artery] O2 Saturation 91 L 94 100 09/29/19 09/29/19 09/29/19 09:00 10:08 11:00 Temperature 36.0 C L 36.2 C L Heart Rate Heart Rate [ 99 96 Brachial] Respiratory 16 16 Rate Blood Pressure 93/62 99/55 L [Left Brachial artery] O2 Saturation 100 100 09/29/19 09/29/19 09/29/19 12:00 13:00 14:01 Temperature Heart Rate 84 88 Heart Rate [ 82 Brachial] Respiratory 22 Rate Blood Pressure 99/67 [Left Brachial artery] O2 Saturation 100 09/29/19 09/29/19 09/29/19 14:02 14:17 15:41 Temperature 36.4 C L 36.0 C L Heart Rate Heart Rate [ 92 Brachial] Respiratory 15 Rate Blood Pressure 102/65 [Left Brachial artery] O2 Saturation 100 09/29/19 09/29/19 09/29/19 16:03 16:33 17:24 Temperature 36.0 C L 36.4 C L 36.4 C L Heart Rate Heart Rate [ 92 Brachial] Respiratory 20 Rate Blood Pressure 109/69 [Left Brachial artery] O2 Saturation 100 09/29/19 09/29/19 09/29/19 18:42 18:51 20:01 Temperature 36.3 C L 36.5 C Heart Rate Heart Rate [ 102 H Brachial] Respiratory 20 Rate Blood Pressure 91/48 L [Left Brachial artery] O2 Saturation 98 09/29/19 09/29/19 09/30/19 21:00 23:00 01:00 Temperature 36.6 C Heart Rate Heart Rate [ 113 H 106 H 88 Brachial] Respiratory 21 17 16 Rate Blood Pressure 82/61 L 83/58 L 84/51 L [Left Brachial artery] O2 Saturation 98 98 98 09/30/19 09/30/19 09/30/19 03:00 05:00 07:00 Temperature 37.2 C Heart Rate Heart Rate [ 98 90 82 Brachial] Respiratory 20 20 18 Rate Blood Pressure 91/56 L 87/53 L 91/56 L [Left Brachial artery] O2 Saturation 98 96 98 Oxygen O2 Source Room air I&O (Last 24 Hrs): Intake and Output Totals x24h 09/28/19 09/29/19 09/30/19 23:59 23:59 23:59 Intake Total 3152.450 1198.333 Output Total 1305 670 Balance 1847.450 528.333 General: Alert, Oriented x3 HEENT: Mucous membr. moist/pink, Other (Long hair and jenkins have been washed and are clean and tidy today.) Neuro: Alert, Non Focal Cardiovascular: No murmurs, Other (Distant heart sounds) Respiratory: No respiratory distress, Breath sounds nml Abdomen: Soft Extremities: No edema, Other (Muscle wasting) - Results Results: Laboratory Results WBC 5.0 x10^3/uL (4.8-10.8) 09/30/19 05:09 RBC 3.44 10^6/uL (4.70-6.10) L 09/30/19 05:09 Hgb 10.7 g/dL (14.0-18.0) L 09/30/19 05:09 Hct 32.6 % (42.0-52.0) L 09/30/19 05:09 MCV 94.8 fL (80.0-94.0) H 09/30/19 05:09 MCH 31.1 pg (27.0-31.0) H 09/30/19 05:09 MCHC 32.8 g/dL (32.0-36.0) 09/30/19 05:09 RDW 13.4 % (12.0-15.0) 09/30/19 05:09 Plt Count 162 10^3/uL (130-450) 09/30/19 05:09 MPV 11.1 fL (7.4-11.4) 09/30/19 05:09 Neut # (Auto) 3.1 10^3/uL (1.5-6.6) 09/30/19 05:09 Lymph # (Auto) 1.3 10^3/uL (1.5-3.5) L 09/30/19 05:09 [place] # (Auto) 0.4 10^3/uL (0.0-1.0) 09/30/19 05:09 Eos # (Auto) 0.1 10^3/uL (0.0-0.7) 09/30/19 05:09 Baso # (Auto) 0.0 10^3/uL (0.0-0.1) 09/30/19 05:09 Absolute Nucleated RBC 0.00 x10^3/uL 09/30/19 05:09 Nucleated RBC % 0.0 /100WBC 09/30/19 05:09 PT 14.1 secs (9.9-12.6) H 09/29/19 02:59 INR 1.3 (0.8-1.2) H 09/29/19 02:59 Sodium 133 mmol/L (135-145) L 09/30/19 05:09 Potassium 3.6 mmol/L (3.5-5.0) 09/30/19 05:09 Chloride 102 mmol/L (101-111) 09/30/19 05:09 Carbon Dioxide 23 mmol/L (21-32) 09/30/19 05:09 Anion Gap 8.0 (6-13) 09/30/19 05:09 BUN 12 mg/dL (6-20) 09/30/19 05:09 Creatinine 0.9 mg/dL (0.6-1.2) 09/30/19 05:09 Estimated GFR (MDRD) 81 (>89) L 09/30/19 05:09 Glucose 77 mg/dL (70-100) 09/30/19 05:09 Calcium 7.8 mg/dL (8.5-10.3) L 09/30/19 05:09 Phosphorus 3.2 mg/dL (2.5-4.6) 09/30/19 05:09 Magnesium 1.8 mg/dL (1.7-2.8) 09/30/19 05:09 Total Bilirubin 1.1 mg/dL (0.2-1.0) H 09/29/19 02:59 AST 17 IU/L (10-42) 09/29/19 02:59 ALT < 10 IU/L (10-60) L 09/29/19 02:59 Alkaline Phosphatase 99 IU/L (42-121) 09/29/19 02:59 Troponin I High Sens 13.4 ng/L (2.3-19.7) 09/29/19 05:04 Total Protein 5.6 g/dL (6.7-8.2) L 09/29/19 02:59 Albumin 2.1 g/dL (3.2-5.5) L 09/30/19 05:09 Globulin 3.2 g/dL (2.1-4.2) 09/29/19 02:59 Albumin/Globulin Ratio 0.8 (1.0-2.2) L 09/29/19 02:59 Lipase 23 U/L (22-51) 09/29/19 02:59 TSH 3.72 uIU/mL (0.34-5.60) 09/29/19 02:59 Urine Color YELLOW 09/29/19 02:36 Urine Clarity CLOUDY (CLEAR) 09/29/19 02:36 Urine pH 6.0 PH (5.0-7.5) 09/29/19 02:36 Ur Specific Johnson 1.025 (1.002-1.030) 09/29/19 02:36 Urine Protein 100 mg/dL (NEGATIVE) H 09/29/19 02:36 Urine Glucose (UA) 100 mg/dL (NEGATIVE) H 09/29/19 02:36 Urine Ketones NEGATIVE mg/dL (NEGATIVE) 09/29/19 02:36 Urine Occult Blood LARGE (NEGATIVE) H 09/29/19 02:36 Urine Nitrite POSITIVE (NEGATIVE) H 09/29/19 02:36 Urine Bilirubin NEGATIVE (NEGATIVE) 09/29/19 02:36 Urine Urobilinogen 0.2 (NORMAL) E.U./dL (NORMAL) 09/29/19 02:36 Ur Leukocyte Esterase LARGE (NEGATIVE) H 09/29/19 02:36 Urine RBC TNTC /HPF (0-5) H 09/29/19 02:36 Urine WBC >25 /HPF (0-3) H 09/29/19 02:36 Ur Squamous Epith Cells NONE SEEN (<= Few) 09/29/19 02:36 Urine Bacteria Moderate /HPF (None Seen) H 09/29/19 02:36 Ur Microscopic Review INDICATED 09/29/19 02:36 Urine Culture Comments INDICATED 09/29/19 02:36 Nasal Screen MRSA (PCR) NEGATIVE (NEGATIVE) 09/29/19 08:50 - Procedures Procedures: Procedures REPOSITION RIGHT UPPER FEMUR WITH INT FIX, OPEN APPROACH (09/10/17)
[2019-09-30] MEDS: TAMSULOSIN 0.4 MG CAPSULE PO SCH (08:49)
[2019-09-30] MEDS: ENOXAPARIN 40 MG/0.4 ML SYRINGE SUBQ SCH (08:50)
[2019-09-30] MEDS: levETIRAcetam INJ 500 MG in SODIUM CHLORIDE 0.9% 100ML 100 ML IV SCH ×2 (08:51→22:18)
--- NOTE | 2019-09-30 10:57 | PHARMACY PROGRESS NOTE ---
- Best Possible Medication History Admit Date and Time: 09/29/19 0348 Processed by: Pharmacy Medication History completed: In progress (Patient is poor historian of med hx, requested to obtain info from spouse who helps manage meds, contacted spouse x 3, awaiting follow up) As the person ultimately responsible for medication therapy, providers are able to order a medication from an existing home medication list in [facility] via the "Reconcile Routine" prior to Confirmation of that medication by collection support specialist. Such practice is discouraged except when the physician, in their clinical judgment, deems that a medical need exists for a medication without regard to previous use.
[2019-09-30] MEDS: MIN OIL/DIMETHICON/COCONUT OIL 92 GM TUBE TOP PRN (11:35)
[2019-09-30] MEDS: LACTOBACILLUS RHAMNOSUS GG CAPSULE PO SCH (16:37)
--- NOTE | 2019-09-30 17:10 | CONSULTATION NOTE ---
Palliative Care Follow Up - Referral Referring Provider: Lali Constantino MD Time of Visit: [id number] Referral setting: Hospitalized patient Referral Reason: FTT/Goals of Care - Information Sources Records reviewed: RN notes reviewed, Previous records reviewed History/Review of Systems obtained from: Patient Exam limitations: Clinical condition (patient remains with STM deficits; presents with hallucinations but can be reorientated) - History of Present Illness Update Brief HPI Update: Please see HPI 09/28 for more extensive information. Patient is just been moved from ICU, he was not oriented to place. He reports he is in a hospital in [place], denies any memory of how he got here, does admit to intermittent hallucinations. He was able to identify his is Emily, he does admit to some confusion, and does have some insight into this. We discussed again patient's weight loss, he reports now he is not having trouble with swallowing, or pain that it is better. He did pass a swallow eval with speech therapy, though both he and his reported he had difficulties yesterday. Patient unable today to account for his weight loss, though he does understand that he is significantly more thin. He does perceive himself as getting worse and not better, does not seem to have any insight or theories regarding this. Specifically asked him if he would be willing to go to the correction, he is able to say he is difficult to take care of for Emily, "does not know what is going to become of him." He does enjoy the home health team visiting him, but does admit to weakness and inability to walk or take care of himself at home.He said he would be willing to go, though does admit to they did not have good food. He does recall he was able to walk better after he had been to the correction, was unable to provide any insight what happens when he transitions home. Patient's past medical history includes chronic atrial fib not on anti-coag, chronic indwelling catheter for BPH, history of prostate cancer, hypertension, hypothyroidism, and has had frequent hospitalizations related to infections. Social History - Living Situation Living arrangement: At home Living Situation: With spouse/s.o. Support System: Unfortunately was not able to cross past with , she did meet with the social insurance analyst today. She continues to be somewhat overwhelmed with all the steps to go through for assistance. She had wanted in place at the correction, unfortunately in follow-up with discharge planning, he has no further days on his Medicare benefit. He is already open for [facility], and can be resumed, Can have social insurance analyst continue to help with obtaining and following through on paperwork needed to complete applications for assistance. Medications/Allergies - Medications Active Medication List: Active Medications Acetaminophen (Tylenol) 650 mg PO Q4HR PRN PRN Reason: Pain 1 to 4 Last Admin: 09/29/19 21:50 Dose: 650 mg Enoxaparin Sodium (Lovenox) 40 mg SUBQ DAILY [facility] Last Admin: 09/30/19 08:50 Dose: 40 mg Gabapentin (Neurontin) 300 mg PO TID [facility] Last Admin: 09/30/19 13:52 Dose: 300 mg Lactated Ringer's (Lr) 1,000 mls @ 100 mls/hr IV .Q10H [facility] Last Admin: 09/30/19 15:01 Dose: 100 mls/hr Levetiracetam 500 mg/ Sodium (Chloride) 105 mls @ 400 mls/hr IV BID [facility] Last Infusion: 09/30/19 09:10 Dose: Infused Aztreonam 1 gm/ Sodium (Chloride) 100 mls @ 200 mls/hr IV Q8H [facility] Last Infusion: 09/30/19 14:47 Dose: Infused Lactobacillus Rhamnosus (Culturelle) 1 cap PO DAILY [facility] Last Admin: 09/30/19 16:37 Dose: 1 cap Levothyroxine Sodium (Synthroid) 50 mcg PO QDAC [facility] Last Admin: 09/30/19 06:58 Dose: 50 mcg Midodrine () 10 mg PO TID [facility] Last Admin: 09/30/19 13:52 Dose: 10 mg Mineral Oil (Cavilon) 1 applic TOP PRN PRN PRN Reason: Skin Care Last Admin: 09/30/19 11:35 Dose: 1 applic Ondansetron HCl (Zofran Inj) 4 mg IVP Q6HR PRN PRN Reason: Nausea / Vomiting Sodium Chloride (Normal Saline Flush 0.9%) 10 ml IVP PRN PRN PRN Reason: NEEDED PER PROVIDER ORDERS Last Admin: 09/30/19 12:23 Dose: 10 ml Sodium Chloride (Normal Saline Flush 0.9%) 10 ml IVP 0100,0900,1700 [facility] Last Admin: 09/30/19 16:37 Dose: 10 ml Tamsulosin HCl (Flomax) 0.4 mg PO DAILY [facility] Last Admin: 09/30/19 08:49 Dose: 0.4 mg Pravastatin Sodium [Pravachol] 20 mg PO QPM 03/05/19 Midodrine HCl 5 mg PO DAILY 05/18/19 Albuterol Sulfate [Albuterol Sulfate Hfa] 2 puffs PO Q4H PRN 09/30/19 Gabapentin 300 mg PO BID 09/30/19 Levothyroxine [Synthroid] 50 mcg PO QDAC 09/30/19 - Allergies Allergies/Adverse Reactions: Allergies Allergy/AdvReac Type Severity Reaction Status Date / Time rivaroxaban [From Xarelto] Allergy Unknown Verified 09/29/19 02:33 Review of Systems - Constitutional Constitutional: reports: Fatigue, Poor appetite, Weight loss. denies: Fever - Eyes Eyes: reports: Vision loss (reports min.eye sight right eye) - Ears, Nose & Throat Ears, Nose & Throat: reports: Hearing loss, Dental decay - Cardiovascular Cardiovascular: denies: Chest pain - Respiratory Respiratory: denies: Cough - Gastrointestinal Gastrointestinal: reports: Poor appetite, Early satiety. denies: Nausea - Genitourinary Genitourinary: reports: Other ([place] catheter;) - Musculoskeletal Musculoskeletal: reports: Back pain, Muscle aches, Stiffness, Muscle weakness - Integumentary Integumentary: reports: Dryness - Neurological Neurological: reports: General weakness, Numbness (peripheral neuropathy), Memory problems, Seizures, Slurred speech (diff. related to no teeth) - Psychiatric Psychiatric: reports: Depression, Anxiety, Hallucinations - Endocrine Endocrine: reports: Hypothyroidism - Hematologic/Lymphatic Hematologic/Lymphatic: reports: Anemia, Recurrent infections (UTIs) - All Other Systems All Other Systems: reports: Other (limited ROS) Physical Exam - Vital Signs Vital Signs: Vital Signs x48h Temp Pulse Pulse Pulse Pulse Resp BP 09/30/19 15:52 36.3 C L 97 20 09/30/19 12:02 36.4 C L 92 24 09/30/19 11:22 111 H 09/30/19 11:15 137 H 104 H 96 81/46 L 09/30/19 11:05 137 H 104 H 96 81/46 L BP BP BP BP Pulse Ox 09/30/19 15:52 105/57 L 100 09/30/19 12:02 85/55 L 99 09/30/19 11:22 87/54 L 09/30/19 11:15 80/47 L 89/57 L 09/30/19 11:05 80/47 L 89/57 L - Physical Exam General Appearance: positive: Alert (more able to make eye contact and engage; tries to cover for STM issues; quick to joke) ENT: positive: Other (few teeth bottom;) Neck: positive: Trachea midline Cardiovascular: positive: Regular rate & rhythm Respiratory: positive: No respiratory distress Skin: positive: Pallor, Dryness, Bruising Extremities: positive: No pedal edema Neurologic/Psychiatric: positive: Mood/affect nml, Disoriented to place, Disoriented to time, Weakness, Flat affect Palliative Care - POLST Patient has POLST: No POLST Status: Full Code Pain: Pain improved, Location (LE peripheral neuropathy; left knee pain) Tiredness/Fatigue: Moderate (4-6) Drowsiness/Sedation: Moderate (4-6) Nausea: None Anorexia: Mild (1-3) Dyspnea: Mild (1-3) Anxiety: Mild (1-3), Moderate (4-6) Feelings of wellbeing/Perceived Quality of Life: Fair, Acceptable, Worsening, Comment (Patient able to acknowledge decreasing quality of life, less ability to be independent, and feeling somewhat overwhelmed.) Performance Status: Patient remains quite weak, has been wheelchair bound and declining in functional status specifically over the last few weeks and more acutely over the last few days. Patient reports he does have the desire to walk, but is unable to really identify barriers, or lack of motivation to participate in further therapies. He does report he did improve at SNF, so was willing to consider this, unfortunately this is come off the table. But will follow up with home health - Palliative Care Discussion: Did try and discussed with patient goals of care, he does recognize his decline. He is worried about his , as he does feel like he will before her. He is quick to say he is ready to , that he is a Faith though it did take him a long time to get there. He is the last 1 and discussed having lost his 4 sisters, brother, and stepbrother and no real identified family left. His phrase he said multiple times was "life is to messed up to even mess with". I did not have the information the SNF was not available during our talk, we did discuss regarding goals, he would be willing to go back to the SNF to improve and decrease stress on his , as well as hopefully improve his independence. We did discuss concerns though and he is concerned as well at his ongoing weight loss, weakness, and less able to do things. If things were not to improve, and get worse, patient would want to at home. Patient does not present with clarity, to further address the nuances of the POLST, but he did say if I I do not want to twice, will be talked about CODE STATUS and the implications for him and his frail health. All distressed with this conversation, and is fact quite [id number]. Would recommend palliative care continue to follow him into the home setting, if patient continues to deteriorate, given his ongoing weight loss if goals of care can be clarified, may benefit from transition to hospice at that time. Results - Lab Results Lab results reviewed: Yes Fish Bones: 09/30/19 05:09 09/30/19 05:09 Lab and Imaging Results: Lab Results x24hrs 09/30/19 09/30/19 09/30/19 Range/Units 08:07 05:09 05:09 WBC (4.8-10.8) x10^3/uL RBC (4.70-6.10) 10^6/uL Hgb (14.0-18.0) g/dL Hct (42.0-52.0) % MCV (80.0-94.0) fL MCH (27.0-31.0) pg MCHC (32.0-36.0) g/dL RDW (12.0-15.0) % Plt Count (130-450) 10^3/uL MPV (7.4-11.4) fL Neut # (Auto) (1.5-6.6) 10^3/uL Lymph # (Auto) (1.5-3.5) 10^3/uL [place] # (Auto) (0.0-1.0) 10^3/uL Eos # (Auto) (0.0-0.7) 10^3/uL Baso # (Auto) (0.0-0.1) 10^3/uL Absolute Nucleated RBC x10^3/uL Nucleated RBC % /100WBC Sodium 133 L (135-145) mmol/L Potassium 3.6 (3.5-5.0) mmol/L Chloride 102 (101-111) mmol/L Carbon Dioxide 23 (21-32) mmol/L Anion Gap 8.0 (6-13) BUN 12 (6-20) mg/dL Creatinine 0.9 (0.6-1.2) mg/dL Estimated GFR (MDRD) 81 L (>89) Glucose 77 (70-100) mg/dL Lactic Acid 1.0 (0.5-2.2) mmol/L Calcium 7.8 L (8.5-10.3) mg/dL Phosphorus 3.2 (2.5-4.6) mg/dL Magnesium 1.8 (1.7-2.8) mg/dL Albumin 2.1 L (3.2-5.5) g/dL 09/30/19 Range/Units 05:09 WBC 5.0 (4.8-10.8) x10^3/uL RBC 3.44 L (4.70-6.10) 10^6/uL Hgb 10.7 L (14.0-18.0) g/dL Hct 32.6 L (42.0-52.0) % MCV 94.8 H (80.0-94.0) fL MCH 31.1 H (27.0-31.0) pg MCHC 32.8 (32.0-36.0) g/dL RDW 13.4 (12.0-15.0) % Plt Count 162 (130-450) 10^3/uL MPV 11.1 (7.4-11.4) fL Neut # (Auto) 3.1 (1.5-6.6) 10^3/uL Lymph # (Auto) 1.3 L (1.5-3.5) 10^3/uL [place] # (Auto) 0.4 (0.0-1.0) 10^3/uL Eos # (Auto) 0.1 (0.0-0.7) 10^3/uL Baso # (Auto) 0.0 (0.0-0.1) 10^3/uL Absolute Nucleated RBC 0.00 x10^3/uL Nucleated RBC % 0.0 /100WBC Sodium (135-145) mmol/L Potassium (3.5-5.0) mmol/L Chloride (101-111) mmol/L Carbon Dioxide (21-32) mmol/L Anion Gap (6-13) BUN (6-20) mg/dL Creatinine (0.6-1.2) mg/dL Estimated GFR (MDRD) (>89) Glucose (70-100) mg/dL Lactic Acid (0.5-2.2) mmol/L Calcium (8.5-10.3) mg/dL Phosphorus (2.5-4.6) mg/dL Magnesium (1.7-2.8) mg/dL Albumin (3.2-5.5) g/dL Impression and Recommendations - Palliative Care Impression: This is an 84-year-old gentleman who continues to present with failure to thrive, recurrent UTIs and hospitalizations, weight loss with protein calorie malnutrition, and intermittent dysphagia. Patient has had both functional and cognitive decline, and now presents this hospitalization with seizures. Patient will need to return home, would recommend transition to home health with palliative care support and monitoring in the future for possible transition to hospice. Recommendations/Counseling Done: 1. Protein calorie malnutrition. Would recommend initiating mirtazapine 7.5 mg at bedtime, and will continue to monitor for recurrent symptoms of dysphagia and odynophagia. may benefit from further support and instruction from dietitian, regarding dietary modifications on textures. If not available, can have home health RN provide follow-through with recommendations. 2. Generalized weakness. Patient does present with functional decline, with unclear etiology, though patient does present with cognitive decline, weight loss and muscle wasting. Patient is willing to continue to work with home health therapies, though suspect it will be difficult for patient make progress, unfortunately he would most likely benefit best from a SNF stay. 3. Dementia. Patient does admit to hallucinations, it does appear in his recall he has had these intermittently, and does have some disorientation on exam today. He does cover quite well, does have some insight into this, but given 's distress this may be a complicating factor for home management. 4. Advanced care planning. Patient does express values consistent with focus on quality of life issues and comfort. He does at end-of-life want to be at home, and not in the hospital. Patient currently is a full code, I believe patient has limited ability to weigh the implications regarding medical decision making around code status. This will continue to be challenging as is overwhelmed regarding this topic as well, as there are cultural implications in the context of these decisions. Would recommend outpatient palliative care follow-up, and continue to work on goalsetting and defining CODE STATUS in the home setting. Patient if continues to decline, may be appropriate candidate given his poor prognostic indicators to transition to hospice. Time Spent: 30 minutes with greater than 50% of this done in counseling regarding eliciting goals of care, setting rapport, and exploring healthcare beliefs as well as anticipatory guidance.
[2019-10-01] MEDS: SODIUM CHLORIDE FLUSH 0.9% 10 ML SYRINGE IVP SCH ×3 (02:26→21:06)
[2019-10-01] MEDS: LACTATED RINGERS 1,000 ML IV SCH ×2 (02:26→12:37)
[2019-10-01] MEDS: GABAPENTIN 300 MG CAPSULE PO SCH ×3 (06:04→21:37)
[2019-10-01] MEDS: AZTREONAM 1 GM in SODIUM CHLORIDE 0.9% MINIBAG 100 ML IV SCH ×3 (06:04→21:34)
[2019-10-01] MEDS: LEVOTHYROXINE 25 MCG TABLET PO SCH (06:04)
[2019-10-01 06:51] LABS: EOSINOPHILS # (AUTO) 0.1 10^3/uL (0.0-0.7); EOSINOPHILS % (AUTO) 2.2 %; HGB - HEMOGLOBIN 11.3 g/dL (14.0-18.0); LYMPHOCYTES # (AUTO) 0.8 10^3/uL (1.5-3.5); LYMPHOCYTES % (AUTO) 20.3 %; MEAN CORPUSCULAR HEMOGLOBIN 31.1 pg (27.0-31.0); MEAN CORPUSCULAR HGB CONC 32.4 g/dL (32.0-36.0); MEAN CORPUSCULAR VOLUME 96.1 fL (80.0-94.0); MEAN PLATELET VOLUME 11.2 fL (7.4-11.4); MONOCYTES # (AUTO) 0.3 10^3/uL (0.0-1.0); MONOCYTES % (AUTO) 6.7 %; NEUTROPHILS # (AUTO) 2.8 10^3/uL (1.5-6.6); NEUTROPHILS % (AUTO) 69.3 %; PLT - PLATELET COUNT 162 10^3/uL (130-450); RED BLOOD COUNT 3.63 10^6/uL (4.70-6.10); RED CELL DISTRIBUTION WIDTH 13.4 % (12.0-15.0)
[2019-10-01 06:54] LABS: CALCIUM 8.2 mg/dL (8.5-10.3); CREATININE 0.9 mg/dL (0.6-1.2); MAGNESIUM 1.6 mg/dL (1.7-2.8); PHOSPHORUS 2.3 mg/dL (2.5-4.6)
[2019-10-01] MEDS: MIDODRINE 2.5 MG TABLET PO SCH ×3 (07:15→21:32)
[2019-10-01] MEDS ORDERED: HALOPERIDOL 5 MG/ML VIAL IVP ONE (07:42)
--- NOTE | 2019-10-01 07:42 | PROVIDER PROGRESS NOTE ---
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 Will order prn iv Haldol, low dose. Soft wrist restraints ordered since he pulled out iv and Matthew already once, a few hours ago. This type of behavior may be what the was describing as "he was calling out all night" and "confusion". Awaiting further input from Palliative Care provider. If this is his baseline, then he is not able to make decisions like his own Code status. The has been asked about his Code status, and apparently could not decide. 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 Since the etiology was likely from Levofloxacin, and not a brain lesion, I will determine how long the Keppra should continue. (3) Dysphagia Assessment/Plan: He passed his swallow eval and soft diet with thin liquids was advised. Perhaps he has odynophagia (pain) and not dysphagia (4) UTI (urinary tract infection) Assessment/Plan: Continue empiric Aztreonam (to cover Pseudomonas, which he has had in his urine in the past) Awaiting urine culture results. (5) Orthostatic hypotension Assessment/Plan: Continue Midodrine, which is at max dose. (6) Hypothyroidism Assessment/Plan: Continue thyroid replacement. (7) Anemia Assessment/Plan: Checking levels and will order replacement if low. (8) Hyponatremia Assessment/Plan: Free water restrict and hydrate with saline (9) Chronic pain Assessment/Plan: Continue his meds for chronic foot pain. (10) Generalized weakness Assessment/Plan: Continue to work with PT and OT. (11) Severe protein-calorie malnutrition Assessment/Plan: Continue diet - Current Meds Current Meds: Current Medications Generic Name Dose Route Start Last Admin Trade Name Freq PRN Reason Stop Dose Admin Acetaminophen 650 mg 09/29/19 03:48 09/29/19 21:50 Tylenol PO 650 mg Q4HR PRN Administration Pain 1 to 4 Enoxaparin Sodium 40 mg 09/29/19 09:00 09/30/19 08:50 Lovenox SUBQ 40 mg DAILY DONALD Administration Gabapentin 300 mg 09/29/19 22:00 10/01/19 06:04 Neurontin PO 300 mg TID DONALD Administration Lactated Ringer's 1,000 mls @ 100 mls/hr 09/29/19 04:00 10/01/19 02:26 Lr IV 100 mls/hr .Q10H DONALD Administration Levetiracetam 500 mg/ Sodium 105 mls @ 400 mls/hr 09/29/19 21:00 09/30/19 22:35 Chloride IV Infused BID DONALD Infusion Aztreonam 1 gm/ Sodium 100 mls @ 200 mls/hr 09/30/19 06:00 10/01/19 06:38 Chloride IV Infused Q8H DONALD Infusion Lactobacillus Rhamnosus 1 cap 09/30/19 16:30 09/30/19 16:37 Culturelle PO 1 cap DAILY DONALD Administration Levothyroxine Sodium 50 mcg 09/29/19 07:00 10/01/19 06:04 Synthroid PO 50 mcg QDAC DONALD Administration Midodrine 10 mg 09/29/19 06:00 10/01/19 07:15 PO 2.5 mg TID DONALD Administration Mineral Oil 1 applic 09/30/19 09:27 09/30/19 11:35 Cavilon TOP 1 applic PRN PRN Administration Skin Care Sodium Chloride 10 ml 09/29/19 03:48 09/30/19 12:23 Normal Saline Flush 0.9% IVP 10 ml PRN PRN Administration NEEDED PER PROVIDER ORDERS Sodium Chloride 10 ml 09/29/19 09:00 10/01/19 02:26 Normal Saline Flush 0.9% IVP 10 ml 0100,0900,1700 DONALD Administration Tamsulosin HCl 0.4 mg 09/29/19 09:00 09/30/19 08:49 Flomax PO 0.4 mg DAILY DONALD Administration - Lab Result Fish Bone Diagrams: 10/01/19 06:36 10/01/19 06:36 - Additional Planning My Orders: My Active Orders 09/30/19 09:27 Min Oil/Dimeth/Coconut Oil Crm [Cavilon] 1 applic TOP PRN PRN 09/30/19 16:30 Lactobacillus Rhamnosus GG [Culturelle] 1 cap PO DAILY 09/30/19 Dinner DIET [Soft Mechanical Diet] [DIET] 10/01/19 07:39 Restraints Safety Check [RC] Q15M Restraints [RC] Q4H Subjective - Subjective Nursing Reports: Other (Pulled out iv and Matthew overnight. This a.m. he thinks he has to get OOB to "go to work". He is refusing to take his oral meds this a.m.) Objective Vital Signs: Vital Signs - 24 hr 09/30/19 09/30/19 09/30/19 08:15 11:05 11:15 Temperature 36.6 C Heart Rate [ 137 H 137 H Activity] Heart Rate [ Brachial] Heart Rate [ 87 Monitoring electrodes] Heart Rate [ 104 H 104 H Sitting] Heart Rate [ 96 96 Supine] Respiratory 97 H Rate Blood Pressure 81/46 L 81/46 L [Activity] Blood Pressure 97/63 [Left Brachial artery] Blood Pressure [Right Brachial artery] Blood Pressure 80/47 L 80/47 L [Sitting] Blood Pressure 89/57 L 89/57 L [Supine] O2 Saturation 22 L 09/30/19 09/30/19 09/30/19 11:22 12:02 15:52 Temperature 36.4 C L 36.3 C L Heart Rate [ Activity] Heart Rate [ Brachial] Heart Rate [ 111 H 92 97 Monitoring electrodes] Heart Rate [ Sitting] Heart Rate [ Supine] Respiratory 24 20 Rate Blood Pressure [Activity] Blood Pressure 87/54 L 85/55 L [Left Brachial artery] Blood Pressure 105/57 L [Right Brachial artery] Blood Pressure [Sitting] Blood Pressure [Supine] O2 Saturation 99 100 09/30/19 10/01/19 10/01/19 19:49 01:00 05:00 Temperature 36.7 C 36.2 C L 36.2 C L Heart Rate [ Activity] Heart Rate [ 105 H 114 H Brachial] Heart Rate [ 99 Monitoring electrodes] Heart Rate [ Sitting] Heart Rate [ Supine] Respiratory 22 20 20 Rate Blood Pressure [Activity] Blood Pressure 113/68 117/77 [Left Brachial artery] Blood Pressure 116/61 [Right Brachial artery] Blood Pressure [Sitting] Blood Pressure [Supine] O2 Saturation 100 99 97 10/01/19 07:14 Temperature Heart Rate [ Activity] Heart Rate [ Brachial] Heart Rate [ 88 Monitoring electrodes] Heart Rate [ Sitting] Heart Rate [ Supine] Respiratory Rate Blood Pressure [Activity] Blood Pressure [Left Brachial artery] Blood Pressure 93/51 L [Right Brachial artery] Blood Pressure [Sitting] Blood Pressure [Supine] O2 Saturation Oxygen O2 Source Room air I&O (Last 24 Hrs): Intake and Output Totals x24h 09/29/19 09/30/19 10/01/19 23:59 23:59 23:59 Intake Total 3152.450 3485.883 1200 Output Total 1305 1745 1650 Balance 3793.726 2325.883 -450 General: Alert HEENT: Mucous membr. moist/pink, Other (Edentulous) Neck: Supple, No JVD Neuro: Disoriented, Non Focal Cardiovascular: Regular rate Respiratory: No respiratory distress Abdomen: Soft Extremities: No edema, Other (Peripheral muscle wasting) - Results Results: Laboratory Results WBC 4.0 x10^3/uL (4.8-10.8) L 10/01/19 06:36 RBC 3.63 10^6/uL (4.70-6.10) L 10/01/19 06:36 Hgb 11.3 g/dL (14.0-18.0) L 10/01/19 06:36 Hct 34.9 % (42.0-52.0) L 10/01/19 06:36 MCV 96.1 fL (80.0-94.0) H 10/01/19 06:36 MCH 31.1 pg (27.0-31.0) H 10/01/19 06:36 MCHC 32.4 g/dL (32.0-36.0) 10/01/19 06:36 RDW 13.4 % (12.0-15.0) 10/01/19 06:36 Plt Count 162 10^3/uL (130-450) 10/01/19 06:36 MPV 11.2 fL (7.4-11.4) 10/01/19 06:36 Neut # (Auto) 2.8 10^3/uL (1.5-6.6) 10/01/19 06:36 Lymph # (Auto) 0.8 10^3/uL (1.5-3.5) L 10/01/19 06:36 [place] # (Auto) 0.3 10^3/uL (0.0-1.0) 10/01/19 06:36 Eos # (Auto) 0.1 10^3/uL (0.0-0.7) 10/01/19 06:36 Baso # (Auto) 0.0 10^3/uL (0.0-0.1) 10/01/19 06:36 Absolute Nucleated RBC 0.00 x10^3/uL 10/01/19 06:36 Nucleated RBC % 0.0 /100WBC 10/01/19 06:36 PT 14.1 secs (9.9-12.6) H 09/29/19 02:59 INR 1.3 (0.8-1.2) H 09/29/19 02:59 Sodium 136 mmol/L (135-145) 10/01/19 06:36 Potassium 3.4 mmol/L (3.5-5.0) L 10/01/19 06:36 Chloride 102 mmol/L (101-111) 10/01/19 06:36 Carbon Dioxide 26 mmol/L (21-32) 10/01/19 06:36 Anion Gap 8.0 (6-13) 10/01/19 06:36 BUN 11 mg/dL (6-20) 10/01/19 06:36 Creatinine 0.9 mg/dL (0.6-1.2) 10/01/19 06:36 Estimated GFR (MDRD) 81 (>89) L 10/01/19 06:36 Glucose 70 mg/dL (70-100) 10/01/19 06:36 Lactic Acid 1.0 mmol/L (0.5-2.2) 09/30/19 08:07 Calcium 8.2 mg/dL (8.5-10.3) L 10/01/19 06:36 Phosphorus 2.3 mg/dL (2.5-4.6) L 10/01/19 06:36 Magnesium 1.6 mg/dL (1.7-2.8) L 10/01/19 06:36 Total Bilirubin 1.1 mg/dL (0.2-1.0) H 09/29/19 02:59 AST 17 IU/L (10-42) 09/29/19 02:59 ALT < 10 IU/L (10-60) L 09/29/19 02:59 Alkaline Phosphatase 99 IU/L (42-121) 09/29/19 02:59 Troponin I High Sens 13.4 ng/L (2.3-19.7) 09/29/19 05:04 Total Protein 5.6 g/dL (6.7-8.2) L 09/29/19 02:59 Albumin 2.1 g/dL (3.2-5.5) L 09/30/19 05:09 Globulin 3.2 g/dL (2.1-4.2) 09/29/19 02:59 Albumin/Globulin Ratio 0.8 (1.0-2.2) L 09/29/19 02:59 Lipase 23 U/L (22-51) 09/29/19 02:59 TSH 3.72 uIU/mL (0.34-5.60) 09/29/19 02:59 Urine Color YELLOW 09/29/19 02:36 Urine Clarity CLOUDY (CLEAR) 09/29/19 02:36 Urine pH 6.0 PH (5.0-7.5) 09/29/19 02:36 Ur Specific [place] 1.025 (1.002-1.030) 09/29/19 02:36 Urine Protein 100 mg/dL (NEGATIVE) H 09/29/19 02:36 Urine Glucose (UA) 100 mg/dL (NEGATIVE) H 09/29/19 02:36 Urine Ketones NEGATIVE mg/dL (NEGATIVE) 09/29/19 02:36 Urine Occult Blood LARGE (NEGATIVE) H 09/29/19 02:36 Urine Nitrite POSITIVE (NEGATIVE) H 09/29/19 02:36 Urine Bilirubin NEGATIVE (NEGATIVE) 09/29/19 02:36 Urine Urobilinogen 0.2 (NORMAL) E.U./dL (NORMAL) 09/29/19 02:36 Ur Leukocyte Esterase LARGE (NEGATIVE) H 09/29/19 02:36 Urine RBC TNTC /HPF (0-5) H 09/29/19 02:36 Urine WBC >25 /HPF (0-3) H 09/29/19 02:36 Ur Squamous Epith Cells NONE SEEN (<= Few) 09/29/19 02:36 Urine Bacteria Moderate /HPF (None Seen) H 09/29/19 02:36 Ur Microscopic Review INDICATED 09/29/19 02:36 Urine Culture Comments INDICATED 09/29/19 02:36 Nasal Screen MRSA (PCR) NEGATIVE (NEGATIVE) 09/29/19 08:50 - Procedures Procedures: Procedures REPOSITION RIGHT UPPER FEMUR WITH INT FIX, OPEN APPROACH (09/10/17)
[2019-10-01] MEDS: levETIRAcetam INJ 500 MG in SODIUM CHLORIDE 0.9% 100ML 100 ML IV SCH ×2 (08:54→21:05)
[2019-10-01] MEDS: ENOXAPARIN 40 MG/0.4 ML SYRINGE SUBQ SCH (08:57)
[2019-10-01] MEDS: LACTOBACILLUS RHAMNOSUS GG CAPSULE PO SCH (09:09)
[2019-10-01] MEDS: TAMSULOSIN 0.4 MG CAPSULE PO SCH (09:09)
[2019-10-01] MEDS ORDERED: HALOPERIDOL 5 MG/ML VIAL IVP PRN (23:31)
[2019-10-02] MEDS: SODIUM CHLORIDE FLUSH 0.9% 10 ML SYRINGE IVP SCH ×3 (01:25→16:07)
[2019-10-02] MEDS: LACTATED RINGERS 1,000 ML IV SCH ×3 (01:44→20:24)
[2019-10-02 05:23] LABS: BASOPHILS # (AUTO) 0.1 10^3/uL (0.0-0.1); EOSINOPHILS # (AUTO) 0.1 10^3/uL (0.0-0.7); EOSINOPHILS % (AUTO) 2.5 %; HGB - HEMOGLOBIN 10.4 g/dL (14.0-18.0); LYMPHOCYTES # (AUTO) 1.4 10^3/uL (1.5-3.5); LYMPHOCYTES % (AUTO) 27.3 %; MEAN CORPUSCULAR HEMOGLOBIN 30.6 pg (27.0-31.0); MEAN CORPUSCULAR HGB CONC 32.2 g/dL (32.0-36.0); MEAN PLATELET VOLUME 11.7 fL (7.4-11.4); MONOCYTES # (AUTO) 0.4 10^3/uL (0.0-1.0); MONOCYTES % (AUTO) 7.9 %; NEUTROPHILS # (AUTO) 3.1 10^3/uL (1.5-6.6); NEUTROPHILS % (AUTO) 60.7 %; PLT - PLATELET COUNT 172 10^3/uL (130-450); RED CELL DISTRIBUTION WIDTH 13.5 % (12.0-15.0); WHITE BLOOD COUNT 5.2 x10^3/uL (4.8-10.8)
[2019-10-02 05:32] LABS: CALCIUM 7.8 mg/dL (8.5-10.3); CREATININE 0.8 mg/dL (0.6-1.2); MAGNESIUM 1.7 mg/dL (1.7-2.8); PHOSPHORUS 2.3 mg/dL (2.5-4.6)
[2019-10-02] MEDS: AZTREONAM 1 GM in SODIUM CHLORIDE 0.9% MINIBAG 100 ML IV SCH ×3 (06:41→22:21)
[2019-10-02] MEDS: MIDODRINE 2.5 MG TABLET PO SCH ×4 (06:45→22:26)
[2019-10-02] MEDS: GABAPENTIN 300 MG CAPSULE PO SCH ×4 (06:45→22:26)
[2019-10-02] MEDS: LEVOTHYROXINE 25 MCG TABLET PO SCH ×2 (06:45→06:48)
[2019-10-02] MEDS: levETIRAcetam INJ 500 MG in SODIUM CHLORIDE 0.9% 100ML 100 ML IV SCH ×2 (09:22→22:17)
[2019-10-02] MEDS ORDERED: HALOPERIDOL 5 MG/ML VIAL IVP ONE (10:08)
--- NOTE | 2019-10-02 10:12 | PROVIDER PROGRESS NOTE ---
Assessment/Plan - Problem List (1) Delirium Assessment/Plan: He again pulled out iv, needed Haldol and was started on nightly scheduled Seroquel. This morning he again refused his po meds, "because he is mad at his nurse". Will give Haldol po daily in a.m. and continue nightly seroquel. If that helps the agitation and delirium, then will transition his iv meds to po. He has cognitive impairment, even when he is cooperative, therefore does not have capacity to make decisions about his medical care, including a decision about Code status. This was discussed with Palliative [employer] payroll consultant, Aimee Lockwood NP, and she will be focusing on Code status discussion with the . (2) Cognitive impairment Assessment/Plan: As above (3) New onset seizure without head trauma Assessment/Plan: Continue iv Keppra until he reliably takes po meds or until the antibiotic effect (of having gotten Levofloxacin) dissipates. (4) Dysphagia Assessment/Plan: He passed his swallowing eval. Perhaps there was pain or trouble handling solid food at home, since he has no teeth. A soft diet and thin liquids are being tolerated here. (5) UTI (urinary tract infection) Assessment/Plan: The urine culture result is done and had no growth. Will therefore transition to oral antibiotic, once he will reliably swallow. (6) Orthostatic hypotension Assessment/Plan: He runs BPs of 80-90's even on maximum Midodrine, and is not symptomatic. (7) Chronic atrial fibrillation Assessment/Plan: His HR has been 90-100's since admission. he cannot get Beta-radames or Cardizem because of his chronic low blood pressure. He cannot get anticoagulation because of prior falls and risk of falls with his current mental status. We will add daily Dig with no loading dose, for rate control. (8) Hypothyroidism Assessment/Plan: He is on his Synthroid replacement. (9) Anemia Qualifiers: Anemia type: folate deficiency Assessment/Plan: The B12 level is normal, the iron stores are borderline low normal but he is low in folate. We will start IV folate replacement and transition eventually to oral (10) Hyponatremia Assessment/Plan: He fluctuates from 132-136. (11) Chronic pain Assessment/Plan: His home meds for pain in the feet were resumed (12) Generalized weakness Assessment/Plan: He is cooperating with PT and OT. The rehab therapist recommends a SNF. He has no more Medicare days available, per GEOFF. The will need to decide if he will be D[facility] home and hire caregivers or pay for a SNF or go to Respite Care or if possible, be accepted to a [facility] facility, if he can be assigned a [facility] PCP (GEOFF is working on this last possible option). (13) Severe protein-calorie malnutrition Assessment/Plan: Alb is 2.1. He passed his swallowing eval. Perhaps there was pain or trouble handling solid food at home, since he has no teeth. A soft diet and thin liquids are being tolerated here. (14) Chronic indwelling Matthew catheter Assessment/Plan: Continue this and continue his Flomax - Current Meds Current Meds: Current Medications Generic Name Dose Route Start Last Admin Trade Name Freq PRN Reason Stop Dose Admin Acetaminophen 650 mg 09/29/19 03:48 09/29/19 21:50 Tylenol PO 650 mg Q4HR PRN Administration Pain 1 to 4 Enoxaparin Sodium 40 mg 09/29/19 09:00 10/01/19 08:57 Lovenox SUBQ 40 mg DAILY DONALD Administration Gabapentin 300 mg 09/29/19 22:00 10/02/19 06:48 Neurontin PO Not Given TID DONALD Lactated Ringer's 1,000 mls @ 100 mls/hr 09/29/19 04:00 10/02/19 01:44 Lr IV 100 mls/hr .Q10H DONALD Administration Levetiracetam 500 mg/ Sodium 105 mls @ 400 mls/hr 09/29/19 21:00 10/02/19 09:22 Chloride IV 400 mls/hr BID DONALD Administration Aztreonam 1 gm/ Sodium 100 mls @ 200 mls/hr 09/30/19 06:00 10/02/19 07:25 Chloride IV Infused Q8H DONALD Infusion Lactobacillus Rhamnosus 1 cap 09/30/19 16:30 10/01/19 09:09 Culturelle PO 1 cap DAILY DONALD Administration Levothyroxine Sodium 50 mcg 09/29/19 07:00 10/02/19 06:48 Synthroid PO Not Given QDAC DONALD Midodrine 10 mg 09/29/19 06:00 10/02/19 06:48 PO Not Given TID DONALD Mineral Oil 1 applic 09/30/19 09:27 09/30/19 11:35 Cavilon TOP 1 applic PRN PRN Administration Skin Care Sodium Chloride 10 ml 09/29/19 03:48 09/30/19 12:23 Normal Saline Flush 0.9% IVP 10 ml PRN PRN Administration NEEDED PER PROVIDER ORDERS Sodium Chloride 10 ml 09/29/19 09:00 10/02/19 01:25 Normal Saline Flush 0.9% IVP Not Given 0100,0900,1700 DONALD Tamsulosin HCl 0.4 mg 09/29/19 09:00 10/01/19 09:09 Flomax PO Not Given DAILY DONALD - Lab Result Fish Bone Diagrams: 10/02/19 04:45 10/02/19 04:45 - Additional Planning My Orders: My Active Orders 10/02/19 10:08 Haloperidol Inj [Haldol Inj] 1 mg IVP ONCE ONE 10/03/19 09:00 haloperidoL [Haldol] 1 mg PO DAILY Subjective - Subjective Nursing Reports: Other (Confused at night and again pulled out iv. Put on 1:1 so as not to use restraints.) Objective Vital Signs: Vital Signs - 24 hr 10/01/19 10/01/19 10/01/19 12:16 13:00 17:00 Temperature 36.4 C L 36.4 C L Heart Rate [ 99 106 H Brachial] Heart Rate [ 125 H Monitoring electrodes] Respiratory 16 17 20 Rate Blood Pressure 80/48 L 84/62 L [Left Brachial artery] Blood Pressure 101/64 [Right Brachial artery] O2 Saturation 99 99 100 10/01/19 10/02/19 10/02/19 21:00 01:00 05:00 Temperature 36.6 C 36.3 C L 36.6 C Heart Rate [ 107 H 110 H 93 Brachial] Heart Rate [ Monitoring electrodes] Respiratory 20 18 18 Rate Blood Pressure [Left Brachial artery] Blood Pressure 90/57 L 106/58 L 107/54 L [Right Brachial artery] O2 Saturation 100 100 98 Oxygen O2 Source Room air I&O (Last 24 Hrs): Intake and Output Totals x24h 09/30/19 10/01/19 10/02/19 23:59 23:59 23:59 Intake Total 3485.883 4265.000 150 Output Total 1745 2800 500 Balance 1036.638 3023.000 -350 General: Alert HEENT: EOMI, Mucous membr. moist/pink Neck: Supple, No JVD Neuro: Alert, Disoriented Cardiovascular: No murmurs Respiratory: No respiratory distress Abdomen: Soft Extremities: No edema, Other (Muscle wasting) - Results Results: Laboratory Results WBC 5.2 x10^3/uL (4.8-10.8) 10/02/19 04:45 RBC 3.40 10^6/uL (4.70-6.10) L 10/02/19 04:45 Hgb 10.4 g/dL (14.0-18.0) L 10/02/19 04:45 Hct 32.3 % (42.0-52.0) L 10/02/19 04:45 MCV 95.0 fL (80.0-94.0) H 10/02/19 04:45 MCH 30.6 pg (27.0-31.0) 10/02/19 04:45 MCHC 32.2 g/dL (32.0-36.0) 10/02/19 04:45 RDW 13.5 % (12.0-15.0) 10/02/19 04:45 Plt Count 172 10^3/uL (130-450) 10/02/19 04:45 MPV 11.7 fL (7.4-11.4) H 10/02/19 04:45 Neut # (Auto) 3.1 10^3/uL (1.5-6.6) 10/02/19 04:45 Lymph # (Auto) 1.4 10^3/uL (1.5-3.5) L 10/02/19 04:45 [place] # (Auto) 0.4 10^3/uL (0.0-1.0) 10/02/19 04:45 Eos # (Auto) 0.1 10^3/uL (0.0-0.7) 10/02/19 04:45 Baso # (Auto) 0.1 10^3/uL (0.0-0.1) 10/02/19 04:45 Absolute Nucleated RBC 0.00 x10^3/uL 10/02/19 04:45 Nucleated RBC % 0.0 /100WBC 10/02/19 04:45 PT 14.1 secs (9.9-12.6) H 09/29/19 02:59 INR 1.3 (0.8-1.2) H 09/29/19 02:59 Sodium 131 mmol/L (135-145) L 10/02/19 04:45 Potassium 3.5 mmol/L (3.5-5.0) 10/02/19 04:45 Chloride 100 mmol/L (101-111) L 10/02/19 04:45 Carbon Dioxide 25 mmol/L (21-32) 10/02/19 04:45 Anion Gap 6.0 (6-13) 10/02/19 04:45 BUN 13 mg/dL (6-20) 10/02/19 04:45 Creatinine 0.8 mg/dL (0.6-1.2) 10/02/19 04:45 Estimated GFR (MDRD) 93 (>89) 10/02/19 04:45 Glucose 86 mg/dL (70-100) 10/02/19 04:45 Lactic Acid 1.0 mmol/L (0.5-2.2) 09/30/19 08:07 Calcium 7.8 mg/dL (8.5-10.3) L 10/02/19 04:45 Phosphorus 2.3 mg/dL (2.5-4.6) L 10/02/19 04:45 Magnesium 1.7 mg/dL (1.7-2.8) 10/02/19 04:45 Total Bilirubin 1.1 mg/dL (0.2-1.0) H 09/29/19 02:59 AST 17 IU/L (10-42) 09/29/19 02:59 ALT < 10 IU/L (10-60) L 09/29/19 02:59 Alkaline Phosphatase 99 IU/L (42-121) 09/29/19 02:59 Troponin I High Sens 13.4 ng/L (2.3-19.7) 09/29/19 05:04 Total Protein 5.6 g/dL (6.7-8.2) L 09/29/19 02:59 Albumin 2.1 g/dL (3.2-5.5) L 09/30/19 05:09 Globulin 3.2 g/dL (2.1-4.2) 09/29/19 02:59 Albumin/Globulin Ratio 0.8 (1.0-2.2) L 09/29/19 02:59 Lipase 23 U/L (22-51) 09/29/19 02:59 TSH 3.72 uIU/mL (0.34-5.60) 09/29/19 02:59 Urine Color YELLOW 09/29/19 02:36 Urine Clarity CLOUDY (CLEAR) 09/29/19 02:36 Urine pH 6.0 PH (5.0-7.5) 09/29/19 02:36 Ur Specific [place] 1.025 (1.002-1.030) 09/29/19 02:36 Urine Protein 100 mg/dL (NEGATIVE) H 09/29/19 02:36 Urine Glucose (UA) 100 mg/dL (NEGATIVE) H 09/29/19 02:36 Urine Ketones NEGATIVE mg/dL (NEGATIVE) 09/29/19 02:36 Urine Occult Blood LARGE (NEGATIVE) H 09/29/19 02:36 Urine Nitrite POSITIVE (NEGATIVE) H 09/29/19 02:36 Urine Bilirubin NEGATIVE (NEGATIVE) 09/29/19 02:36 Urine Urobilinogen 0.2 (NORMAL) E.U./dL (NORMAL) 09/29/19 02:36 Ur Leukocyte Esterase LARGE (NEGATIVE) H 09/29/19 02:36 Urine RBC TNTC /HPF (0-5) H 09/29/19 02:36 Urine WBC >25 /HPF (0-3) H 09/29/19 02:36 Ur Squamous Epith Cells NONE SEEN (<= Few) 09/29/19 02:36 Urine Bacteria Moderate /HPF (None Seen) H 09/29/19 02:36 Ur Microscopic Review INDICATED 09/29/19 02:36 Urine Culture Comments INDICATED 09/29/19 02:36 Nasal Screen MRSA (PCR) NEGATIVE (NEGATIVE) 09/29/19 08:50 - Procedures Procedures: Procedures REPOSITION RIGHT UPPER FEMUR WITH INT FIX, OPEN APPROACH (09/10/17)
[2019-10-02 11:43] LABS: IRON 62 ug/dL (45-182); TRANSFERRIN < 70 mg/dL (180-329)
[2019-10-02 12:12] LABS: FOLATE 5.1 ng/mL (5.90 - >24.8)
[2019-10-02] MEDS: TAMSULOSIN 0.4 MG CAPSULE PO SCH (14:05)
[2019-10-02] MEDS: LACTOBACILLUS RHAMNOSUS GG CAPSULE PO SCH (14:05)
[2019-10-02] MEDS: ENOXAPARIN 40 MG/0.4 ML SYRINGE SUBQ SCH (14:14)
[2019-10-02] MEDS ORDERED: FOLIC ACID INJ 1 MG in SODIUM CHLORIDE 0.9% 1,000 ML IV SCH (15:16)
[2019-10-02] MEDS ORDERED: DIGOXIN 500 MCG/2 ML AMP IVP ONE (16:00)
[2019-10-02] MEDS ORDERED: FOLIC ACID 5 MG/1 ML 10ML MDV IVP SCH (16:15)
[2019-10-02] MEDS ORDERED: SODIUM CHLORIDE 0.9% 100ML 100 ML IV ONE (22:12)
[2019-10-02] MEDS: QUEtiapine 25 MG TABLET PO SCH (22:26)
[2019-10-03] MEDS: SODIUM CHLORIDE FLUSH 0.9% 10 ML SYRINGE IVP SCH ×3 (01:28→16:37)
[2019-10-03] MEDS: AZTREONAM 1 GM in SODIUM CHLORIDE 0.9% MINIBAG 100 ML IV SCH (06:34)
[2019-10-03] MEDS: MIDODRINE 2.5 MG TABLET PO SCH ×3 (06:35→21:17)
[2019-10-03] MEDS: LEVOTHYROXINE 25 MCG TABLET PO SCH (06:35)
[2019-10-03] MEDS: GABAPENTIN 300 MG CAPSULE PO SCH ×3 (06:36→21:17)
[2019-10-03] MEDS: haloperidoL 1 MG TABLET PO SCH (08:40)
[2019-10-03] MEDS: TAMSULOSIN 0.4 MG CAPSULE PO SCH (08:40)
[2019-10-03] MEDS: ENOXAPARIN 40 MG/0.4 ML SYRINGE SUBQ SCH (08:40)
[2019-10-03] MEDS: LACTOBACILLUS RHAMNOSUS GG CAPSULE PO SCH (08:40)
[2019-10-03] MEDS: DIGOXIN 125 MCG TABLET PO SCH (08:40)
[2019-10-03] MEDS: levETIRAcetam INJ 500 MG in SODIUM CHLORIDE 0.9% 100ML 100 ML IV SCH (08:41)
--- NOTE | 2019-10-03 10:42 | CONSULTATION NOTE ---
Palliative Care Follow Up - Referral Referring Provider: Lali Garza MD Time of Visit: [id number] Referral setting: Hospitalized patient - Information Sources Records reviewed: RN notes reviewed, Previous records reviewed History/Review of Systems obtained from: Caregiver (clinical staff) Exam limitations: Clinical condition - History of Present Illness Update Brief HPI Update: See past HPI for hx. Patient did have an episode of acute delirium, with increased confusion, removing IVs, and not cooperative over last two days since seen patient. Hospitalist did adjust medications, and patient has improved, yesterday he was mostly sleeping, today he is awake and alert, able to interact and participate in conversation as well as care. He is pleasant and cooperative and somewhat surprized at what happened. Both patient and do not recall other than prior to admit patient having hallucinations, just has not been engaged or following through on care plan. is been quite anxious, with patient's bedbound status, and increased generalized weakness about managing him at home. Worried also with his confusion last couple days, but is much relieved to see him able to participate and engage in conversation today. We did agreed to meet, regarding goals of care, as well as transition planning. Patient was able to participate, does have some short-term memory issues, very little insight to the seriousness of his illness, but was able to follow along. Patient denies any hallucinations today, actually was able to recall having them, and recognizes he was confused. He was able to participate with physical therapy earlier, his stated goals is to walk again and get stronger, discharge planning is waiting on [place] application for SNF placement. In review of the last several months, patient has been hospitalized multiple times, with SNF follow-up stays. He does get better, with engaging in rehab, 's perception is with being isolated in his room, and worsening depressive feelings, patient loses strength and has had continued weight loss. Other than the frequent UTIs, there is no identified underlying etiology, though he did come in with severe complaints of dysphagia and odynophagia, currently is taking food and fluids without difficulty. Patient's past medical history includes chronic atrial fib not on anti-coag, chronic indwelling catheter for BPH and history of prostate cancer, hypertension, hypothyroidism, and frequent hospitalizations related to infection. Social History - Living Situation Living arrangement: At home Living Situation: With spouse/s.o. Support System: Patient's reports she has exacerbated her left shoulder pain, this is concerned about being able to take care of him. She very much wants to have him in the [facility] at least for a month, would like to ultimately bring him home again if he is able to participate more in his care. She does feel like he does better in a more stimulating environment, both though are able to recognize he has had ongoing steady decline over this last year. She cannot at this point in time identify any help, she reports her daughter works at all times, she does have a hospital bed, but is finding it more difficult to change his diaper and meet his care needs. Medications/Allergies - Medications Active Medication List: Active Medications Acetaminophen (Tylenol) 650 mg PO Q4HR PRN PRN Reason: Pain 1 to 4 Last Admin: 09/29/19 21:50 Dose: 650 mg Digoxin (Lanoxin) 125 mcg PO DAILY [facility] Last Admin: 10/03/19 08:40 Dose: 125 mcg Enoxaparin Sodium (Lovenox) 40 mg SUBQ DAILY [facility] Last Admin: 10/03/19 08:40 Dose: 40 mg Folic Acid () 1 mg PO DAILY [facility] Gabapentin (Neurontin) 300 mg PO TID [facility] Last Admin: 10/03/19 06:36 Dose: 300 mg Haloperidol (Haldol Inj) 1 mg IVP Q6H PRN PRN Reason: Agitation Haloperidol (Haldol) 1 mg PO DAILY [facility] Last Admin: 10/03/19 08:40 Dose: 1 mg Aztreonam 1 gm/ Sodium (Chloride) 100 mls @ 200 mls/hr IV Q8H [facility] Last Infusion: 10/03/19 07:51 Dose: Infused Lactobacillus Rhamnosus (Culturelle) 1 cap PO DAILY [facility] Last Admin: 10/03/19 08:40 Dose: 1 cap Levetiracetam (Keppra) 500 mg PO BID [facility] Levothyroxine Sodium (Synthroid) 50 mcg PO QDAC [facility] Last Admin: 10/03/19 06:35 Dose: 50 mcg Midodrine () 10 mg PO TID [facility] Last Admin: 10/03/19 06:35 Dose: 10 mg Mineral Oil (Cavilon) 1 applic TOP PRN PRN PRN Reason: Skin Care Last Admin: 09/30/19 11:35 Dose: 1 applic Quetiapine Fumarate (Seroquel) 25 mg PO QPM [facility] Last Admin: 10/02/19 22:26 Dose: 25 mg Sodium Chloride (Normal Saline Flush 0.9%) 10 ml IVP PRN PRN PRN Reason: NEEDED PER PROVIDER ORDERS Last Admin: 09/30/19 12:23 Dose: 10 ml Sodium Chloride (Normal Saline Flush 0.9%) 10 ml IVP 0100,0900,1700 [facility] Last Admin: 10/03/19 10:22 Dose: Not Given Tamsulosin HCl (Flomax) 0.4 mg PO DAILY [facility] Last Admin: 10/03/19 08:40 Dose: 0.4 mg Pravastatin Sodium [Pravachol] 20 mg PO QPM 03/05/19 Midodrine HCl 5 mg PO DAILY 05/18/19 Albuterol Sulfate [Albuterol Sulfate Hfa] 2 puffs PO Q4H PRN 09/30/19 Doxepin HCl 25 mg PO QPM 09/30/19 Gabapentin 300 mg PO BID 09/30/19 Levothyroxine [Synthroid] 50 mcg PO QDAC 09/30/19 Sodium Chloride [Salt Tab] 1 tab PO BID 09/30/19 - Allergies Allergies/Adverse Reactions: Allergies Allergy/AdvReac Type Severity Reaction Status Date / Time rivaroxaban [From Xarelto] Allergy Unknown Verified 09/29/19 02:33 Review of Systems - Constitutional Constitutional: reports: Fatigue (improved), Weight loss - Eyes Eyes: reports: Vision loss - Ears, Nose & Throat Ears, Nose & Throat: reports: Hearing loss, Dental decay - Cardiovascular Cardiovascular: reports: Decr. 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 denies: Anxiety, Hallucinations, Behavior disturbances - Endocrine Endocrine: reports: Hypothyroidism - Hematologic/Lymphatic Hematologic/Lymphatic: reports: Anemia (10.4), Bruising (right arm), Recurrent infections - All Other Systems All Other Systems: reports: Other (limited ROS related to recall) Physical Exam - Vital Signs Vital Signs: Vital Signs x48h Temp Pulse Pulse Resp BP Pulse Ox 10/03/19 08:02 36.4 C L 105 H 20 90/49 L 97 10/03/19 05:54 36.6 C 94 18 92/46 L 99 - Physical Exam General Appearance: positive: No acute distress, Alert Eyes Bilateral: positive: Normal inspection ENT: positive: No signs of dehydration, Other (few bottom teeth only) Neck: positive: Trachea midline Cardiovascular: positive: Regular rate & rhythm, Tachycardia Respiratory: positive: No respiratory distress Abdomen: positive: Non-tender Extremities: positive: No pedal edema Neurologic/Psychiatric: positive: Mood/affect nml, Disoriented to time, Weakness, Flat affect Palliative Care - POLST Patient has POLST: Yes POLST Status: DNR, Selective Treatment (completed at visit) Pain: No pain, Pain unchanged Performance Status: Patient has been bedbound most of the stay, was able to participate in physical therapy today, is very much motivated to try and get walking again. Reports he did fairly well, and would very much like to transition to a SNF setting to better improve. - Palliative Care Discussion: Met with both patient and , we did discuss patient's understanding of his current situation, reports he has been losing strength, will continue to worsen at home, and came in with infection. Reviewed again with patient's infection, history of a seizure, episode of acute delirium, now patient improving. They both agree patient does better in a SNF, as well as improving his motivation, and is quite participatory in rehab. Has been able to acknowledge is overwhelmed with his increasing care needs, and both are able to acknowledge his decline over the last several weeks to months. Given this, I had reviewed with the regarding concern of patient's fragile status, she is able to acknowledge this and recognizes this may not improve. Patient also though has limited insight understands he has continued decline as well, though other than decreased intake, and lack of motivation no significant underlying etiology has been identified. Introduced again the conversation of CODE STATUS, we discussed in the concern about his fragile status in the setting of CPR he would most likely not benefit, and he is adverse to having broken ribs or a ventilator/tube down his throat. Patient does not perceive that his quality of life has been declining, as not acceptable, so still would accept hospitalization under selective treatments, with treatments such as he has received of antibiotics and goal of care to improve his underlying condition. He is also interested in improving his functional status, though is unable to really express all the barriers for continuing/under participating at home. It is acceptable to go to a SNF at this time, we did discuss tube feedings, he is not interested in having a peg tube in his stomach for nutritional support, but given the complexity of the conversation, agreed we would put "depends on the situation". Patient today is able to participate in decision-making, though would not given his history, and memory issues, put him at full capacity for weighing benefits and burdens and the nuances. also has barriers as far as understanding, but have had conversations regarding end-of-life, she does see him as getting worse, and would not want to prolong his suffering. She has expressed all her family is not here, as far as being able to support her as well as his family has all ready passed. She is in agreement for completing the POLST as DNAR and Selective Tx. Given patient stated goals to want to walk, get stronger, and return home in better condition, did not introduce hospice. I had both of them sign document. Though I have spoken to the regarding this and a previous conversation regarding end-of-life care. Results - Lab Results Lab results reviewed: Yes Fish Bones: 10/02/19 04:45 10/02/19 04:45 Lab and Imaging Results: Lab Results x24hrs 10/02/19 10/02/19 Range/Units 04:45 04:45 Iron 62 (45-182) ug/dL Transferrin < 70 L (180-329) mg/dL Vitamin B12 251 (180-914) pg/mL Folate 5.10 L (5.90 - >24.8) ng/mL Impression and Recommendations - Palliative Care Impression: This is an 84-year-old gentleman who came in with UTI, and altered mental status, and significant ongoing weight loss and functional decline. Patient is quite fragile, has had a seizure during hospitalization as well as episode of p rolonged acute delirium. Patient is improving, able to eat and drink today, was able to participate in physical therapy. Palliative care completing goals of care conversation and completing POLST as well as transition to DNA R. Recommendations/Counseling Done: 1. Generalized weakness. Patient does present with functional decline, unclear etiology the patient does present with weight loss and muscle wasting. Patient goals include wanting to walk again, and is quite open to participating and transitioning to SNF. Patient is currently open to home health, this would be the backup plan, though has very little caregiving support in the home setting. She is anxious about his bedbound status and being able to manage him though they do have a hospital bed. 2. Acute delirium. Patient does appear to be clearing, he does have some baseline dementia, both he and his report has not had hallucinations prior to this admit. Patient continually did improve, will continue to monitor. 3. Advanced care planning. Family meeting with , patient, myself to discuss transition planning. [facility] choice is placement [place], with ultimate goal to return home setting if he improves functionally and she can meet his care needs. She is also exploring other home support, he is currently open to home health, they are holding a spot for him on Sunday. We also discussed goals of care, patient does recognize his decline, as well as his though are hopeful for some improvement particularly since have seen improvements with previous SNF stays. Patient remains quite frail, did complete POLST as DNA R and selective treatments, copy provided to INDIGO RN. As of this writing no decisions from [place] queries are back, if patient does return home, given his FTT will pursue Palliative Care Referral for support. Time Spent: 60 minutes with greater than 50% of this done in counseling regarding goals of care, review of current hospitalization, transition planning, coordination of care with home health and hospital team
--- NOTE | 2019-10-03 10:53 | PROVIDER PROGRESS NOTE ---
Assessment/Plan - Problem List (1) Delirium Assessment/Plan: Improved with morning Haldol and evening Seroquel. I reviewed past admission records and he needed Seroquel for Sundowning, he improved, then he was not Dch on it. Continue with this treatment combination from now on. (2) Cognitive impairment Assessment/Plan: He is more cooperative with being on morning Haldol and evening Seroquel. I reviewed past admission records and he needed Seroquel for Sundowning, he improved, then he was not Dch on it. Continue with this treatment combination from now on. Will request a cognitive eval from OT. 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 I am researching if anti-seizure meds need to continue indefinitely now, or if he needs to avoid Levoflox, which appears to have been the cause of seizure. I may need input from [facility] at from a Neurology specialist. (4) UTI (urinary tract infection) Assessment/Plan: Aztreomnam iv will be changed to oral Augmentin for 3 more days, based on what [facility] specialists at has advised during previous hos pitalizations (progress notes reviewed) (5) Orthostatic hypotension Assessment/Plan: Continue Midodrine (6) Chronic atrial fibrillation Assessment/Plan: Dig ordered A Dig level is pending tomorrow (7) Hypothyroidism Assessment/Plan: On Synthroid (8) Anemia Qualifiers: Anemia type: folate deficiency Assessment/Plan: Folate now ordered orally (9) Hyponatremia Assessment/Plan: Will check serum Na tomorrow, before DCh (10) Chronic pain Assessment/Plan: He is on his home meds for foot pain (11) Generalized weakness Assessment/Plan: Improving with daily PT and OT. He agrees to go to a SNF for PT but has no available days covered by Medicare, therefore a possible discharge plan will be home with Home Health PT and OT vs [facility] if [facility] will [facility], which is being worked on by [facility]. (12) Severe protein-calorie malnutrition Assessment/Plan: Intake improving slowly throughout this hospital stay (13) Chronic indwelling Matthew catheter Assessment/Plan: Stable since last re-inserted a day or 2 ago (14) Dysphagia Assessment/Plan: Resolved with the order of a soft diet and thin liquids - Current Meds Current Meds: Current Medications Generic Name Dose Route Start Last Admin Trade Name Freq PRN Reason Stop Dose Admin Acetaminophen 650 mg 09/29/19 03:48 09/29/19 21:50 Tylenol PO 650 mg Q4HR PRN Administration Pain 1 to 4 Digoxin 125 mcg 10/03/19 09:00 10/03/19 08:40 Lanoxin PO 125 mcg DAILY DONALD Administration Enoxaparin Sodium 40 mg 09/29/19 09:00 10/03/19 08:40 Lovenox SUBQ 40 mg DAILY DONALD Administration Gabapentin 300 mg 09/29/19 22:00 10/03/19 06:36 Neurontin PO 300 mg TID DONALD Administration Haloperidol 1 mg 10/03/19 09:00 10/03/19 08:40 Haldol PO 1 mg DAILY DONALD Administration Lactobacillus Rhamnosus 1 cap 09/30/19 16:30 10/03/19 08:40 Culturelle PO 1 cap DAILY DONALD Administration Levothyroxine Sodium 50 mcg 09/29/19 07:00 10/03/19 06:35 Synthroid PO 50 mcg QDAC DONALD Administration Midodrine 10 mg 09/29/19 06:00 10/03/19 06:35 PO 10 mg TID DONALD Administration Mineral Oil 1 applic 09/30/19 09:27 09/30/19 11:35 Cavilon TOP 1 applic PRN PRN Administration Skin Care Quetiapine Fumarate 25 mg 10/02/19 21:00 10/02/19 22:26 Seroquel PO 25 mg QPM DONALD Administration Sodium Chloride 10 ml 09/29/19 03:48 09/30/19 12:23 Normal Saline Flush 0.9% IVP 10 ml PRN PRN Administration NEEDED PER PROVIDER ORDERS Sodium Chloride 10 ml 09/29/19 09:00 10/03/19 10:22 Normal Saline Flush 0.9% IVP Not Given 0100,0900,1700 DONALD Tamsulosin HCl 0.4 mg 09/29/19 09:00 10/03/19 08:40 Flomax PO 0.4 mg DAILY DONALD Administration - Lab Result Fish Bone Diagrams: 10/02/19 04:45 10/02/19 04:45 - Additional Planning My Orders: My Active Orders 10/02/19 17:14 Telemetry-Discontinue [RC] .ONCE 10/03/19 09:00 Digoxin [Lanoxin] 125 mcg PO DAILY haloperidoL [Haldol] 1 mg PO DAILY 10/03/19 12:00 Folic Acid 1 mg PO DAILY 10/03/19 21:00 Amox/Clav 875/125 [Augmentin 875/125] 1 tab PO BID levETIRAcetam [Keppra] 500 mg PO BID 10/04/19 05:00 BMP - BASIC METABOLIC PANEL [CHEM] DAILYLAB CBC - COMP BLD CT W/AUTO DIFF [HEME] DAILYLAB DIGOXIN [CHEM] Routine Subjective - Subjective Patient Reports: Resting Comfortably (Able to feed himself and cooperate) Objective Vital Signs: Vital Signs - 24 hr 10/02/19 10/02/19 10/02/19 14:19 15:40 16:04 Temperature 36.3 C L 36.5 C Heart Rate 99 Heart Rate [ 102 H Brachial] Heart Rate [ 102 H 100 Monitoring electrodes] Respiratory 18 20 Rate Blood Pressure [Left Brachial artery] Blood Pressure 104/65 109/53 L [Right Brachial artery] O2 Saturation 98 98 10/02/19 10/03/19 10/03/19 20:00 00:32 05:54 Temperature 36.5 C 36.5 C 36.6 C Heart Rate Heart Rate [ 96 94 Brachial] Heart Rate [ 77 Monitoring electrodes] Respiratory 18 18 18 Rate Blood Pressure 92/53 L [Left Brachial artery] Blood Pressure 91/48 L 92/46 L [Right Brachial artery] O2 Saturation 97 96 99 10/03/19 08:02 Temperature 36.4 C L Heart Rate Heart Rate [ Brachial] Heart Rate [ 105 H Monitoring electrodes] Respiratory 20 Rate Blood Pressure [Left Brachial artery] Blood Pressure 90/49 L [Right Brachial artery] O2 Saturation 97 Oxygen O2 Source Room air I&O (Last 24 Hrs): Intake and Output Totals x24h 10/01/19 10/02/19 10/03/19 23:59 23:59 23:59 Intake Total 4265.000 2451.667 1445 Output Total 2800 2150 1250 Balance 1465.000 301.667 195 General: Alert HEENT: Mucous membr. moist/pink Neck: Supple Neuro: Alert, Disoriented Respiratory: No respiratory distress Abdomen: Soft Extremities: No edema, Other (Muscle wasting) - Results Results: Laboratory Results WBC 5.2 x10^3/uL (4.8-10.8) 10/02/19 04:45 RBC 3.40 10^6/uL (4.70-6.10) L 10/02/19 04:45 Hgb 10.4 g/dL (14.0-18.0) L 10/02/19 04:45 Hct 32.3 % (42.0-52.0) L 10/02/19 04:45 MCV 95.0 fL (80.0-94.0) H 10/02/19 04:45 MCH 30.6 pg (27.0-31.0) 10/02/19 04:45 MCHC 32.2 g/dL (32.0-36.0) 10/02/19 04:45 RDW 13.5 % (12.0-15.0) 10/02/19 04:45 Plt Count 172 10^3/uL (130-450) 10/02/19 04:45 MPV 11.7 fL (7.4-11.4) H 10/02/19 04:45 Neut # (Auto) 3.1 10^3/uL (1.5-6.6) 10/02/19 04:45 Lymph # (Auto) 1.4 10^3/uL (1.5-3.5) L 10/02/19 04:45 [place] # (Auto) 0.4 10^3/uL (0.0-1.0) 10/02/19 04:45 Eos # (Auto) 0.1 10^3/uL (0.0-0.7) 10/02/19 04:45 Baso # (Auto) 0.1 10^3/uL (0.0-0.1) 10/02/19 04:45 Absolute Nucleated RBC 0.00 x10^3/uL 10/02/19 04:45 Nucleated RBC % 0.0 /100WBC 10/02/19 04:45 PT 14.1 secs (9.9-12.6) H 09/29/19 02:59 INR 1.3 (0.8-1.2) H 09/29/19 02:59 Sodium 131 mmol/L (135-145) L 10/02/19 04:45 Potassium 3.5 mmol/L (3.5-5.0) 10/02/19 04:45 Chloride 100 mmol/L (101-111) L 10/02/19 04:45 Carbon Dioxide 25 mmol/L (21-32) 10/02/19 04:45 Anion Gap 6.0 (6-13) 10/02/19 04:45 BUN 13 mg/dL (6-20) 10/02/19 04:45 Creatinine 0.8 mg/dL (0.6-1.2) 10/02/19 04:45 Estimated GFR (MDRD) 93 (>89) 10/02/19 04:45 Glucose 86 mg/dL (70-100) 10/02/19 04:45 Lactic Acid 1.0 mmol/L (0.5-2.2) 09/30/19 08:07 Calcium 7.8 mg/dL (8.5-10.3) L 10/02/19 04:45 Phosphorus 2.3 mg/dL (2.5-4.6) L 10/02/19 04:45 Magnesium 1.7 mg/dL (1.7-2.8) 10/02/19 04:45 Iron 62 ug/dL (45-182) 10/02/19 04:45 Transferrin < 70 mg/dL (180-329) L 10/02/19 04:45 Total Bilirubin 1.1 mg/dL (0.2-1.0) H 09/29/19 02:59 AST 17 IU/L (10-42) 09/29/19 02:59 ALT < 10 IU/L (10-60) L 09/29/19 02:59 Alkaline Phosphatase 99 IU/L (42-121) 09/29/19 02:59 Troponin I High Sens 13.4 ng/L (2.3-19.7) 09/29/19 05:04 Total Protein 5.6 g/dL (6.7-8.2) L 09/29/19 02:59 Albumin 2.1 g/dL (3.2-5.5) L 09/30/19 05:09 Globulin 3.2 g/dL (2.1-4.2) 09/29/19 02:59 Albumin/Globulin Ratio 0.8 (1.0-2.2) L 09/29/19 02:59 Lipase 23 U/L (22-51) 09/29/19 02:59 Vitamin B12 251 pg/mL (180-914) 10/02/19 04:45 Folate 5.10 ng/mL (5.90 - >24.8) L 10/02/19 04:45 TSH 3.72 uIU/mL (0.34-5.60) 09/29/19 02:59 Urine Color YELLOW 09/29/19 02:36 Urine Clarity CLOUDY (CLEAR) 09/29/19 02:36 Urine pH 6.0 PH (5.0-7.5) 09/29/19 02:36 Ur Specific [place] 1.025 (1.002-1.030) 09/29/19 02:36 Urine Protein 100 mg/dL (NEGATIVE) H 09/29/19 02:36 Urine Glucose (UA) 100 mg/dL (NEGATIVE) H 09/29/19 02:36 Urine Ketones NEGATIVE mg/dL (NEGATIVE) 09/29/19 02:36 Urine Occult Blood LARGE (NEGATIVE) H 09/29/19 02:36 Urine Nitrite POSITIVE (NEGATIVE) H 09/29/19 02:36 Urine Bilirubin NEGATIVE (NEGATIVE) 09/29/19 02:36 Urine Urobilinogen 0.2 (NORMAL) E.U./dL (NORMAL) 09/29/19 02:36 Ur Leukocyte Esterase LARGE (NEGATIVE) H 09/29/19 02:36 Urine RBC TNTC /HPF (0-5) H 09/29/19 02:36 Urine WBC >25 /HPF (0-3) H 09/29/19 02:36 Ur Squamous Epith Cells NONE SEEN (<= Few) 09/29/19 02:36 Urine Bacteria Moderate /HPF (None Seen) H 09/29/19 02:36 Ur Microscopic Review INDICATED 09/29/19 02:36 Urine Culture Comments INDICATED 09/29/19 02:36 Nasal Screen MRSA (PCR) NEGATIVE (NEGATIVE) 09/29/19 08:50 - Procedures Procedures: Procedures REPOSITION RIGHT UPPER FEMUR WITH INT FIX, OPEN APPROACH (09/10/17)
[2019-10-03] MEDS: FOLIC ACID 1 MG TABLET PO SCH (12:33)
[2019-10-03] MEDS: AMOX/CLAV 875 MG/125 MG TABLET PO SCH (21:17)
[2019-10-03] MEDS: levETIRAcetam 500 MG/5 ML UDC PO SCH (21:17)
[2019-10-03] MEDS: QUEtiapine 25 MG TABLET PO SCH (21:17)
[2019-10-03] MEDS: MIN OIL/DIMETHICON/COCONUT OIL 92 GM TUBE TOP PRN (21:18)
[2019-10-04] MEDS: SODIUM CHLORIDE FLUSH 0.9% 10 ML SYRINGE IVP SCH ×2 (01:16→10:27)
[2019-10-04 05:33] LABS: BASOPHILS % (AUTO) 0.6 %; EOSINOPHILS # (AUTO) 0.1 10^3/uL (0.0-0.7); EOSINOPHILS % (AUTO) 2.7 %; LYMPHOCYTES # (AUTO) 1.5 10^3/uL (1.5-3.5); LYMPHOCYTES % (AUTO) 29.8 %; MEAN CORPUSCULAR HEMOGLOBIN 29.8 pg (27.0-31.0); MEAN CORPUSCULAR HGB CONC 31.1 g/dL (32.0-36.0); MEAN CORPUSCULAR VOLUME 95.8 fL (80.0-94.0); MONOCYTES # (AUTO) 0.4 10^3/uL (0.0-1.0); MONOCYTES % (AUTO) 8.6 %; NEUTROPHILS # (AUTO) 2.8 10^3/uL (1.5-6.6); NEUTROPHILS % (AUTO) 57.9 %; PLT - PLATELET COUNT 160 10^3/uL (130-450); RED BLOOD COUNT 3.36 10^6/uL (4.70-6.10); RED CELL DISTRIBUTION WIDTH 13.7 % (12.0-15.0); WHITE BLOOD COUNT 4.9 x10^3/uL (4.8-10.8)
[2019-10-04 05:53] LABS: BUN - BLOOD UREA NITROGEN 17 mg/dL (6-20); CALCIUM 7.9 mg/dL (8.5-10.3); CARBON DIOXIDE - CO2 25 mmol/L (21-32); CHLORIDE 102 mmol/L (101-111); CREATININE 0.9 mg/dL (0.6-1.2); DIGOXIN 0.5 ng/mL; GLUCOSE 99 mg/dL (70-100); SODIUM 134 mmol/L (135-145)
[2019-10-04] MEDS: MIDODRINE 2.5 MG TABLET PO SCH ×3 (07:09→21:03)
[2019-10-04] MEDS: GABAPENTIN 300 MG CAPSULE PO SCH ×3 (07:11→21:03)
[2019-10-04] MEDS: LEVOTHYROXINE 25 MCG TABLET PO SCH (07:12)
[2019-10-04] MEDS ORDERED: POTASSIUM CHLORIDE 20 MEQ/15 ML UDC PO SCH (09:00)
[2019-10-04] MEDS: levETIRAcetam 500 MG/5 ML UDC PO SCH (10:07)
[2019-10-04] MEDS: haloperidoL 1 MG TABLET PO SCH (10:07)
[2019-10-04] MEDS: FOLIC ACID 1 MG TABLET PO SCH (10:07)
[2019-10-04] MEDS: DIGOXIN 125 MCG TABLET PO SCH (10:07)
[2019-10-04] MEDS: TAMSULOSIN 0.4 MG CAPSULE PO SCH (10:07)
[2019-10-04] MEDS: LACTOBACILLUS RHAMNOSUS GG CAPSULE PO SCH (10:07)
[2019-10-04] MEDS: ENOXAPARIN 40 MG/0.4 ML SYRINGE SUBQ SCH (10:07)
[2019-10-04] MEDS: AMOX/CLAV 875 MG/125 MG TABLET PO SCH ×2 (10:07→20:58)
--- NOTE | 2019-10-04 11:17 | PROVIDER PROGRESS NOTE ---
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 The Neurologist said no Keppra needs to be continued since this was a "provoked seizure" from having an infection and getting a Flouroquinolone. She advised stopping Keppra, seeing if there is ever an unprovoked seizure (when he doesn't have an infection and is not on a Flouroquinolone). She advised putting Levofloxacin on his Adverse Reaction List (Allergy List). Will stop Keppra. (2) UTI (urinary tract infection) Assessment/Plan: Urine cx was neg He is on empiric oral Augmentin (3) Orthostatic hypotension Assessment/Plan: He remains on his usual (and maximum) Midodrine treatment tid (4) Chronic atrial fibrillation Assessment/Plan: Stable rate Dig level was not toxic (5) Hypothyroidism Assessment/Plan: On his home Synthroid dose (6) Anemia Qualifiers: Anemia type: folate deficiency Assessment/Plan: Continue new oral Folate replacement daily (7) Hyponatremia Assessment/Plan: Chronic, mildly low, oscillating and will stop checking daily labs (8) Chronic pain Assessment/Plan: No comolaints on his usual meds for pain in the feet (9) Generalized weakness Assessment/Plan: He is participating with PT and OT. He will need a [place] SNF, referrals being sent by . (10) Severe protein-calorie malnutrition Assessment/Plan: Improved appetite and po intake (11) Chronic indwelling Matthew catheter Assessment/Plan: Stable (12) Cognitive impairment Assessment/Plan: He scored 12/20 by OT mental exam yesterday (13) Dysphagia Assessment/Plan: Resolved ever since he was ordered to be on a soft diet with thin liquids, since here (14) Delirium Assessment/Plan: Resolved Continue daytime Haldol po and evening Seroquel - Current Meds Current Meds: Current Medications Generic Name Dose Route Start Last Admin Trade Name Freq PRN Reason Stop Dose Admin Acetaminophen 650 mg 09/29/19 03:48 09/29/19 21:50 Tylenol PO 650 mg Q4HR PRN Administration Pain 1 to 4 Amoxicillin/Clavulanate Potassium 1 tab 10/03/19 21:00 10/04/19 10:07 Augmentin 875/125 PO 10/07/19 00:00 1 tab BID DONALD Administration Digoxin 125 mcg 10/03/19 09:00 10/04/19 10:07 Lanoxin PO 125 mcg DAILY DONALD Administration Enoxaparin Sodium 40 mg 09/29/19 09:00 10/04/19 10:07 Lovenox SUBQ 40 mg DAILY DONALD Administration Folic Acid 1 mg 10/03/19 12:00 10/04/19 10:07 PO 1 mg DAILY DONALD Administration Gabapentin 300 mg 09/29/19 22:00 10/04/19 07:11 Neurontin PO 300 mg TID DONALD Administration Haloperidol 1 mg 10/03/19 09:00 10/04/19 10:07 Haldol PO 1 mg DAILY DONALD Administration Lactobacillus Rhamnosus 1 cap 09/30/19 16:30 10/04/19 10:07 Culturelle PO 1 cap DAILY DONALD Administration Levetiracetam 500 mg 10/03/19 21:00 10/04/19 10:07 Keppra PO 500 mg BID DONALD Administration Levothyroxine Sodium 50 mcg 09/29/19 07:00 10/04/19 07:12 Synthroid PO 50 mcg QDAC DONALD Administration Midodrine 10 mg 09/29/19 06:00 10/04/19 07:09 PO 10 mg TID DONALD Administration Mineral Oil 1 applic 09/30/19 09:27 10/03/19 21:18 Cavilon TOP 1 applic PRN PRN Administration Skin Care Quetiapine Fumarate 25 mg 10/02/19 21:00 10/03/19 21:17 Seroquel PO 25 mg QPM DONALD Administration Tamsulosin HCl 0.4 mg 09/29/19 09:00 10/04/19 10:07 Flomax PO 0.4 mg DAILY DONALD Administration - Lab Result Fish Bone Diagrams: 10/04/19 04:55 10/04/19 04:55 - Additional Planning My Orders: My Active Orders 10/03/19 12:00 Folic Acid 1 mg PO DAILY 10/03/19 21:00 Amox/Clav 875/125 [Augmentin 875/125] 1 tab PO BID levETIRAcetam [Keppra] 500 mg PO BID 10/04/19 11:15 IV DC [IV Discontinuation] [RC] .ONCE Subjective - Subjective Patient Reports: Feeling Better (No complaints and is cooperative) Objective Vital Signs: Vital Signs - 24 hr 10/03/19 10/03/19 10/03/19 11:30 12:37 16:03 Temperature 36.8 C Heart Rate [ Brachial] Heart Rate [ 117 H 110 H 101 H Monitoring electrodes] Respiratory 21 18 Rate Blood Pressure 74/51 L 84/50 L 97/54 L [Right Brachial artery] O2 Saturation 99 98 10/03/19 10/03/19 10/04/19 20:32 21:15 01:00 Temperature 36.6 C 36.5 C Heart Rate [ 89 Brachial] Heart Rate [ 103 H Monitoring electrodes] Respiratory 18 16 Rate Blood Pressure 85/53 L 97/49 L [Right Brachial artery] O2 Saturation 97 97 10/04/19 10/04/19 05:00 07:48 Temperature 36.6 C 36.2 C L Heart Rate [ 85 Brachial] Heart Rate [ 82 Monitoring electrodes] Respiratory 16 14 Rate Blood Pressure 90/51 L 88/45 L [Right Brachial artery] O2 Saturation 97 97 Oxygen O2 Source Room air I&O (Last 24 Hrs): Intake and Output Totals x24h 10/02/19 10/03/19 10/04/19 23:59 23:59 23:59 Intake Total 2451.667 2045 350 Output Total 2150 2125 275 Balance 301.667 -80 75 General: Alert HEENT: Mucous membr. moist/pink Neuro: Disoriented Cardiovascular: Regular rate Respiratory: No respiratory distress Extremities: No edema - Results Results: Laboratory Results WBC 4.9 x10^3/uL (4.8-10.8) 10/04/19 04:55 RBC 3.36 10^6/uL (4.70-6.10) L 10/04/19 04:55 Hgb 10.0 g/dL (14.0-18.0) L 10/04/19 04:55 Hct 32.2 % (42.0-52.0) L 10/04/19 04:55 MCV 95.8 fL (80.0-94.0) H 10/04/19 04:55 MCH 29.8 pg (27.0-31.0) 10/04/19 04:55 MCHC 31.1 g/dL (32.0-36.0) L 10/04/19 04:55 RDW 13.7 % (12.0-15.0) 10/04/19 04:55 Plt Count 160 10^3/uL (130-450) 10/04/19 04:55 MPV 12.0 fL (7.4-11.4) H 10/04/19 04:55 Neut # (Auto) 2.8 10^3/uL (1.5-6.6) 10/04/19 04:55 Lymph # (Auto) 1.5 10^3/uL (1.5-3.5) 10/04/19 04:55 [place] # (Auto) 0.4 10^3/uL (0.0-1.0) 10/04/19 04:55 Eos # (Auto) 0.1 10^3/uL (0.0-0.7) 10/04/19 04:55 Baso # (Auto) 0.0 10^3/uL (0.0-0.1) 10/04/19 04:55 Absolute Nucleated RBC 0.00 x10^3/uL 10/04/19 04:55 Nucleated RBC % 0.0 /100WBC 10/04/19 04:55 PT 14.1 secs (9.9-12.6) H 09/29/19 02:59 INR 1.3 (0.8-1.2) H 09/29/19 02:59 Sodium 134 mmol/L (135-145) L 10/04/19 04:55 Potassium 3.4 mmol/L (3.5-5.0) L 10/04/19 04:55 Chloride 102 mmol/L (101-111) 10/04/19 04:55 Carbon Dioxide 25 mmol/L (21-32) 10/04/19 04:55 Anion Gap 7.0 (6-13) 10/04/19 04:55 BUN 17 mg/dL (6-20) 10/04/19 04:55 Creatinine 0.9 mg/dL (0.6-1.2) 10/04/19 04:55 Estimated GFR (MDRD) 81 (>89) L 10/04/19 04:55 Glucose 99 mg/dL (70-100) 10/04/19 04:55 Lactic Acid 1.0 mmol/L (0.5-2.2) 09/30/19 08:07 Calcium 7.9 mg/dL (8.5-10.3) L 10/04/19 04:55 Phosphorus 2.3 mg/dL (2.5-4.6) L 10/02/19 04:45 Magnesium 1.7 mg/dL (1.7-2.8) 10/02/19 04:45 Iron 62 ug/dL (45-182) 10/02/19 04:45 Transferrin < 70 mg/dL (180-329) L 10/02/19 04:45 Total Bilirubin 1.1 mg/dL (0.2-1.0) H 09/29/19 02:59 AST 17 IU/L (10-42) 09/29/19 02:59 ALT < 10 IU/L (10-60) L 09/29/19 02:59 Alkaline Phosphatase 99 IU/L (42-121) 09/29/19 02:59 Troponin I High Sens 13.4 ng/L (2.3-19.7) 09/29/19 05:04 Total Protein 5.6 g/dL (6.7-8.2) L 09/29/19 02:59 Albumin 2.1 g/dL (3.2-5.5) L 09/30/19 05:09 Globulin 3.2 g/dL (2.1-4.2) 09/29/19 02:59 Albumin/Globulin Ratio 0.8 (1.0-2.2) L 09/29/19 02:59 Lipase 23 U/L (22-51) 09/29/19 02:59 Vitamin B12 251 pg/mL (180-914) 10/02/19 04:45 Folate 5.10 ng/mL (5.90 - >24.8) L 10/02/19 04:45 TSH 3.72 uIU/mL (0.34-5.60) 09/29/19 02:59 Urine Color YELLOW 09/29/19 02:36 Urine Clarity CLOUDY (CLEAR) 09/29/19 02:36 Urine pH 6.0 PH (5.0-7.5) 09/29/19 02:36 Ur Specific [place] 1.025 (1.002-1.030) 09/29/19 02:36 Urine Protein 100 mg/dL (NEGATIVE) H 09/29/19 02:36 Urine Glucose (UA) 100 mg/dL (NEGATIVE) H 09/29/19 02:36 Urine Ketones NEGATIVE mg/dL (NEGATIVE) 09/29/19 02:36 Urine Occult Blood LARGE (NEGATIVE) H 09/29/19 02:36 Urine Nitrite POSITIVE (NEGATIVE) H 09/29/19 02:36 Urine Bilirubin NEGATIVE (NEGATIVE) 09/29/19 02:36 Urine Urobilinogen 0.2 (NORMAL) E.U./dL (NORMAL) 09/29/19 02:36 Ur Leukocyte Esterase LARGE (NEGATIVE) H 09/29/19 02:36 Urine RBC TNTC /HPF (0-5) H 09/29/19 02:36 Urine WBC >25 /HPF (0-3) H 09/29/19 02:36 Ur Squamous Epith Cells NONE SEEN (<= Few) 09/29/19 02:36 Urine Bacteria Moderate /HPF (None Seen) H 09/29/19 02:36 Ur Microscopic Review INDICATED 09/29/19 02:36 Urine Culture Comments INDICATED 09/29/19 02:36 Nasal Screen MRSA (PCR) NEGATIVE (NEGATIVE) 09/29/19 08:50 Last Dose Date 10/03/19 10/04/19 04:55 Last Dose Time 0900 10/04/19 04:55 Digoxin 0.5 ng/mL 10/04/19 04:55 - Procedures Procedures: Procedures REPOSITION RIGHT UPPER FEMUR WITH INT FIX, OPEN APPROACH (09/10/17)
[2019-10-04] MEDS: QUEtiapine 25 MG TABLET PO SCH (20:58)
[2019-10-05] MEDS: MIDODRINE 2.5 MG TABLET PO SCH ×3 (05:49→21:33)
[2019-10-05] MEDS: GABAPENTIN 300 MG CAPSULE PO SCH ×3 (05:51→21:33)
[2019-10-05] MEDS: LEVOTHYROXINE 25 MCG TABLET PO SCH (05:52)
[2019-10-05] MEDS: ENOXAPARIN 40 MG/0.4 ML SYRINGE SUBQ SCH (08:13)
[2019-10-05] MEDS: FOLIC ACID 1 MG TABLET PO SCH (08:14)
[2019-10-05] MEDS: AMOX/CLAV 875 MG/125 MG TABLET PO SCH ×2 (08:14→21:33)
[2019-10-05] MEDS: haloperidoL 1 MG TABLET PO SCH (08:14)
[2019-10-05] MEDS: TAMSULOSIN 0.4 MG CAPSULE PO SCH (08:14)
[2019-10-05] MEDS: LACTOBACILLUS RHAMNOSUS GG CAPSULE PO SCH (08:14)
[2019-10-05] MEDS: DIGOXIN 125 MCG TABLET PO SCH (08:14)
--- NOTE | 2019-10-05 10:12 | PROVIDER PROGRESS NOTE ---
Assessment/Plan - Problem List (1) Orthostatic hypotension Assessment/Plan: He is on maximum Midodrine treatment Avoiding diuretics Will add TEDS stockings for managing orthostasis (2) Generalized weakness Assessment/Plan: Progressing with PT. Awaiting SNF placement, hopefully at a [place] SNF, SW is working on this. Will add TEDS stockings for managing orthostasis. (3) UTI (urinary tract infection) Assessment/Plan: Finishing oral antibx on 10/07/19 Is on Culturelle also (4) Chronic atrial fibrillation Assessment/Plan: Stable HR on low dose daily Dig, new med since this admission Dig level was 0.5 yesterday a.m, not excessive so will continue (5) Hypothyroidism Assessment/Plan: On home Synthroid dose (6) Anemia Qualifiers: Anemia type: folate deficiency Assessment/Plan: Getting daily Folate replacement (7) Hyponatremia Assessment/Plan: Mild and chronic, stable (8) Chronic pain Assessment/Plan: Stable on meds Participating in PT (9) Severe protein-calorie malnutrition Assessment/Plan: Improved intake since here (10) Chronic indwelling Matthew catheter Assessment/Plan: Stable On Flomax as well (11) Cognitive impairment Assessment/Plan: Stable Cooperative (12) Dysphagia Assessment/Plan: Resolved since diet altered here (13) Delirium Assessment/Plan: Sundowning and confusion resolved with treating UTI and since he is on a.m. Haldol po and evening Seroquel po. Continue these. 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 No chronic Keppra needed (as per yesterday's Note) - Current Meds Current Meds: Current Medications Generic Name Dose Route Start Last Admin Trade Name Freq PRN Reason Stop Dose Admin Acetaminophen 650 mg 09/29/19 03:48 09/29/19 21:50 Tylenol PO 650 mg Q4HR PRN Administration Pain 1 to 4 Amoxicillin/Clavulanate Potassium 1 tab 10/03/19 21:00 10/05/19 08:14 Augmentin 875/125 PO 10/07/19 00:00 1 tab BID DONALD Administration Digoxin 125 mcg 10/03/19 09:00 10/05/19 08:14 Lanoxin PO 125 mcg DAILY DONALD Administration Enoxaparin Sodium 40 mg 09/29/19 09:00 10/05/19 08:13 Lovenox SUBQ 40 mg DAILY DONALD Administration Folic Acid 1 mg 10/03/19 12:00 10/05/19 08:14 PO 1 mg DAILY DONALD Administration Gabapentin 300 mg 09/29/19 22:00 10/05/19 05:51 Neurontin PO 300 mg TID DONALD Administration Haloperidol 1 mg 10/03/19 09:00 10/05/19 08:14 Haldol PO 1 mg DAILY DONALD Administration Lactobacillus Rhamnosus 1 cap 09/30/19 16:30 10/05/19 08:14 Culturelle PO 1 cap DAILY DONALD Administration Levothyroxine Sodium 50 mcg 09/29/19 07:00 10/05/19 05:52 Synthroid PO 50 mcg QDAC DONALD Administration Midodrine 10 mg 09/29/19 06:00 10/05/19 05:49 PO 10 mg TID DONALD Administration Mineral Oil 1 applic 09/30/19 09:27 10/03/19 21:18 Cavilon TOP 1 applic PRN PRN Administration Skin Care Quetiapine Fumarate 25 mg 10/02/19 21:00 10/04/19 20:58 Seroquel PO 25 mg QPM DONALD Administration Tamsulosin HCl 0.4 mg 09/29/19 09:00 10/05/19 08:14 Flomax PO 0.4 mg DAILY DONALD Administration - Lab Result Fish Bone Diagrams: 10/04/19 04:55 10/04/19 04:55 - Additional Planning My Orders: My Active Orders 10/05/19 08:24 MATY Walsh [RC] QSHIFT Subjective - Subjective Nursing Reports: No Complaints, Other (Dropped BP to 70's when upright briefly to go from bed into recliner) Objective Vital Signs: Vital Signs - 24 hr 10/04/19 10/04/19 10/05/19 18:19 23:47 08:00 Temperature 36.9 C 36.5 C 36.3 C L Heart Rate [ 84 82 Brachial] Heart Rate [ 92 Monitoring electrodes] Respiratory 18 16 16 Rate Blood Pressure 99/44 L 89/44 L 77/41 L [Right Brachial artery] O2 Saturation 96 96 97 10/05/19 08:15 Temperature Heart Rate [ Brachial] Heart Rate [ Monitoring electrodes] Respiratory Rate Blood Pressure 94/54 L [Right Brachial artery] O2 Saturation Oxygen O2 Source Room air I&O (Last 24 Hrs): Intake and Output Totals x24h 10/03/19 10/04/19 10/05/19 23:59 23:59 23:59 Intake Total 2044 1200 180 Output Total 5 1150 475 Balance -80 50 -295 HEENT: Mucous membr. moist/pink Neck: Supple Neuro: Disoriented Cardiovascular: Regular rate Respiratory: No respiratory distress Abdomen: Soft Extremities: No edema, Other (Muscle wasting) - Results Results: Laboratory Results WBC 4.9 x10^3/uL (4.8-10.8) 10/04/19 04:55 RBC 3.36 10^6/uL (4.70-6.10) L 10/04/19 04:55 Hgb 10.0 g/dL (14.0-18.0) L 10/04/19 04:55 Hct 32.2 % (42.0-52.0) L 10/04/19 04:55 MCV 95.8 fL (80.0-94.0) H 10/04/19 04:55 MCH 29.8 pg (27.0-31.0) 10/04/19 04:55 MCHC 31.1 g/dL (32.0-36.0) L 10/04/19 04:55 RDW 13.7 % (12.0-15.0) 10/04/19 04:55 Plt Count 160 10^3/uL (130-450) 10/04/19 04:55 MPV 12.0 fL (7.4-11.4) H 10/04/19 04:55 Neut # (Auto) 2.8 10^3/uL (1.5-6.6) 10/04/19 04:55 Lymph # (Auto) 1.5 10^3/uL (1.5-3.5) 10/04/19 04:55 [place] # (Auto) 0.4 10^3/uL (0.0-1.0) 10/04/19 04:55 Eos # (Auto) 0.1 10^3/uL (0.0-0.7) 10/04/19 04:55 Baso # (Auto) 0.0 10^3/uL (0.0-0.1) 10/04/19 04:55 Absolute Nucleated RBC 0.00 x10^3/uL 10/04/19 04:55 Nucleated RBC % 0.0 /100WBC 10/04/19 04:55 PT 14.1 secs (9.9-12.6) H 09/29/19 02:59 INR 1.3 (0.8-1.2) H 09/29/19 02:59 Sodium 134 mmol/L (135-145) L 10/04/19 04:55 Potassium 3.4 mmol/L (3.5-5.0) L 10/04/19 04:55 Chloride 102 mmol/L (101-111) 10/04/19 04:55 Carbon Dioxide 25 mmol/L (21-32) 10/04/19 04:55 Anion Gap 7.0 (6-13) 10/04/19 04:55 BUN 17 mg/dL (6-20) 10/04/19 04:55 Creatinine 0.9 mg/dL (0.6-1.2) 10/04/19 04:55 Estimated GFR (MDRD) 81 (>89) L 10/04/19 04:55 Glucose 99 mg/dL (70-100) 10/04/19 04:55 POC Whole Bld Glucose 111 mg/dL (70 - 100) H 09/30/19 11:50 Lactic Acid 1.0 mmol/L (0.5-2.2) 09/30/19 08:07 Calcium 7.9 mg/dL (8.5-10.3) L 10/04/19 04:55 Phosphorus 2.3 mg/dL (2.5-4.6) L 10/02/19 04:45 Magnesium 1.7 mg/dL (1.7-2.8) 10/02/19 04:45 Iron 62 ug/dL (45-182) 10/02/19 04:45 Transferrin < 70 mg/dL (180-329) L 10/02/19 04:45 Total Bilirubin 1.1 mg/dL (0.2-1.0) H 09/29/19 02:59 AST 17 IU/L (10-42) 09/29/19 02:59 ALT < 10 IU/L (10-60) L 09/29/19 02:59 Alkaline Phosphatase 99 IU/L (42-121) 09/29/19 02:59 Troponin I High Sens 13.4 ng/L (2.3-19.7) 09/29/19 05:04 Total Protein 5.6 g/dL (6.7-8.2) L 09/29/19 02:59 Albumin 2.1 g/dL (3.2-5.5) L 09/30/19 05:09 Globulin 3.2 g/dL (2.1-4.2) 09/29/19 02:59 Albumin/Globulin Ratio 0.8 (1.0-2.2) L 09/29/19 02:59 Lipase 23 U/L (22-51) 09/29/19 02:59 Vitamin B12 251 pg/mL (180-914) 10/02/19 04:45 Folate 5.10 ng/mL (5.90 - >24.8) L 10/02/19 04:45 TSH 3.72 uIU/mL (0.34-5.60) 09/29/19 02:59 Urine Color YELLOW 09/29/19 02:36 Urine Clarity CLOUDY (CLEAR) 09/29/19 02:36 Urine pH 6.0 PH (5.0-7.5) 09/29/19 02:36 Ur Specific [place] 1.025 (1.002-1.030) 09/29/19 02:36 Urine Protein 100 mg/dL (NEGATIVE) H 09/29/19 02:36 Urine Glucose (UA) 100 mg/dL (NEGATIVE) H 09/29/19 02:36 Urine Ketones NEGATIVE mg/dL (NEGATIVE) 09/29/19 02:36 Urine Occult Blood LARGE (NEGATIVE) H 09/29/19 02:36 Urine Nitrite POSITIVE (NEGATIVE) H 09/29/19 02:36 Urine Bilirubin NEGATIVE (NEGATIVE) 09/29/19 02:36 Urine Urobilinogen 0.2 (NORMAL) E.U./dL (NORMAL) 09/29/19 02:36 Ur Leukocyte Esterase LARGE (NEGATIVE) H 09/29/19 02:36 Urine RBC TNTC /HPF (0-5) H 09/29/19 02:36 Urine WBC >25 /HPF (0-3) H 09/29/19 02:36 Ur Squamous Epith Cells NONE SEEN (<= Few) 09/29/19 02:36 Urine Bacteria Moderate /HPF (None Seen) H 09/29/19 02:36 Ur Microscopic Review INDICATED 09/29/19 02:36 Urine Culture Comments INDICATED 09/29/19 02:36 Nasal Screen MRSA (PCR) NEGATIVE (NEGATIVE) 09/29/19 08:50 Last Dose Date 10/03/19 10/04/19 04:55 Last Dose Time 0900 10/04/19 04:55 Digoxin 0.5 ng/mL 10/04/19 04:55 - Procedures Procedures: Procedures REPOSITION RIGHT UPPER FEMUR WITH INT FIX, OPEN APPROACH (09/10/17)
[2019-10-05] MEDS: QUEtiapine 25 MG TABLET PO SCH (21:33)
[2019-10-06] MEDS: GABAPENTIN 300 MG CAPSULE PO SCH ×3 (06:39→20:50)
[2019-10-06] MEDS: MIDODRINE 2.5 MG TABLET PO SCH ×3 (06:39→20:50)
[2019-10-06] MEDS: LEVOTHYROXINE 25 MCG TABLET PO SCH (06:39)
[2019-10-06] MEDS: AMOX/CLAV 875 MG/125 MG TABLET PO SCH ×2 (08:40→20:50)
[2019-10-06] MEDS: haloperidoL 1 MG TABLET PO SCH (08:40)
[2019-10-06] MEDS: LACTOBACILLUS RHAMNOSUS GG CAPSULE PO SCH (08:40)
[2019-10-06] MEDS: DIGOXIN 125 MCG TABLET PO SCH (08:41)
[2019-10-06] MEDS: SODIUM CHLORIDE 1 GM TABLET PO SCH (08:41)
[2019-10-06] MEDS: TAMSULOSIN 0.4 MG CAPSULE PO SCH (08:41)
[2019-10-06] MEDS: ENOXAPARIN 40 MG/0.4 ML SYRINGE SUBQ SCH (08:41)
[2019-10-06] MEDS: FOLIC ACID 1 MG TABLET PO SCH (08:41)
--- NOTE | 2019-10-06 16:33 | PROVIDER PROGRESS NOTE ---
Assessment/Plan - Problem List (1) Orthostatic hypotension Assessment/Plan: He is on maximum dose Midodrin which he has been on throughout the entire hospitalization. Despite that he still has low BP's in the 80's. He is not symptomatic from that. He no longer has a saline lock or any peripheral IV running or telemetry monitoring ordered. Will add a QOD salt tablet to get some fluid retention to help the low blood pressures. MATY stockings daily have also been ordered; on in the morning, off at bedtime, and he should discharge with these ordered. (2) Generalized weakness Assessment/Plan: Daily PT and OT are working with him, he is cooperative and pleasant. He is awaiting placement in a [place]-contracted SNF, because [facility]. He has no more Medicare-covered SNF benefit left. (3) UTI (urinary tract infection) Assessment/Plan: He is finishing oral antibiotics plus probiotic. (4) Chronic atrial fibrillation Assessment/Plan: Dig orally daily was started this admission, since rate was running 100. The Dig level was checked and is not toxic. No anticoagulation due to falls history. He is on an aspirin daily for stroke prophylaxis. (5) Hypothyroidism Assessment/Plan: He is on his home Synthroid dose. (6) Anemia Qualifiers: Anemia type: folate deficiency Assessment/Plan: His serum levels were checked and he has adequate iron stores and B12 stores but low folate stores. New daily folate orally is ordered. (7) Chronic pain Assessment/Plan: His home pain meds were started for foot pain and he has had no complaints of pain on this treatment (8) Severe protein-calorie malnutrition Assessment/Plan: This was felt to be from his complaint of dysphagia, and he was not eating at home. He had a swallowing evaluation here and passed it. His diet was changed to soft diet with thin liquids and he has had excellent appetite and intake since then. (9) Chronic indwelling Matthew catheter Assessment/Plan: He pulled out his Matthew about 3 times earlier this admission during delerium. This Matthew is now stable. (10) Cognitive impairment Assessment/Plan: He had a mini mental exam by OT and scored 12/20 which was felt to be impaired for his level of (finishing High School) education. (11) Hyponatremia Assessment/Plan: This was fluctuating and chronic but stable. (12) Dysphagia Assessment/Plan: Resolved. No complaints of pain with swallowing or difficulty swallowing on this adjusted diet: Soft diet with thin liquids. (13) Delirium Assessment/Plan: Resolved. He presented with altered mental status which was daytime delirium plus Sundowning, probably from the acute UTI on top of dementia. He required daily morning Haldol to diminish the agitation and he is now cooperative. He required every evening Seroquel to be started and the Sundowning has stopped. The plan is to continue Haldol 1 mg p.o. every a.m. and Seroquel 25 mg p.o. every evening. 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 He had a witnessed seizure on his second day here and was postictal. He was in the ICU for a day for neuro checks and to start Keppra. The head CT showed signs of aging but no particular other abnormality. He was put on empiric Keppra which he was on for about 6 days. I spoke to the Neurologist at [facility] at several days ago and discussed the above presentation and management. The Neurologist advised that he does not n eed to be on chronic Keppra since this was a "provoked" seizure, from infection plus Floroquiniolone dosing. Floroquiniolone is now on his Adverse Reaction part of his Allergy list. Keppra was stopped. - Current Meds Current Meds: Current Medications Generic Name Dose Route Start Last Admin Trade Name Freq PRN Reason Stop Dose Admin Acetaminophen 650 mg 09/29/19 03:48 09/29/19 21:50 Tylenol PO 650 mg Q4HR PRN Administration Pain 1 to 4 Amoxicillin/Clavulanate Potassium 1 tab 10/03/19 21:00 10/06/19 08:40 Augmentin 875/125 PO 10/07/19 00:00 1 tab BID DONALD Administration Digoxin 125 mcg 10/03/19 09:00 10/06/19 08:41 Lanoxin PO 125 mcg DAILY DONALD Administration Enoxaparin Sodium 40 mg 09/29/19 09:00 10/06/19 08:41 Lovenox SUBQ 40 mg DAILY DONALD Administration Folic Acid 1 mg 10/03/19 12:00 10/06/19 08:41 PO 1 mg DAILY DONALD Administration Gabapentin 300 mg 09/29/19 22:00 03/16/20 13:19 Neurontin PO 300 mg TID DONALD Administration Haloperidol 1 mg 10/03/19 09:00 10/06/19 08:40 Haldol PO 1 mg DAILY DONALD Administration Lactobacillus Rhamnosus 1 cap 09/30/19 16:30 10/06/19 08:40 Culturelle PO 1 cap DAILY DONALD Administration Levothyroxine Sodium 50 mcg 09/29/19 07:00 10/06/19 06:39 Synthroid PO 50 mcg QDAC DONALD Administration Midodrine 10 mg 09/29/19 06:00 10/06/19 13:18 PO 10 mg TID DONALD Administration Mineral Oil 1 applic 09/30/19 09:27 10/03/19 21:18 Cavilon TOP 1 applic PRN PRN Administration Skin Care Quetiapine Fumarate 25 mg 10/02/19 21:00 10/05/19 21:33 Seroquel PO 25 mg QPM DONALD Administration Sodium Chloride 1 gm 10/06/19 08:00 10/06/19 08:41 Salt Tab PO 1 gm MOWEFR DONALD Administration Tamsulosin HCl 0.4 mg 09/29/19 09:00 10/06/19 08:41 Flomax PO 0.4 mg DAILY DONALD Administration - Lab Result Fish Bone Diagrams: 10/04/19 04:55 10/04/19 04:55 - Additional Planning My Orders: My Active Orders 10/06/19 08:00 Sodium Chloride [Salt Tab] 1 gm PO MOWEFRSA 10/06/19 16:00 Multivitamin W/Minerals [Theragran M] 1 tab PO 1200 Subjective - Subjective Patient Reports: No Complaints Nursing Reports: No Complaints Objective Vital Signs: Vital Signs - 24 hr 10/05/19 10/05/19 10/06/19 17:04 23:35 09:20 Temperature 36.6 C 36.4 C L 36.6 C Heart Rate [ 86 Brachial] Heart Rate [ 78 80 Monitoring electrodes] Respiratory 16 16 17 Rate Blood Pressure 104/66 98/49 L 95/49 L [Right Brachial artery] O2 Saturation 98 97 96 Oxygen O2 Source Room air I&O (Last 24 Hrs): Intake and Output Totals x24h 10/04/19 10/05/19 10/06/19 23:59 23:59 23:59 Intake Total 1200 1070 1000 Output Total 1150 1575 1200 Balance 50 -505 -200 General: Alert HEENT: Mucous membr. moist/pink Neck: Supple Neuro: Alert, Disoriented Cardiovascular: No murmurs Respiratory: No respiratory distress Abdomen: Soft Extremities: No edema, Other (Muscle wasting noted.) - Results Results: Laboratory Results WBC 4.9 x10^3/uL (4.8-10.8) 10/04/19 04:55 RBC 3.36 10^6/uL (4.70-6.10) L 10/04/19 04:55 Hgb 10.0 g/dL (14.0-18.0) L 10/04/19 04:55 Hct 32.2 % (42.0-52.0) L 10/04/19 04:55 MCV 95.8 fL (80.0-94.0) H 10/04/19 04:55 MCH 29.8 pg (27.0-31.0) 10/04/19 04:55 MCHC 31.1 g/dL (32.0-36.0) L 10/04/19 04:55 RDW 13.7 % (12.0-15.0) 10/04/19 04:55 Plt Count 160 10^3/uL (130-450) 10/04/19 04:55 MPV 12.0 fL (7.4-11.4) H 10/04/19 04:55 Neut # (Auto) 2.8 10^3/uL (1.5-6.6) 10/04/19 04:55 Lymph # (Auto) 1.5 10^3/uL (1.5-3.5) 10/04/19 04:55 [place] # (Auto) 0.4 10^3/uL (0.0-1.0) 10/04/19 04:55 Eos # (Auto) 0.1 10^3/uL (0.0-0.7) 10/04/19 04:55 Baso # (Auto) 0.0 10^3/uL (0.0-0.1) 10/04/19 04:55 Absolute Nucleated RBC 0.00 x10^3/uL 10/04/19 04:55 Nucleated RBC % 0.0 /100WBC 10/04/19 04:55 PT 14.1 secs (9.9-12.6) H 09/29/19 02:59 INR 1.3 (0.8-1.2) H 09/29/19 02:59 Sodium 134 mmol/L (135-145) L 10/04/19 04:55 Potassium 3.4 mmol/L (3.5-5.0) L 10/04/19 04:55 Chloride 102 mmol/L (101-111) 10/04/19 04:55 Carbon Dioxide 25 mmol/L (21-32) 10/04/19 04:55 Anion Gap 7.0 (6-13) 10/04/19 04:55 BUN 17 mg/dL (6-20) 10/04/19 04:55 Creatinine 0.9 mg/dL (0.6-1.2) 10/04/19 04:55 Estimated GFR (MDRD) 81 (>89) L 10/04/19 04:55 Glucose 99 mg/dL (70-100) 10/04/19 04:55 POC Whole Bld Glucose 111 mg/dL (70 - 100) H 09/30/19 11:50 Lactic Acid 1.0 mmol/L (0.5-2.2) 09/30/19 08:07 Calcium 7.9 mg/dL (8.5-10.3) L 10/04/19 04:55 Phosphorus 2.3 mg/dL (2.5-4.6) L 10/02/19 04:45 Magnesium 1.7 mg/dL (1.7-2.8) 10/02/19 04:45 Iron 62 ug/dL (45-182) 10/02/19 04:45 Transferrin < 70 mg/dL (180-329) L 10/02/19 04:45 Total Bilirubin 1.1 mg/dL (0.2-1.0) H 09/29/19 02:59 AST 17 IU/L (10-42) 09/29/19 02:59 ALT < 10 IU/L (10-60) L 09/29/19 02:59 Alkaline Phosphatase 99 IU/L (42-121) 09/29/19 02:59 Troponin I High Sens 13.4 ng/L (2.3-19.7) 09/29/19 05:04 Total Protein 5.6 g/dL (6.7-8.2) L 09/29/19 02:59 Albumin 2.1 g/dL (3.2-5.5) L 09/30/19 05:09 Globulin 3.2 g/dL (2.1-4.2) 09/29/19 02:59 Albumin/Globulin Ratio 0.8 (1.0-2.2) L 09/29/19 02:59 Lipase 23 U/L (22-51) 09/29/19 02:59 Vitamin B12 251 pg/mL (180-914) 10/02/19 04:45 Folate 5.10 ng/mL (5.90 - >24.8) L 10/02/19 04:45 TSH 3.72 uIU/mL (0.34-5.60) 09/29/19 02:59 Urine Color YELLOW 09/29/19 02:36 Urine Clarity CLOUDY (CLEAR) 09/29/19 02:36 Urine pH 6.0 PH (5.0-7.5) 09/29/19 02:36 Ur Specific [place] 1.025 (1.002-1.030) 09/29/19 02:36 Urine Protein 100 mg/dL (NEGATIVE) H 09/29/19 02:36 Urine Glucose (UA) 100 mg/dL (NEGATIVE) H 09/29/19 02:36 Urine Ketones NEGATIVE mg/dL (NEGATIVE) 09/29/19 02:36 Urine Occult Blood LARGE (NEGATIVE) H 09/29/19 02:36 Urine Nitrite POSITIVE (NEGATIVE) H 09/29/19 02:36 Urine Bilirubin NEGATIVE (NEGATIVE) 09/29/19 02:36 Urine Urobilinogen 0.2 (NORMAL) E.U./dL (NORMAL) 09/29/19 02:36 Ur Leukocyte Esterase LARGE (NEGATIVE) H 09/29/19 02:36 Urine RBC TNTC /HPF (0-5) H 09/29/19 02:36 Urine WBC >25 /HPF (0-3) H 09/29/19 02:36 Ur Squamous Epith Cells NONE SEEN (<= Few) 09/29/19 02:36 Urine Bacteria Moderate /HPF (None Seen) H 09/29/19 02:36 Ur Microscopic Review INDICATED 09/29/19 02:36 Urine Culture Comments INDICATED 09/29/19 02:36 Nasal Screen MRSA (PCR) NEGATIVE (NEGATIVE) 09/29/19 08:50 Last Dose Date 10/03/19 10/04/19 04:55 Last Dose Time 0900 10/04/19 04:55 Digoxin 0.5 ng/mL 10/04/19 04:55 - Procedures Procedures: Procedures REPOSITION RIGHT UPPER FEMUR WITH INT FIX, OPEN APPROACH (09/10/17)
[2019-10-06] MEDS: MULTIVITAMIN W/MINERALS TABLET PO SCH (17:26)
[2019-10-06] MEDS: QUEtiapine 25 MG TABLET PO SCH (20:50)
[2019-10-06] MEDS: MIN OIL/DIMETHICON/COCONUT OIL 92 GM TUBE TOP PRN (22:04)
[2019-10-07] MEDS: LEVOTHYROXINE 25 MCG TABLET PO SCH (05:55)
[2019-10-07] MEDS: MIDODRINE 2.5 MG TABLET PO SCH ×3 (05:55→21:13)
[2019-10-07] MEDS: GABAPENTIN 300 MG CAPSULE PO SCH ×3 (05:55→21:12)
[2019-10-07] MEDS: FOLIC ACID 1 MG TABLET PO SCH (09:03)
[2019-10-07] MEDS: haloperidoL 1 MG TABLET PO SCH (09:03)
[2019-10-07] MEDS: TAMSULOSIN 0.4 MG CAPSULE PO SCH (09:03)
[2019-10-07] MEDS: DIGOXIN 125 MCG TABLET PO SCH (09:03)
[2019-10-07] MEDS: ENOXAPARIN 40 MG/0.4 ML SYRINGE SUBQ SCH (09:03)
[2019-10-07] MEDS: LACTOBACILLUS RHAMNOSUS GG CAPSULE PO SCH (09:04)
[2019-10-07] MEDS: MULTIVITAMIN W/MINERALS TABLET PO SCH (13:15)
--- NOTE | 2019-10-07 14:57 | PROVIDER PROGRESS NOTE ---
Subjective - Prog Note Date Prog Note Date: 10/07/19 Prog Note Time: 14:54 - Subjective Pt reports feeling: No change Subjective: This is an elderly gentleman who was living with family when he presented with altered mental status on top of a chronic baseline cognitive deficit that is felt to be dementia. He had daytime delirium that was acutely worsening at [place]. The cause of his sudden acute illness was that of a UTI. He was found to be malnourished, weak, with chronic A. fib. On the second day here he had a seizure and was postictal. Started on Keppra. CT head negative. After neurology consult med con at , Cipro may have been the provoking agent causing the seizure and as such Keppra was stopped. He has a chronic indwelling Matthew catheter, is on oral antibiotics. Has been started on Midrin for orthostatic hypotension. He has been medically stable for several days and is now day 4 of unavoidable stay. We are awaiting a facility that accepts [facility] payment to transfer him. He has been seeing physical therapy and getting mobility training from the bed. Current Medications - Current Medications Current Medications: Active Medications Generic Name Dose Route Start Last Admin Trade Name Freq PRN Reason Stop Dose Admin Acetaminophen 650 mg 09/29/19 03:48 09/29/19 21:50 Tylenol PO 650 mg Q4HR PRN Administration Pain 1 to 4 Digoxin 125 mcg 10/03/19 09:00 10/07/19 09:03 Lanoxin PO 125 mcg DAILY DONALD Administration Enoxaparin Sodium 40 mg 09/29/19 09:00 10/07/19 09:03 Lovenox SUBQ 40 mg DAILY DONALD Administration Folic Acid 1 mg 10/03/19 12:00 10/07/19 09:03 PO 1 mg DAILY DONALD Administration Gabapentin 300 mg 09/29/19 22:00 10/07/19 13:15 Neurontin PO 300 mg TID DONALD Administration Haloperidol 1 mg 10/01/19 23:31 Haldol Inj IVP Q6H PRN Agitation Haloperidol 1 mg 10/03/19 09:00 10/07/19 09:03 Haldol PO 1 mg DAILY DONALD Administration Lactobacillus Rhamnosus 1 cap 09/30/19 16:30 10/07/19 09:04 Culturelle PO 1 cap DAILY DONALD Administration Levothyroxine Sodium 50 mcg 09/29/19 07:00 10/07/19 05:55 Synthroid PO 50 mcg QDAC DONALD Administration Midodrine 10 mg 09/29/19 06:00 10/07/19 13:18 PO 10 mg TID DONALD Administration Mineral Oil 1 applic 09/30/19 09:27 10/06/19 22:04 Cavilon TOP 1 applic PRN PRN Administration Skin Care Multivitamins/Minerals 1 tab 10/06/19 16:00 10/07/19 13:15 Theragran M PO 1 tab 1200 DONALD Administration Quetiapine Fumarate 25 mg 10/02/19 21:00 10/06/19 20:50 Seroquel PO 25 mg QPM DONALD Administration Sodium Chloride 1 gm 10/06/19 08:00 10/06/19 08:41 Salt Tab PO 1 gm MOWEFRSA DONALD Administration Tamsulosin HCl 0.4 mg 09/29/19 09:00 10/07/19 09:03 Flomax PO 0.4 mg DAILY DONALD Administration Pravastatin Sodium [Pravachol] 20 mg PO QPM 03/05/19 Midodrine HCl 5 mg PO DAILY 05/18/19 Albuterol Sulfate [Albuterol Sulfate Hfa] 2 puffs PO Q4H PRN 09/30/19 Doxepin HCl 25 mg PO QPM 09/30/19 Gabapentin 300 mg PO BID 09/30/19 Levothyroxine [Synthroid] 50 mcg PO QDAC 09/30/19 Sodium Chloride [Salt Tab] 1 tab PO BID 09/30/19 Objective - Vital Signs/Intake & Output Reviewed Vital Signs: Yes Vital Signs: Vital Signs x48h Temp Pulse Resp BP Pulse Ox 10/07/19 09:46 36.4 C L 95 18 86/45 L 97 Intake & Output: Intake & Output 10/04/19 10/05/19 10/06/19 10/07/19 23:59 23:59 23:59 23:59 Intake Total 1200 1070 1800 360 Output Total 1150 1575 1450 1275 Balance 50 -505 350 -915 - Objective General Appearance: positive: No acute distress, Lethargic (. He prefers pending most of his time asleep and in bed. Requires encouragement to get out but he is cooperative. Initially quite sleepy and then improves as my visit go es on. Cachectic, disheveled with a full jenkins at 6 foot 2 inches tall and 69.5 kg.) Eyes Bilateral: positive: PERRL ENT: positive: Other (Edentulous) Neck: positive: No JVD Respiratory: positive: Chest non-tender, No respiratory distress. negative: Wheezes, Rales, Rhonchi Cardiovascular: positive: Irregularly irregular. negative: Gallop/S4, Friction rub Abdomen: positive: Non-tender, Nml bowel sounds, No distention Skin: positive: Warm, Dry Extremities: positive: Non-tender, No pedal edema Neurologic/Psychiatric: positive: CN's nml (2-12), Disoriented to person, Di soriented to place, Disoriented to time, Slurred/abnml speech, Depressed mood/affect. negative: Motor nml (Slow, slow movement in response.) - Lab Results Fish Bones: 10/04/19 04:55 10/04/19 04:55 ABX Reporting Has patient been on IV antibiotics over the past 48 hours?: No Assessment/Plan - Problem List (1) UTI (urinary tract infection) Impression: Urinary tract infection was the main thing that brought him in. That superimposed on a chronic dementia, chronic failure to thrive. He has finished therapy for all of his acute problems. At this point we are awaiting bed placement. Plan is to continue physical therapy, improving nutrition status.
[2019-10-07] MEDS: QUEtiapine 25 MG TABLET PO SCH (21:12)
[2019-10-08] MEDS: MIDODRINE 2.5 MG TABLET PO SCH ×3 (05:44→20:31)
[2019-10-08] MEDS: LEVOTHYROXINE 25 MCG TABLET PO SCH (05:44)
[2019-10-08] MEDS: GABAPENTIN 300 MG CAPSULE PO SCH ×3 (05:45→20:32)
[2019-10-08] MEDS: DIGOXIN 125 MCG TABLET PO SCH (09:33)
[2019-10-08] MEDS: haloperidoL 1 MG TABLET PO SCH (09:33)
[2019-10-08] MEDS: SODIUM CHLORIDE 1 GM TABLET PO SCH (09:34)
[2019-10-08] MEDS: TAMSULOSIN 0.4 MG CAPSULE PO SCH (09:34)
[2019-10-08] MEDS: ENOXAPARIN 40 MG/0.4 ML SYRINGE SUBQ SCH (09:34)
[2019-10-08] MEDS: FOLIC ACID 1 MG TABLET PO SCH (09:34)
[2019-10-08] MEDS: LACTOBACILLUS RHAMNOSUS GG CAPSULE PO SCH (09:34)
[2019-10-08] MEDS: MULTIVITAMIN W/MINERALS TABLET PO SCH (12:14)
--- NOTE | 2019-10-08 18:20 | PROVIDER PROGRESS NOTE ---
Subjective - Prog Note Date Prog Note Date: 10/08/19 Prog Note Time: 18:17 - Subjective Pt reports feeling: No change Subjective: Ko has no complaints, and appears comfortable on exam. Current Medications - Current Medications Current Medications: Active Medications: Acetaminophen (Tylenol) 650 mg PO Q4HR PRN Digoxin (Lanoxin) 125 mcg PO DAILY [facility] Enoxaparin Sodium (Lovenox) 40 mg SUBQ DAILY [facility] Folic Acid 1 mg PO DAILY [facility] Gabapentin (Neurontin) 300 mg PO TID [facility] Haloperidol (Haldol Inj) 1 mg IVP Q6H PRN Haloperidol (Haldol) 1 mg PO DAILY [facility] Lactobacillus Rhamnosus (Culturelle) 1 cap PO DAILY [facility] Levothyroxine Sodium (Synthroid) 50 mcg PO QDAC [facility] Midodrine 10 mg PO TID [facility] Mineral Oil (Cavilon) 1 applic TOP PRN PRN Multivitamins/Minerals (Theragran M) 1 tab PO 1200 [facility] Quetiapine Fumarate (Seroquel) 25 mg PO QPM [facility] Sodium Chloride (Salt Tab) 1 gm PO MOWEFRSA [facility] Tamsulosin HCl (Flomax) 0.4 mg PO DAILY [facility] HOME meds: Pravastatin Sodium [Pravachol] 20 mg PO QPM 03/05/19 Midodrine HCl 5 mg PO DAILY 05/18/19 Albuterol Sulfate [Albuterol Sulfate Hfa] 2 puffs PO Q4H PRN 09/30/19 Doxepin HCl 25 mg PO QPM 09/30/19 Gabapentin 300 mg PO BID 09/30/19 Levothyroxine [Synthroid] 50 mcg PO QDAC 09/30/19 Sodium Chloride [Salt Tab] 1 tab PO BID 09/30/19 Objective - Vital Signs/Intake & Output Reviewed Vital Signs: Yes Vital Signs: Vital Signs x48h Temp Pulse Resp BP Pulse Ox 10/08/19 16:00 36.3 C L 113 H 18 93/46 L 96 Intake & Output: Intake & Output 10/05/19 10/06/19 10/07/19 10/08/19 23:59 23:59 23:59 23:59 Intake Total 1070 1800 860 960 Output Total 1575 1450 1525 250 Balance -505 350 -665 710 - Objective General Appearance: positive: No acute distress, Alert (at times), Lethargic ENT: positive: No signs of dehydration Neck: positive: No JVD, Trachea midline, Stiff neck Respiratory: positive: Chest non-tender, No respiratory distress, Other (diminshed, bilaterally) Cardiovascular: positive: Regular rate & rhythm, No gallop, Systolic murmur, Decreased pulse(s) Peripheral Pulses: 1+ Radial (R), 1+ Radial (L) Abdomen: positive: Non-tender, Nml bowel sounds, Guarding Back: positive: Nml inspection Skin: positive: No rash, Warm, Dry, Other (bronzed toned) Extremities: positive: Non-tender, Joint swelling Neurologic/Psychiatric: positive: Disoriented to place, Disoriented to time, Weakness, Sensory loss, Slurred/abnml speech (sluggish speech, baseline dementia), Depressed mood/affect Reflexes: Bicep (R): 2+, Bicep (L): 2+ - Lab Results Fish Bones: 10/04/19 04:55 10/04/19 04:55 ABX Reporting Has patient been on IV antibiotics over the past 48 hours?: No Assessment/Plan - Problem List (1) Urinary tract infection Impression: -This was the original illness that led to this admission -Ongoing chronic dementia, chronic failure to thrive -Now status post all acute treatments -Pending discharge bed placement -Continue daily physical therapy, encourage PO intake to keep improving nutrition status Qualifiers: Urinary tract infection type: catheter-associated UTI Indwelling urinary catheter type: indwelling urethral catheter Encounter type: initial encounter Qualified Code(s): T83.511A - Infection and inflammatory reaction due to indwelling urethral catheter, initial encounter; N39.0 - Urinary tract infection, site not specified
[2019-10-08] MEDS: MIN OIL/DIMETHICON/COCONUT OIL 92 GM TUBE TOP PRN (20:32)
[2019-10-08] MEDS: QUEtiapine 25 MG TABLET PO SCH (20:32)
[2019-10-09] MEDS: LEVOTHYROXINE 25 MCG TABLET PO SCH (06:08)
[2019-10-09] MEDS: MIDODRINE 2.5 MG TABLET PO SCH ×3 (06:08→22:52)
[2019-10-09] MEDS: GABAPENTIN 300 MG CAPSULE PO SCH ×3 (06:08→22:51)
[2019-10-09] MEDS: LACTOBACILLUS RHAMNOSUS GG CAPSULE PO SCH (08:52)
[2019-10-09] MEDS: DIGOXIN 125 MCG TABLET PO SCH (08:52)
[2019-10-09] MEDS: TAMSULOSIN 0.4 MG CAPSULE PO SCH (08:52)
[2019-10-09] MEDS: haloperidoL 1 MG TABLET PO SCH (08:52)
[2019-10-09] MEDS: ENOXAPARIN 40 MG/0.4 ML SYRINGE SUBQ SCH (08:52)
[2019-10-09] MEDS: FOLIC ACID 1 MG TABLET PO SCH (08:52)
[2019-10-09] MEDS: polyethylene glycoL 3350 17 GM PACKET PO SCH (08:53)
[2019-10-09] MEDS: MULTIVITAMIN W/MINERALS TABLET PO SCH (11:26)
[2019-10-09 13:04] LABS: BASOPHILS % (AUTO) 0.5 %; EOSINOPHILS # (AUTO) 0.1 10^3/uL (0.0-0.7); EOSINOPHILS % (AUTO) 1.9 %; HGB - HEMOGLOBIN 11.1 g/dL (14.0-18.0); LYMPHOCYTES # (AUTO) 0.3 10^3/uL (1.5-3.5); LYMPHOCYTES % (AUTO) 7.1 %; MEAN CORPUSCULAR HEMOGLOBIN 31.3 pg (27.0-31.0); MEAN CORPUSCULAR HGB CONC 32.6 g/dL (32.0-36.0); MEAN CORPUSCULAR VOLUME 95.8 fL (80.0-94.0); MEAN PLATELET VOLUME 10.9 fL (7.4-11.4); MONOCYTES # (AUTO) 0.3 10^3/uL (0.0-1.0); MONOCYTES % (AUTO) 7.6 %; NEUTROPHILS # (AUTO) 3.5 10^3/uL (1.5-6.6); NEUTROPHILS % (AUTO) 82.2 %; PLT - PLATELET COUNT 249 10^3/uL (130-450); RED BLOOD COUNT 3.55 10^6/uL (4.70-6.10); RED CELL DISTRIBUTION WIDTH 14.9 % (12.0-15.0); WHITE BLOOD COUNT 4.2 x10^3/uL (4.8-10.8)
[2019-10-09 13:17] LABS: ALBUMIN 2.2 g/dL (3.2-5.5); ALBUMIN/GLOBULIN RATIO 0.6 (1.0-2.2); BILIRUBIN,TOTAL 0.6 mg/dL (0.2-1.0); CALCIUM 8.3 mg/dL (8.5-10.3); CREATININE 1.1 mg/dL (0.6-1.2); MAGNESIUM 1.7 mg/dL (1.7-2.8); PHOSPHORUS 2.2 mg/dL (2.5-4.6); TOTAL PROTEIN 5.8 g/dL (6.7-8.2)
[2019-10-09] MEDS: QUEtiapine 25 MG TABLET PO SCH (22:51)
[2019-10-10] MEDS: GABAPENTIN 300 MG CAPSULE PO SCH ×3 (06:22→20:56)
[2019-10-10] MEDS: LEVOTHYROXINE 25 MCG TABLET PO SCH (06:22)
[2019-10-10] MEDS: MIDODRINE 2.5 MG TABLET PO SCH ×3 (06:25→17:03)
--- NOTE | 2019-10-10 07:47 | PROVIDER PROGRESS NOTE ---
Subjective - Prog Note Date Prog Note Date: 10/09/19 Prog Note Time: 10:00 - Subjective Pt reports feeling: No change Subjective: Ko has no complaints, and appears comfortable. Current Medications - Current Medications Current Medications: Active Medications Acetaminophen (Tylenol) 650 mg PO Q4HR PRN PRN Reason: Pain 1 to 4 Last Admin: 09/29/19 21:50 Dose: 650 mg Digoxin (Lanoxin) 125 mcg PO DAILY [facility] Last Admin: 10/09/19 08:52 Dose: 125 mcg Enoxaparin Sodium (Lovenox) 40 mg SUBQ DAILY [facility] Last Admin: 10/09/19 08:52 Dose: 40 mg Folic Acid () 1 mg PO DAILY [facility] Last Admin: 10/09/19 08:52 Dose: 1 mg Gabapentin (Neurontin) 300 mg PO TID [facility] Last Admin: 10/10/19 06:22 Dose: 300 mg Haloperidol (Haldol Inj) 1 mg IVP Q6H PRN PRN Reason: Agitation Haloperidol (Haldol) 1 mg PO DAILY [facility] Last Admin: 10/09/19 08:52 Dose: 1 mg Lactobacillus Rhamnosus (Culturelle) 1 cap PO DAILY [facility] Last Admin: 10/09/19 08:52 Dose: 1 cap Levothyroxine Sodium (Synthroid) 50 mcg PO QDAC [facility] Last Admin: 10/10/19 06:22 Dose: 50 mcg Midodrine () 10 mg PO TID [facility] Last Admin: 10/10/19 06:25 Dose: 10 mg Mineral Oil (Cavilon) 1 applic TOP PRN PRN PRN Reason: Skin Care Last Admin: 10/08/19 20:32 Dose: 1 applic Multivitamins/Minerals (Theragran M) 1 tab PO 1200 [facility] Last Admin: 10/09/19 11:26 Dose: 1 tab Polyethylene Glycol (Miralax) 17 gm PO DAILY [facility] Last Admin: 10/09/19 08:53 Dose: Not Given Quetiapine Fumarate (Seroquel) 25 mg PO QPM [facility] Last Admin: 10/09/19 22:51 Dose: 25 mg Sodium Chloride (Salt Tab) 1 gm PO MOWEFRSA [facility] Last Admin: 10/08/19 09:34 Dose: 1 gm Tamsulosin HCl (Flomax) 0.4 mg PO DAILY [facility] Last Admin: 10/09/19 08:52 Dose: 0.4 mg Pravastatin Sodium [Pravachol] 20 mg PO QPM 03/05/19 Midodrine HCl 5 mg PO DAILY 05/18/19 Albuterol Sulfate [Albuterol Sulfate Hfa] 2 puffs PO Q4H PRN 09/30/19 Doxepin HCl 25 mg PO QPM 09/30/19 Gabapentin 300 mg PO BID 09/30/19 Levothyroxine [Synthroid] 50 mcg PO QDAC 09/30/19 Sodium Chloride [Salt Tab] 1 tab PO BID 09/30/19 Objective - Vital Signs/Intake & Output Reviewed Vital Signs: Yes Vital Signs: Vital Signs x48h Temp Pulse Resp BP Pulse Ox 10/09/19 23:50 36.4 C L 78 16 92/40 L 95 Intake & Output: Intake & Output 10/07/19 10/08/19 10/09/19 10/10/19 23:59 23:59 23:59 23:59 Intake Total 860 1160 530 Output Total 1525 775 750 500 Balance -665 385 -220 -500 - Objective General Appearance: positive: No acute distress, Lethargic ENT: positive: Dry mucous membranes Neck: positive: No JVD, Stiff neck Respiratory: positive: Chest non-tender, No respiratory distress Cardiovascular: positive: Regular rate & rhythm, Systolic murmur, Decreased pulse(s) Peripheral Pulses: 1+ Radial (R), 1+ Radial (L) Abdomen: positive: Non-tender, Nml bowel sounds Skin: positive: No rash, Warm, Dry, Other (bronze toned) Neurologic/Psychiatric: positive: Disoriented to time, Weakness, Sensory loss, Slurred/abnml speech - Lab Results Fish Bones: 10/09/19 12:54 10/09/19 12:54 Other Labs: Lab Results x24hrs 10/09/19 10/09/19 Range/Units 12:54 12:54 WBC 4.2 L (4.8-10.8) x10^3/uL RBC 3.55 L (4.70-6.10) 10^6/uL Hgb 11.1 L (14.0-18.0) g/dL Hct 34.0 L (42.0-52.0) % MCV 95.8 H (80.0-94.0) fL MCH 31.3 H (27.0-31.0) pg MCHC 32.6 (32.0-36.0) g/dL RDW 14.9 (12.0-15.0) % Plt Count 249 (130-450) 10^3/uL MPV 10.9 (7.4-11.4) fL Neut # (Auto) 3.5 (1.5-6.6) 10^3/uL Lymph # (Auto) 0.3 L (1.5-3.5) 10^3/uL [place] # (Auto) 0.3 (0.0-1.0) 10^3/uL Eos # (Auto) 0.1 (0.0-0.7) 10^3/uL Baso # (Auto) 0.0 (0.0-0.1) 10^3/uL Absolute Nucleated RBC 0.00 x10^3/uL Nucleated RBC % 0.0 /100WBC Sodium 127 L (135-145) mmol/L Potassium 4.5 (3.5-5.0) mmol/L Chloride 92 L (101-111) mmol/L Carbon Dioxide 25 (21-32) mmol/L Anion Gap 10.0 (6-13) BUN 27 H (6-20) mg/dL Creatinine 1.1 (0.6-1.2) mg/dL Estimated GFR (MDRD) 64 L (>89) Glucose 338 H (70-100) mg/dL Calcium 8.3 L (8.5-10.3) mg/dL Phosphorus 2.2 L (2.5-4.6) mg/dL Magnesium 1.7 (1.7-2.8) mg/dL Total Bilirubin 0.6 (0.2-1.0) mg/dL AST 37 (10-42) IU/L ALT 16 (10-60) IU/L Alkaline Phosphatase 204 H (42-121) IU/L Total Protein 5.8 L (6.7-8.2) g/dL Albumin 2.2 L (3.2-5.5) g/dL Globulin 3.6 (2.1-4.2) g/dL Albumin/Globulin Ratio 0.6 L (1.0-2.2) ABX Reporting Has patient been on IV antibiotics over the past 48 hours?: No Assessment/Plan - Problem List (1) Urinary tract infection Impression: -This was the original illness that led to this admission -Ongoing chronic dementia, chronic failure to thrive -Now status post all acute treatments -Pending discharge bed placement -Continue daily physical therapy, encourage PO intake to keep improving nutrition status Hyponatremia -Patient continues on sodium tablets -Labs show low sodium, so we will increase to daily doses of salt tabs -Intermittent labs every 3-4 days -Monitor mental status
[2019-10-10] MEDS: polyethylene glycoL 3350 17 GM PACKET PO SCH (08:37)
[2019-10-10] MEDS: DIGOXIN 125 MCG TABLET PO SCH (08:37)
[2019-10-10] MEDS: SODIUM CHLORIDE 1 GM TABLET PO SCH (08:38)
[2019-10-10] MEDS: haloperidoL 1 MG TABLET PO SCH (08:38)
[2019-10-10] MEDS: LACTOBACILLUS RHAMNOSUS GG CAPSULE PO SCH (08:38)
[2019-10-10] MEDS: TAMSULOSIN 0.4 MG CAPSULE PO SCH (08:39)
[2019-10-10] MEDS: FOLIC ACID 1 MG TABLET PO SCH (08:39)
[2019-10-10] MEDS: ENOXAPARIN 40 MG/0.4 ML SYRINGE SUBQ SCH (08:39)
[2019-10-10] MEDS ORDERED: SODIUM CHLORIDE 1 GM TABLET PO ONE (12:00)
[2019-10-10] MEDS: MULTIVITAMIN W/MINERALS TABLET PO SCH (12:05)
--- NOTE | 2019-10-10 19:32 | PROVIDER PROGRESS NOTE ---
Subjective - Prog Note Date Prog Note Date: 10/10/19 Prog Note Time: 19:31 - Subjective Pt reports feeling: No change Subjective: Ko has no pain and cannot remember if he has been getting up to the chair during the day. His primary Urology clinic has called to request that we recommend follow up upon discharge, but given the COVID-19, all clinic appointments have been postponed, which I have informed Ko of. During our co nversation, Ko has an improved affect compared to other days and is happy to be watching TV. Current Medications - Current Medications Current Medications: Active Medications: Acetaminophen (Tylenol) 650 mg PO Q4HR PRN Digoxin (Lanoxin) 125 mcg PO DAILY [facility] Enoxaparin Sodium (Lovenox) 40 mg SUBQ DAILY [facility] Folic Acid 1 mg PO DAILY [facility] Gabapentin (Neurontin) 300 mg PO TID [facility] Haloperidol (Haldol) 1 mg PO DAILY [facility] Lactobacillus Rhamnosus (Culturelle) 1 cap PO DAILY [facility] Levothyroxine Sodium (Synthroid) 50 mcg PO QDAC [facility] Midodrine 10 mg PO TIDWM [facility] Mineral Oil (Cavilon) 1 applic TOP PRN PRN Multivitamins/Minerals (Theragran M) 1 tab PO 1200 [facility] Polyethylene Glycol (Miralax) 17 gm PO DAILY [facility] Quetiapine Fumarate (Seroquel) 25 mg PO QPM [facility] Sodium Chloride (Salt Tab) 1 gm PO DAILY [facility] HOME meds: Pravastatin Sodium [Pravachol] 20 mg PO QPM 03/05/19 Midodrine HCl 5 mg PO DAILY 05/18/19 Albuterol Sulfate [Albuterol Sulfate Hfa] 2 puffs PO Q4H PRN 09/30/19 Doxepin HCl 25 mg PO QPM 09/30/19 Gabapentin 300 mg PO BID 09/30/19 Levothyroxine [Synthroid] 50 mcg PO QDAC 09/30/19 Sodium Chloride [Salt Tab] 1 tab PO BID 09/30/19 Objective - Vital Signs/Intake & Output Reviewed Vital Signs: Yes Vital Signs: Vital Signs x48h Temp Pulse Pulse Resp BP Pulse Ox 10/10/19 16:00 36.4 C L 87 19 90/45 L 98 10/10/19 12:07 68 18 99/48 L 96 Intake & Output: Intake & Output 10/07/19 10/08/19 10/09/19 03/20/20 23:59 23:59 23:59 23:59 Intake Total 860 1160 530 720 Output Total 5821 775 750 925 Balance -686 509 -157 -921 - Objective General Appearance: positive: No acute distress, Alert Eyes Bilateral: positive: No lid inflammation ENT: positive: Pharynx nml, No signs of dehydration Neck: positive: No JVD, Trachea midline Respiratory: positive: Chest non-tender, No respiratory distress Cardiovascular: positive: Regular rate & rhythm, Systolic murmur, Decreased pulse(s) Peripheral Pulses: 1+ Radial (R), 1+ Radial (L) Back: positive: Nml inspection Skin: positive: Color nml, No rash, Warm, Dry Extremities: positive: Non-tender, Pedal edema (trace in BLE ankles) Neurologic/Psychiatric: positive: Disoriented to time, Weakness, Sensory loss, Depressed mood/affect Reflexes: Bicep (R): 3+, Bicep (L): 3+ - Lab Results Fish Bones: 10/09/19 12:54 10/09/19 12:54 ABX Reporting Has patient been on IV antibiotics over the past 48 hours?: No Assessment/Plan - Problem List (1) Urinary tract infection Impression: -Kayla RN from Urology, [facility] requested a medical update as the patient previously had a follow up appointment to exchange his indwelling landaverde -Flomax no longer needs to be given, now stopped -Urology requests that upon our discharge, they be mentioned for follow up appointments or outpatient support -This infection has been resolved and the patient remains comfortable with his indwelling in place draining slightly cloudy, yellow urine
[2019-10-10] MEDS: QUEtiapine 25 MG TABLET PO SCH (20:55)
[2019-10-10] MEDS ORDERED: haloperidoL 1 MG TABLET PO PRN (21:44)
[2019-10-11] MEDS: LEVOTHYROXINE 25 MCG TABLET PO SCH (06:25)
[2019-10-11] MEDS: GABAPENTIN 300 MG CAPSULE PO SCH ×3 (06:25→20:41)
[2019-10-11 06:47] LABS: DIGOXIN 0.8 ng/mL
--- NOTE | 2019-10-11 08:52 | PROVIDER PROGRESS NOTE ---
Subjective - Prog Note Date Prog Note Date: 10/11/19 Prog Note Time: 08:50 - Subjective Pt reports feeling: No change Subjective: Ko appears content and is eating breakfast. Later today, he was in the chair for a while, no pain when asked. Current Medications - Current Medications Current Medications: Active Medications: Acetaminophen (Tylenol) 650 mg PO Q4HR PRN Digoxin (Lanoxin) 125 mcg PO DAILY [facility] Docusate Sodium (Colace 250mg Capsule) 250 - 500 mg PO DAILY [facility] Enoxaparin Sodium (Lovenox) 40 mg SUBQ DAILY [facility] Folic Acid 1 mg PO DAILY [facility] Gabapentin (Neurontin) 300 mg PO TID [facility] Haloperidol (Haldol) 1 mg PO BID [facility]N Lactobacillus Rhamnosus (Culturelle) 1 cap PO DAILY [facility] Levothyroxine Sodium (Synthroid) 50 mcg PO QDAC [facility] Midodrine 10 mg PO [facility]ID[facility] Mineral Oil (Cavilon) 1 applic TOP PRN PRN Multivitamins/Minerals (Theragran M) 1 tab PO 1200 [facility] Polyethylene Glycol (Miralax) 17 gm PO DAILY [facility] Quetiapine Fumarate (Seroquel) 25 mg PO QPM [facility] Senna (Senokot) 8.6 - 17.2 mg PO DAILY [facility] Sodium Chloride (Salt Tab) 1 gm PO DAILY [facility] HOME meds: Pravastatin Sodium [Pravachol] 20 mg PO QPM 03/05/19 Midodrine HCl 5 mg PO DAILY 05/18/19 Albuterol Sulfate [Albuterol Sulfate Hfa] 2 puffs PO Q4H PRN 09/30/19 Doxepin HCl 25 mg PO QPM 09/30/19 Gabapentin 300 mg PO BID 09/30/19 Levothyroxine [Synthroid] 50 mcg PO QDAC 09/30/19 Sodium Chloride [Salt Tab] 1 tab PO BID 09/30/19 Objective - Vital Signs/Intake & Output Reviewed Vital Signs: Yes Vital Signs: Vital Signs x48h Temp Pulse Resp BP Pulse Ox 10/11/19 01:38 36.7 C 78 18 89/51 L 96 Intake & Output: Intake & Output 10/08/19 10/09/19 10/10/19 10/11/19 23:59 23:59 23:59 23:59 Intake Total 1160 530 942 Output Total 595 222 1465 850 Balance 968 -220 -258 -850 - Objective General Appearance: positive: No acute distress, Alert Eyes Bilateral: positive: No lid inflammation ENT: positive: Dry mucous membranes Neck: positive: Trachea midline, Stiff neck Respiratory: positive: Chest non-tender, No respiratory distress Cardiovascular: positive: Regular rate & rhythm, No gallop, Systolic murmur Peripheral Pulses: 1+ Radial (R), 1+ Radial (L) Abdomen: positive: Non-tender, Nml bowel sounds Back: positive: Nml inspection Skin: positive: No rash, Warm, Dry Extremities: positive: Non-tender, Full ROM, No pedal edema Neurologic/Psychiatric: positive: CN's nml (2-12), Disoriented to time, Weakness, Sensory loss, Depressed mood/affect Reflexes: Bicep (R): 2+, Bicep (L): 2+ - Lab Results Fish Bones: 10/09/19 12:54 10/09/19 12:54 Other Labs: Lab Results x24hrs 10/11/19 Range/Units 06:22 Last Dose Date UNKNOWN Last Dose Time UNKNOWN Digoxin 0.8 ng/mL ABX Reporting Has patient been on IV antibiotics over the past 48 hours?: No Assessment/Plan - Problem List (1) Urinary tract infection Impression: -Kayla RN from Urology, [facility] requested a medical update as the patient previously had a follow up appointment to exchange his indwelling landaverde -Flomax was discontinued on 10/09 -Urology requests that upon our discharge, they be mentioned for follow up appointments or outpatient support -This infection has been resolved and the patient remains comfortable with his indwelling in place draining slightly cloudy, yellow urine
[2019-10-11] MEDS: polyethylene glycoL 3350 17 GM PACKET PO SCH (09:17)
[2019-10-11] MEDS: DOCUSATE SODIUM 250 MG CAPSULE PO SCH (09:17)
[2019-10-11] MEDS: MIDODRINE 2.5 MG TABLET PO SCH ×3 (09:17→16:34)
[2019-10-11] MEDS: FOLIC ACID 1 MG TABLET PO SCH (09:17)
[2019-10-11] MEDS: ENOXAPARIN 40 MG/0.4 ML SYRINGE SUBQ SCH (09:17)
[2019-10-11] MEDS: SENNA 8.6 MG TABLET PO SCH (09:18)
[2019-10-11] MEDS: LACTOBACILLUS RHAMNOSUS GG CAPSULE PO SCH (09:18)
[2019-10-11] MEDS: DIGOXIN 125 MCG TABLET PO SCH (09:18)
[2019-10-11] MEDS: SODIUM CHLORIDE 1 GM TABLET PO SCH (09:20)
[2019-10-11] MEDS: MULTIVITAMIN W/MINERALS TABLET PO SCH (12:28)
[2019-10-11] MEDS: QUEtiapine 25 MG TABLET PO SCH (20:41)
[2019-10-12] MEDS: GABAPENTIN 300 MG CAPSULE PO SCH ×3 (06:46→21:47)
[2019-10-12] MEDS: LEVOTHYROXINE 25 MCG TABLET PO SCH (07:21)
[2019-10-12] MEDS: MIDODRINE 2.5 MG TABLET PO SCH ×3 (09:36→16:43)
[2019-10-12] MEDS: SODIUM CHLORIDE 1 GM TABLET PO SCH (10:40)
[2019-10-12] MEDS: LACTOBACILLUS RHAMNOSUS GG CAPSULE PO SCH (10:40)
[2019-10-12] MEDS: DIGOXIN 125 MCG TABLET PO SCH (10:40)
[2019-10-12] MEDS: SENNA 8.6 MG TABLET PO SCH (10:41)
[2019-10-12] MEDS: FOLIC ACID 1 MG TABLET PO SCH (10:41)
[2019-10-12] MEDS: ENOXAPARIN 40 MG/0.4 ML SYRINGE SUBQ SCH (10:42)
[2019-10-12] MEDS: DOCUSATE SODIUM 250 MG CAPSULE PO SCH (10:42)
[2019-10-12] MEDS: polyethylene glycoL 3350 17 GM PACKET PO SCH (10:42)
[2019-10-12] MEDS: MULTIVITAMIN W/MINERALS TABLET PO SCH (13:53)
--- NOTE | 2019-10-12 16:06 | PROVIDER PROGRESS NOTE ---
Subjective - Prog Note Date Prog Note Date: 10/12/19 Prog Note Time: 16:04 - Subjective Pt reports feeling: No change Subjective: Ko appears comfortable and takes naps during the day at times, he does not appear dehydrated and is consuming his meals. He has no complaints. Objective - Vital Signs/Intake & Output Reviewed Vital Signs: Yes Vital Signs: Vital Signs x48h Temp Pulse Pulse Resp BP BP Pulse Ox 10/12/19 09:38 98 96/48 L 10/12/19 08:31 36.3 C L 96 16 78/37 L 98 Intake & Output: Intake & Output 10/09/19 10/10/19 10/11/19 10/12/19 23:59 23:59 23:59 23:59 Intake Total 530 942 577 640 Output Total 750 1200 1700 1450 Balance -220 -258 -1123 -810 - Objective General Appearance: positive: No acute distress, Alert ENT: positive: No signs of dehydration Peripheral Pulses: 1+ Radial (R), 1+ Radial (L) Abdomen: positive: Non-tender, Nml bowel sounds Back: positive: Nml inspection Skin: positive: No rash, Warm, Dry Extremities: positive: Non-tender, No pedal edema, Joint swelling Neurologic/Psychiatric: positive: Weakness - Lab Results Fish Bones: 10/09/19 12:54 10/09/19 12:54 ABX Reporting Has patient been on IV antibiotics over the past 48 hours?: No Assessment/Plan - Problem List (1) Urinary tract infection Impression: -Matthew remains in place, draining well, labs in the next 1-2 days
[2019-10-12] MEDS: QUEtiapine 25 MG TABLET PO SCH (21:47)
[2019-10-13] MEDS: LEVOTHYROXINE 25 MCG TABLET PO SCH ×2 (07:41→08:25)
[2019-10-13] MEDS: GABAPENTIN 300 MG CAPSULE PO SCH ×4 (07:42→21:49)
[2019-10-13] MEDS: MIDODRINE 2.5 MG TABLET PO SCH ×3 (08:26→17:04)
[2019-10-13] MEDS: FOLIC ACID 1 MG TABLET PO SCH (10:23)
[2019-10-13] MEDS: DIGOXIN 125 MCG TABLET PO SCH (10:23)
[2019-10-13] MEDS: SENNA 8.6 MG TABLET PO SCH (10:23)
[2019-10-13] MEDS: LACTOBACILLUS RHAMNOSUS GG CAPSULE PO SCH (10:23)
[2019-10-13] MEDS: ENOXAPARIN 40 MG/0.4 ML SYRINGE SUBQ SCH (10:23)
[2019-10-13] MEDS: SODIUM CHLORIDE 1 GM TABLET PO SCH (10:23)
[2019-10-13] MEDS: DOCUSATE SODIUM 250 MG CAPSULE PO SCH (10:23)
[2019-10-13] MEDS: polyethylene glycoL 3350 17 GM PACKET PO SCH (10:24)
[2019-10-13] MEDS: MULTIVITAMIN W/MINERALS TABLET PO SCH (13:36)
[2019-10-13 16:12] LABS: BASOPHILS # (AUTO) 0.1 10^3/uL (0.0-0.1); BASOPHILS % (AUTO) 0.7 %; EOSINOPHILS # (AUTO) 0.2 10^3/uL (0.0-0.7); EOSINOPHILS % (AUTO) 2.3 %; LYMPHOCYTES # (AUTO) 1.6 10^3/uL (1.5-3.5); LYMPHOCYTES % (AUTO) 18.8 %; MEAN CORPUSCULAR HEMOGLOBIN 30.5 pg (27.0-31.0); MEAN CORPUSCULAR HGB CONC 31.5 g/dL (32.0-36.0); MEAN CORPUSCULAR VOLUME 96.7 fL (80.0-94.0); MEAN PLATELET VOLUME 10.9 fL (7.4-11.4); MONOCYTES # (AUTO) 0.7 10^3/uL (0.0-1.0); MONOCYTES % (AUTO) 8.2 %; NEUTROPHILS # (AUTO) 5.9 10^3/uL (1.5-6.6); NEUTROPHILS % (AUTO) 67.7 %; PLT - PLATELET COUNT 337 10^3/uL (130-450); RED BLOOD COUNT 3.61 10^6/uL (4.70-6.10); RED CELL DISTRIBUTION WIDTH 16.4 % (12.0-15.0); WHITE BLOOD COUNT 8.7 x10^3/uL (4.8-10.8)
--- NOTE | 2019-10-13 18:39 | PROVIDER PROGRESS NOTE ---
Subjective - Prog Note Date Prog Note Date: 10/13/19 Prog Note Time: 18:37 - Subjective Pt reports feeling: No change Subjective: Ko has no complaints, and continues to [facility] Labs for today are pending. Objective - Vital Signs/Intake & Output Reviewed Vital Signs: Yes Vital Signs: Vital Signs x48h Temp Pulse Resp BP Pulse Ox 10/13/19 15:49 36.3 C L 81 16 117/57 L 98 Intake & Output: Intake & Output 10/10/19 10/11/19 10/12/19 10/13/19 23:59 23:59 23:59 23:59 Intake Total 834 143 3514 960 Output Total 1200 1700 2150 1850 Balance -258 -1123 -1098 -890 - Objective General Appearance: positive: No acute distress, Alert Eyes Bilateral: positive: No lid inflammation ENT: positive: No signs of dehydration Neck: positive: No JVD, Stiff neck Respiratory: positive: Chest non-tender, No respiratory distress, Breath sounds nml Cardiovascular: positive: Regular rate & rhythm Abdomen: positive: Non-tender, Nml bowel sounds Back: positive: Nml inspection Skin: positive: Color nml, No rash, Warm, Dry Extremities: positive: Non-tender, Full ROM, No pedal edema Neurologic/Psychiatric: positive: Oriented x3, CN's nml (2-12), Weakness, Sensory loss - Lab Results Fish Bones: 10/13/19 16:04 10/09/19 12:54 Other Labs: Lab Results x24hrs 10/13/19 10/13/19 10/13/19 Range/Units 16:04 16:04 16:04 WBC 8.7 (4.8-10.8) x10^3/uL RBC 3.61 L (4.70-6.10) 10^6/uL Hgb 11.0 L (14.0-18.0) g/dL Hct 34.9 L (42.0-52.0) % MCV 96.7 H (80.0-94.0) fL MCH 30.5 (27.0-31.0) pg MCHC 31.5 L (32.0-36.0) g/dL RDW 16.4 H (12.0-15.0) % Plt Count 337 (130-450) 10^3/uL MPV 10.9 (7.4-11.4) fL Neut # (Auto) 5.9 (1.5-6.6) 10^3/uL Lymph # (Auto) 1.6 (1.5-3.5) 10^3/uL [place] # (Auto) 0.7 (0.0-1.0) 10^3/uL Eos # (Auto) 0.2 (0.0-0.7) 10^3/uL Baso # (Auto) 0.1 (0.0-0.1) 10^3/uL Absolute Nucleated RBC 0.03 x10^3/uL Nucleated RBC % 0.3 /100WBC B-Natriuretic Peptide 338 H (5-100) pg/mL Last Dose Date UNKNOWN Last Dose Time UNKNOWN ABX Reporting Has patient been on IV antibiotics over the past 48 hours?: No Assessment/Plan - Problem List (1) Urinary tract infection Impression: -Original UTI is resolved -Remains with an indwelling landaverde to be changed Q30 days
[2019-10-13 21:39] LABS: DIGOXIN 0.9 ng/mL
[2019-10-13 21:40] LABS: ALBUMIN 2.2 g/dL (3.2-5.5); ALBUMIN/GLOBULIN RATIO 0.6 (1.0-2.2); BILIRUBIN,TOTAL 0.5 mg/dL (0.2-1.0); CALCIUM 8.4 mg/dL (8.5-10.3); MAGNESIUM 1.8 mg/dL (1.7-2.8); PHOSPHORUS 3.2 mg/dL (2.5-4.6); TOTAL PROTEIN 5.8 g/dL (6.7-8.2)
[2019-10-13] MEDS: QUEtiapine 25 MG TABLET PO SCH (21:49)
[2019-10-14] MEDS: GABAPENTIN 300 MG CAPSULE PO SCH ×3 (07:08→21:40)
[2019-10-14] MEDS: LEVOTHYROXINE 25 MCG TABLET PO SCH (07:08)
[2019-10-14] MEDS: LACTOBACILLUS RHAMNOSUS GG CAPSULE PO SCH (08:15)
[2019-10-14] MEDS: ENOXAPARIN 40 MG/0.4 ML SYRINGE SUBQ SCH (08:15)
[2019-10-14] MEDS: SODIUM CHLORIDE 1 GM TABLET PO SCH (08:16)
[2019-10-14] MEDS: DOCUSATE SODIUM 250 MG CAPSULE PO SCH (08:16)
[2019-10-14] MEDS: DIGOXIN 125 MCG TABLET PO SCH (08:16)
[2019-10-14] MEDS: SENNA 8.6 MG TABLET PO SCH (08:16)
[2019-10-14] MEDS: FOLIC ACID 1 MG TABLET PO SCH (08:17)
[2019-10-14] MEDS: MIDODRINE 2.5 MG TABLET PO SCH ×3 (08:17→16:43)
[2019-10-14] MEDS: polyethylene glycoL 3350 17 GM PACKET PO SCH (08:17)
--- NOTE | 2019-10-14 09:16 | PROVIDER PROGRESS NOTE ---
Subjective - Prog Note Date Prog Note Date: 10/14/19 - Subjective Pt reports feeling: Improved Subjective: pt is comfortable in the bed without distress. he report he ate about 80% his breakfast without nausea, vomiting, or abdominal pain. he denies fever, chill, shortness of breath, cough, chest pain. pt is [facility] Current Medications - Current Medications Current Medications: Active Medications Acetaminophen (Tylenol) 650 mg PO Q4HR PRN PRN Reason: Pain 1 to 4 Last Admin: 09/29/19 21:50 Dose: 650 mg Digoxin (Lanoxin) 125 mcg PO DAILY [facility] Last Admin: 10/14/19 08:16 Dose: 125 mcg Docusate Sodium (Colace 250mg Capsule) 250 - 500 mg PO DAILY [facility] Last Admin: 10/14/19 08:16 Dose: 250 mg Enoxaparin Sodium (Lovenox) 40 mg SUBQ DAILY [facility] Last Admin: 10/14/19 08:15 Dose: 40 mg Folic Acid () 1 mg PO DAILY [facility] Last Admin: 10/14/19 08:17 Dose: 1 mg Gabapentin (Neurontin) 300 mg PO TID [facility] Last Admin: 10/14/19 07:08 Dose: 300 mg Haloperidol (Haldol) 1 mg PO BID PRN PRN Reason: Agitation Last Admin: 10/12/19 00:50 Dose: 1 mg Lactobacillus Rhamnosus (Culturelle) 1 cap PO DAILY [facility] Last Admin: 10/14/19 08:15 Dose: 1 cap Levothyroxine Sodium (Synthroid) 50 mcg PO QDAC [facility] Last Admin: 10/14/19 07:08 Dose: 50 mcg Midodrine () 10 mg PO TIDWM [facility] Last Admin: 10/14/19 08:17 Dose: 10 mg Mineral Oil (Cavilon) 1 applic TOP PRN PRN PRN Reason: Skin Care Last Admin: 10/08/19 20:32 Dose: 1 applic Multivitamins/Minerals (Theragran M) 1 tab PO 1200 [facility] Last Admin: 10/13/19 13:36 Dose: 1 tab Polyethylene Glycol (Miralax) 17 gm PO DAILY [facility] Last Admin: 10/14/19 08:17 Dose: Not Given Quetiapine Fumarate (Seroquel) 25 mg PO QPM [facility] Last Admin: 10/13/19 21:49 Dose: 25 mg Senna (Senokot) 8.6 - 17.2 mg PO DAILY [facility] Last Admin: 10/14/19 08:16 Dose: 8.6 mg Sodium Chloride (Salt Tab) 1 gm PO DAILY [facility] Last Admin: 10/14/19 08:16 Dose: 1 gm Pravastatin Sodium [Pravachol] 20 mg PO QPM 03/05/19 Midodrine HCl 5 mg PO DAILY 05/18/19 Albuterol Sulfate [Albuterol Sulfate Hfa] 2 puffs PO Q4H PRN 09/30/19 Doxepin HCl 25 mg PO QPM 09/30/19 Gabapentin 300 mg PO BID 09/30/19 Levothyroxine [Synthroid] 50 mcg PO QDAC 09/30/19 Sodium Chloride [Salt Tab] 1 tab PO BID 09/30/19 Objective - Vital Signs/Intake & Output Vital Signs: Vital Signs x48h Temp Pulse Resp BP Pulse Ox 10/14/19 07:48 36.4 C L 78 18 99/41 L 100 Intake & Output: Intake & Output 10/11/19 10/12/19 10/13/19 10/14/19 23:59 23:59 23:59 23:59 Intake Total 577 1052 960 860 Output Total 1700 2150 2350 375 Balance -1123 -1098 -1390 485 - Objective General Appearance: positive: No acute distress, Alert. negative: Lethargic Eyes Bilateral: positive: Normal inspection, PERRL, EOMI, No lid inflammation ENT: positive: ENT inspection nml, Pharynx nml, No signs of dehydration. negative: Purulent nasal drainage Neck: positive: Nml inspection, Thyroid nml, No JVD, Trachea midline. negative: Thyromegaly, Lymphadenopathy (R), Lymphadenopathy (L), Stiff neck, Tracheal deviation Respiratory: positive: Chest non-tender, No respiratory distress, Breath sounds nml. negative: Wheezes, Rales, Rhonchi Cardiovascular: positive: Regular rate & rhythm, No murmur, No gallop. negative: Irregularly irregular, Extrasystoles, Tachycardia, Bradycardia, JVD present, Systolic murmur, Diastolic murmur Peripheral Pulses: 2+ Radial (R), 2+ Radial (L), 2+ Dorsalis pedis (R), 2+ Dorsalis pedis (L) Abdomen: positive: Non-tender, No organomegaly, Nml bowel sounds, No distention. negative: Tenderness, Guarding, Rebound Back: positive: Nml inspection. negative: CVA tenderness (R), CVA tenderness (L) Skin: positive: Color nml, No rash, Warm, Dry. negative: Cyanosis, Diaphoresis, Pallor Extremities: positive: Non-tender, Full ROM, Nml appearance. negative: Calf tenderness, Sanjeev's sign/cords Neurologic/Psychiatric: positive: Oriented x3, Sensation nml. negative: Weakness, Sensory loss, Facial droop, Slurred/abnml speech, Depressed mood/affect - Lab Results Fish Bones: 10/13/19 16:04 10/13/19 16:04 Other Labs: Lab Results x24hrs 10/13/19 10/13/19 10/13/19 Range/Units 16:04 16:04 16:04 WBC (4.8-10.8) x10^3/uL RBC (4.70-6.10) 10^6/uL Hgb (14.0-18.0) g/dL Hct (42.0-52.0) % MCV (80.0-94.0) fL MCH (27.0-31.0) pg MCHC (32.0-36.0) g/dL RDW (12.0-15.0) % Plt Count (130-450) 10^3/uL MPV (7.4-11.4) fL Neut # (Auto) (1.5-6.6) 10^3/uL Lymph # (Auto) (1.5-3.5) 10^3/uL [place] # (Auto) (0.0-1.0) 10^3/uL Eos # (Auto) (0.0-0.7) 10^3/uL Baso # (Auto) (0.0-0.1) 10^3/uL Absolute Nucleated RBC x10^3/uL Nucleated RBC % /100WBC Sodium 134 L (135-145) mmol/L Potassium 4.7 (3.5-5.0) mmol/L Chloride 97 L (101-111) mmol/L Carbon Dioxide 26 (21-32) mmol/L Anion Gap 11.0 (6-13) BUN 27 H (6-20) mg/dL Creatinine 1.0 (0.6-1.2) mg/dL Estimated GFR (MDRD) 72 L (>89) Glucose 164 H (70-100) mg/dL Calcium 8.4 L (8.5-10.3) mg/dL Phosphorus 3.2 (2.5-4.6) mg/dL Magnesium 1.8 (1.7-2.8) mg/dL Total Bilirubin 0.5 (0.2-1.0) mg/dL AST 73 H (10-42) IU/L ALT 40 (10-60) IU/L Alkaline Phosphatase 472 H (42-121) IU/L B-Natriuretic Peptide 338 H (5-100) pg/mL Total Protein 5.8 L (6.7-8.2) g/dL Albumin 2.2 L (3.2-5.5) g/dL Globulin 3.6 (2.1-4.2) g/dL Albumin/Globulin Ratio 0.6 L (1.0-2.2) Last Dose Date UNKNOWN Last Dose Time UNKNOWN Digoxin 0.9 ng/mL 10/13/19 Range/Units 16:04 WBC 8.7 (4.8-10.8) x10^3/uL RBC 3.61 L (4.70-6.10) 10^6/uL Hgb 11.0 L (14.0-18.0) g/dL Hct 34.9 L (42.0-52.0) % MCV 96.7 H (80.0-94.0) fL MCH 30.5 (27.0-31.0) pg MCHC 31.5 L (32.0-36.0) g/dL RDW 16.4 H (12.0-15.0) % Plt Count 337 (130-450) 10^3/uL MPV 10.9 (7.4-11.4) fL Neut # (Auto) 5.9 (1.5-6.6) 10^3/uL Lymph # (Auto) 1.6 (1.5-3.5) 10^3/uL [place] # (Auto) 0.7 (0.0-1.0) 10^3/uL Eos # (Auto) 0.2 (0.0-0.7) 10^3/uL Baso # (Auto) 0.1 (0.0-0.1) 10^3/uL Absolute Nucleated RBC 0.03 x10^3/uL Nucleated RBC % 0.3 /100WBC Sodium (135-145) mmol/L Potassium (3.5-5.0) mmol/L Chloride (101-111) mmol/L Carbon Dioxide (21-32) mmol/L Anion Gap (6-13) BUN (6-20) mg/dL Creatinine (0.6-1.2) mg/dL Estimated GFR (MDRD) (>89) Glucose (70-100) mg/dL Calcium (8.5-10.3) mg/dL Phosphorus (2.5-4.6) mg/dL Magnesium (1.7-2.8) mg/dL Total Bilirubin (0.2-1.0) mg/dL AST (10-42) IU/L ALT (10-60) IU/L Alkaline Phosphatase (42-121) IU/L B-Natriuretic Peptide (5-100) pg/mL Total Protein (6.7-8.2) g/dL Albumin (3.2-5.5) g/dL Globulin (2.1-4.2) g/dL Albumin/Globulin Ratio (1.0-2.2) Last Dose Date Last Dose Time Digoxin ng/mL ABX Reporting Has patient been on IV antibiotics over the past 48 hours?: No Sepsis Event Note (H) - Evaluation Current Stage of Sepsis: Ruled out Assessment/Plan - Problem List (1) Elevated liver enzymes Impression: pt has slight elevated AST and Alk, with normal total bili. pt denies N/V/abdominal pain, he is eating normal. pt also has chronic slight elevated Alk and AST. hold hepatic intoxic agents, lab monitor (2) Chronic indwelling Matthew catheter Impression: pt has chronic indwelling Matthew catheter. pt already finished his UTI treatment. pt denies dysuria, fever, or urinary symptoms. continue followup the protocol to change Matthew (3) Hyponatremia Impression: Na is 134, slight lower, as his chronic condition. lab monitor as needed pt is medical clear now and pending for placement
[2019-10-14] MEDS: MULTIVITAMIN W/MINERALS TABLET PO SCH (12:41)
[2019-10-14] MEDS: QUEtiapine 25 MG TABLET PO SCH (21:40)
[2019-10-15 08:13] LABS: CALCIUM 8.3 mg/dL (8.5-10.3)
[2019-10-15 08:38] LABS: ALBUMIN 2.2 g/dL (3.2-5.5); ALBUMIN/GLOBULIN RATIO 0.6 (1.0-2.2); BILIRUBIN,TOTAL 0.7 mg/dL (0.2-1.0); CREATININE 0.8 mg/dL (0.6-1.2); TOTAL PROTEIN 5.7 g/dL (6.7-8.2)
[2019-10-15] MEDS: DOCUSATE SODIUM 250 MG CAPSULE PO SCH (09:16)
[2019-10-15] MEDS: LEVOTHYROXINE 25 MCG TABLET PO SCH (09:16)
[2019-10-15] MEDS: polyethylene glycoL 3350 17 GM PACKET PO SCH (09:16)
[2019-10-15] MEDS: SENNA 8.6 MG TABLET PO SCH (09:16)
[2019-10-15] MEDS: GABAPENTIN 300 MG CAPSULE PO SCH ×3 (09:16→21:22)
[2019-10-15] MEDS: ENOXAPARIN 40 MG/0.4 ML SYRINGE SUBQ SCH (10:01)
[2019-10-15] MEDS: DIGOXIN 125 MCG TABLET PO SCH (10:01)
[2019-10-15] MEDS: FOLIC ACID 1 MG TABLET PO SCH (10:01)
[2019-10-15] MEDS: SODIUM CHLORIDE 1 GM TABLET PO SCH (10:01)
[2019-10-15] MEDS: LACTOBACILLUS RHAMNOSUS GG CAPSULE PO SCH (10:01)
[2019-10-15] MEDS: MIDODRINE 2.5 MG TABLET PO SCH ×3 (10:01→16:50)
--- NOTE | 2019-10-15 10:57 | PROVIDER PROGRESS NOTE ---
Subjective - Prog Note Date Prog Note Date: 10/15/19 - Subjective Pt reports feeling: No change Subjective: pt is comfortable sleeping at the bed. pt's liver enzyme is still some elevation. order US of abdomen limited to check liver. pt is pending for placement. Current Medications - Current Medications Current Medications: Active Medications Acetaminophen (Tylenol) 650 mg PO Q4HR PRN PRN Reason: Pain 1 to 4 Last Admin: 09/29/19 21:50 Dose: 650 mg Digoxin (Lanoxin) 125 mcg PO DAILY [facility] Last Admin: 10/15/19 10:01 Dose: 125 mcg Docusate Sodium (Colace 250mg Capsule) 250 - 500 mg PO DAILY [facility] Last Admin: 10/15/19 09:16 Dose: Not Given Enoxaparin Sodium (Lovenox) 40 mg SUBQ DAILY [facility] Last Admin: 10/15/19 10:01 Dose: 40 mg Folic Acid () 1 mg PO DAILY [facility] Last Admin: 10/15/19 10:01 Dose: 1 mg Gabapentin (Neurontin) 300 mg PO TID [facility] Last Admin: 10/15/19 09:16 Dose: Not Given Haloperidol (Haldol) 1 mg PO BID PRN PRN Reason: Agitation Last Admin: 10/12/19 00:50 Dose: 1 mg Lactobacillus Rhamnosus (Culturelle) 1 cap PO DAILY [facility] Last Admin: 10/15/19 10:01 Dose: 1 cap Levothyroxine Sodium (Synthroid) 50 mcg PO QDAC [facility] Last Admin: 10/15/19 09:16 Dose: Not Given Midodrine () 10 mg PO TIDWM [facility] Last Admin: 10/15/19 10:01 Dose: 10 mg Mineral Oil (Cavilon) 1 applic TOP PRN PRN PRN Reason: Skin Care Last Admin: 10/08/19 20:32 Dose: 1 applic Multivitamins/Minerals (Theragran M) 1 tab PO 1200 [facility] Last Admin: 10/14/19 12:41 Dose: 1 tab Polyethylene Glycol (Miralax) 17 gm PO DAILY [facility] Last Admin: 10/15/19 09:16 Dose: Not Given Quetiapine Fumarate (Seroquel) 25 mg PO QPM [facility] Last Admin: 10/14/19 21:40 Dose: 25 mg Senna (Senokot) 8.6 - 17.2 mg PO DAILY [facility] Last Admin: 10/15/19 09:16 Dose: Not Given Sodium Chloride (Salt Tab) 1 gm PO DAILY [facility] Last Admin: 10/15/19 10:01 Dose: 1 gm Pravastatin Sodium [Pravachol] 20 mg PO QPM 03/05/19 Midodrine HCl 5 mg PO DAILY 05/18/19 Albuterol Sulfate [Albuterol Sulfate Hfa] 2 puffs PO Q4H PRN 09/30/19 Doxepin HCl 25 mg PO QPM 09/30/19 Gabapentin 300 mg PO BID 09/30/19 Levothyroxine [Synthroid] 50 mcg PO QDAC 09/30/19 Sodium Chloride [Salt Tab] 1 tab PO BID 09/30/19 Objective - Vital Signs/Intake & Output Vital Signs: Vital Signs x48h Temp Pulse Resp BP Pulse Ox 10/15/19 09:42 36.4 C L 86 22 91/60 98 Intake & Output: Intake & Output 10/12/19 10/13/19 10/14/19 10/15/19 23:59 23:59 23:59 23:59 Intake Total 7045 532 1789 240 Output Total 2150 2350 1325 1750 Balance -1098 -1390 135 -1510 - Objective General Appearance: positive: No acute distress, Alert. negative: Lethargic Eyes Bilateral: positive: Normal inspection, PERRL ENT: positive: ENT inspection nml, Pharynx nml, No signs of dehydration. negative: Purulent nasal drainage Neck: positive: Nml inspection, Thyroid nml, No JVD, Trachea midline. negative: Thyromegaly, Lymphadenopathy (R), Lymphadenopathy (L), Stiff neck, Tracheal deviation Respiratory: positive: Chest non-tender, No respiratory distress, Breath sounds nml. negative: Wheezes, Rales, Rhonchi Cardiovascular: positive: Regular rate & rhythm, No murmur, No gallop. negative: Irregularly irregular, Extrasystoles, Tachycardia, Bradycardia, JVD present, Systolic murmur, Diastolic murmur Peripheral Pulses: 2+ Radial (R), 2+ Radial (L), 2+ Dorsalis pedis (R), 2+ Dorsalis pedis (L) Abdomen: positive: Non-tender, No organomegaly, Nml bowel sounds, No distention. negative: Tenderness, Guarding, Rebound Back: positive: Nml inspection. negative: CVA tenderness (R), CVA tenderness (L) Skin: positive: Color nml, No rash, Warm, Dry. negative: Cyanosis, Diaphoresis, Pallor Extremities: positive: Non-tender, Nml appearance. negative: Calf tenderness, Sanjeev's sign/cords Neurologic/Psychiatric: positive: Oriented x3, Sensation nml, Mood/affect nml. negative: Weakness, Sensory loss, Facial droop, Slurred/abnml speech, Depressed mood/affect - Lab Results Fish Bones: 10/13/19 16:04 10/15/19 07:57 Other Labs: Lab Results x24hrs 10/15/19 10/15/19 Range/Units 07:57 07:57 Sodium 133 L (135-145) mmol/L Potassium 4.2 (3.5-5.0) mmol/L Chloride 99 L (101-111) mmol/L Carbon Dioxide 27 (21-32) mmol/L Anion Gap 7.0 (6-13) BUN 27 H (6-20) mg/dL Creatinine 0.8 (0.6-1.2) mg/dL Estimated GFR (MDRD) 93 (>89) Glucose 103 H (70-100) mg/dL Calcium 8.3 L (8.5-10.3) mg/dL Total Bilirubin 0.7 (0.2-1.0) mg/dL AST 70 H (10-42) IU/L ALT 47 (10-60) IU/L Alkaline Phosphatase 489 H (42-121) IU/L Total Protein 5.7 L (6.7-8.2) g/dL Albumin 2.2 L (3.2-5.5) g/dL Globulin 3.5 (2.1-4.2) g/dL Albumin/Globulin Ratio 0.6 L (1.0-2.2) Cortisol AM Sample 15.3 ug/dL ABX Reporting Has patient been on IV antibiotics over the past 48 hours?: No Sepsis Event Note (H) - Evaluation Current Stage of Sepsis: Ruled out Assessment/Plan - Problem List (1) Elevated liver enzymes Impression: 10/14pt's liver enzyme is still some elevation. order US of abdomen to check pt has slight elevated AST and Alk, with normal total bili. pt denies N/V/abdominal pain, he is eating normal. pt also has chronic slight elevated Alk and AST. hold hepatic intoxic agents, lab monitor (2) Chronic indwelling Matthew catheter Impression: 10/14 stable pt has chronic indwelling Matthew catheter. pt already finished his UTI treatment. pt denies dysuria, fever, or urinary symptoms. continue followup the protocol to change Matthew (3) Hyponatremia Impression: 10/14 stable Na is 134, slight lower, as his chronic condition. lab monitor as needed
[2019-10-15] MEDS: MULTIVITAMIN W/MINERALS TABLET PO SCH (12:17)
[2019-10-15] MEDS: QUEtiapine 25 MG TABLET PO SCH (21:23)
--- NOTE | 2019-10-15 21:56 | Ultrasound Report ---
Reason: elevated liver enzyme Procedure Date: 10/15/2019 Accession Number: [id number] / [id number] Procedure: US - Abdomen Limited CPT Code: Final Report FULL RESULT: EXAM: ABDOMEN ULTRASOUND LIMITED, RUQ EXAM DATE: 10/15/2019 08:18 PM. CLINICAL HISTORY: Abnormal blood test; elevated serum liver enzymes. COMPARISON: CT of the abdomen and pelvis performed on 03/04/2019. TECHNIQUE: Real-time scanning was performed with static images obtained. FINDINGS: Liver: The liver is normal in size, measuring 16.6 cm. There is a lobular contour of the liver. There is coarse heterogeneous echogenicity. Scattered parenchymal calcifications, confirmed on the prior CT. Main portal vein flow: Hepatopetal. Gallbladder: The gallbladder is elongated, with an unusual contour, but stable when compared with the prior study. Gallbladder wall thickness is 2.4 mm. No wall thickening or pericholecystic fluid. No sonographic Stern sign. No stones. Biliary System: CBD measures 4 mm. No intrahepatic or extrahepatic ductal dilatation. Right kidney: Orthotopic measuring 10 cm in length. Normal parenchymal density. No hydronephrosis. Pancreas: Obscured secondary to overlying bowel gas. IVC: Obscured. IMPRESSION: 1. Lobular contour of the liver with coarse heterogeneous echogenicity, stable when compared with the prior CT performed on 03/04/2019. 2. Obscuration of the pancreas and IVC secondary to overlying bowel gas. 3. The remainder of the right upper quadrant abdominal sonogram is unremarkable. [facility]
[2019-10-16 05:41] LABS: ALBUMIN 2.1 g/dL (3.2-5.5); ALBUMIN/GLOBULIN RATIO 0.6 (1.0-2.2); BILIRUBIN,TOTAL 0.4 mg/dL (0.2-1.0); CALCIUM 8.2 mg/dL (8.5-10.3); CREATININE 0.7 mg/dL (0.6-1.2); TOTAL PROTEIN 5.6 g/dL (6.7-8.2)
[2019-10-16] MEDS: LEVOTHYROXINE 25 MCG TABLET PO SCH ×2 (06:36→21:06)
[2019-10-16] MEDS: GABAPENTIN 300 MG CAPSULE PO SCH ×4 (06:36→21:05)
[2019-10-16] MEDS: polyethylene glycoL 3350 17 GM PACKET PO SCH (07:40)
[2019-10-16] MEDS ORDERED: SENNA 8.6 MG TABLET PO PRN (09:00)
[2019-10-16] MEDS: DIGOXIN 125 MCG TABLET PO SCH (10:10)
[2019-10-16] MEDS: MIDODRINE 2.5 MG TABLET PO SCH ×3 (10:10→17:15)
[2019-10-16] MEDS: FOLIC ACID 1 MG TABLET PO SCH (10:11)
[2019-10-16] MEDS: ENOXAPARIN 40 MG/0.4 ML SYRINGE SUBQ SCH (10:11)
[2019-10-16] MEDS: LACTOBACILLUS RHAMNOSUS GG CAPSULE PO SCH (10:11)
[2019-10-16] MEDS: SODIUM CHLORIDE 1 GM TABLET PO SCH (10:11)
[2019-10-16] MEDS: DOCUSATE SODIUM 250 MG CAPSULE PO SCH (10:11)
[2019-10-16] MEDS: MULTIVITAMIN W/MINERALS TABLET PO SCH (13:57)
--- NOTE | 2019-10-16 14:43 | PROVIDER PROGRESS NOTE ---
Subjective - Prog Note Date Prog Note Date: 10/16/19 - Subjective Pt reports feeling: Improved Subjective: pt has no complaint, and is comfortable eating his breakfast. Today pt's with social workers, Dr. Lali Tvoar and me has a meeting to discuss the d/c plan. pt's understood all d/c options, and she will call pt's PCP and pt's transplant case manager, and she will return to hospital on tomorrow. All agree pt may be d/c on tomorrow. All Pt's 's questions were answered. Current Medications - Current Medications Current Medications: Active Medications Acetaminophen (Tylenol) 650 mg PO Q4HR PRN PRN Reason: Pain 1 to 4 Last Admin: 09/29/19 21:50 Dose: 650 mg Digoxin (Lanoxin) 125 mcg PO DAILY [facility] Last Admin: 10/16/19 10:10 Dose: 125 mcg Docusate Sodium (Colace 250mg Capsule) 250 - 500 mg PO DAILY [facility] Last Admin: 10/16/19 10:11 Dose: Not Given Enoxaparin Sodium (Lovenox) 40 mg SUBQ DAILY [facility] Last Admin: 10/16/19 10:11 Dose: 40 mg Gabapentin (Neurontin) 300 mg PO TID@0800,1500,2200 [facility] Last Admin: 10/16/19 10:10 Dose: 300 mg Haloperidol (Haldol) 1 mg PO BID PRN PRN Reason: Agitation Last Admin: 10/12/19 00:50 Dose: 1 mg Lactobacillus Rhamnosus (Culturelle) 1 cap PO DAILY [facility] Last Admin: 10/16/19 10:11 Dose: 1 cap Levothyroxine Sodium (Synthroid) 50 mcg PO HS [facility] Midodrine () 10 mg PO TIDWM [facility] Last Admin: 10/16/19 13:56 Dose: 10 mg Mineral Oil (Cavilon) 1 applic TOP PRN PRN PRN Reason: Skin Care Last Admin: 10/08/19 20:32 Dose: 1 applic Polyethylene Glycol (Miralax) 17 gm PO DAILY [facility] Last Admin: 10/16/19 07:40 Dose: Not Given Multivit/Folic Acid/Iron (Trinatal Rx 1) 1 tab PO DAILYWM [facility] Quetiapine Fumarate (Seroquel) 25 mg PO QPM [facility] Last Admin: 10/15/19 21:23 Dose: 25 mg Senna (Senokot) 8.6 - 17.2 mg PO DAILY PRN PRN Reason: Constipation Sodium Chloride (Salt Tab) 1 gm PO DAILY [facility] Last Admin: 10/16/19 10:11 Dose: 1 gm Pravastatin Sodium [Pravachol] 20 mg PO QPM 03/05/19 Midodrine HCl 5 mg PO DAILY 05/18/19 Albuterol Sulfate [Albuterol Sulfate Hfa] 2 puffs PO Q4H PRN 09/30/19 Doxepin HCl 25 mg PO QPM 09/30/19 Gabapentin 300 mg PO BID 09/30/19 Levothyroxine [Synthroid] 50 mcg PO QDAC 09/30/19 Sodium Chloride [Salt Tab] 1 tab PO BID 09/30/19 Objective - Vital Signs/Intake & Output Vital Signs: Vital Signs x48h Temp Pulse Resp BP Pulse Ox 10/16/19 10:04 36.5 C 78 18 98/47 L 98 Intake & Output: Intake & Output 10/13/19 10/14/19 10/15/19 10/16/19 23:59 23:59 23:59 23:59 Intake Total 960 1460 980 740 Output Total 2350 1325 2250 550 Balance -1390 135 -1270 190 - Objective General Appearance: positive: No acute distress, Alert. negative: Lethargic Eyes Bilateral: positive: Normal inspection, PERRL, No lid inflammation ENT: positive: ENT inspection nml, Pharynx nml, No signs of dehydration. negative: Purulent nasal drainage Neck: positive: Nml inspection, Thyroid nml, No JVD, Trachea midline. negative: Thyromegaly, Lymphadenopathy (R), Lymphadenopathy (L), Stiff neck, Tracheal deviation Respiratory: positive: Chest non-tender, No respiratory distress, Breath sounds nml. negative: Wheezes Cardiovascular: positive: Regular rate & rhythm, No murmur, No gallop. negative: Irregularly irregular, Extrasystoles, Tachycardia, Bradycardia, JVD present, Systolic murmur, Diastolic murmur Peripheral Pulses: 2+ Radial (R), 2+ Radial (L), 2+ Dorsalis pedis (R), 2+ Dorsalis pedis (L) Abdomen: positive: Non-tender, No organomegaly, Nml bowel sounds, No distention. negative: Tenderness, Guarding, Rebound Back: positive: Nml inspection. negative: CVA tenderness (R), CVA tenderness (L) Skin: positive: Color nml, No rash, Warm, Dry. negative: Cyanosis, Diaphoresis, Pallor Extremities: positive: Non-tender, Nml appearance. negative: Calf tenderness, Sanjeev's sign/cords Neurologic/Psychiatric: positive: Sensation nml, Mood/affect nml. negative: Weakness, Sensory loss, Facial droop, Slurred/abnml speech, Depressed mood/affect - Lab Results Fish Bones: 10/13/19 16:04 10/16/19 04:45 Other Labs: Lab Results x24hrs 10/16/19 10/15/19 Range/Units 04:45 16:00 Sodium 135 (135-145) mmol/L Potassium 4.1 (3.5-5.0) mmol/L Chloride 101 (101-111) mmol/L Carbon Dioxide 27 (21-32) mmol/L Anion Gap 7.0 (6-13) BUN 30 H (6-20) mg/dL Creatinine 0.7 (0.6-1.2) mg/dL Estimated GFR (MDRD) 108 (>89) Glucose 101 H (70-100) mg/dL Calcium 8.2 L (8.5-10.3) mg/dL Total Bilirubin 0.4 (0.2-1.0) mg/dL AST 54 H (10-42) IU/L ALT 40 (10-60) IU/L Alkaline Phosphatase 443 H (42-121) IU/L Total Protein 5.6 L (6.7-8.2) g/dL Albumin 2.1 L (3.2-5.5) g/dL Globulin 3.5 (2.1-4.2) g/dL Albumin/Globulin Ratio 0.6 L (1.0-2.2) Cortisol 4pm Sample 9.4 ug/dL ABX Reporting Has patient been on IV antibiotics over the past 48 hours?: No Sepsis Event Note (H) - Evaluation Current Stage of Sepsis: Ruled out Assessment/Plan - Problem List (1) Elevated liver enzymes Impression: 10/15 stable as her baseline, US of abdomen reveals unremarkable for acute finding. pt ate 100% of his meal 10/14pt's liver enzyme is still some elevation. order US of abdomen to check pt has slight elevated AST and Alk, with normal total bili. pt denies N/V/abdominal pain, he is eating normal. pt also has chronic slight elevated Alk and AST. hold hepatic intoxic agents, lab monitor (2) Chronic indwelling Matthew catheter Impression: stable pt has chronic indwelling Matthew catheter. pt already finished his UTI treatment. pt denies dysuria, fever, or urinary symptoms. continue followup the protocol to change Matthew (3) Hyponatremia Impression: 10/15 resolved. 10/14 stable Na is 134, slight lower, as his chronic condition. lab monitor as needed
[2019-10-16] MEDS: QUEtiapine 25 MG TABLET PO SCH (21:06)
[2019-10-17] MEDS: GABAPENTIN 300 MG CAPSULE PO SCH ×3 (07:58→21:37)
[2019-10-17] MEDS: MIDODRINE 2.5 MG TABLET PO SCH ×3 (07:59→21:37)
[2019-10-17] MEDS: PRENATAL VITAMIN TABLET PO SCH (07:59)
[2019-10-17] MEDS: ENOXAPARIN 40 MG/0.4 ML SYRINGE SUBQ SCH (08:38)
[2019-10-17] MEDS: LACTOBACILLUS RHAMNOSUS GG CAPSULE PO SCH (08:39)
[2019-10-17] MEDS: DIGOXIN 125 MCG TABLET PO SCH (08:39)
[2019-10-17] MEDS: SODIUM CHLORIDE 1 GM TABLET PO SCH (08:41)
[2019-10-17] MEDS: polyethylene glycoL 3350 17 GM PACKET PO SCH (08:41)
[2019-10-17] MEDS: DOCUSATE SODIUM 250 MG CAPSULE PO SCH (08:41)
--- NOTE | 2019-10-17 18:00 | PROVIDER PROGRESS NOTE ---
Subjective - Prog Note Date Prog Note Date: 10/17/19 - Subjective Pt reports feeling: Improved Subjective: pt is stable, comfortable in the bed and eating his breakfast. social director report pt is planning to be d/c on next Sunday to Current Medications - Current Medications Current Medications: Active Medications Acetaminophen (Tylenol) 650 mg PO Q4HR PRN PRN Reason: Pain 1 to 4 Last Admin: 09/29/19 21:50 Dose: 650 mg Digoxin (Lanoxin) 125 mcg PO DAILY [facility] Last Admin: 10/17/19 08:39 Dose: 125 mcg Docusate Sodium (Colace 250mg Capsule) 250 - 500 mg PO DAILY [facility] Last Admin: 10/17/19 08:41 Dose: Not Given Enoxaparin Sodium (Lovenox) 40 mg SUBQ DAILY [facility] Last Admin: 10/17/19 08:38 Dose: 40 mg Gabapentin (Neurontin) 300 mg PO TID@0800,1500,2200 [facility] Last Admin: 10/17/19 15:22 Dose: 300 mg Haloperidol (Haldol) 1 mg PO BID PRN PRN Reason: Agitation Last Admin: 10/12/19 00:50 Dose: 1 mg Lactobacillus Rhamnosus (Culturelle) 1 cap PO DAILY [facility] Last Admin: 10/17/19 08:39 Dose: 1 cap Levothyroxine Sodium (Synthroid) 50 mcg PO HS [facility] Last Admin: 10/16/19 21:06 Dose: 50 mcg Midodrine () 10 mg PO TIDWM [facility] Last Admin: 10/17/19 12:05 Dose: 10 mg Mineral Oil (Cavilon) 1 applic TOP PRN PRN PRN Reason: Skin Care Last Admin: 10/08/19 20:32 Dose: 1 applic Polyethylene Glycol (Miralax) 17 gm PO DAILY [facility] Last Admin: 10/17/19 08:41 Dose: Not Given Multivit/Folic Acid/Iron (Trinatal Rx 1) 1 tab PO DAILYWM [facility] Last Admin: 10/17/19 07:59 Dose: 1 tab Quetiapine Fumarate (Seroquel) 25 mg PO QPM [facility] Last Admin: 10/16/19 21:06 Dose: 25 mg Senna (Senokot) 8.6 - 17.2 mg PO DAILY PRN PRN Reason: Constipation Sodium Chloride (Salt Tab) 1 gm PO DAILY [facility] Last Admin: 10/17/19 08:41 Dose: Not Given Pravastatin Sodium [Pravachol] 20 mg PO QPM 03/05/19 Midodrine HCl 5 mg PO DAILY 05/18/19 Albuterol Sulfate [Albuterol Sulfate Hfa] 2 puffs PO Q4H PRN 09/30/19 Doxepin HCl 25 mg PO QPM 09/30/19 Gabapentin 300 mg PO BID 09/30/19 Levothyroxine [Synthroid] 50 mcg PO QDAC 09/30/19 Sodium Chloride [Salt Tab] 1 tab PO BID 09/30/19 Objective - Vital Signs/Intake & Output Vital Signs: Vital Signs x48h Temp Pulse Resp BP Pulse Ox 10/17/19 16:12 36.5 C 76 18 100/50 L 99 Intake & Output: Intake & Output 10/14/19 10/15/19 10/16/19 10/17/19 23:59 23:59 23:59 23:59 Intake Total 9002 748 4526 760 Output Total 1325 2250 1025 475 Balance 135 -1270 115 285 - Objective General Appearance: positive: No acute distress, Alert. negative: Lethargic Eyes Bilateral: positive: Normal inspection, PERRL ENT: positive: ENT inspection nml, Pharynx nml, No signs of dehydration Neck: positive: Nml inspection, Thyroid nml, No JVD, Trachea midline. negative: Thyromegaly, Lymphadenopathy (R), Lymphadenopathy (L), Stiff neck, Tracheal deviation Respiratory: positive: Chest non-tender, No respiratory distress. negative: Wheezes, Rales, Rhonchi Cardiovascular: positive: Regular rate & rhythm, No murmur, No gallop. negati ve: Tachycardia, Bradycardia Peripheral Pulses: 2+ Radial (R), 2+ Radial (L) Abdomen: positive: Non-tender, No organomegaly, Nml bowel sounds, No distention. negative: Tenderness, Guarding, Rebound Back: positive: Nml inspection. negative: CVA tenderness (R), CVA tenderness (L) Skin: positive: Color nml, No rash, Warm, Dry. negative: Cyanosis, Diaphoresis, Pallor Extremities: positive: Non-tender, Nml appearance. negative: Calf tenderness, Sanjeev's sign/cords Neurologic/Psychiatric: positive: Oriented x3, Sensation nml. negative: Weakness, Sensory loss, Facial droop, Slurred/abnml speech - Lab Results Fish Bones: 10/13/19 16:04 10/16/19 04:45 ABX Reporting Has patient been on IV antibiotics over the past 48 hours?: No Sepsis Event Note (H) - Evaluation Current Stage of Sepsis: Ruled out Assessment/Plan - Problem List (1) Chronic indwelling Matthew catheter Impression: stable, pt has chronic indwelling Matthew catheter. pt finished his UTI treatment. pt denies dysuria. continue Matthew CARE
[2019-10-17] MEDS: QUEtiapine 25 MG TABLET PO SCH (21:37)
[2019-10-17] MEDS: LEVOTHYROXINE 25 MCG TABLET PO SCH (21:37)
[2019-10-18] MEDS: DOCUSATE SODIUM 250 MG CAPSULE PO SCH (09:24)
[2019-10-18] MEDS: polyethylene glycoL 3350 17 GM PACKET PO SCH (09:25)
[2019-10-18] MEDS: SODIUM CHLORIDE 1 GM TABLET PO SCH (09:28)
[2019-10-18] MEDS: PRENATAL VITAMIN TABLET PO SCH (09:29)
[2019-10-18] MEDS: LACTOBACILLUS RHAMNOSUS GG CAPSULE PO SCH (09:29)
[2019-10-18] MEDS: ENOXAPARIN 40 MG/0.4 ML SYRINGE SUBQ SCH (09:29)
[2019-10-18] MEDS: DIGOXIN 125 MCG TABLET PO SCH (09:29)
[2019-10-18] MEDS: GABAPENTIN 300 MG CAPSULE PO SCH ×3 (09:29→21:24)
[2019-10-18] MEDS: MIDODRINE 2.5 MG TABLET PO SCH ×3 (09:32→16:22)
--- NOTE | 2019-10-18 12:11 | PROVIDER PROGRESS NOTE ---
Assessment/Plan - Problem List (1) Rash Assessment/Plan: The itchy macular rash appears to be contact dermatitis. We will treat with topical hydrocortisone (3) Generalized weakness Assessment/Plan: He has plateaued with OT and PT and is no longer rehabable. He will not be discharged to a SNF for rehab but discharged[facility]red [place] [facility] in [place], where he HAS BEEN accepted for a Sunday10/20/19 arrival. SW has been in contact with the multiple times. - Current Meds Current Meds: Current Medications Generic Name Dose Route Start Last Admin Trade Name Freq PRN Reason Stop Dose Admin Acetaminophen 650 mg 09/29/19 03:48 09/29/19 21:50 Tylenol PO 650 mg Q4HR PRN Administration Pain 1 to 4 Digoxin 125 mcg 10/03/19 09:00 10/18/19 09:29 Lanoxin PO 125 mcg DAILY [facility] Administration Docusate Sodium 250 - 500 mg 10/11/19 09:00 10/18/19 09:24 Colace 250mg Capsule PO Not Given DAILY [facility] Enoxaparin Sodium 40 mg 09/29/19 09:00 10/18/19 09:29 Lovenox SUBQ 40 mg DAILY [facility] Administration Gabapentin 300 mg 10/16/19 08:00 10/18/19 09:29 Neurontin PO 300 mg TID@0800,1500,2200 [facility]ALD Administration Haloperidol 1 mg 10/10/19 21:44 10/12/19 00:50 Haldol PO 1 mg BID PRN Administration Agitation Lactobacillus Rhamnosus 1 cap 09/30/19 16:30 10/18/19 09:29 Culturelle PO 1 cap DAILY [facility]AL[facility] Administration Levothyroxine Sodium 50 mcg 10/16/19 21:00 10/17/19 21:37 Synthroid PO 50 mcg HS DONALD Administration Midodrine 10 mg 10/10/19 12:00 10/18/19 09:32 PO 10 mg TIDWM DONALD Administration Mineral Oil 1 applic 09/30/19 09:27 10/08/19 20:32 Cavilon TOP 1 applic PRN PRN Administration Skin Care Polyethylene Glycol 17 gm 10/09/19 09:00 10/18/19 09:25 Miralax PO Not Given DAILY [facility] Multivit/Folic Acid/Iron 1 tab 10/17/19 08:00 10/18/19 09:29 Trinatal Rx 1 PO 1 tab DAILYWM [facility]ALD Administration Quetiapine Fumarate 25 mg 10/02/19 21:00 10/17/19 21:37 Seroquel PO 25 mg QPM DONALD Administration Sodium Chloride 1 gm 10/11/19 09:00 10/18/19 09:28 Salt Tab PO 1 gm DAILY DONALD Administration - Lab Result Fish Bone Diagrams: 10/13/19 16:04 10/16/19 04:45 - Additional Planning My Orders: My Active Orders 10/18/19 12:08 Hydrocortisone 1% Cream [Hydrocortisone] 1 applic TOP BID PRN Subjective - Subjective Nursing Reports: Other (Itchy red rash) Objective Vital Signs: Vital Signs - 24 hr 10/17/19 10/17/19 10/18/19 16:12 23:30 09:02 Temperature 36.5 C 36.4 C L 36.7 C Heart Rate [ 76 Brachial] Heart Rate [ 67 89 Monitoring electrodes] Respiratory 18 16 18 Rate Blood Pressure 100/50 L 108/47 L 98/56 L [Right Brachial artery] O2 Saturation 99 98 93 Oxygen O2 Source Room air I&O (Last 24 Hrs): Intake and Output Totals x24h 10/16/19 10/17/19 10/18/19 23:59 23:59 23:59 Intake Total 1140 760 340 Output Total 1025 1200 750 Balance 115 -440 -410 General: Alert HEENT: Mucous membr. moist/pink Neck: Supple Neuro: Non Focal Cardiovascular: No murmurs Respiratory: No respiratory distress Abdomen: Soft Extremities: No edema - Results Results: Laboratory Results WBC 8.7 x10^3/uL (4.8-10.8) 10/13/19 16:04 RBC 3.61 10^6/uL (4.70-6.10) L 10/13/19 16:04 Hgb 11.0 g/dL (14.0-18.0) L 10/13/19 16:04 Hct 34.9 % (42.0-52.0) L 10/13/19 16:04 MCV 96.7 fL (80.0-94.0) H 10/13/19 16:04 MCH 30.5 pg (27.0-31.0) 10/13/19 16:04 MCHC 31.5 g/dL (32.0-36.0) L 10/13/19 16:04 RDW 16.4 % (12.0-15.0) H 10/13/19 16:04 Plt Count 337 10^3/uL (130-450) 10/13/19 16:04 MPV 10.9 fL (7.4-11.4) 10/13/19 16:04 Neut # (Auto) 5.9 10^3/uL (1.5-6.6) 10/13/19 16:04 Lymph # (Auto) 1.6 10^3/uL (1.5-3.5) 10/13/19 16:04 [place] # (Auto) 0.7 10^3/uL (0.0-1.0) 10/13/19 16:04 Eos # (Auto) 0.2 10^3/uL (0.0-0.7) 10/13/19 16:04 Baso # (Auto) 0.1 10^3/uL (0.0-0.1) 10/13/19 16:04 Absolute Nucleated RBC 0.03 x10^3/uL 10/13/19 16:04 Nucleated RBC % 0.3 /100WBC 10/13/19 16:04 PT 14.1 secs (9.9-12.6) H 09/29/19 02:59 INR 1.3 (0.8-1.2) H 09/29/19 02:59 Sodium 135 mmol/L (135-145) 10/16/19 04:45 Potassium 4.1 mmol/L (3.5-5.0) 10/16/19 04:45 Chloride 101 mmol/L (101-111) 10/16/19 04:45 Carbon Dioxide 27 mmol/L (21-32) 10/16/19 04:45 Anion Gap 7.0 (6-13) 10/16/19 04:45 BUN 30 mg/dL (6-20) H 10/16/19 04:45 Creatinine 0.7 mg/dL (0.6-1.2) 10/16/19 04:45 Estimated GFR (MDRD) 108 (>89) 10/16/19 04:45 Glucose 101 mg/dL (70-100) H 10/16/19 04:45 POC Whole Bld Glucose 111 mg/dL (70 - 100) H 09/30/19 11:50 Lactic Acid 1.0 mmol/L (0.5-2.2) 09/30/19 08:07 Calcium 8.2 mg/dL (8.5-10.3) L 10/16/19 04:45 Phosphorus 3.2 mg/dL (2.5-4.6) 10/13/19 16:04 Magnesium 1.8 mg/dL (1.7-2.8) 10/13/19 16:04 Iron 62 ug/dL (45-182) 10/02/19 04:45 Transferrin < 70 mg/dL (180-329) L 10/02/19 04:45 Total Bilirubin 0.4 mg/dL (0.2-1.0) 10/16/19 04:45 AST 54 IU/L (10-42) H 10/16/19 04:45 ALT 40 IU/L (10-60) 10/16/19 04:45 Alkaline Phosphatase 443 IU/L (42-121) H 10/16/19 04:45 Troponin I High Sens 13.4 ng/L (2.3-19.7) 09/29/19 05:04 B-Natriuretic Peptide 338 pg/mL (5-100) H 10/13/19 16:04 Total Protein 5.6 g/dL (6.7-8.2) L 10/16/19 04:45 Albumin 2.1 g/dL (3.2-5.5) L 10/16/19 04:45 Globulin 3.5 g/dL (2.1-4.2) 10/16/19 04:45 Albumin/Globulin Ratio 0.6 (1.0-2.2) L 10/16/19 04:45 Lipase 23 U/L (22-51) 09/29/19 02:59 Vitamin B12 251 pg/mL (180-914) 10/02/19 04:45 Folate 5.10 ng/mL (5.90 - >24.8) L 10/02/19 04:45 TSH 3.72 uIU/mL (0.34-5.60) 09/29/19 02:59 Cortisol AM Sample 15.3 ug/dL 10/15/19 07:57 Cortisol 4pm Sample 9.4 ug/dL 10/15/19 16:00 Urine Color YELLOW 09/29/19 02:36 Urine Clarity CLOUDY (CLEAR) 09/29/19 02:36 Urine pH 6.0 PH (5.0-7.5) 09/29/19 02:36 Ur Specific [place] 1.025 (1.002-1.030) 09/29/19 02:36 Urine Protein 100 mg/dL (NEGATIVE) H 09/29/19 02:36 Urine Glucose (UA) 100 mg/dL (NEGATIVE) H 09/29/19 02:36 Urine Ketones NEGATIVE mg/dL (NEGATIVE) 09/29/19 02:36 Urine Occult Blood LARGE (NEGATIVE) H 09/29/19 02:36 Urine Nitrite POSITIVE (NEGATIVE) H 09/29/19 02:36 Urine Bilirubin NEGATIVE (NEGATIVE) 09/29/19 02:36 Urine Urobilinogen 0.2 (NORMAL) E.U./dL (NORMAL) 09/29/19 02:36 Ur Leukocyte Esterase LARGE (NEGATIVE) H 09/29/19 02:36 Urine RBC TNTC /HPF (0-5) H 09/29/19 02:36 Urine WBC >25 /HPF (0-3) H 09/29/19 02:36 Ur Squamous Epith Cells NONE SEEN (<= Few) 09/29/19 02:36 Urine Bacteria Moderate /HPF (None Seen) H 09/29/19 02:36 Ur Microscopic Review INDICATED 09/29/19 02:36 Urine Culture Comments INDICATED 09/29/19 02:36 Nasal Screen MRSA (PCR) NEGATIVE (NEGATIVE) 09/29/19 08:50 Last Dose Date UNKNOWN 10/13/19 16:04 Last Dose Time UNKNOWN 10/13/19 16:04 Digoxin 0.9 ng/mL 10/13/19 16:04 - Procedures Procedures: Procedures REPOSITION RIGHT UPPER FEMUR WITH INT FIX, OPEN APPROACH (09/10/17) Sepsis Event Note (H) - Evaluation Current Stage of Sepsis: Ruled out
[2019-10-18] MEDS: HYDROCORTISONE 1% CREAM 28 GM TUBE TOP PRN ×2 (14:42→21:24)
[2019-10-18] MEDS: LEVOTHYROXINE 25 MCG TABLET PO SCH (21:24)
[2019-10-18] MEDS: QUEtiapine 25 MG TABLET PO SCH (21:25)
[2019-10-18] MEDS: MIN OIL/DIMETHICON/COCONUT OIL 92 GM TUBE TOP PRN (21:25)
[2019-10-19] MEDS: DOCUSATE SODIUM 250 MG CAPSULE PO SCH (10:06)
[2019-10-19] MEDS: polyethylene glycoL 3350 17 GM PACKET PO SCH (10:07)
[2019-10-19] MEDS: GABAPENTIN 300 MG CAPSULE PO SCH ×3 (10:14→20:59)
[2019-10-19] MEDS: PRENATAL VITAMIN TABLET PO SCH (10:15)
[2019-10-19] MEDS: ENOXAPARIN 40 MG/0.4 ML SYRINGE SUBQ SCH (10:15)
[2019-10-19] MEDS: DIGOXIN 125 MCG TABLET PO SCH (10:15)
[2019-10-19] MEDS: MIDODRINE 2.5 MG TABLET PO SCH ×3 (10:15→20:59)
[2019-10-19] MEDS: LACTOBACILLUS RHAMNOSUS GG CAPSULE PO SCH (10:15)
[2019-10-19] MEDS: SODIUM CHLORIDE 1 GM TABLET PO SCH (10:15)
--- NOTE | 2019-10-19 13:03 | PROVIDER PROGRESS NOTE ---
Assessment/Plan - Problem List (1) Rash Assessment/Plan: No further itching with Hydrocortisone application (3) Generalized weakness Assessment/Plan: He has plateaued with any rehab and is to be Dch to a retirement care facility, not SNF, in [place] tomorrow. Leaves in the morning. - Current Meds Current Meds: Current Medications Generic Name Dose Route Start Last Admin Trade Name Freq PRN Reason Stop Dose Admin Acetaminophen 650 mg 09/29/19 03:48 09/29/19 21:50 Tylenol PO 650 mg Q4HR PRN Administration Pain 1 to 4 Digoxin 125 mcg 10/03/19 09:00 10/19/19 10:15 Lanoxin PO 125 mcg DAILY DONALD Administration Docusate Sodium 250 - 500 mg 10/11/19 09:00 10/19/19 10:06 Colace 250mg Capsule PO Not Given DAILY [facility] Enoxaparin Sodium 40 mg 09/29/19 09:00 10/19/19 10:15 Lovenox SUBQ 40 mg DAILY [facility] Administration Gabapentin 300 mg 10/16/19 08:00 10/19/19 10:14 Neurontin PO 300 mg TID@0800,1500,2200 DONALD Administration Haloperidol 1 mg 10/10/19 21:44 10/12/19 00:50 Haldol PO 1 mg BID PRN Administration Agitation Hydrocortisone 1 applic 10/18/19 12:08 10/18/19 21:24 Hydrocortisone TOP 1 applic BID PRN Administration ITCHING Lactobacillus Rhamnosus 1 cap 09/30/19 16:30 10/19/19 10:15 Culturelle PO 1 cap DAILY DONALD Administration Levothyroxine Sodium 50 mcg 10/16/19 21:00 10/18/19 21:24 Synthroid PO 50 mcg HS DONALD Administration Midodrine 10 mg 10/10/19 12:00 10/19/19 10:15 PO 10 mg TIDWM DONALD Administration Mineral Oil 1 applic 09/30/19 09:27 10/18/19 21:25 Cavilon TOP 1 applic PRN PRN Administration Skin Care Polyethylene Glycol 17 gm 10/09/19 09:00 10/19/19 10:07 Miralax PO Not Given DAILY [facility]ALD Multivit/Folic Acid/Iron 1 tab 10/17/19 08:00 10/19/19 10:15 Trinatal Rx 1 PO 1 tab DAILYWM DONALD Administration Quetiapine Fumarate 25 mg 10/02/19 21:00 10/18/19 21:25 Seroquel PO 25 mg QPM DONALD Administration Sodium Chloride 1 gm 10/11/19 09:00 10/19/19 10:15 Salt Tab PO 1 gm DAILY DONALD Administration - Lab Result Fish Bone Diagrams: 10/13/19 16:04 10/16/19 04:45 - Additional Planning My Orders: My Active Orders 10/18/19 12:08 Hydrocortisone 1% Cream [Hydrocortisone] 1 applic TOP BID PRN Subjective - Subjective Patient Reports: No Complaints Nursing Reports: No Complaints Objective Vital Signs: Vital Signs - 24 hr 10/18/19 10/18/19 10/19/19 16:03 23:30 08:20 Temperature 36.3 C L 37.1 C 36.4 C L Heart Rate [ 74 79 Brachial] Heart Rate [ 78 Monitoring electrodes] Respiratory 20 16 20 Rate Blood Pressure 95/51 L 94/45 L 92/50 L [Right Brachial artery] O2 Saturation 96 95 98 Oxygen O2 Source Room air I&O (Last 24 Hrs): Intake and Output Totals x24h 10/17/19 10/18/19 10/19/19 23:59 23:59 23:59 Intake Total 760 1260 840 Output Total 1200 1425 925 Balance -440 -165 -85 General: Alert HEENT: Mucous membr. moist/pink Neuro: Non Focal Respiratory: No respiratory distress Extremities: No edema - Results Results: Laboratory Results WBC 8.7 x10^3/uL (4.8-10.8) 10/13/19 16:04 RBC 3.61 10^6/uL (4.70-6.10) L 10/13/19 16:04 Hgb 11.0 g/dL (14.0-18.0) L 10/13/19 16:04 Hct 34.9 % (42.0-52.0) L 10/13/19 16:04 MCV 96.7 fL (80.0-94.0) H 10/13/19 16:04 MCH 30.5 pg (27.0-31.0) 10/13/19 16:04 MCHC 31.5 g/dL (32.0-36.0) L 10/13/19 16:04 RDW 16.4 % (12.0-15.0) H 10/13/19 16:04 Plt Count 337 10^3/uL (130-450) 10/13/19 16:04 MPV 10.9 fL (7.4-11.4) 10/13/19 16:04 Neut # (Auto) 5.9 10^3/uL (1.5-6.6) 10/13/19 16:04 Lymph # (Auto) 1.6 10^3/uL (1.5-3.5) 10/13/19 16:04 [place] # (Auto) 0.7 10^3/uL (0.0-1.0) 10/13/19 16:04 Eos # (Auto) 0.2 10^3/uL (0.0-0.7) 10/13/19 16:04 Baso # (Auto) 0.1 10^3/uL (0.0-0.1) 10/13/19 16:04 Absolute Nucleated RBC 0.03 x10^3/uL 10/13/19 16:04 Nucleated RBC % 0.3 /100WBC 10/13/19 16:04 PT 14.1 secs (9.9-12.6) H 09/29/19 02:59 INR 1.3 (0.8-1.2) H 09/29/19 02:59 Sodium 135 mmol/L (135-145) 10/16/19 04:45 Potassium 4.1 mmol/L (3.5-5.0) 10/16/19 04:45 Chloride 101 mmol/L (101-111) 10/16/19 04:45 Carbon Dioxide 27 mmol/L (21-32) 10/16/19 04:45 Anion Gap 7.0 (6-13) 10/16/19 04:45 BUN 30 mg/dL (6-20) H 10/16/19 04:45 Creatinine 0.7 mg/dL (0.6-1.2) 10/16/19 04:45 Estimated GFR (MDRD) 108 (>89) 10/16/19 04:45 Glucose 101 mg/dL (70-100) H 10/16/19 04:45 POC Whole Bld Glucose 111 mg/dL (70 - 100) H 09/30/19 11:50 Lactic Acid 1.0 mmol/L (0.5-2.2) 09/30/19 08:07 Calcium 8.2 mg/dL (8.5-10.3) L 10/16/19 04:45 Phosphorus 3.2 mg/dL (2.5-4.6) 10/13/19 16:04 Magnesium 1.8 mg/dL (1.7-2.8) 10/13/19 16:04 Iron 62 ug/dL (45-182) 10/02/19 04:45 Transferrin < 70 mg/dL (180-329) L 10/02/19 04:45 Total Bilirubin 0.4 mg/dL (0.2-1.0) 10/16/19 04:45 AST 54 IU/L (10-42) H 10/16/19 04:45 ALT 40 IU/L (10-60) 10/16/19 04:45 Alkaline Phosphatase 443 IU/L (42-121) H 10/16/19 04:45 Troponin I High Sens 13.4 ng/L (2.3-19.7) 09/29/19 05:04 B-Natriuretic Peptide 338 pg/mL (5-100) H 10/13/19 16:04 Total Protein 5.6 g/dL (6.7-8.2) L 10/16/19 04:45 Albumin 2.1 g/dL (3.2-5.5) L 10/16/19 04:45 Globulin 3.5 g/dL (2.1-4.2) 10/16/19 04:45 Albumin/Globulin Ratio 0.6 (1.0-2.2) L 10/16/19 04:45 Lipase 23 U/L (22-51) 09/29/19 02:59 Vitamin B12 251 pg/mL (180-914) 10/02/19 04:45 Folate 5.10 ng/mL (5.90 - >24.8) L 10/02/19 04:45 TSH 3.72 uIU/mL (0.34-5.60) 09/29/19 02:59 Cortisol AM Sample 15.3 ug/dL 10/15/19 07:57 Cortisol 4pm Sample 9.4 ug/dL 10/15/19 16:00 Urine Color YELLOW 09/29/19 02:36 Urine Clarity CLOUDY (CLEAR) 09/29/19 02:36 Urine pH 6.0 PH (5.0-7.5) 09/29/19 02:36 Ur Specific [place] 1.025 (1.002-1.030) 09/29/19 02:36 Urine Protein 100 mg/dL (NEGATIVE) H 09/29/19 02:36 Urine Glucose (UA) 100 mg/dL (NEGATIVE) H 09/29/19 02:36 Urine Ketones NEGATIVE mg/dL (NEGATIVE) 09/29/19 02:36 Urine Occult Blood LARGE (NEGATIVE) H 09/29/19 02:36 Urine Nitrite POSITIVE (NEGATIVE) H 09/29/19 02:36 Urine Bilirubin NEGATIVE (NEGATIVE) 09/29/19 02:36 Urine Urobilinogen 0.2 (NORMAL) E.U./dL (NORMAL) 09/29/19 02:36 Ur Leukocyte Esterase LARGE (NEGATIVE) H 09/29/19 02:36 Urine RBC TNTC /HPF (0-5) H 09/29/19 02:36 Urine WBC >25 /HPF (0-3) H 09/29/19 02:36 Ur Squamous Epith Cells NONE SEEN (<= Few) 09/29/19 02:36 Urine Bacteria Moderate /HPF (None Seen) H 09/29/19 02:36 Ur Microscopic Review INDICATED 09/29/19 02:36 Urine Culture Comments INDICATED 09/29/19 02:36 Nasal Screen MRSA (PCR) NEGATIVE (NEGATIVE) 09/29/19 08:50 Last Dose Date UNKNOWN 10/13/19 16:04 Last Dose Time UNKNOWN 10/13/19 16:04 Digoxin 0.9 ng/mL 10/13/19 16:04 - Procedures Procedures: Procedures REPOSITION RIGHT UPPER FEMUR WITH INT FIX, OPEN APPROACH (09/10/17) Sepsis Event Note (H) - Evaluation Current Stage of Sepsis: Ruled out
--- NOTE | 2019-10-19 17:36 | Discharge Plan ---
"Discharge Plan for SNF / TRICE - Discharge Plan And Transition Orders Problem Reviewed?: Yes Disposition: 03 SNF DC/Xfer Condition: Stable Allergies and Adverse Reactions: Allergies Allergy/AdvReac Type Severity Reaction Status Date / Time rivaroxaban [From Xarelto] Allergy Unknown Verified 09/29/19 02:33 levofloxacin AdvReac Hallucinati Verified 10/04/19 14:20 ons Health Concerns: Admitted with a recurrent urinary infection, had a seizure from fever or levofloxacin use, has a chronic Matthew, is weak and deconditioned but baseline cognitive impairment prevents further rehab. Orthostasis is managed on Midodrin. Plan of Treatment: As above. Care Goals: Stabilization and maintaining current function are the goals. Assessment: Written orders provided to the nursing facility. The is aware of the plan and arrangements. - SNF / TRICE Transition Orders [facility] Discharge Diagnosis: (1) Orthostatic hypotension (2) Generalized weakness (3) UTI, recurrent (4) Chronic atrial fibrillation (5) Hypothyroidism (6) Anemia, folate deficiency (7) Chronic pain (8) Severe protein-calorie malnutrition (9) Chronic indwelling Matthew catheter (10) Cognitive impairment (11) Hyponatremia (12) Dysphagia; needs a soft diet with thin liquids. (13) Delirium, resolved (14) Seizure from fever and Levofloxacin use Medicare Certification Statement: I certify that Post Hospital care home care is medically necessary on a continuing basis for any of the conditions for which she/he is receiving care during hospitalization. Notify PCP of admission and forward orders to primary provider for signature. Weight on admission and: Monthly Other Notification Orders: Call PCP immediately if patient develops dyspnea, chest pain/tightness or edema. House Bowel Program: Yes Additional Bowel Program Orders: If no BM after 2 days, nurse may give M.O.M. 30ml PO PRN and/or ducolax Supp 1 MS and/or RUBIO 250mg P.O., and/or senna 1-2 tabs PO. On day 3 nurse may give repeat above order until residents constipation is resolved. Annual Influenza Vaccine (between Mar 23 and October 20): Yes Two-step PPD per [facility] [phone] or approved exception documents: Yes Treatments & Other Orders: OOB to chair daily, with 2 person assist. MATY hose on every morning, off at bedtime. Medication Orders: PLEASE REFER TO THE DISCHARGE MEDICATION LIST. Insulin Orders?: No - Medications New Prescriptions: Calcium Carbonate [Tums (Calcium Carbonate 500mg)] 500 mg PO TID PRN #20 tablet PRN Reason: Indigestion Digoxin [Lanoxin] 125 mcg PO SUMOWEFR #20 tablet Gabapentin [Neurontin] 300 mg PO TID@0800,1500,2200 #90 capsule haloperidoL [Haldol] 1 mg PO DAILY #30 tablet Hydrocortisone 60 gm TP BID PRN #1 cream..g. PRN Reason: Itching Midodrine 10 mg PO TIDWM #90 tablet polyethylene glycoL 3350 [Miralax] 17 gm PO DAILY #30 packet No122/Iron/Folic Acid [ Multi Tablet] 1 each PO DAILY #30 tablet QUEtiapine [SEROquel] 25 mg PO QPM #30 tablet - Diet Type: Geriatric [facility] Liquids: Thin May have monthly special meal: Yes - Therapies | Activity Rehabilitation Potential: Maintain present ADL Functional Activity: Activity as Tolerated Weight Bearing: May stand, bear weight and pivot"
[2019-10-19] MEDS ORDERED: CALCIUM CARBONATE CHEW 500 MG TABLET PO PRN (17:38)
[2019-10-19] MEDS: LEVOTHYROXINE 25 MCG TABLET PO SCH (20:59)
[2019-10-19] MEDS: QUEtiapine 25 MG TABLET PO SCH (20:59)
[2019-10-20 07:39] VITALS: BP 101/59
--- NOTE | 2019-10-20 07:39 | DISCHARGE SUMMARY ---
"Discharge Summary Admit Date: 09/29/19 Discharge Date: 10/20/19 Discharging Provider: Dr Lali Constantino Primary Care Provider: Unknown Code Status: Do Not Attempt Resuscitation Condition at Discharge: Stable Discharge Disposition: SNF DC/Xfer Discharge Facility Name: [facility] History of Present Illness: From the admission H&P of Dr Iván Maya: This is a 84-year-old male with a past medical history significant for chronic atrial fibrillation who is not on anticoagulation due to hematuria, chronic indwelling Matthew catheter for BPH and history of prostate cancer, hypotension on midodrine, hypothyroidism, recurrent urinary tract infections who presents today from home after his family was concerned that he had been confused for the past 3 days. Patient currently knows that he is at the hospital but he is not sure which one and he believes it is August 2020. He denies really having any acute complaints. He states that he has not slept for the past 3 days and he is not sure why. He has not had any fevers, chills, chest pain, dyspnea, palpitations, abdominal pain, nausea, vomiting. He believes that he has been eating well at home although his family tells me that he really has not been ea ting any food and his liquid intake is suboptimal. They report that over the past 3 days, he could not recognize them and did not know who they were when at baseline he can identify each family member. They also state that he would sit in bed most of the time and would not ambulate. He would even sit in bed and think that he was driving a vehicle to [facility]. His reports that he has been to skilled nurse facilities multiple times over the past year. She states that he does well there and works with physical therapy but that the moment he goes home, he just sits in bed all the time. He does currently have Home Health service and a physical therapy comes on a weekly basis but he does not participate. Family also tells me that he has been losing weight over the past few months. The patient claims that he has difficulty swallowing and occasional pain with swallowing. He does not feel like he is aspirating. The family states that he has never reported to them that he has h ad difficulty swallowing. The patient did recently complete a course of doxycycline for pneumonia last month. They state his urinary catheter was replaced at the end of August. He has an appointment with his urologist later this month. In the emergency department, he was found to be afebrile with temperature of 36.4 C. He was tachycardic and in atrial fibrillation with a heart rate of 95-100. His blood pressure was 101/71. He was not tachypneic and saturating well on room air. His labs were significant for sodium of 131 and a potassium of 3.2. TSH within normal limits. A CT of the head was obtained which showed no acute abnormalities. A urinalysis was also obtained which showed large occult blood, positive nitrites, large Leukocyte Esterase, over 25 WBCs, and moderate bacteria. He was given Ativan in the emergency department for delerium/agitation. He was also started on Levaquin IV for his urinary tract infection. He was placed in Observation for iv fluids and iv antibiotics. - CONSULTS | PROCEDURES Consultations: Aimee Lockwood NP, Palliative Care consult - HOSPITAL COURSE Hospital Course: 1) Acute delerium This was felt to be from infection and dehydration. He required a scheduled ev ening dose of Seroquel and a daytime dose of Haldol, for preventing agitation even once his infection improved. 2) Recurrent UTI Due to the chronic indwelling Amtthew, he has had many UTIs and similar presentations of delerium here. When he had the seizure from Levaquin, he finished a course of Aztreonam. The urine culture was neg. 3) Dehydration He required iv hydration for half of his hospital stay, until it was stopped and several days of Lasix were required. Because of his orthostatic hypotension, Midodrine was used and he was started on new salt tablet q.o.d. 4) Febrile seizure vs seizure from Levofloxacin use On the second day, he had a witnessed seizure and then was post-ictal. He was made an Inpatient, was moved to the ICU and started on Keppra. The head CT had just been done hours previously and was not repeated since when he awoke, the neuro exam was non-focal. He was transferred out of the ICU, kept on Keppra empirically for about a week. Neurology at [facility] was consulted who advised the Keppra was not necessary prison, but to put in his EHR that Levofloxacin caused an adverse reaction. 5) Dysphagia He passed a clinical swallowing eval and needs to be kept on a soft diet with thin liquids. 6) Orthostatic hypotension Midodrine plus qod salt tablets are now required. 7) Generalized weakness He was weak at presentation, having been bedbound for 3 days, and was very weak after his ICU stay. He started working with PT and OT and made some progress. The reported that she could not take care of him at home any longer, bec ause he always plateaued in function then worsened. The SW and emt i/85 worked for weeks to [facility] a [facility] that [facility], which added significant time and delays in his discharge of many day. In his final week, he no longer wanted to participate with PT and OT and it ceased. 8) Cognitive impairment Since he stopped wanting to participate (see #7), and was not agitated using the management in #1, OT performed a mini-mental exam and found him to have cognit paige impairment. With this knowledge, a Palliative Car consult was requested to have Aimee Lockwood NP explain to the that she may want to address his Code Status. He was made a DNR/DNI. 9) Chronic atrial fibrillation Rate was mostly controlled. He cannot be on anticoagulation due to Hx of bleeds and orthostasis. 10) Hypothyroidism He was on replacement while here. 11) Anemia, folate deficiency Hgb was 11 at admission and became as low as 10, and blood levels were checked. He was Folate deficient and started on replacement. 12) Chronic pain His Gabapentin dose controlled his complaint of foot pain. 13) Severe protein-calorie malnutrition This was documented at admission. After starting the soft diet, he had a great appetite. 14) Chronic indwelling Matthew catheter As per Hx 15) Hx BPH As per Hx 16) Hyponatremia Probably related to malnutrition and dehydration when admitted. Because of his orthostatic hypotension, Midodrine was used and he was started on new salt tablet q.o.d. several days before discharge. 17) GERD TUMS prn were ordered. 18) Rash On the day before discharge a pruritic contact rash complaint was managed with topical Hydrocortisone cream. - ALLERGIES Allergies/Adverse Reactions: Allergies Allergy/AdvReac Type Severity Reaction Status Date / Time rivaroxaban [From Xarelto] Allergy Unknown Verified 09/29/19 02:33 levofloxacin AdvReac Hallucinati Verified 10/04/19 14:20 ons - MEDICATIONS Home Medications: Ambulatory Orders Medication Instructions Recorded Confirmed Pravastatin Sodium [Pravachol] 20 mg PO QPM 03/05/19 09/30/19 Tamsulosin [Flomax] 0.4 mg PO DAILY #0 05/21/19 09/30/19 Famotidine 20 mg PO DAILY #30 tablet 09/12/19 09/30/19 Albuterol Sulfate [Albuterol 2 puffs PO Q4H PRN 09/30/19 09/30/19 Sulfate Hfa] Levothyroxine [Synthroid] 50 mcg PO QDAC 09/30/19 09/30/19 Sodium Chloride [Salt Tab] 1 tab PO BID 09/30/19 09/30/19 Calcium Carbonate [Tums (Calcium 500 mg PO TID PRN #20 tablet 10/19/19 Carbonate 500mg)] Digoxin [Lanoxin] 125 mcg PO SUMOWEFR #20 tablet 10/19/19 Gabapentin [Neurontin] 300 mg PO TID@0800,1500,2200 #90 10/19/19 capsule Hydrocortisone 60 gm TP BID PRN #1 cream..g. 10/19/19 Midodrine 10 mg PO TIDWM #90 tablet 10/19/19 No122/Iron/Folic Acid 1 each PO DAILY #30 tablet 10/19/19 [ Multi Tablet] QUEtiapine [SEROquel] 25 mg PO QPM #30 tablet 10/19/19 haloperidoL [Haldol] 1 mg PO DAILY #30 tablet 10/19/19 polyethylene glycoL 3350 [Miralax] 17 gm PO DAILY #30 packet 10/19/19 - PHYSICAL EXAM AT DISCHARGE General Appearance: positive: No acute distress, Alert, Other (Diffuse muscle wasting) Eyes Bilateral: positive: Normal inspection, EOMI ENT: positive: No signs of dehydration, Other (Long hair and long jenkins) Neck: positive: Other (Cannot visualize due to long jenkins) Respiratory: positive: No respiratory distress Cardiovascular: positive: No murmur Abdomen: positive: Non-tender, No distention Skin: positive: Color nml Extremities: positive: No pedal edema Neurologic/Psychiatric: positive: Disoriented to place, Disoriented to time - LABS Result Diagrams: 10/13/19 16:04 10/16/19 04:45 - DIAGNOSTIC IMAGING Diagnostic Imaging Results: Final report reviewed - SEPSIS Current Stage of Sepsis: Ruled out - FOLLOW UP Follow Up: He should be seeing a new provider since he will be living in [place], [place] now. - TIME SPENT Time Spent in Discharge (Minutes): 65"
[2019-10-20] MEDS: GABAPENTIN 300 MG CAPSULE PO SCH (07:40)
[2019-10-20] MEDS: MIDODRINE 2.5 MG TABLET PO SCH (07:41)
[2019-10-20] MEDS: DIGOXIN 125 MCG TABLET PO SCH (07:41)
[2019-10-20] MEDS: PRENATAL VITAMIN TABLET PO SCH (07:42)
[2019-10-20] MEDS: DOCUSATE SODIUM 250 MG CAPSULE PO SCH (07:42)
[2019-10-20] MEDS: polyethylene glycoL 3350 17 GM PACKET PO SCH (07:42)
[2019-10-20] MEDS: LACTOBACILLUS RHAMNOSUS GG CAPSULE PO SCH (07:42)
[2019-10-20] MEDS: SODIUM CHLORIDE 1 GM TABLET PO SCH (07:42)
[2019-10-20] MEDS: ENOXAPARIN 40 MG/0.4 ML SYRINGE SUBQ SCH (08:51)
== END 2019-10-20 08:10 | DRG 698 ==
LOC: EDUNIT# → ED 02:24 → MS2 03:48 → ICU 08:30 → MS2 09-30 14:32
PROVIDERS: ADMIT Internal Medicine; ATTEND Internal Medicine
DX: T83.511A Infection and inflammatory reaction due to indwelling urethral catheter, initial encounter (principal); E43 Unspecified severe protein-calorie malnutrition; R41.0 Disorientation, unspecified; I48.91 Unspecified atrial fibrillation; R56.00 Simple febrile convulsions; I48.20 Chronic atrial fibrillation, unspecified; Z68.1 Body mass index [BMI] 19.9 or less, adult; N40.0 Benign prostatic hyperplasia without lower urinary tract symptoms; E87.1 Hypo-osmolality and hyponatremia; N39.0 Urinary tract infection, site not specified; R31.9 Hematuria, unspecified; I10 Essential (primary) hypertension; Y92.009 Unspecified place in unspecified non-institutional (private) residence as the place of occurrence of the external cause; E86.0 Dehydration; R56.9 Unspecified convulsions; T36.8X5A Adverse effect of other systemic antibiotics, initial encounter; Y92.230 Patient room in hospital as the place of occurrence of the external cause; R13.10 Dysphagia, unspecified; I95.1 Orthostatic hypotension; F03.90 Unspecified dementia, unspecified severity, without behavioral disturbance, psychotic disturbance, mood disturbance, and anxiety; E03.9 Hypothyroidism, unspecified; D52.9 Folate deficiency anemia, unspecified; E87.6 Hypokalemia; R62.7 Adult failure to thrive; E11.9 Type 2 diabetes mellitus without complications; G47.00 Insomnia, unspecified; E78.00 Pure hypercholesterolemia, unspecified; R53.1 Weakness; G89.29 Other chronic pain; M19.90 Unspecified osteoarthritis, unspecified site; M54.9 Dorsalgia, unspecified; K21.9 Gastro-esophageal reflux disease without esophagitis; H54.7 Unspecified visual loss; L25.9 Unspecified contact dermatitis, unspecified cause; H91.90 Unspecified hearing loss, unspecified ear; R74.8 Abnormal levels of other serum enzymes; Z96.649 Presence of unspecified artificial hip joint; Z66 Do not resuscitate; Z51.5 Encounter for palliative care; Z78.1 Physical restraint status; Z75.1 Person awaiting admission to adequate facility elsewhere; Z99.3 Dependence on wheelchair; Z79.51 Long term (current) use of inhaled steroids; Z79.899 Other long term (current) drug therapy; Z86.11 Personal history of tuberculosis; Z87.01 Personal history of pneumonia (recurrent); Z85.46 Personal history of malignant neoplasm of prostate; Z92.3 Personal history of irradiation; Z87.891 Personal history of nicotine dependence
CPT/HCPCS: 36415; 70450; 71045; 76705; 80048; 80053; 80162; 81001; 82040; 82533; 82607; 82746; 83540; 83605; 83690; 83735; 83880; 84100; 84443; 84466; 84484; 85025; 85610; 87086; 87150; 92526; 92610; 93005; 96360; 97110; 97116; 97162; 97166; 97530; 97535; 99223; 99232; 99233; 99283; 99285; A6250; A9270; J1650; J3490; J7120; 81003